=== PATIENT | male | born 1990 | race Caucasian/White ===

== ENCOUNTER → 2016-11-01 | Outpatient (CLI) | payer MEDICAID ==
[~2016-11-01] MED LIST: ALBU1.25 INH; DICY10CA12 PO; DIVA250T12 PO; FLT11013 INH; LEVE500T6 PO; LISI-552 PO; LURA80TA3 PO; PANT40TA3 PO; RT-ALBUINH; SIMV40TA4 PO; SUCR1TAB PO
[2016-11-04 07:20] LABS: SOYBEAN ALLERGEN <0.35 kU/L (<0.35)
[2016-11-04 07:21] LABS: ALLERGEN INTERP SEE FOOTNOTE; COCONUT CL CLASS 0; COCONUT RAST ALLERGEN <0.35 kU/L (<0.35); MILK (COW'S) CS CLASS 2; MILK (COW'S) CT 1.56 H KU/L (0.00-0.34); SHRIMP ALLERGEN <0.35 kU/L (<0.35); SHRIMP CL CLASS 0; SOYBEAN CL CLASS 0; TUNA CL CLASS 0; TUNA CT <0.35 kU/L (<0.35)
[2016-11-09 07:45] LABS: AMOXICILLIN CL 0; AMOXICILLIN CT <0.10 kU/L (<0.35); AMPICILLIN CL 0; AMPICILLIN CT <0.10 kU/L (<0.35); PENICILLIN G CL 0; PENICILLIN G CT <0.10 kU/L (<0.35); PENICILLIN V CT <0.10 kU/L (<0.35)
[2016-11-09 07:46] LABS: PENICILLIN V CL 0
== END ==
LOC: LAB 16:10
PROVIDERS: ATTEND Nurse Practitioner Psychiatric/Mental Health
DX: F25.0 Schizoaffective disorder, bipolar type (principal); Z79.899 Other long term (current) drug therapy
CPT/HCPCS: 36415; 80164; 86003

== ENCOUNTER 2016-11-28 23:52 | Emergency (ER) | payer MEDICAID ==
[~2016-11-28] VITALS: Ht 177.8 cm; Wt 83.9 kg
[2016-11-29] MEDS ORDERED: ALBU1.25 INH (00:06)
[2016-11-29] MEDS ORDERED: SUCR1TAB PO (00:06)
[2016-11-29] MEDS ORDERED: DIVA250T12 PO (00:06)
[2016-11-29] MEDS ORDERED: LURA80TA3 PO (00:06)
[2016-11-29] MEDS ORDERED: DICY10CA12 PO (00:06)
[2016-11-29] MEDS ORDERED: FLT11013 INH (00:06)
[2016-11-29] MEDS ORDERED: RT-ALBUINH (00:06)
[2016-11-29] MEDS ORDERED: LEVE500T6 PO (00:06)
[2016-11-29] MEDS ORDERED: SIMV40TA4 PO (00:06)
[2016-11-29] MEDS ORDERED: PANT40TA3 PO (00:06)
[2016-11-29] MEDS ORDERED: LISI-552 PO (00:06)
--- NOTE | 2016-11-29 00:10 | ED General ---
General Stated Complaint: FLUID IN LUNGS Source of Information: Patient, EMS Exam Limitations: No Limitations History of Present Illness Time Seen by Provider: 23:55 Initial Comments Arrives via EMS with report of not feeling well for 2 weeks. States that he was not even able to move a couch today without feeling weak. He takes a variety of medicines and states that he has been taking those. He has not been taking his inhaler because he has felt too bad to do that. Seen by his provider last week and told that he probably had the flu or something but he did not get better. He called EMS tonight because he was just feeling so bad. Arise via EMS with IV established and 1 L normal saline running. Timing/Duration: Changing Over Time, Other (2 weeks) Severity: Moderate Associated Systoms: No Chest Pain, Cough, No Fever/Chills, No Nausea/Vomiting, No Shortness of Air, Weakness Allergies and Home Medications Allergies Coded Allergies: No Known Drug Allergies (Unverified , 11/29/16) Home Medications Albuterol Sulfate 1.25 Mg/3 Ml Vial.neb, 1 INH INH UD, #75 (Reported) Albuterol Sulfate 1 Puff Puff, #9 (Reported) Dicyclomine HCl 10 Mg Capsule, 1 CAP PO UD, #120 (Reported) Divalproex Sodium 250 Mg Tab.er.24h, 1 TAB PO UD, #90 (Reported) Fluticasone Propionate 1 Ea Aero, 1 INH INH UD, #12 (Reported) Levetiracetam 500 Mg Tablet, 1 TAB PO BID, #60 (Reported) Lisinopril 20 Mg Tablet, 1 TAB PO UD, #30 (Reported) Lurasidone HCl 80 Mg Tablet, 1 TAB PO UD, #30 (Reported) Pantoprazole Sodium 40 Mg Tablet.dr, 1 TAB PO UD, #30 (Reported) Simvastatin 40 Mg Tablet, 1 TAB PO UD, #30 (Reported) Sucralfate 1 Gm Tablet, 1 TAB PO BID, #60 (Reported) Constitutional: see HPI, No chills, No fever, weakness EENTM: nose congestion, No ear pain, No throat pain Respiratory: see HPI, cough, short of breath Cardiovascular: No chest pain Gastrointestinal: loss of appetite, No nausea, No vomiting Genitourinary: No dysuria, No pain Musculoskeletal: see HPI, muscle weakness Skin: no symptoms reported Psychiatric/Neurological: See HPI, Emotional Problems All Other Systems Reviewed Negative Unless Noted: Yes Past Bovfptg-Psfnhl-Yvgcbn Hx Patient Social History Alcohol Use: Denies Use Recreational Drug Use: No Smoking Status: Never a Smoker Recent Foreign Travel: No Contact w/Someone Who Travel: No Surgeries HX Surgeries: No Respiratory Hx Respiratory Disorders: Yes Respiratory Disorders: Asthma Cardiovascular Cardiac Disorders: High Cholesterol, Hypertension Neurological Hx Neurological Disorders: No Genitourinary Hx Genitourinary Disorders: No Gastrointestinal Hx Gastrointestinal Disorders: No Musculoskeletal Hx Musculoskeletal Disorders: No Endocrine Hx Endocrine Disorders: No HEENT HX ENT Disorders: No Cancer Hx Cancer: No Psychosocial Hx Psychiatric Problems: Yes Behavioral Health Disorders: Bipolar Reviewed Nursing Assessment Reviewed/Agree w Nursing PMH: Yes Family Medical History Significant Family History: No Pertinent Family Hx Physical Exam Vital Signs Vital Sign - Last 12Hours 11/29/16 00:07 Temp 98.8 Pulse 104 Resp 18 B/P (MAP) 123/88 Pulse Ox 95 O2 Delivery Room Air Capillary Refill : General Appearance: No Apparent Distress, WD/WN HEENT: PERRL/EOMI, Pharynx Normal Neck: Non Tender, Supple Respiratory: Lungs Clear, Normal Breath Sounds Cardiovascular: Regular Rate, Rhythm, No Murmur Gastrointestinal: Non Tender, Soft Back: Normal Inspection, No CVA Tenderness, No Vertebral Tenderness Extremity: Non Tender, No Calf Tenderness Neurologic/Psychiatric: Alert, Oriented x3 Skin: Normal Color, Warm/Dry Progress/Results/Core Measures Results/Orders Lab Results Laboratory Tests Test 11/28/16 23:55 11/29/16 00:58 Range/Units White Blood Count 10.2 4.3-11.0 10^3/uL Red Blood Count 4.92 4.35-5.85 10^6/uL Hemoglobin 13.7 13.3-17.7 G/DL Hematocrit 41 40-54 % Mean Corpuscular Volume 84 80-99 FL Mean Corpuscular Hemoglobin 28 25-34 PG Mean Corpuscular Hemoglobin Concent 33 32-36 G/DL Red Cell Distribution Width 14.4 10.0-14.5 % Platelet Count 298 130-400 10^3/uL Mean Platelet Volume 9.4 7.4-10.4 FL Neutrophils (%) (Auto) 58 42-75 % Lymphocytes (%) (Auto) 24 12-44 % Monocytes (%) (Auto) 17 H 0-12 % Eosinophils (%) (Auto) 1 0-10 % Basophils (%) (Auto) 1 0-10 % Neutrophils # (Auto) 5.9 1.8-7.8 X 10^3 Lymphocytes # (Auto) 2.4 1.0-4.0 X 10^3 Monocytes # (Auto) 1.8 H 0.0-1.0 X 10^3 Eosinophils # (Auto) 0.1 0.0-0.3 10^3/uL Basophils # (Auto) 0.1 0.0-0.1 10^3/uL Sodium Level 136 135-145 MMOL/L Potassium Level 3.5 L 3.6-5.0 MMOL/L Chloride Level 103 98-107 MMOL/L Carbon Dioxide Level 21 21-32 MMOL/L Anion Gap 12 5-14 MMOL/L Blood Urea Nitrogen 21 H 7-18 MG/DL Creatinine 1.06 0.60-1.30 MG/DL Estimat Glomerular Filtration Rate > 60 BUN/Creatinine Ratio 20 Glucose Level 88 70-105 MG/DL Calcium Level 9.2 8.5-10.1 MG/DL Total Bilirubin 0.8 0.1-1.0 MG/DL Aspartate Amino Transf (AST/SGOT) 25 5-34 U/L Alanine Aminotransferase (ALT/SGPT) 31 0-55 U/L Alkaline Phosphatase 57 40-136 U/L C-Reactive Protein High Sensitivity 1.17 H 0.00-0.50 MG/DL Total Protein 7.3 6.4-8.2 G/DL Albumin 4.5 3.2-4.5 G/DL Urine Color YELLOW Urine Clarity CLEAR Urine pH 5 5-9 Urine Specific [place] 1.010 L 1.016-1.022 Urine Protein NEGATIVE NEGATIVE Urine Glucose (UA) NEGATIVE NEGATIVE Urine Ketones NEGATIVE NEGATIVE Urine Nitrite NEGATIVE NEGATIVE Urine Bilirubin NEGATIVE NEGATIVE Urine Urobilinogen NORMAL NORMAL MG/DL Urine Leukocyte Esterase NEGATIVE NEGATIVE Urine RBC (Auto) NEGATIVE NEGATIVE Urine RBC NONE /HPF Urine WBC NONE /HPF Urine Squamous Epithelial Cells 0-2 /HPF Urine Crystals NONE /LPF Urine Bacteria NEGATIVE /HPF Urine Casts NONE /LPF Urine Mucus NEGATIVE /LPF Urine Culture Indicated NO My Orders Orders - KARLENE WALTERS MD Cbc With Automated Diff (11/29/16 00:02) Comprehensive Metabolic Panel (11/29/16 00:02) Hs C Reactive Protein (11/29/16 00:02) Ua Culture If Indicated (11/29/16 00:02) Chest Pa/Lat (2 View) (11/29/16 00:02) Vital Signs/I&O Vital Sign - Last 12Hours 11/29/16 00:07 Temp 98.8 Pulse 104 Resp 18 B/P (MAP) 123/88 Pulse Ox 95 O2 Delivery Room Air Progress Note : Progress Note Seen and evaluated. IV by EMS. We will complete normal saline 1 L bolus initiated by EMS. Labs and chest x-ray ordered. Patient states that he is unable provide urine sample at this time. Monitor patient. 0050: UA obtained. 0120: Fluids complete. No acute findings on labs, x-ray or UA. Discharged home with return precautions. Patient verbalize understanding instructions and agreement with plan. Departure Impression Impression: Primary Impression: Viral syndrome Disposition: HOME, SELF-CARE Condition: Stable Departure-Patient Inst. Decision time for Depature: 01:20 Referrals: GEN DAVIS DO (PCP) Primary Care Physician SIRENA ABDALLA APRN (Family) Primary Care Physician Patient Instructions: VIRAL SYNDROME Add. Discharge Instructions: Drink plenty of fluids. Continue home medications as directed. Use inhalers as needed and as prescribed. Follow-up with your in a few days for recheck. Return for worse pain, fever, vomiting, weakness, rhythm problems or other concerns as needed. KARLENE WALTERS MD Nov 29, 2016 00:10
[2016-11-29 00:14] LABS: BASOPHILS # (AUTO) 0.1 10^3/uL (0.0-0.1); BASOPHILS % (AUTO) 1 % (0-10); EOSINOPHILS # (AUTO) 0.1 10^3/uL (0.0-0.3); EOSINOPHILS % (AUTO) 1 % (0-10); LYMPHOCYTES # (AUTO) 2.4 X 10^3 (1.0-4.0); LYMPHOCYTES % (AUTO) 24 % (12-44); MEAN CORPUSCULAR HEMOGLOBIN 28 PG (25-34); MEAN CORPUSCULAR HGB CONC 33 G/DL (32-36); MEAN CORPUSCULAR VOLUME 84 FL (80-99); MEAN PLATELET VOLUME 9.4 FL (7.4-10.4); MONOCYTES # (AUTO) 1.8 X 10^3 (0.0-1.0); MONOCYTES % (AUTO) 17 % (0-12); NEUTROPHILS # (AUTO) 5.9 X 10^3 (1.8-7.8); NEUTROPHILS % (AUTO) 58 % (42-75); PLATELET COUNT 298 10^3/uL (130-400); RED BLOOD COUNT 4.92 10^6/uL (4.35-5.85); RED CELL DISTRIBUTION WIDTH 14.4 % (10.0-14.5); WHITE BLOOD COUNT 10.2 10^3/uL (4.3-11.0)
[2016-11-29 00:37] LABS: ALANINE AMINOTRANSFERASE 31 U/L (0-55); ALBUMIN 4.5 G/DL (3.2-4.5); ANION GAP 12 MMOL/L (5-14); ASPARTATE AMINO TRANSFERASE 25 U/L (5-34); BILIRUBIN,TOTAL 0.8 MG/DL (0.1-1.0); BLOOD UREA NITROGEN 21 MG/DL (7-18); BUN/CREATININE RATIO 20; CALCIUM 9.2 MG/DL (8.5-10.1); CARBON DIOXIDE 21 MMOL/L (21-32); CHLORIDE 103 MMOL/L (98-107); CREATININE SERUM 1.06 MG/DL (0.60-1.30); GFR ESTIMATED > 60; GLUCOSE 88 MG/DL (70-105); POTASSIUM 3.5 MMOL/L (3.6-5.0); SODIUM 136 MMOL/L (135-145); TOTAL PROTEIN 7.3 G/DL (6.4-8.2); hs C REACTIVE PROTEIN 1.17 MG/DL (0.00-0.50)
[2016-11-29 01:09] LABS: BILIRUBIN,URINE NEGATIVE (NEGATIVE); KETONES,URINE NEGATIVE (NEGATIVE); LEUKOCYTE ESTERASE ,URINE NEGATIVE (NEGATIVE); NITRITE,URINE NEGATIVE (NEGATIVE); PH,URINE 5 (5-9); PROTEIN,URINE NEGATIVE (NEGATIVE); UROBILINOGEN,URINE NORMAL (NORMAL)
[2016-11-29 01:15] LABS: SQUAMOUS EPITHELIAL CELL,UR 0-2 /HPF
[2016-11-29 01:35] VITALS: BP 125/79
--- NOTE | 2016-11-29 08:09 | Diagnostic Imaging Report ---
PA and lateral views of the chest Indication: Patient feels unwell Findings: The lungs are clear. The heart size is normal. There is no effusion or pneumothorax The mediastinum and robinson appear unremarkable. Impression: Unremarkable study. Dictated by: Dictated on workstation # [id number]
== END 2016-11-29 01:33 | disposition home or self-care (01) ==
LOC: EDUNIT# 23:52 → ER 23:53
DX: B34.9 Viral infection, unspecified (principal); I10 Essential (primary) hypertension; Z79.899 Other long term (current) drug therapy
CPT/HCPCS: 36415; 71020; 80053; 81000; 85025; 86141; 99283

== ENCOUNTER 2017-05-18 23:01 | Emergency (ER) | payer MEDICAID ==
[~2017-05-18] VITALS: Ht 170.2 cm; Wt 81.6 kg
[2017-05-18] MEDS ORDERED: NS IV 1000 ML 1,000 ML IV ONE (23:07)
--- OUTSIDE RECORDS SUMMARY | 2017-05-18 23:07 | XMS REPORT ---
Author Author SIRENA ABDALLA [facility] Address [address] [place] [address] Care Team Providers Care Blood Donor Unit Assistant Name Role Phone SIRENA ABDALLA Unavailable PROBLEMS Type Condition ICD9-CM Code [id number] Code Onset Dates Condition Status SNOMED Code Problem Chronic nausea R11.0 Active 981253136 Problem Bipolar 1 disorder, depressed F31.9 Active 19342567 Problem Seizure disorder G40.909 Active 588921219 Problem Moderate persistent asthma without complication J45.40 Active 895310790 Problem Mild intermittent asthma without complication J45.20 Active 000900758 Problem Gastroesophageal reflux disease without esophagitis K21.9 Active 134786450 Problem Encounter for dental examination and cleaning without abnormal findings Z01.20 Active 511907068 Problem Bipolar 1 disorder with moderate south F31.12 Active 78154112 Problem Schizoaffective disorder, bipolar type F25.0 Active 52674868 Problem Benign essential hypertension I10 Active 8214452 Problem Sleep disturbance G47.9 Active 31826377 Problem Auditory hallucination R44.0 Active 20336211 ALLERGIES No Information SOCIAL HISTORY Never Assessed PLAN OF CARE VITAL SIGNS MEDICATIONS Unknown Medications RESULTS No Results PROCEDURES No Known procedures IMMUNIZATIONS No Known Immunizations MEDICAL (GENERAL) HISTORY Type Description Date Medical History asthma - mild intermittent ( PFT 10/2016 Normal) Medical History hypertension Medical History seizures- childhood Medical History bipolar disorder- [facility] Medical History GERD Medical History auditory hallucinations- Surgical History hernia repair/ Inguinal ( child) Surgical History EGD- 2015 Hospitalization History [facility] for two to three days. 08/2016
--- OUTSIDE RECORDS SUMMARY | 2017-05-18 23:07 | XMS REPORT ---
Author Author [facility] Address [address] [place] [address] Care Team Providers Care Wellness Program Administrator Name Role Phone SIRENA ABDALLA Unavailable PROBLEMS Type Condition ICD9-CM Code TRR02-AG Code Onset Dates Condition Status SNOMED Code Problem Chronic nausea R11.0 Active 600516267 Problem Bipolar 1 disorder, depressed F31.9 Active 53130621 Problem Seizure disorder G40.909 Active 868628734 Problem Moderate persistent asthma without complication J45.40 Active 560075787 Problem Mild intermittent asthma without complication J45.20 Active 458764980 Problem Gastroesophageal reflux disease without esophagitis K21.9 Active 571337342 Problem Encounter for dental examination and cleaning without abnormal findings Z01.20 Active 560566367 Problem Bipolar 1 disorder with moderate south F31.12 Active 35834148 Problem Schizoaffective disorder, bipolar type F25.0 Active 20330323 Problem Benign essential hypertension I10 Active 6473443 Problem Sleep disturbance G47.9 Active 80511909 Problem Auditory hallucination R44.0 Active 59972701 ALLERGIES No Information SOCIAL HISTORY Never Assessed PLAN OF CARE VITAL SIGNS MEDICATIONS Unknown Medications RESULTS No Results PROCEDURES Procedure Date Ordered Result Body Site PULMONARY FUNCTION TEST (IN-HOUSE) 2016-10-26 N/A RESPIRATORY FLOW VOLUME LOOP October 26, 2016 SPIROMETRY October 26, 2016 NEB/MDI DEMO October 26, 2016 IMMUNIZATIONS No Known Immunizations MEDICAL (GENERAL) HISTORY Type Description Date Medical History asthma - mild intermittent ( PFT 10/2016 Normal) Medical History hypertension Medical History seizures- childhood Medical History bipolar disorder- [facility] Medical History GERD Medical History auditory hallucinations- Surgical History hernia repair/ Inguinal ( child) Surgical History EGD- / 2015 Hospitalization History [facility] for two to three days. 08/2016
--- OUTSIDE RECORDS SUMMARY | 2017-05-18 23:07 | XMS REPORT ---
Author Author SIRENA ABDALLA [facility] Address [address] [place] [address] Care Team Providers Care Glazier Stained Glass Name Role Phone SIRENA ABDALLA Unavailable PROBLEMS Type Condition ICD9-CM Code ITT03-DV Code Onset Dates Condition Status SNOMED Code Problem Chronic nausea R11.0 Active 631051045 Problem Bipolar 1 disorder, depressed F31.9 Active 50608692 Problem Seizure disorder G40.909 Active 786187365 Problem Moderate persistent asthma without complication J45.40 Active 608348996 Problem Mild intermittent asthma without complication J45.20 Active 928012438 Problem Gastroesophageal reflux disease without esophagitis K21.9 Active 945180308 Problem Encounter for dental examination and cleaning without abnormal findings Z01.20 Active 462717632 Problem Bipolar 1 disorder with moderate south F31.12 Active 94354074 Problem Schizoaffective disorder, bipolar type F25.0 Active 84792085 Problem Benign essential hypertension I10 Active 3890118 Problem Sleep disturbance G47.9 Active 47403892 Problem Auditory hallucination R44.0 Active 79296914 ALLERGIES Substance Reaction Event Type Date Status Latuda Unknown Drug Allergy Sep, Active Penicillamine Unknown Drug Allergy Sep, Active SOCIAL HISTORY Never Assessed PLAN OF CARE Activity Details Follow Up 1 Week Reason:fasting labs ( follow up after PFT) VITAL SIGNS Height 68 in 2016-10-04 Weight 183.7 lbs 2016-10-04 Temperature 97.9 degrees Fahrenheit 2016-10-04 Heart Rate 90 bpm 2016-10-04 Respiratory Rate 16 2016-10-04 BMI 27.93 kg/m2 2016-10-04 Blood pressure systolic 128 mmHg 2016-10-04 Blood pressure diastolic 82 mmHg 2016-10-04 MEDICATIONS Medication Instructions Dosage Frequency Start Date End Date Duration Status Zyrtec Allergy 10 MG Active Lisinopril 20 mg Orally Once a day 1 tablet 24h Active Keppra 500 mg Orally every 12 hrs 1 tablet 12h Active Pantoprazole Sodium 40 mg Orally Once a day 1 tablet 24h Active Bentyl 10 mg Orally Four times a day 1 capsule 6h Active Albuterol Sulfate HFA 108 (90 Base) MCG/ACT Inhalation 3 times a day 2 puffs as needed 8h Active Zocor 10 mg Orally Once a day as needed for nausea 1 tablet Active Latuda 80 MG Orally Once a day 1 tablet with food 24h Active Carafate 1 GM Orally Twice a day 1 tablet on an empty stomach 12h Active Zofran 8 MG Orally Once a day 1 tablet 24h Active Depakote 250 MG Orally 3 times a day 1 tablet 8h Active RESULTS No Results PROCEDURES No Known procedures IMMUNIZATIONS No Known Immunizations MEDICAL (GENERAL) HISTORY Type Description Date Medical History asthma - mild intermittent ( PFT 10/2016 Normal) Medical History hypertension Medical History seizures- childhood Medical History bipolar disorder- [facility] Medical History GERD Medical History auditory hallucinations- Surgical History hernia repair/ Inguinal ( child) Surgical History EGD- 2015 Hospitalization History [facility] for two to three days. 08/2016
--- OUTSIDE RECORDS SUMMARY | 2017-05-18 23:07 | XMS REPORT | Continuity of Care Document ---
Demographics Preferred Language Unknown Marital Status Unknown Oriental Orthodox Affiliation Unknown Race Unknown Ethnic Group Unknown Author Author [facility] Organization [facility] - Address Unknown Phone Unavailable Allergies Medications Problems Procedures Results Encounters ACCT No. Visit Date/Time Discharge Status Pt. Type Provider Facility Loc./Unit Complaint [id number] 05/03/2014 07:19:00 ACT Unknown [id number] 04/23/2014 07:20:00 ACT Unknown [id number] 01/03/2014 07:20:00 ACT Unknown [id number] 12/25/2013 07:16:00 ACT Unknown [id number] 09/25/2013 07:16:00 ACT Unknown [id number] 09/24/2013 10:57:00 ACT Unknown
[2017-05-18] MEDS ORDERED: ONDANSETRON 4 MG/2 ML (SDV) Z0FRAN IVP ONE (23:15)
[2017-05-18] MEDS ORDERED: FAMOTIDINE 20MG/2ML IV (PEPCID) IVP ONE (23:15)
[2017-05-18 23:29] LABS: BILIRUBIN,URINE NEGATIVE (NEGATIVE); KETONES,URINE NEGATIVE (NEGATIVE); LEUKOCYTE ESTERASE ,URINE NEGATIVE (NEGATIVE); NITRITE,URINE NEGATIVE (NEGATIVE); PH,URINE 6 (5-9); PROTEIN,URINE NEGATIVE (NEGATIVE); UROBILINOGEN,URINE NORMAL (NORMAL)
[2017-05-18 23:30] LABS: BASOPHILS % (AUTO) 1 % (0-10); EOSINOPHILS # (AUTO) 0.2 10^3/uL (0.0-0.3); EOSINOPHILS % (AUTO) 2 % (0-10); LYMPHOCYTES # (AUTO) 3.5 X 10^3 (1.0-4.0); LYMPHOCYTES % (AUTO) 40 % (12-44); MEAN CORPUSCULAR HEMOGLOBIN 29 PG (25-34); MEAN CORPUSCULAR HGB CONC 34 G/DL (32-36); MEAN CORPUSCULAR VOLUME 86 FL (80-99); MEAN PLATELET VOLUME 9.7 FL (7.4-10.4); MONOCYTES # (AUTO) 0.8 X 10^3 (0.0-1.0); MONOCYTES % (AUTO) 9 % (0-12); NEUTROPHILS # (AUTO) 4.2 X 10^3 (1.8-7.8); NEUTROPHILS % (AUTO) 48 % (42-75); PLATELET COUNT 292 10^3/uL (130-400); RED CELL DISTRIBUTION WIDTH 14.9 % (10.0-14.5); WHITE BLOOD COUNT 8.8 10^3/uL (4.3-11.0)
[2017-05-18 23:48] LABS: ALANINE AMINOTRANSFERASE 22 U/L (0-55); ALBUMIN 4.8 GM/DL (3.2-4.5); ANION GAP 14 MMOL/L (5-14); ASPARTATE AMINO TRANSFERASE 20 U/L (5-34); BILIRUBIN,TOTAL 0.5 MG/DL (0.1-1.0); BLOOD UREA NITROGEN 14 MG/DL (7-18); BUN/CREATININE RATIO 14; CALCIUM 10.2 MG/DL (8.5-10.1); CARBON DIOXIDE 22 MMOL/L (21-32); CHLORIDE 105 MMOL/L (98-107); CREATININE SERUM 1.01 MG/DL (0.60-1.30); GFR ESTIMATED > 60; GLUCOSE 99 MG/DL (70-105); LIPASE 36 U/L (8-78); MAGNESIUM 2.2 MG/DL (1.8-2.4); POTASSIUM 3.4 MMOL/L (3.6-5.0); SODIUM 141 MMOL/L (135-145); TOTAL PROTEIN 8.1 GM/DL (6.4-8.2)
[2017-05-19] MEDS ORDERED: RX-ONDANSETRON 4 MG ODT (ZOFRAN) PPK #4 SL STA (00:08)
[2017-05-19] MEDS ORDERED: OMEP20CA12 PO (00:14)
--- NOTE | 2017-05-19 00:17 | ED General ---
General Chief Complaint: General Problems/Pain Stated Complaint: NAUSEA Nursing Triage Note: PT TO ED 7 PER EMS FOR C/O NAUSEA ONSET LAST NOC AFTER TAKING LATUDA. REPORTS HE'S ALLERGIC TO LATUDA BUT WAS PRESCRIBED A LOWER DOSE TO TAKE. ALSO REPORTS SOME C/O ABD PAIN. PER EMS, PT HAS HX OF HIATAL HERNIA BUT IS NONCOMPLIANT W/ MEDICATION Nursing Sepsis Screen: No Definite Risk Source of Information: Patient Exam Limitations: No Limitations Allergies and Home Medications Allergies Coded Allergies: No Known Drug Allergies (Unverified , 11/29/16) Home Medications Albuterol Sulfate 1.25 Mg/3 Ml Vial.neb, 1 INH INH UD, #75 (Reported) Albuterol Sulfate 1 Puff Puff, #9 (Reported) Dicyclomine HCl 10 Mg Capsule, 1 CAP PO UD, #120 (Reported) Divalproex Sodium 250 Mg Tab.er.24h, 1 TAB PO UD, #90 (Reported) Fluticasone Propionate 1 Ea Aero, 1 INH INH UD, #12 (Reported) Levetiracetam 500 Mg Tablet, 1 TAB PO BID, #60 (Reported) Lisinopril 20 Mg Tablet, 1 TAB PO UD, #30 (Reported) Lurasidone HCl 80 Mg Tablet, 1 TAB PO UD, #30 (Reported) Omeprazole 20 Mg Capsule.dr, 20 MG PO DAILY, #30 Prescribed by: HESHAM CABRERA on 05/19/17 0014 Pantoprazole Sodium 40 Mg Tablet.dr, 1 TAB PO UD, #30 (Reported) Simvastatin 40 Mg Tablet, 1 TAB PO UD, #30 (Reported) Sucralfate 1 Gm Tablet, 1 TAB PO BID, #60 (Reported) Past Xkyvied-Qemxxl-Niyajx Hx Patient Social History Alcohol Use: Denies Use Recreational Drug Use: No Smoking Status: Never a Smoker 2nd Hand Smoke Exposure: No Recent Foreign Travel: No Contact w/Someone Who Travel: No Recent Infectious Disease Expo: No Recent Hopitalizations: No Physical Abuse: No Sexual Abuse: No Mistreated: No Fear: No Immunizations Up To Date Tetanus Booster (TDap): Unknown Seasonal Allergies Seasonal Allergies: No Surgeries History of Surgeries: No Respiratory History of Respiratory Disorde: Yes Respiratory Disorders: Asthma Cardiovascular History of Cardiac Disorders: Yes Cardiac Disorders: High Cholesterol, Hypertension Neurological History of Neurological Disord: No Neurological Disorders: Seizure Disorder Reproductive System Hx Reproductive Disorders: No Gastrointestinal History of Gastrointestinal Di: Yes Gastrointestinal Disorders: Gastroesophageal Reflux Musculoskeletal History of Musculoskeletal Dis: No Endocrine History of Endocrine Disorders: No Cancer History of Cancer: No Psychosocial History of Psychiatric Problem: Yes Behavioral Health Disorders: Bipolar Suicide Risk Score: 0 Integumentary History of Skin or Integumenta: No Blood Transfusions History of Blood Disorders: No Family Medical History Significant Family History: No Pertinent Family Hx Physical Exam Vital Signs Vital Sign - Last 12Hours 05/18/17 23:02 Temp 98.1 Pulse 109 Resp 20 B/P (MAP) 140/107 Pulse Ox 99 O2 Delivery Room Air Capillary Refill : Less Than 3 Seconds Progress/Results/Core Measures Results/Orders Lab Results Laboratory Tests Test 05/18/17 23:10 05/18/17 23:15 Range/Units Urine Color YELLOW Urine Clarity CLEAR Urine pH 6 5-9 Urine Specific [place] 1.025 H 1.016-1.022 Urine Protein NEGATIVE NEGATIVE Urine Glucose (UA) NEGATIVE NEGATIVE Urine Ketones NEGATIVE NEGATIVE Urine Nitrite NEGATIVE NEGATIVE Urine Bilirubin NEGATIVE NEGATIVE Urine Urobilinogen NORMAL NORMAL MG/DL Urine Leukocyte Esterase NEGATIVE NEGATIVE Urine RBC (Auto) NEGATIVE NEGATIVE Urine RBC NONE /HPF Urine WBC NONE /HPF Urine Squamous Epithelial Cells NONE /HPF Urine Crystals NONE /LPF Urine Bacteria NEGATIVE /HPF Urine Casts NONE /LPF Urine Mucus NEGATIVE /LPF Urine Culture Indicated NO White Blood Count 8.8 4.3-11.0 10^3/uL Red Blood Count 5.20 4.35-5.85 10^6/uL Hemoglobin 15.2 13.3-17.7 G/DL Hematocrit 45 40-54 % Mean Corpuscular Volume 86 80-99 FL Mean Corpuscular Hemoglobin 29 25-34 PG Mean Corpuscular Hemoglobin Concent 34 32-36 G/DL Red Cell Distribution Width 14.9 H 10.0-14.5 % Platelet Count 292 130-400 10^3/uL Mean Platelet Volume 9.7 7.4-10.4 FL Neutrophils (%) (Auto) 48 42-75 % Lymphocytes (%) (Auto) 40 12-44 % Monocytes (%) (Auto) 9 0-12 % Eosinophils (%) (Auto) 2 0-10 % Basophils (%) (Auto) 1 0-10 % Neutrophils # (Auto) 4.2 1.8-7.8 X 10^3 Lymphocytes # (Auto) 3.5 1.0-4.0 X 10^3 Monocytes # (Auto) 0.8 0.0-1.0 X 10^3 Eosinophils # (Auto) 0.2 0.0-0.3 10^3/uL Basophils # (Auto) 0.0 0.0-0.1 10^3/uL Sodium Level 141 135-145 MMOL/L Potassium Level 3.4 L 3.6-5.0 MMOL/L Chloride Level 105 98-107 MMOL/L Carbon Dioxide Level 22 21-32 MMOL/L Anion Gap 14 5-14 MMOL/L Blood Urea Nitrogen 14 7-18 MG/DL Creatinine 1.01 0.60-1.30 MG/DL Estimat Glomerular Filtration Rate > 60 BUN/Creatinine Ratio 14 Glucose Level 99 70-105 MG/DL Calcium Level 10.2 H 8.5-10.1 MG/DL Magnesium Level 2.2 1.8-2.4 MG/DL Total Bilirubin 0.5 0.1-1.0 MG/DL Aspartate Amino Transf (AST/SGOT) 20 5-34 U/L Alanine Aminotransferase (ALT/SGPT) 22 0-55 U/L Alkaline Phosphatase 67 40-136 U/L Total Protein 8.1 6.4-8.2 GM/DL Albumin 4.8 H 3.2-4.5 GM/DL Lipase 36 8-78 U/L My Orders Orders - HESHAM MCCORMICK MD Cbc With Automated Diff (05/18/17 23:07) Comprehensive Metabolic Panel (05/18/17 23:07) Lipase (05/18/17 23:07) Magnesium (05/18/17 23:07) Ua Culture If Indicated (05/18/17 23:07) Chest Pa/Lat (2 View) (05/18/17 23:07) Saline Lock/Iv-Start (05/18/17 23:07) Ns Iv 1000 Ml (Sodium Chloride 0.9%) (05/18/17 23:07) Famotidine Injection (Pepcid Injection) (05/18/17 23:15) Ondansetron Injection (Zofran Injectio (05/18/17 23:15) Rx-Ondansetron Po (Rx-Zofran Po) (05/19/17 00:08) Medications Given in ED Current Medications Medications Dose Ordered Sig/Nadine Route Start Time Stop Time Status Last Admin Dose Admin Famotidine 20 mg ONCE ONCE IVP 05/18/17 23:15 05/18/17 23:16 DC 05/18/17 20:17 20 MG Ondansetron HCl 8 mg ONCE ONCE IVP 05/18/17 23:15 05/18/17 23:16 DC 05/18/17 20:17 8 MG Sodium Chloride 1,000 ml @ 0 mls/hr Q0M ONCE IV 05/18/17 23:07 05/18/17 23:11 DC 05/18/17 23:17 1,000 MLS/HR Vital Signs/I&O Vital Sign - Last 12Hours 05/18/17 05/19/17 23:02 00:22 Temp 98.1 Pulse 109 98 Resp 20 20 B/P (MAP) 140/107 Pulse Ox 99 99 O2 Delivery Room Air Room Air Blood Pressure Mean: 118 Departure Impression Impression: Primary Impression: Generalized abdominal pain Additional Impressions: Nausea Hiatal hernia Disposition: HOME, SELF-CARE Condition: Improved Departure-Patient Inst. Decision time for Depature: 00:00 Referrals: GEN DAVIS DO (PCP) Primary Care Physician SIRENA ABDALLA APRN (Family) Primary Care Physician Patient Instructions: Acute Abdomen (Belly Pain), Hiatal Hernia Add. Discharge Instructions: Use the Zofran (ondansetron) provided in the emergency room every 4 hours as needed for nausea and vomiting. Dissolve under the tongue. Add omeprazole as prescribed for treatment of your hiatal hernia. Avoid the following: Eating large meals, eating close to bedtime, caffeine, carbonation, chocolate, citrus fruits and juices, tomato products, spicy foods, fatty or greasy foods, mints, NSAID medications such as ibuprofen or naproxen, or anything else you know irritates your stomach. Continue use of your Carafate ( sucralfate). Carafate may work better if you crush it and mix it with a small amount of water to make a slurry. Use Carafate 30 minutes before eating or drinking and 30 minutes before bedtime. Follow-up with your primary care provider within the next week. Return to the ER if symptoms worsen. All discharge instructions reviewed with patient and/or family. Voiced understanding. Scripts Omeprazole (Omeprazole) 20 Mg Capsule. 20 MG PO DAILY, #30 CAP Prov: HESHAM MCCORMICK MD 05/19/17 HESHAM MCCORMICK MD May 19, 2017 00:17
[2017-05-19 00:22] VITALS: BP 128/78
--- NOTE | 2017-05-19 07:22 | Diagnostic Imaging Report ---
PA and lateral views of the chest. COMPARISON: 11/29/16. INDICATION: Nausea. FINDINGS: The lungs are clear. The heart size is normal. No effusion or pneumothorax. The mediastinum and robinson appear unremarkable. IMPRESSION: Unremarkable exam. Dictated by: Dictated on workstation # [id number]
== END 2017-05-19 00:22 | disposition home or self-care (01) ==
LOC: EDUNIT# 23:01 → ER 23:03
DX: K44.9 Diaphragmatic hernia without obstruction or gangrene (principal); R11.0 Nausea; F31.9 Bipolar disorder, unspecified; K21.9 Gastro-esophageal reflux disease without esophagitis; G40.909 Epilepsy, unspecified, not intractable, without status epilepticus; E78.00 Pure hypercholesterolemia, unspecified; I10 Essential (primary) hypertension; J45.909 Unspecified asthma, uncomplicated; Z91.14 Patient's other noncompliance with medication regimen
CPT/HCPCS: 36415; 71020; 80053; 81000; 83690; 83735; 85025

== ENCOUNTER 2017-07-29 21:11 | Emergency (ER) | payer MEDICAID ==
[~2017-07-29] VITALS: Ht 180.3 cm; Wt 81.6 kg
[~2017-07-29 21:11] MED LIST changes: +OMEP20CA12 PO
[2017-07-29] MEDS ORDERED: NS IV 1000 ML 1,000 ML IV ONE (21:15)
[2017-07-29 21:27] LABS: BASOPHILS % (AUTO) 1 % (0-10); EOSINOPHILS # (AUTO) 0.1 10^3/uL (0.0-0.3); EOSINOPHILS % (AUTO) 1 % (0-10); LYMPHOCYTES # (AUTO) 2.3 X 10^3 (1.0-4.0); LYMPHOCYTES % (AUTO) 30 % (12-44); MEAN CORPUSCULAR HEMOGLOBIN 30 PG (25-34); MEAN CORPUSCULAR HGB CONC 35 G/DL (32-36); MEAN CORPUSCULAR VOLUME 85 FL (80-99); MEAN PLATELET VOLUME 9.2 FL (7.4-10.4); MONOCYTES # (AUTO) 0.7 X 10^3 (0.0-1.0); MONOCYTES % (AUTO) 9 % (0-12); NEUTROPHILS # (AUTO) 4.6 X 10^3 (1.8-7.8); NEUTROPHILS % (AUTO) 60 % (42-75); PLATELET COUNT 257 10^3/uL (130-400); RED BLOOD COUNT 4.53 10^6/uL (4.35-5.85); RED CELL DISTRIBUTION WIDTH 13.5 % (10.0-14.5); WHITE BLOOD COUNT 7.7 10^3/uL (4.3-11.0)
[2017-07-29 21:37] LABS: INR 1.1 (0.8-1.4); PROTHROMBIN TIME PATIENT 14.1 SEC (12.2-14.7)
--- NOTE | 2017-07-29 21:50 | Diagnostic Imaging Report ---
INDICATION: Chest pain COMPARISON: 05/18/2017 FINDINGS: Single view of the chest demonstrates clear lungs bilaterally. The heart is normal. No pneumothorax. The osseous structures normal. IMPRESSION: Negative chest Dictated by: Dictated on workstation # [id number]
--- NOTE | 2017-07-29 21:52 | ED Cardiac General ---
History of Present Illness General Chief Complaint: Chest Pain Stated Complaint: CP,PALPITATIONS Nursing Triage Note: pt c/o intermittent chest pain and palpitations x 2 months Source: patient (SOMEWHAT DIFFCULT HISTORIAN--GIVES CONFLICTING / INCONSISTENT INFORMATION ), EMS History of Present Illness Time seen by provider: 21:12 Initial Comments PT ARRIVES VIA EMS FROM HOME PT STATES HIS PULSE HAS BEEN "135 TO 168" FOR AT LEAST 3 MONTHS ( FIRST STATED IT WAS GOING ON FOR A FEW WEEKS, THEN TOLD RN IT HAD BEEN 2 MONTHS AND THEN TOLD ME AT LEAST 3 MONTHS) PT REPORTS THAT HE CONSTANTLY IS CHECKING HIS PULSE WITH A HOME O2 SAT MONITOR/ PULSE OXIMETER. PT HAS BEEN TO MULTIPLE ER'S FOR THIS PROBLEM, AND CALLS THE AMBULANCE EVERY TIME PT HAS BEEN TO [facility] ER AT LEAST 3 TIMES, AND THE LAST TIME WAS 2 NIGHTS AGO. HAS ALSO BEEN TO [facility] LAST WEEK REPORTEDLY "THEY CAN'T EVER FIND ANYTHING", ACCORDING TO PT PT STATES HE HAS NOT SEEN OR BEEN REFERRED TO A [facility] PT STATES HE HAS FOLLOWED UP [facility] --THE LAST TIME WAS . NO RX. NO ADDITIONAL TESTS. AND NO REFERRAL RECOMMENDED. PT STATES HIS CHEST HAS BEEN A LITTLE TIGHT WITH IT AT TIMES AND SOMETIMES SHORT OF BREATH NO SWELLING IN LEGS/ FEET OR PAIN IN CALVES NO COUGH NO FEVER/URI SYMPTOMS MILD DIZZINESS AT TIMES PT STATES SYMPTOMS ARE NO DIFFERENT TODAY IN ANY WAY PT STATES "THEY KEEP TELLING ME TO COME BACK TO ER--I THINK IT'S RIDICULOUS" PT STATES HE WAS SITTING ON THE COUCH TONIGHT WHEN SYMPTOMS BEGAN PT QUIT TAKING/SELF DC'D HIS PSYCH MEDICATIONS A COUPLE OF MONTHS AGO--PT LATER CLAIMS THAT SYMPTOMS BEGAN BEFORE HE STOPPED TAKING THE MEDICATIONS NTG SL MATE FIRST: No ASA po MATE FIRST: No PCP: [facility] Allergies and Home Medications Allergies Coded Allergies: lurasidone (Verified Allergy, Mild, 07/29/17) nicotine (Verified Allergy, Mild, 07/29/17) trazodone (Verified Allergy, Mild, 07/29/17) Home Medications Albuterol Sulfate 1.25 Mg/3 Ml Vial.neb, 1 INH INH UD, #75 (Reported) Albuterol Sulfate 1 Puff Puff, #9 (Reported) Dicyclomine HCl 10 Mg Capsule, 1 CAP PO UD, #120 (Reported) Divalproex Sodium 250 Mg Tab.er.24h, 1 TAB PO UD, #90 (Reported) Fluticasone Propionate 1 Ea Aero, 1 INH INH UD, #12 (Reported) Levetiracetam 500 Mg Tablet, 1 TAB PO BID, #60 (Reported) Lisinopril 20 Mg Tablet, 1 TAB PO UD, #30 (Reported) Lurasidone HCl 80 Mg Tablet, 1 TAB PO UD, #30 (Reported) Omeprazole 20 Mg Capsule.dr, 20 MG PO DAILY, #30 Prescribed by: HESHAM CABRERA on 05/19/17 0014 Pantoprazole Sodium 40 Mg Tablet.dr, 1 TAB PO UD, #30 (Reported) Simvastatin 40 Mg Tablet, 1 TAB PO UD, #30 (Reported) Sucralfate 1 Gm Tablet, 1 TAB PO BID, #60 (Reported) Review of Systems Constitutional: no symptoms reported, No chills, No diaphoresis EENTM: No Symptoms Reported Respiratory: No Symptoms Reported Cardiovascular: See HPI, Chest Pain, Denies Edema, Irregular Heart Rate, Lightheadedness, Palpitations, Denies Syncope Gastrointestinal: No Symptoms Reported Genitourinary: No Symptoms Reported Musculoskeletal: no symptoms reported Skin: no symptoms reported Psychiatric/Neurological: See HPI, Anxiety Endocrine: No Symptoms Reported Hematologic/Lymphatic: No Symptoms Reported Past Ffxhfpz-Gtohni-Kwbups Hx Patient Social History Alcohol Use: Denies Use Recreational Drug Use: No Smoking Status: Never a Smoker 2nd Hand Smoke Exposure: No Recent Foreign Travel: No Contact w/Someone Who Travel: No Recent Infectious Disease Expo: No Recent Hopitalizations: No Physical Abuse: No Sexual Abuse: No Mistreated: No Fear: No Immunizations Up To Date Tetanus Booster (TDap): Unknown Seasonal Allergies Seasonal Allergies: No Surgeries History of Surgeries: Yes (hernia) Surgeries: Abdominal Respiratory History of Respiratory Disorde: Yes Respiratory Disorders: Asthma Cardiovascular History of Cardiac Disorders: Yes Cardiac Disorders: High Cholesterol, Hypertension Neurological History of Neurological Disord: Yes Neurological Disorders: Seizure Disorder Reproductive System Hx Reproductive Disorders: No Gastrointestinal History of Gastrointestinal Di: Yes Gastrointestinal Disorders: Gastroesophageal Reflux, Hiatal Hernia Musculoskeletal History of Musculoskeletal Dis: No Endocrine History of Endocrine Disorders: No HEENT History of HEENT Disorders: No Cancer History of Cancer: No Psychosocial History of Psychiatric Problem: Yes Behavioral Health Disorders: Bipolar Suicide Risk Score: 1 Integumentary History of Skin or Integumenta: No Blood Transfusions History of Blood Disorders: No Family Medical History Significant Family History: No Pertinent Family Hx Physical Exam Vital Signs Vital Sign - Last 12Hours 07/29/17 21:11 Temp 99.0 Pulse 114 Resp 20 B/P (MAP) 116/92 (100) Pulse Ox 99 O2 Delivery Room Air Capillary Refill : Less Than 3 Seconds General Appearance: No Apparent Distress, WD/WN, Other (MALODOROUS) HEENT: PERRL/EOMI Neck: Full Range of Motion, Normal Inspection, Non Tender, Supple, No Carotid Bruit, No JVD Respiratory: Normal Breath Sounds, No Accessory Muscle Use, No Respiratory Distress Cardiovascular: Regular Rate, Rhythm, No Edema, No JVD, No Murmur, Normal Peripheral Pulses Gastrointestinal: Normal Bowel Sounds, No Organomegaly, No Pulsatile Mass, Non Tender, Soft Extremity: Normal Capillary Refill, Normal Inspection, Normal Range of Motion, Non Tender, No Calf Tenderness, No Pedal Edema Neurologic/Psychiatric: Alert, Oriented x3, No Motor/Sensory Deficits, Normal 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, 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 Norm as Tested Skin: Normal Color, Warm/Dry Progress/Results/Core Measures Results/Orders Lab Results Laboratory Tests Test 07/29/17 21:22 07/29/17 23:00 Range/Units White Blood Count 7.7 4.3-11.0 10^3/uL Red Blood Count 4.53 4.35-5.85 10^6/uL Hemoglobin 13.4 13.3-17.7 G/DL Hematocrit 39 L 40-54 % Mean Corpuscular Volume 85 80-99 FL Mean Corpuscular Hemoglobin 30 25-34 PG Mean Corpuscular Hemoglobin Concent 35 32-36 G/DL Red Cell Distribution Width 13.5 10.0-14.5 % Platelet Count 257 130-400 10^3/uL Mean Platelet Volume 9.2 7.4-10.4 FL Neutrophils (%) (Auto) 60 42-75 % Lymphocytes (%) (Auto) 30 12-44 % Monocytes (%) (Auto) 9 0-12 % Eosinophils (%) (Auto) 1 0-10 % Basophils (%) (Auto) 1 0-10 % Neutrophils # (Auto) 4.6 1.8-7.8 X 10^3 Lymphocytes # (Auto) 2.3 1.0-4.0 X 10^3 Monocytes # (Auto) 0.7 0.0-1.0 X 10^3 Eosinophils # (Auto) 0.1 0.0-0.3 10^3/uL Basophils # (Auto) 0.0 0.0-0.1 10^3/uL Prothrombin Time 14.1 12.2-14.7 SEC INR Comment 1.1 0.8-1.4 Activated Partial Thromboplast Time 30 24-35 SEC Sodium Level 139 135-145 MMOL/L Potassium Level 3.1 L 3.6-5.0 MMOL/L Chloride Level 103 98-107 MMOL/L Carbon Dioxide Level 22 21-32 MMOL/L Anion Gap 14 5-14 MMOL/L Blood Urea Nitrogen 7 7-18 MG/DL Creatinine 0.79 0.60-1.30 MG/DL Estimat Glomerular Filtration Rate > 60 BUN/Creatinine Ratio 9 Glucose Level 96 70-105 MG/DL Calcium Level 9.5 8.5-10.1 MG/DL Magnesium Level 2.0 1.8-2.4 MG/DL Total Bilirubin 0.6 0.1-1.0 MG/DL Aspartate Amino Transf (AST/SGOT) 17 5-34 U/L Alanine Aminotransferase (ALT/SGPT) 19 0-55 U/L Alkaline Phosphatase 50 40-136 U/L Troponin I < 0.30 <0.30 NG/ML B-Type Natriuretic Peptide < 10.0 <100.0 PG/ML Total Protein 7.3 6.4-8.2 GM/DL Albumin 4.7 H 3.2-4.5 GM/DL TSH [place] Testing 3.11 0.35-4.94 UIU/ML Serum Alcohol < 10 <10 MG/DL Urine Color YELLOW Urine Clarity CLEAR Urine pH 7 5-9 Urine Specific [place] 1.005 L 1.016-1.022 Urine Protein 1+ H NEGATIVE Urine Glucose (UA) NEGATIVE NEGATIVE Urine Ketones NEGATIVE NEGATIVE Urine Nitrite NEGATIVE NEGATIVE Urine Bilirubin NEGATIVE NEGATIVE Urine Urobilinogen NORMAL NORMAL MG/DL Urine Leukocyte Esterase NEGATIVE NEGATIVE Urine RBC (Auto) NEGATIVE NEGATIVE Urine RBC NONE /HPF Urine WBC RARE /HPF Urine Squamous Epithelial Cells NONE /HPF Urine Renal Epithelial Cells NONE /HPF Urine Crystals NONE /LPF Urine Bacteria NEGATIVE /HPF Urine Casts NONE /LPF Urine Mucus NEGATIVE /LPF Urine Culture Indicated NO Urine Opiates Screen NEGATIVE NEGATIVE Urine Oxycodone Screen NEGATIVE NEGATIVE Urine Methadone Screen NEGATIVE NEGATIVE Urine Propoxyphene Screen NEGATIVE NEGATIVE Urine Barbiturates Screen NEGATIVE NEGATIVE Ur Tricyclic Antidepressants Screen NEGATIVE NEGATIVE Urine Phencyclidine Screen NEGATIVE NEGATIVE Urine Amphetamines Screen NEGATIVE NEGATIVE Urine Methamphetamines Screen NEGATIVE NEGATIVE Urine Benzodiazepines Screen NEGATIVE NEGATIVE Urine Cocaine Screen NEGATIVE NEGATIVE Urine Cannabinoids Screen NEGATIVE NEGATIVE My Orders Orders - ROBIN THAKUR K DO Saline Lock/Iv-Start (07/29/17 21:15) Ekg Tracing (07/29/17 21:15) Monitor-Rhythm Ecg Trace Only (07/29/17 21:15) BNP (07/29/17 21:15) Cbc With Automated Diff (07/29/17 21:15) Comprehensive Metabolic Panel (07/29/17 21:15) Drug Screen Stat (Urine) (07/29/17 21:15) Magnesium (07/29/17 21:15) Protime With Inr (07/29/17 21:15) Partial Thromboplastin Time (07/29/17 21:15) Thyroid Analyzer (07/29/17 21:15) Troponin I (07/29/17 21:15) Ua Culture If Indicated (07/29/17 21:15) Saline Lock/Iv-Start (07/29/17 21:15) Ns Iv 1000 Ml (Sodium Chloride 0.9%) (07/29/17 21:15) Ct Angio Chest W (07/29/17 21:15) Chest 1 View, Ap/Pa Only (07/29/17 21:15) Iohexol Injection (Omnipaque 350 Mg/Ml 1 (07/29/17 22:15) Ns (Ivpb) (Sodium Chloride 0.9% Ivpb Bag (07/29/17 22:15) Alcohol (07/29/17 22:41) Potassium Chloride (Tablet) (Klor Con Ta (07/29/17 23:15) Medications Given in ED Current Medications Medications Dose Ordered Sig/Nadine Route Start Time Stop Time Status Last Admin Dose Admin Iohexol 150 ml ONCE ONCE IV 07/29/17 22:15 07/29/17 22:16 DC 07/29/17 22:15 125 ML Potassium Chloride 20 meq ONCE ONCE PO 07/29/17 23:15 07/29/17 23:16 DC 07/29/17 23:14 20 MEQ Sodium Chloride 100 ml ONCE ONCE IV 07/29/17 22:15 07/29/17 22:16 DC 07/29/17 22:15 80 ML Sodium Chloride 1,000 ml @ 0 mls/hr Q0M ONCE IV 07/29/17 21:15 07/29/17 21:17 DC 07/29/17 21:28 0 MLS/HR Vital Signs/I&O Vital Sign - Last 12Hours 07/29/17 07/29/17 21:11 23:15 Temp 99.0 97.7 Pulse 114 89 Resp 20 16 B/P (MAP) 116/92 (100) Pulse Ox 99 99 O2 Delivery Room Air Room Air Intake and Output 07/30/17 00:00 Intake Total 1000 ml Balance 1000 ml Blood Pressure Mean: 100 Progress Note : Progress Note UNEVENTFUL ER STAY--NO TACHY CARDIA OR ARRHYTHMIAS . ECG Initial ECG Impression Time: 21:18 Initial ECG Rate: 102 Initial ECG Rhythm: Normal Sinus Initial ECG Comparisson: No Previous ECG Available Diagnostic Imaging Comments CXR--NO ACUTE PROCESS, PER RADIOLOGIST REPORT @ 2151 Reviewed: Reviewed by Me Departure Impression Impression: Primary Impression: Palpitations Disposition: 01 HOME, SELF-CARE Condition: Stable Departure-Patient Inst. Referrals: GEN DAVIS DO (PCP) Primary Care Physician SIRENA ABDALLA APRN (Family) Primary Care Physician DINA CUNNINGHAM MD FACP FACC CCDS Patient Instructions: Palpitations (DC) Add. Discharge Instructions: TAKE YOUR MEDICATIONS PRESCRIBED AVOID ANY CAFFEINE, OVER THE COUNTER COLD/COUGH MEDICATIONS OR STIMULANTS. FOLLOW UP WITH DR. CUNNINGHAM NEXT WEEK FOR FURTHER CARE All discharge instructions reviewed with patient and/or family. Voiced understanding. ROBIN THAKUR DO Jul 29, 2017 21:52
[2017-07-29 21:53] LABS: ALANINE AMINOTRANSFERASE 19 U/L (0-55); ALBUMIN 4.7 GM/DL (3.2-4.5); ANION GAP 14 MMOL/L (5-14); ASPARTATE AMINO TRANSFERASE 17 U/L (5-34); BILIRUBIN,TOTAL 0.6 MG/DL (0.1-1.0); BLOOD UREA NITROGEN 7 MG/DL (7-18); BUN/CREATININE RATIO 9; CALCIUM 9.5 MG/DL (8.5-10.1); CARBON DIOXIDE 22 MMOL/L (21-32); CHLORIDE 103 MMOL/L (98-107); CREATININE SERUM 0.79 MG/DL (0.60-1.30); GFR ESTIMATED > 60; GLUCOSE 96 MG/DL (70-105); POTASSIUM 3.1 MMOL/L (3.6-5.0); SODIUM 139 MMOL/L (135-145); TOTAL PROTEIN 7.3 GM/DL (6.4-8.2)
[2017-07-29 22:13] LABS: TROPONIN I < 0.30 NG/ML (<0.30)
[2017-07-29] MEDS ORDERED: NS 100 ML (IVPB) BAG IV ONE (22:15)
[2017-07-29] MEDS ORDERED: IOHEXOL 350 MG/ML 150 ML (OMNIPAQUE 350) VIAL IV ONE (22:15)
[2017-07-29 23:07] LABS: BILIRUBIN,URINE NEGATIVE (NEGATIVE); KETONES,URINE NEGATIVE (NEGATIVE); LEUKOCYTE ESTERASE ,URINE NEGATIVE (NEGATIVE); NITRITE,URINE NEGATIVE (NEGATIVE); PH,URINE 7 (5-9); PROTEIN,URINE 1+ (NEGATIVE); UROBILINOGEN,URINE NORMAL (NORMAL)
[2017-07-29 23:15] VITALS: BP 115/72
[2017-07-29] MEDS ORDERED: KCL 10 MEQ TAB (MICRO K) PO ONE (23:15)
[2017-07-29 23:24] LABS: WBC,URINE RARE /HPF
--- NOTE | 2017-07-30 06:56 | Diagnostic Imaging Report ---
PROCEDURE: CT angiography of the chest with contrast. TECHNIQUE: Multiple contiguous axial images were obtained through the chest after uneventful bolus administration of intravenous contrast. Reconstructed CTA MIP acquisitions were also performed. INDICATION: Chest pain COMPARISON: None FINDINGS: There is no evidence of acute pulmonary embolus or other vascular abnormality. There is no pericardial effusion. Heart size appears normal. There is no pneumothorax or pleural effusion. There is no adenopathy. The lungs are clear. No osseous abnormality is seen. The visualized upper abdomen is unremarkable. IMPRESSION: No evidence of pulmonary embolus or acute abnormality in the chest. Agree with [facility] interpretation Dictated by: Dictated on workstation # [id number]
== END 2017-07-29 23:16 | disposition home or self-care (01) ==
LOC: EDUNIT# 21:11 → ER 21:13
DX: R00.2 Palpitations (principal); J45.909 Unspecified asthma, uncomplicated; E78.00 Pure hypercholesterolemia, unspecified; I10 Essential (primary) hypertension; K21.9 Gastro-esophageal reflux disease without esophagitis; F31.9 Bipolar disorder, unspecified; G40.909 Epilepsy, unspecified, not intractable, without status epilepticus; Z87.19 Personal history of other diseases of the digestive system
CPT/HCPCS: 36415; 71010; 71275; 80053; 80306; 80320; 81000; 83735; 83880; 84443; 84484; 85025; 85610; 85730; 93005; 93041

== ENCOUNTER 2017-09-04 19:13 | Emergency (ER) | payer MEDICAID ==
[~2017-09-04] VITALS: Ht 180.3 cm; Wt 81.6 kg
[2017-09-04] MEDS ORDERED: AMIT100T2 (19:29)
[2017-09-04] MEDS ORDERED: IBUP-1780 (19:29)
--- NOTE | 2017-09-04 19:29 | ED Chest Pain ---
General Chief Complaint: Chest Pain Stated Complaint: CHEST PAIN Source: patient Exam Limitations: no limitations History of Present Illness Date Seen by Provider: Sep 04, 2017 Time Seen by Provider: 19:28 Initial Comments To ER with reports of chest pain that occasionally radiates down both of his legs when he is walking. He also has some intermittent troubles with slurred speech. He's been having these symptoms for several weeks and is supposed to be getting set up at [facility] but has not yet seen them. He states that he was at [facility] a few weeks ago and his heart rate was over 200 and they instructed him to go home and sleep and if it didn't go down and then he should call an ambulance. He has been only intermittently compliant with his psychiatric medications for schizophrenia. Timing/Duration: intermittent Severity/Quality: moderate Activities at Onset: none ASA po DIRECTOR OF ESTATE: No NTG SL DIRECTOR OF ESTATE: No Associated Symptoms: shortness of breath Allergies and Home Medications Allergies Coded Allergies: lurasidone (Verified Allergy, Mild, 07/29/17) nicotine (Verified Allergy, Mild, 07/29/17) trazodone (Verified Allergy, Mild, 07/29/17) Home Medications Albuterol Sulfate 1.25 Mg/3 Ml Vial.neb, 1 INH INH UD, #75 (Reported) Albuterol Sulfate 1 Puff Puff, #9 (Reported) Amitriptyline HCl 100 Mg Tablet, (Reported) Divalproex Sodium 250 Mg Tab.er.24h, 1 TAB PO UD, #90 (Reported) Fluticasone Propionate 1 Ea Aero, 1 INH INH UD, #12 (Reported) Ibuprofen 800 Mg Tablet, (Reported) Levetiracetam 500 Mg Tablet, 1 TAB PO BID, #60 (Reported) Lisinopril 20 Mg Tablet, 1 TAB PO UD, #30 (Reported) Omeprazole 20 Mg Capsule.dr, 20 MG PO DAILY, #30 Prescribed by: HESHAM CABRERA on 05/19/17 0014 Pantoprazole Sodium 40 Mg Tablet.dr, 1 TAB PO UD, #30 (Reported) Simvastatin 40 Mg Tablet, 1 TAB PO UD, #30 (Reported) Sucralfate 1 Gm Tablet, 1 TAB PO BID, #60 (Reported) Review of Systems Constitutional: see HPI EENTM: No Symptoms Reported Respiratory: No Symptoms Reported Cardiovascular: See HPI, Chest Pain Gastrointestinal: No Symptoms Reported Genitourinary: No Symptoms Reported Musculoskeletal: no symptoms reported Skin: no symptoms reported Psychiatric/Neurological: No Symptoms Reported Endocrine: No Symptoms Reported Hematologic/Lymphatic: No Symptoms Reported Past Kwvdqet-Anahyu-Snuxqr Hx Patient Social History 2nd Hand Smoke Exposure: No Recent Foreign Travel: No Contact w/Someone Who Travel: No Recent Hopitalizations: No Immunizations Up To Date Tetanus Booster (TDap): Unknown Seasonal Allergies Seasonal Allergies: No Surgeries History of Surgeries: Yes (hernia) Surgeries: Abdominal Respiratory History of Respiratory Disorde: Yes Respiratory Disorders: Asthma Cardiovascular History of Cardiac Disorders: Yes Cardiac Disorders: High Cholesterol, Hypertension Neurological History of Neurological Disord: Yes Neurological Disorders: Seizure Disorder Reproductive System Hx Reproductive Disorders: No Gastrointestinal History of Gastrointestinal Di: Yes Gastrointestinal Disorders: Gastroesophageal Reflux, Hiatal Hernia Musculoskeletal History of Musculoskeletal Dis: No Endocrine History of Endocrine Disorders: No HEENT History of HEENT Disorders: No Cancer History of Cancer: No Psychosocial History of Psychiatric Problem: Yes Behavioral Health Disorders: Bipolar Integumentary History of Skin or Integumenta: No Blood Transfusions History of Blood Disorders: No Family Medical History Significant Family History: No Pertinent Family Hx Physical Exam Vital Signs Vital Sign - Last 12Hours Capillary Refill : General Appearance: No Apparent Distress, WD/WN HEENT: PERRL/EOMI, TMs Normal Neck: Full Range of Motion, Normal Inspection Respiratory: No Accessory Muscle Use, No Respiratory Distress Cardiovascular: Regular Rate, Rhythm, Normal Peripheral Pulses Gastrointestinal: Normal Bowel Sounds, Non Tender, Soft Extremity: Normal Capillary Refill, Normal Inspection Neurologic/Psychiatric: Alert, Oriented x3, No Motor/Sensory Deficits Skin: Normal Color Progress/Results/Core Measures Results/Orders Lab Results Laboratory Tests Test 09/04/17 19:30 09/04/17 19:40 Range/Units White Blood Count 7.8 4.3-11.0 10^3/uL Red Blood Count 4.59 4.35-5.85 10^6/uL Hemoglobin 13.1 L 13.3-17.7 G/DL Hematocrit 38 L 40-54 % Mean Corpuscular Volume 83 80-99 FL Mean Corpuscular Hemoglobin 29 25-34 PG Mean Corpuscular Hemoglobin Concent 34 32-36 G/DL Red Cell Distribution Width 14.1 10.0-14.5 % Platelet Count 399 130-400 10^3/uL Mean Platelet Volume 9.3 7.4-10.4 FL Neutrophils (%) (Auto) 49 42-75 % Lymphocytes (%) (Auto) 39 12-44 % Monocytes (%) (Auto) 9 0-12 % Eosinophils (%) (Auto) 3 0-10 % Basophils (%) (Auto) 1 0-10 % Neutrophils # (Auto) 3.8 1.8-7.8 X 10^3 Lymphocytes # (Auto) 3.0 1.0-4.0 X 10^3 Monocytes # (Auto) 0.7 0.0-1.0 X 10^3 Eosinophils # (Auto) 0.2 0.0-0.3 10^3/uL Basophils # (Auto) 0.0 0.0-0.1 10^3/uL Erythrocyte Sedimentation Rate 12 0-15 MM/HR D-Dimer < 0.27 0.00-0.49 UG/ML Sodium Level 142 135-145 MMOL/L Potassium Level 3.8 3.6-5.0 MMOL/L Chloride Level 107 98-107 MMOL/L Carbon Dioxide Level 22 21-32 MMOL/L Anion Gap 13 5-14 MMOL/L Blood Urea Nitrogen 11 7-18 MG/DL Creatinine 0.92 0.60-1.30 MG/DL Estimat Glomerular Filtration Rate > 60 BUN/Creatinine Ratio 12 Glucose Level 112 H 70-105 MG/DL Calcium Level 9.3 8.5-10.1 MG/DL Total Bilirubin 0.2 0.1-1.0 MG/DL Aspartate Amino Transf (AST/SGOT) 21 5-34 U/L Alanine Aminotransferase (ALT/SGPT) 20 0-55 U/L Alkaline Phosphatase 67 40-136 U/L B-Type Natriuretic Peptide 24.6 <100.0 PG/ML Total Protein 8.1 6.4-8.2 GM/DL Albumin 4.6 H 3.2-4.5 GM/DL Thyroid Stimulating Hormone (TSH) 2.68 0.35-4.94 UIU/ML Urine Color YELLOW Urine Clarity CLEAR Urine pH 7 5-9 Urine Specific [place] 1.010 L 1.016-1.022 Urine Protein NEGATIVE NEGATIVE Urine Glucose (UA) NEGATIVE NEGATIVE Urine Ketones NEGATIVE NEGATIVE Urine Nitrite NEGATIVE NEGATIVE Urine Bilirubin NEGATIVE NEGATIVE Urine Urobilinogen NORMAL NORMAL MG/DL Urine Leukocyte Esterase NEGATIVE NEGATIVE Urine RBC (Auto) NEGATIVE NEGATIVE Urine RBC NONE /HPF Urine WBC RARE /HPF Urine Crystals NONE /LPF Urine Bacteria NEGATIVE /HPF Urine Casts NONE /LPF Urine Mucus NEGATIVE /LPF Urine Culture Indicated NO Urine Opiates Screen NEGATIVE NEGATIVE Urine Oxycodone Screen NEGATIVE NEGATIVE Urine Methadone Screen NEGATIVE NEGATIVE Urine Propoxyphene Screen NEGATIVE NEGATIVE Urine Barbiturates Screen NEGATIVE NEGATIVE Ur Tricyclic Antidepressants Screen NEGATIVE NEGATIVE Urine Phencyclidine Screen NEGATIVE NEGATIVE Urine Amphetamines Screen NEGATIVE NEGATIVE Urine Methamphetamines Screen NEGATIVE NEGATIVE Urine Benzodiazepines Screen NEGATIVE NEGATIVE Urine Cocaine Screen NEGATIVE NEGATIVE Urine Cannabinoids Screen NEGATIVE NEGATIVE My Orders Orders - JOSE ALFREDO CAVANAUGH APRN Ua Culture If Indicated (09/04/17 19:27) Drug Screen Stat (Urine) (09/04/17 19:27) Thyroid Stimulating Hormone (09/04/17 19:27) Ekg Tracing (09/04/17 19:27) Chest Pa/Lat (2 View) (09/04/17 19:27) Fibrin Degradation Products (09/04/17 19:27) Saline Lock/Iv-Start (09/04/17 19:27) Troponin I (09/04/17 19:27) BNP (09/04/17 19:27) Comprehensive Metabolic Panel (09/04/17 19:27) Cbc With Automated Diff (09/04/17 19:27) Erythrocyte Sedimentation Rate (09/04/17 19:29) Vital Signs/I&O Vital Sign - Last 12Hours 09/04/17 09/04/17 19:20 19:20 Temp 97.7 Pulse 94 Resp 18 B/P (MAP) 132/90 (104) Pulse Ox 100 O2 Delivery Room Air Room Air Departure Impression Impression: Primary Impression: Chest pain Disposition: 01 HOME, SELF-CARE Condition: Stable Departure-Patient Inst. Decision time for Depature: 20:25 Referrals: [facility] (PCP/Family) Primary Care Physician Patient Instructions: Chest Pain That Is Not Caused by the Heart (DC) Add. Discharge Instructions: 1. Follow-up with your regular doctor and [facility] [place] 2. Return to ER for any concerns. All discharge instructions reviewed with patient and/or family. Voiced understanding. JOSE ALFREDO CAVANAUGH APRN Sep 04, 2017 19:29
[2017-09-04 19:43] LABS: BASOPHILS % (AUTO) 1 % (0-10); EOSINOPHILS # (AUTO) 0.2 10^3/uL (0.0-0.3); EOSINOPHILS % (AUTO) 3 % (0-10); HEMATOCRIT 38 % (40-54); HEMOGLOBIN 13.1 G/DL (13.3-17.7); LYMPHOCYTES % (AUTO) 39 % (12-44); MEAN CORPUSCULAR HEMOGLOBIN 29 PG (25-34); MEAN CORPUSCULAR HGB CONC 34 G/DL (32-36); MEAN CORPUSCULAR VOLUME 83 FL (80-99); MEAN PLATELET VOLUME 9.3 FL (7.4-10.4); MONOCYTES # (AUTO) 0.7 X 10^3 (0.0-1.0); MONOCYTES % (AUTO) 9 % (0-12); NEUTROPHILS # (AUTO) 3.8 X 10^3 (1.8-7.8); NEUTROPHILS % (AUTO) 49 % (42-75); PLATELET COUNT 399 10^3/uL (130-400); RED BLOOD COUNT 4.59 10^6/uL (4.35-5.85); RED CELL DISTRIBUTION WIDTH 14.1 % (10.0-14.5); WHITE BLOOD COUNT 7.8 10^3/uL (4.3-11.0)
[2017-09-04 19:50] LABS: BILIRUBIN,URINE NEGATIVE (NEGATIVE); CLARITY,URINE CLEAR; COLOR,URINE YELLOW; GLUCOSE, URINE (UA) NEGATIVE (NEGATIVE); KETONES,URINE NEGATIVE (NEGATIVE); LEUKOCYTE ESTERASE ,URINE NEGATIVE (NEGATIVE); NITRITE,URINE NEGATIVE (NEGATIVE); PH,URINE 7 (5-9); PROTEIN,URINE NEGATIVE (NEGATIVE); UROBILINOGEN,URINE NORMAL (NORMAL)
[2017-09-04 19:57] LABS: BACTERIA,URINE NEGATIVE /HPF; WBC,URINE RARE /HPF
--- NOTE | 2017-09-04 20:05 | Diagnostic Imaging Report ---
INDICATION: Chest pain EXAM: PA and lateral chest FINDINGS: Heart size and pulmonary vascularity are normal. The lungs are clear. There are no effusions or pneumothoraces. IMPRESSION: Negative chest. Dictated by: Dictated on workstation # [id number]
[2017-09-04 20:06] LABS: ERYTHROCYTE SEDIMENTATION RATE 12 MM/HR (0-15)
[2017-09-04 20:11] LABS: ALANINE AMINOTRANSFERASE 20 U/L (0-55); ALBUMIN 4.6 GM/DL (3.2-4.5); ALKALINE PHOSPHATASE 67 U/L (40-136); BILIRUBIN,TOTAL 0.2 MG/DL (0.1-1.0); BUN/CREATININE RATIO 12; CALCIUM 9.3 MG/DL (8.5-10.1); CARBON DIOXIDE 22 MMOL/L (21-32); CHLORIDE 107 MMOL/L (98-107); CREATININE SERUM 0.92 MG/DL (0.60-1.30); GFR ESTIMATED > 60; GLUCOSE 112 MG/DL (70-105); POTASSIUM 3.8 MMOL/L (3.6-5.0); SODIUM 142 MMOL/L (135-145); TOTAL PROTEIN 8.1 GM/DL (6.4-8.2)
[2017-09-04 20:13] LABS: AMPHETAMINE SCREEN, URINE NEGATIVE (NEGATIVE); BARBITURATE SCREEN URINE NEGATIVE (NEGATIVE); BENZODIAZEPINES SCREEN URINE NEGATIVE (NEGATIVE); CANNABINOID SCREEN, URINE NEGATIVE (NEGATIVE); COCAINE SCREEN URINE NEGATIVE (NEGATIVE); METHADONE STAT NEGATIVE (NEGATIVE); METHAMPHETAMINE SCREEN URINE S NEGATIVE (NEGATIVE); OPIATE SCREEN URINE NEGATIVE (NEGATIVE); OXYCODONE STAT NEGATIVE (NEGATIVE); PROPOXYPHENE STAT NEGATIVE (NEGATIVE); TRICYCLIC ANTIDEPRESSANTS SCRE NEGATIVE (NEGATIVE)
[2017-09-04 20:42] VITALS: BP 127/85
== END 2017-09-04 20:41 | disposition home or self-care (01) ==
LOC: EDUNIT# 19:13 → ER 19:14
DX: R07.89 Other chest pain (principal); J45.909 Unspecified asthma, uncomplicated; E78.00 Pure hypercholesterolemia, unspecified; I10 Essential (primary) hypertension; K21.9 Gastro-esophageal reflux disease without esophagitis; F31.9 Bipolar disorder, unspecified; G40.909 Epilepsy, unspecified, not intractable, without status epilepticus; Z88.8 Allergy status to other drugs, medicaments and biological substances; Z87.19 Personal history of other diseases of the digestive system
CPT/HCPCS: 36415; 71046; 80053; 80306; 81000; 83880; 84443; 84484; 85025; 85379; 85652; 93005

== ENCOUNTER 2017-10-12 02:58 | Emergency (ER) | payer MEDICAID ==
[~2017-10-12] VITALS: Ht 177.8 cm; Wt 78.9 kg
[~2017-10-12 02:58] MED LIST changes: +AMIT100T2; +IBUP-1780
--- OUTSIDE RECORDS SUMMARY | 2017-10-12 03:07 | XMS REPORT ---
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 Name Role Phone HEMA MIRANDA Unavailable PROBLEMS Type Condition ICD9-CM Code [id number] Code Onset Dates Condition Status SNOMED Code Problem Chronic nausea R11.0 Active 513192081 Problem Bipolar 1 disorder, depressed F31.9 Active 56046573 Problem Seizure disorder G40.909 Active 818558080 Problem Moderate persistent asthma without complication J45.40 Active 456216149 Problem Mild intermittent asthma without complication J45.20 Active 971823970 Problem Gastroesophageal reflux disease without esophagitis K21.9 Active 887155251 Problem Encounter for dental examination and cleaning without abnormal findings Z01.20 Active 440411923 Problem Bipolar 1 disorder with moderate south F31.12 Active 88450822 Problem Schizoaffective disorder, bipolar type F25.0 Active 18190871 Problem Benign essential hypertension I10 Active 0717446 Problem Sleep disturbance G47.9 Active 72419130 Problem Auditory hallucination R44.0 Active 72878923 ALLERGIES Substance Reaction Event Type Date Status Trazodone HCl anaphylaxis Drug Allergy December, Active Penicillin V Potassium anaphylaxis Drug Allergy December, Active SOCIAL HISTORY Never Assessed PLAN OF CARE Activity Details Follow Up 6 Weeks prophy and restorative kely Reason: VITAL SIGNS MEDICATIONS Unknown Medications RESULTS No Results PROCEDURES Procedure Date Ordered Result Body Site Full mouth debridement January 04, 2017 Dental Outreach adjust balance January 04, 2017 Billing Notes on claim January 04, 2017 IMMUNIZATIONS No Known Immunizations MEDICAL (GENERAL) HISTORY Type Description Date Medical History asthma - mild intermittent ( PFT 10/2016 Normal) Medical History hypertension Medical History seizures- childhood Medical History bipolar disorder- [facility] Medical History GERD Medical History auditory hallucinations- Surgical History hernia repair/ Inguinal ( child) Surgical History EGD- 2015 Hospitalization History [facility] for two to three days. 08/2016
--- OUTSIDE RECORDS SUMMARY | 2017-10-12 03:07 | XMS REPORT ---
Author Author SHERRI BECERRIL Organization [facility] Address [address] [place] [address] Care Team Providers Care Twenty One Dealer Name Role Phone SHERRI BECERRIL Unavailable PROBLEMS Type Condition ICD9-CM Code UUB63-CS Code Onset Dates Condition Status SNOMED Code Problem Chronic nausea R11.0 Active 083572054 Problem Bipolar 1 disorder, depressed F31.9 Active 33412544 Problem Seizure disorder G40.909 Active 249140104 Problem Moderate persistent asthma without complication J45.40 Active 309147368 Problem Mild intermittent asthma without complication J45.20 Active 918128551 Problem Gastroesophageal reflux disease without esophagitis K21.9 Active 597630754 Problem Encounter for dental examination and cleaning without abnormal findings Z01.20 Active 842374549 Problem Bipolar 1 disorder with moderate south F31.12 Active 80908519 Problem Schizoaffective disorder, bipolar type F25.0 Active 53954521 Problem Benign essential hypertension I10 Active 8327143 Problem Sleep disturbance G47.9 Active 40648732 Problem Auditory hallucination R44.0 Active 13279126 ALLERGIES No Information SOCIAL HISTORY Never Assessed PLAN OF CARE Activity Details Follow Up Next Available. Reason: VITAL SIGNS MEDICATIONS Medication Instructions Dosage Frequency Start Date End Date Duration Status Zocor 10 mg Orally Once a day as needed for nausea 1 tablet Active Flovent HFA 110 MCG/ACT Inhalation Twice a day ( rinse mouth after use) Use EVERYDAY 2 puff Nov, Active Carafate 1 GM Orally Twice a day 1 tablet on an empty stomach 12h Active Albuterol Sulfate HFA 108 (90 Base) MCG/ACT Inhalation 3 times a day 2 puffs as needed 8h Active Simvastatin 40 MG Take 1 Tablet (40 mg) by mouth Daily LATE. Active Latuda 80 MG Orally Once a day 1 tablet with food 24h Active Keppra 500 mg Orally every 12 hrs 1 tablet 12h Active Bentyl 10 mg Orally Four times a day 1 capsule 6h Active CompAir Nebulizer - MACHINE AND TUBING Nov, Active Albuterol Sulfate 1.25 MG/3ML Inhalation every 8 hrs 3 ml as needed 8h Nov, Active Zyrtec Allergy 10 MG Active Pantoprazole Sodium 40 mg Orally Once a day 1 tablet 24h Active Lisinopril 20 mg Orally Once a day 1 tablet 24h Active Zofran 8 MG Orally Once a day 1 tablet 24h Active RESULTS No Results PROCEDURES Procedure Date Ordered Result Body Site Psych diagnostic evaluation, established patient December 19, 2016 IMMUNIZATIONS No Known Immunizations MEDICAL (GENERAL) HISTORY Type Description Date Medical History asthma - mild intermittent ( PFT 10/2016 Normal) Medical History hypertension Medical History seizures- childhood Medical History bipolar disorder- [facility] Medical History GERD Medical History auditory hallucinations- Surgical History hernia repair/ Inguinal ( child) Surgical History EGD- 2015 Hospitalization History [facility] for two to three days. 08/2016
--- OUTSIDE RECORDS SUMMARY | 2017-10-12 03:07 | XMS REPORT ---
Author Author JAYDEN PIÑA Organization [facility] Address [address] [place] [address] Care Team Providers Care Ice Cutter Name Role Phone JADYEN PIÑA Unavailable PROBLEMS Type Condition ICD9-CM Code [id number] Code Onset Dates Condition Status SNOMED Code Problem Chronic nausea R11.0 Active 123336015 Problem Bipolar 1 disorder, depressed F31.9 Active 32094473 Problem Seizure disorder G40.909 Active 527365422 Problem Moderate persistent asthma without complication J45.40 Active 851242937 Problem Mild intermittent asthma without complication J45.20 Active 728293204 Problem Gastroesophageal reflux disease without esophagitis K21.9 Active 746103749 Problem Encounter for dental examination and cleaning without abnormal findings Z01.20 Active 404132304 Problem Bipolar 1 disorder with moderate south F31.12 Active 24788268 Problem Schizoaffective disorder, bipolar type F25.0 Active 65516674 Problem Benign essential hypertension I10 Active 0911573 Problem Sleep disturbance G47.9 Active 18161706 Problem Auditory hallucination R44.0 Active 93359869 ALLERGIES No Information SOCIAL HISTORY Never Assessed PLAN OF CARE VITAL SIGNS MEDICATIONS Unknown Medications RESULTS No Results PROCEDURES Procedure Date Ordered Result Body Site COMP ORAL EVALUATION - NEW/EST PT January 04, 2017 BITEWINGS - FOUR FILMS January 04, 2017 IMMUNIZATIONS No Known Immunizations MEDICAL (GENERAL) HISTORY Type Description Date Medical History asthma - mild intermittent ( PFT 10/2016 Normal) Medical History hypertension Medical History seizures- childhood Medical History bipolar disorder- [facility] Medical History GERD Medical History auditory hallucinations- Surgical History hernia repair/ Inguinal ( child) Surgical History EGD- / 2015 Hospitalization History [facility] for two to three days. 08/2016
--- OUTSIDE RECORDS SUMMARY | 2017-10-12 03:07 | XMS REPORT ---
Author Author SIRENA ABDALLA [facility] Address [address] [place] [address] Care Team Providers Care Cat Skinner Name Role Phone SIRENA ABDALLA Unavailable PROBLEMS Type Condition ICD9-CM Code [id number] Code Onset Dates Condition Status SNOMED Code Problem Chronic nausea R11.0 Active 545867982 Problem Bipolar 1 disorder, depressed F31.9 Active 96307593 Problem Seizure disorder G40.909 Active 506876239 Problem Moderate persistent asthma without complication J45.40 Active 069547889 Problem Mild intermittent asthma without complication J45.20 Active 128268988 Problem Gastroesophageal reflux disease without esophagitis K21.9 Active 600574318 Problem Encounter for dental examination and cleaning without abnormal findings Z01.20 Active 599595782 Problem Bipolar 1 disorder with moderate south F31.12 Active 10823238 Problem Schizoaffective disorder, bipolar type F25.0 Active 41543023 Problem Benign essential hypertension I10 Active 2881386 Problem Sleep disturbance G47.9 Active 52169698 Problem Auditory hallucination R44.0 Active 56555738 ALLERGIES Substance Reaction Event Type Date Status Trazodone HCl anaphylaxis Drug Allergy December, Active Penicillin V Potassium anaphylaxis Drug Allergy December, Active SOCIAL HISTORY Never Assessed PLAN OF CARE Activity Details Follow Up 4 weeks Reason:bipolar/sleep disturbance VITAL SIGNS Height 68 in 2016-12-23 Weight 184.8 lbs 2016-12-23 Temperature 98.1 degrees Fahrenheit 2016-12-23 Heart Rate 88 bpm 2016-12-23 Respiratory Rate 18 2016-12-23 BMI 28.10 kg/m2 2016-12-23 Blood pressure systolic 110 mmHg 2016-12-23 Blood pressure diastolic 76 mmHg 2016-12-23 MEDICATIONS Medication Instructions Dosage Frequency Start Date End Date Duration Status CompAir Nebulizer - MACHINE AND TUBING Nov, Active Albuterol Sulfate 1.25 MG/3ML Inhalation every 8 hrs 3 ml as needed 8h Nov, Active Flovent HFA 110 MCG/ACT Inhalation Twice a day ( rinse mouth after use) Use EVERYDAY 2 puff Nov, Active Lisinopril 20 mg Orally Once a day 1 tablet 24h Active Latuda 80 MG Orally Once a day 1 tablet with food 24h Active Amitriptyline HCl 50 mg Orally Once a day- BEDTIME 1 tablet December, Active Albuterol Sulfate HFA 108 (90 Base) MCG/ACT Inhalation 3 times a day 2 puffs as needed 8h Active Simvastatin 40 MG Take 1 Tablet (40 mg) by mouth Daily LATE. Active Keppra 500 mg Orally every 12 hrs 1 tablet 12h Active Carafate 1 GM Orally Twice a day 1 tablet on an empty stomach 12h Active RESULTS No Results PROCEDURES No Known procedures IMMUNIZATIONS No Known Immunizations MEDICAL (GENERAL) HISTORY Type Description Date Medical History asthma - mild intermittent ( PFT 10/2016 Normal) Medical History hypertension Medical History seizures- childhood Medical History bipolar disorder- [facility] Medical History GERD Medical History auditory hallucinations- Surgical History hernia repair/ Inguinal ( child) Surgical History EGD- 2015 Hospitalization History [facility] for two to three days. 08/2016
--- OUTSIDE RECORDS SUMMARY | 2017-10-12 03:07 | XMS REPORT | Continuity of Care Document ---
Author Author [employer] Organization [facility] Address Unknown Phone Unavailable Care Team Providers Care Dishtank Operator Name Role Phone [employer] Unavailable Unavailable Problems Medications Allergies, Adverse Reactions, Alerts Immunizations Results Vital Signs Encounters Location Location Details Encounter Type Encounter Number Reason For Visit Attending Provider ADM Date DC Date Status Source O JARON MCCABE 12/05/2017 Active [facility] Procedures Plan of Care Social History Assessment and Plan Family History Advance Directives Functional Status
--- OUTSIDE RECORDS SUMMARY | 2017-10-12 03:08 | XMS REPORT | Continuity of Care Document ---
Demographics Preferred Language Unknown Marital Status Unknown Synagogue Affiliation Unknown Race Unknown Ethnic Group Unknown Author Author [facility] Organization [facility] Address Unknown Phone Unavailable Allergies There is no data. Medications There is no data. Problems There is no data. Procedures There is no data. Results There is no data. Encounters ACCT No. Visit Date/Time Discharge Status Pt. Type Provider Facility Loc./Unit Complaint [id number] 05/03/2014 07:19:00 [facility] Unknown [id number] 04/23/2014 07:20:00 ACT Unknown [id number] 01/03/2014 07:20:00 ACT Unknown [id number] 12/25/2013 07:16:00 ACT Unknown [id number] 09/25/2013 07:16:00 ACT Unknown [id number] 09/24/2013 10:57:00 ACT Unknown
[2017-10-12 04:12] LABS: BILIRUBIN,URINE NEGATIVE (NEGATIVE); CLARITY,URINE CLEAR; COLOR,URINE YELLOW; GLUCOSE, URINE (UA) NEGATIVE (NEGATIVE); KETONES,URINE NEGATIVE (NEGATIVE); LEUKOCYTE ESTERASE ,URINE NEGATIVE (NEGATIVE); NITRITE,URINE NEGATIVE (NEGATIVE); PH,URINE 5 (5-9); PROTEIN,URINE NEGATIVE (NEGATIVE); UROBILINOGEN,URINE NORMAL (NORMAL)
[2017-10-12 04:18] LABS: BACTERIA,URINE NEGATIVE /HPF; SQUAMOUS EPITHELIAL CELL,UR RARE /HPF
[2017-10-12 04:47] LABS: AMPHETAMINE SCREEN, URINE NEGATIVE (NEGATIVE); BARBITURATE SCREEN URINE NEGATIVE (NEGATIVE); BENZODIAZEPINES SCREEN URINE NEGATIVE (NEGATIVE); CANNABINOID SCREEN, URINE NEGATIVE (NEGATIVE); COCAINE SCREEN URINE NEGATIVE (NEGATIVE); METHADONE STAT NEGATIVE (NEGATIVE); METHAMPHETAMINE SCREEN URINE S NEGATIVE (NEGATIVE); OPIATE SCREEN URINE NEGATIVE (NEGATIVE); OXYCODONE STAT NEGATIVE (NEGATIVE); PROPOXYPHENE STAT NEGATIVE (NEGATIVE); TRICYCLIC ANTIDEPRESSANTS SCRE NEGATIVE (NEGATIVE)
[2017-10-12] MEDS ORDERED: METH500T PO (05:20)
[2017-10-12] MEDS ORDERED: METH4TAB PO (05:20)
--- NOTE | 2017-10-12 05:21 | ED Back Pain ---
General Chief Complaint: Abdominal/GI Problems Stated Complaint: NAUSEA,BACK & RT LEG PAIN Nursing Triage Note: PT REPORTS NAUSEA, LOWER ABD PAIN STARTING MONDAY. HE REPORTS A MOPED FELL OVER ON HIM ON MONDAY, CAUSING HIM TO FALL. HE REPORTS LOW-MID BACK PAIN SINCE THEN. Nursing Sepsis Screen: No Definite Risk Source of Information: Patient History of Present Illness Date Seen by Provider: Oct 12, 2017 Time Seen by Provider: 03:40 Initial Comments PT ARRIVES VIA POV FROM HOME C/O MIDLINE LOWER BACK PAIN SINCE YESTERDAY, WORSE TODAY STATES HE HAS HAD BACK PAIN OFF AND ON IN THE PAST AND DENIES ANY PRIOR WORK UP INITIALLY DENIED (MORE THAN ONCE 0 ANY INJURY AT ANY TIME TO ME, THEN LATER STATES THAT ON Monday10/09/17, HE WAS RIDING A MOPED AND HE FELL OFF THE MOPED AND LANDED ON HIS BACK AND THE MOPED LANDED ON HIS LEGS NO PARESTHESIAS OR MOTOR DEFICITS NO RADIATION OF PAIN NO PROBLEMS WITH BOWEL OR BLADDER FUNCTION NO PROBLEMS WALKING STATES PAIN IS WORST WHEN LAYING ON HIS BACK HAS NOT TAKEN ANYTHING FOR PAIN HAS NOT SOUGHT CARE UNTIL TODAY PT WITH 5 VISITS SINCE 11/2016--VARIOUS COMPLAINTS HE HAS REPORTED ON PREVIOUS VISITS THAT HE ALSO FREQUENTS OTHER LOCAL ER'S Other Comments PCP: [facility] Allergies and Home Medications Allergies Coded Allergies: lurasidone (Verified Allergy, Mild, 07/29/17) nicotine (Verified Allergy, Mild, 07/29/17) trazodone (Verified Allergy, Mild, 07/29/17) Penicillins (Unverified Adverse Reaction, Unknown, 10/12/17) Home Medications Albuterol Sulfate 1.25 Mg/3 Ml Vial.neb, 1 INH INH UD, (Reported) Divalproex Sodium 250 Mg Tab.er.24h, 1 TAB PO UD, (Reported) Fluticasone Propionate 1 Ea Aero, 1 INH INH UD, (Reported) Levetiracetam 500 Mg Tablet, 1 TAB PO BID, (Reported) Lisinopril 20 Mg Tablet, 1 TAB PO UD, (Reported) Methocarbamol 500 Mg Tablet, 500 MG PO QID Prescribed by: ROBIN THAKUR on 10/12/17 0520 Methylprednisolone 4 Mg Tab.ds.pk, 4 MG PO UD Prescribed by: ROBIN THAKUR on 10/12/17 0520 Omeprazole 20 Mg Capsule.dr, 20 MG PO DAILY Prescribed by: HESHAM CABRERA on 05/19/17 0014 Pantoprazole Sodium 40 Mg Tablet.dr, 1 TAB PO UD, (Reported) Simvastatin 40 Mg Tablet, 1 TAB PO UD, (Reported) Sucralfate 1 Gm Tablet, 1 TAB PO BID, (Reported) Patient Home Medication List Home Medication List Reviewed: Yes Constitutional: no symptoms reported Respiratory: no symptoms reported Cardiovascular: no symptoms reported Gastrointestinal: no symptoms reported, No abdominal pain, No nausea, No vomiting Genitourinary: no symptoms reported Musculoskeletal: see HPI, back pain Skin: no symptoms reported Psychiatric/Neurological: No Symptoms Reported Past [id number]-Uoxeuc-Qpzopg Hx Patient Social History Alcohol Use: Rarely Uses Recreational Drug Use: No Smoking Status: Never a Smoker 2nd Hand Smoke Exposure: No Recent Foreign Travel: No Contact w/Someone Who Travel: No Recent Infectious Disease Expo: No Recent Hopitalizations: No Immunizations Up To Date Tetanus Booster (TDap): Less than 5yrs Date of Influenza Vaccine: Jun 07, 2017 Seasonal Allergies Seasonal Allergies: No Surgeries History of Surgeries: Yes (HERNIA REPAIR) Surgeries: Abdominal Respiratory History of Respiratory Disorde: Yes Respiratory Disorders: Asthma Cardiovascular History of Cardiac Disorders: Yes Cardiac Disorders: High Cholesterol, Hypertension Neurological History of Neurological Disord: Yes Neurological Disorders: Seizure Disorder Reproductive System Hx Reproductive Disorders: No Genitourinary History of Genitourinary Disor: No Gastrointestinal History of Gastrointestinal Di: Yes Gastrointestinal Disorders: Gastroesophageal Reflux, Hiatal Hernia Musculoskeletal History of Musculoskeletal Dis: No Endocrine History of Endocrine Disorders: No HEENT History of HEENT Disorders: No Cancer History of Cancer: No Psychosocial History of Psychiatric Problem: Yes Behavioral Health Disorders: Bipolar Integumentary History of Skin or Integumenta: No Blood Transfusions History of Blood Disorders: No Family Medical History Significant Family History: No Pertinent Family Hx Physical Exam Vital Signs Vital Signs - First Documented 10/12/17 03:13 Temp 98.4 Pulse 93 Resp 16 B/P (MAP) 28/92 (71) Pulse Ox 98 Capillary Refill : Less Than 3 Seconds General Appearance: No Apparent Distress, WD/WN, Other (BOTH PT AND FEMALE WITH HIM ARE PLAYING/TEXTING ON PHONES THROUGHOUT ENTIRE ER STAY. AND PT WILL NOT PUT PHONE DOWN EVEN DURING HISTORY AND EXAM. ON EXAM, PT IS LAYING COMPLETELY FLAT AND OUTSTRETCHED AND DOES NOT APPEAR TO BE IN ANY DISCOMFORT WHATSOEVER. HE ALSO WALKS UPRIGHT AND MOVES VERY QUICKLY WITHOUT ANY DIFFICULTY. LATER IN ER STAY, PT WAS ALSO NOTED TO BE LAYING ON BACK, WITH HIPS AND KNEES FLEXED WITH LEFT ANKLE CROSSED OVER RIGHT KNEE. ) HEENT: PERRL/EOMI Neck: Full Range of Motion, Normal Inspection, Non Tender, Supple Cardiovascular: Regular Rate, Rhythm, No Edema, No Murmur, Normal Peripheral Pulses Respiratory: Chest Non Tender, Normal Breath Sounds, No Accessory Muscle Use, No Respiratory Distress Peripheral Pulses: 2+ Dorsalis Pedis (R), 2+ Left Dors-Pedis (L), 2+ Radial Pulses (R), 2+ Radial Pulses (L) Gastrointestinal: Normal Bowel Sounds, No Organomegaly, No Pulsatile Mass, Non Tender, Soft Back: No CVA Tenderness, No CVA Tenderness (L), No CVA Tenderness (R), Other ( MILD TENDERNESS TO LUMBAR SPINE AREA. . FULL ROM. DTR'S INTACT. NEGATIVE STRAIGHT LEG RAISING BILATERALLY . ) Extremity: Normal Capillary Refill, Normal Range of Motion, Non Tender, No Calf Tenderness, No Pedal Edema, Other (DESPITE PT'S CLAIM THAT "HIS LEGS ARE BLACK AND BLUE ALL OVER FROM THE MOPED LANDING ON HIS LEGS"--THERE ARE NO BRUISES NOTED ANYWHERE ON BODY AND ONLY A QUARTER-SIZED, SUPERFICIAL, SCABBED ABRASION TO RIGHT CALF, WITH NO SIGNS OF INFECTION AND NO TENDERNESS TO AREA. ) Neurologic/Psychiatric: Alert, Oriented x3, No Motor/Sensory Deficits, floor renovator II- XII Norm as Tested, Other (FLAT AFFECT. ) Skin: Normal Color, Warm/Dry, Other ( ABOVE) Progress/Results/Core Measures Results/Orders Lab Results Laboratory Tests Test 10/12/17 03:58 Range/Units Urine Color YELLOW Urine Clarity CLEAR Urine pH 5 5-9 Urine Specific Mathews 1.010 L 1.016-1.022 Urine Protein NEGATIVE NEGATIVE Urine Glucose (UA) NEGATIVE NEGATIVE Urine Ketones NEGATIVE NEGATIVE Urine Nitrite NEGATIVE NEGATIVE Urine Bilirubin NEGATIVE NEGATIVE Urine Urobilinogen NORMAL NORMAL MG/DL Urine Leukocyte Esterase NEGATIVE NEGATIVE Urine RBC (Auto) NEGATIVE NEGATIVE Urine RBC NONE /HPF Urine WBC NONE /HPF Urine Squamous Epithelial Cells RARE /HPF Urine Crystals NONE /LPF Urine Bacteria NEGATIVE /HPF Urine Casts NONE /LPF Urine Mucus NEGATIVE /LPF Urine Culture Indicated NO Urine Opiates Screen NEGATIVE NEGATIVE Urine Oxycodone Screen NEGATIVE NEGATIVE Urine Methadone Screen NEGATIVE NEGATIVE Urine Propoxyphene Screen NEGATIVE NEGATIVE Urine Barbiturates Screen NEGATIVE NEGATIVE Ur Tricyclic Antidepressants Screen NEGATIVE NEGATIVE Urine Phencyclidine Screen NEGATIVE NEGATIVE Urine Amphetamines Screen NEGATIVE NEGATIVE Urine Methamphetamines Screen NEGATIVE NEGATIVE Urine Benzodiazepines Screen NEGATIVE NEGATIVE Urine Cocaine Screen NEGATIVE NEGATIVE Urine Cannabinoids Screen NEGATIVE NEGATIVE My Orders Orders - ROBIN THAKUR DO Ua Culture If Indicated (10/12/17 03:38) Ct Lumbar Spine Wo (10/12/17 04:29) Drug Screen Stat (Urine) (10/12/17 04:29) Vital Signs/I&O Vital Sign - Last 12Hours 10/12/17 03:13 Temp 98.4 Pulse 93 Resp 16 B/P (MAP) 28/92 (71) Pulse Ox 98 Blood Pressure Mean: 71 Progress Note : Progress Note UNEVENTFUL ER STAY Diagnostic Imaging Comments CT LUMBAR SPINE--NO ACUTE PROCESS, MILD DISC PROTRUSION L4-L5 AND L5-S1 WITH NO SPINAL CANAL STENOSIS--PER [facility] VIA FAX @ [phone] Reviewed: Reviewed by Me Departure Impression Impression: Primary Impression: Low back strain Disposition: 01 HOME, SELF-CARE Condition: Stable Departure-Patient Inst. Referrals: [place] [facility] (PCP) Primary Care Physician Patient Instructions: Lumbar Muscle Strain (DC) Add. Discharge Instructions: ALTERNATE ICE AND HEAT TO SORE AREA AT 20 MINUTE INTERVALS FOLLOW UP WITH [facility] IN 5-7 DAYS IF NO BETTER, OR SOONER IF WORSE All discharge instructions reviewed with patient and/or family. Voiced understanding. Scripts Methocarbamol (Robaxin) 500 Mg Tablet 500 MG PO QID for Muscle Spasms, #20 TAB Prov: ROBIN THAKUR 10/12/17 Methylprednisolone (Medrol) 4 Mg Tab.ds.pk 4 MG PO UD, #1 PKG Prov: ROBIN THAKUR 10/12/17 Images Torso/Trunk 1 - Mild, Tenderness ROBIN THAKUR Oct 12, 2017 05:21
[2017-10-12 05:38] VITALS: BP 128/92
--- NOTE | 2017-10-12 07:03 | Diagnostic Imaging Report ---
PROCEDURE: CT lumbar spine without contrast. TECHNIQUE: Multiple contiguous axial images were obtained through the lumbar spine without the use of intravenous contrast. Sagittal and coronal reformations were then performed. INDICATION: Fall. Lower back pain. COMPARISON: None. FINDINGS: Hand Lacer views and reformats demonstrate normal anatomic alignment of the lumbar spine. The visualized vertebral bodies are normal in height and contour. No acute compression fractures are seen. No pars defects are seen. There is no evidence of spondylolisthesis. There are no large prevertebral or paraspinal masses. Evaluation of the intervertebral disc spaces demonstrates slight posterior disc bulges at L4-L5 and L5-S1. The axial images demonstrate no significant spinal canal or neuroforaminal stenosis. IMPRESSION: No CT evidence of acute fracture or dislocation of the lumbar spine. Dictated by: Dictated on workstation # [id number]
== END 2017-10-12 05:38 | disposition home or self-care (01) ==
LOC: EDUNIT# 02:58 → ER 03:02
DX: S39.012A Strain of muscle, fascia and tendon of lower back, initial encounter (principal); J45.909 Unspecified asthma, uncomplicated; E78.00 Pure hypercholesterolemia, unspecified; I10 Essential (primary) hypertension; G40.909 Epilepsy, unspecified, not intractable, without status epilepticus; K21.9 Gastro-esophageal reflux disease without esophagitis; F41.9 Anxiety disorder, unspecified; Z88.0 Allergy status to penicillin; Z88.8 Allergy status to other drugs, medicaments and biological substances; Z79.52 Long term (current) use of systemic steroids; Z87.19 Personal history of other diseases of the digestive system; V28.4XXA Motorcycle driver injured in noncollision transport accident in traffic accident, initial encounter
CPT/HCPCS: 72131; 80306; 81000

== ENCOUNTER 2017-11-30 15:48 | Emergency (ER) | payer MEDICAID ==
[~2017-11-30] VITALS: Ht 180.3 cm; Wt 84.4 kg
[~2017-11-30 15:48] MED LIST changes: +BENZ200C51 PO; +CIPR500T4 PO; +METH4TAB PO; +METH500T PO; +PRD20T PO; +RT-ALBUINH IH
--- OUTSIDE RECORDS SUMMARY | 2017-11-30 15:54 | XMS REPORT | Continuity of Care Document ---
Author Author [employer] Organization [facility] Address Unknown Phone Unavailable Care Team Providers Care Perioperative Tech Name Role Phone [employer] Unavailable Unavailable Problems Medications Allergies, Adverse Reactions, Alerts Immunizations Results Vital Signs Encounters Location Location Details Encounter Type Encounter Number Reason For Visit Attending Provider ADM Date DC Date Status Source O JARON MCCABE 12/05/2017 Active [facility] Procedures Plan of Care Social History Assessment and Plan Family History Advance Directives Functional Status
--- OUTSIDE RECORDS SUMMARY | 2017-11-30 15:57 | XMS REPORT | Continuity of Care Document ---
Demographics Preferred Language Unknown Marital Status Unknown Yarsanism Affiliation Unknown Race Unknown Ethnic Group Unknown Author Author [facility] Organization [facility] Address Unknown Phone Unavailable Allergies Active Description Code Type Severity Reaction Onset Reported/Identified Relationship to Patient Clinical Status Yes No Known Allergies ZZ No Known Allergies N/A NKA 04/30/2014 Yes No Known Drug Allergies [id number] Drug Allergy Unknown N/A 11/29/2016 Yes lurasidone [id number] Drug Allergy Mild N/A 07/29/2017 Yes nicotine [id number] Drug Allergy Mild N/A 07/29/2017 Yes trazodone [id number] Drug Allergy Mild N/A 07/29/2017 Yes Penicillins [id number] Drug Allergy Unknown N/A 10/12/2017 Medications There is no data. Problems Date Dx Coded Attending Type Code Diagnosis Diagnosed By 11/02/2016 EV SANZ APRN Ot F25.0 SCHIZOAFFECTIVE DISORDER, BIPOLAR TYPE 11/02/2016 EV SANZ APRN Ot Z79.899 OTHER USP (CURRENT) DRUG THERAPY 11/03/2016 EV SANZ APRN Ot F25.0 SCHIZOAFFECTIVE DISORDER, BIPOLAR TYPE 11/03/2016 EV SANZ APRN Ot Z79.899 OTHER USP (CURRENT) DRUG THERAPY 11/03/2016 EV SANZ APRN Ot F25.0 SCHIZOAFFECTIVE DISORDER, BIPOLAR TYPE 11/03/2016 EV SANZ APRN Ot Z79.899 OTHER USP (CURRENT) DRUG THERAPY 11/03/2016 EV SANZ APRN Ot F25.0 SCHIZOAFFECTIVE DISORDER, BIPOLAR TYPE 11/03/2016 EV SANZ APRN Ot Z79.899 OTHER USP (CURRENT) DRUG THERAPY 11/16/2016 EV SANZ APRN Ot F25.0 SCHIZOAFFECTIVE DISORDER, BIPOLAR TYPE 11/16/2016 EV SANZ APRN Ot Z79.899 OTHER TUFTER HAND (CURRENT) DRUG THERAPY 11/18/2016 EV SANZ APRN Ot F25.0 SCHIZOAFFECTIVE DISORDER, BIPOLAR TYPE 11/18/2016 UMU, ROBIN Tayla MARCO Ot Z79.899 OTHER USP (CURRENT) DRUG THERAPY 11/29/2016 KARLENE WALTERS MD Ot B34.9 VIRAL INFECTION, UNSPECIFIED 11/29/2016 KARLENE WALTERS MD Ot I10 ESSENTIAL (PRIMARY) HYPERTENSION 11/29/2016 KARLENE WALTERS MD Ot J10.1 FLU DUE TO OTH IDENT INFLUENZA VIRUS W O 11/29/2016 KARLENE WALTERS MD Ot Z79.899 OTHER USP (CURRENT) DRUG THERAPY 11/29/2016 EV SANZ APRN Ot F25.0 SCHIZOAFFECTIVE DISORDER, BIPOLAR TYPE 11/29/2016 EV SANZ APRN Ot Z79.899 OTHER TUFTER HAND (CURRENT) DRUG THERAPY 11/30/2016 KARLENE WALTERS MD, Ot B34.9 VIRAL INFECTION, UNSPECIFIED 11/30/2016 KARLENE WALTERS MD Ot I10 ESSENTIAL (PRIMARY) HYPERTENSION 11/30/2016 KARLENE WALTERS MD Ot J10.1 FLU DUE TO OTH IDENT INFLUENZA VIRUS W O 11/30/2016 KARLENE WALTERS MD Ot Z79.899 OTHER TUFTER HAND (CURRENT) DRUG THERAPY 05/19/2017 EV SANZ APRN Ot F25.0 SCHIZOAFFECTIVE DISORDER, BIPOLAR TYPE 05/19/2017 EV SANZ APRN Ot Z79.899 OTHER USP (CURRENT) DRUG THERAPY 05/19/2017 ANNY REEVES, HESHAM T Ot E78.00 PURE HYPERCHOLESTEROLEMIA, UNSPECIFIED 05/19/2017 ANNY REEVES, HESHAM T Ot F31.9 BIPOLAR DISORDER, UNSPECIFIED 05/19/2017 ANNY REEVES, HESHAM T Ot G40.909 EPILEPSY, UNSP, NOT INTRACTABLE, WITHOUT 05/19/2017 ANNY REEVES, HESHAM T Ot I10 ESSENTIAL (PRIMARY) HYPERTENSION 05/19/2017 ANNY REEVES, HESHAM Stone Ot J45.909 UNSPECIFIED ASTHMA, UNCOMPLICATED 05/19/2017 HESHAM MCCORMICK MD Ot K21.9 GASTRO-ESOPHAGEAL REFLUX DISEASE WITHOUT 05/19/2017 HESHAM MCCORMICK MD Ot K44.9 DIAPHRAGMATIC HERNIA WITHOUT OBSTRUCTION 05/19/2017 HESHAM MCCORMICK MD Ot R11.0 NAUSEA 05/19/2017 HESHAM MCCORMICK MD Ot Z91.14 PATIENT'S OTHER NONCOMPLIANCE WITH MEDIC 05/25/2017 HESHAM MCCORMICK MD Ot E78.00 PURE HYPERCHOLESTEROLEMIA, UNSPECIFIED 05/25/2017 HESHAM MCCORMICK MD Ot F31.9 BIPOLAR DISORDER, UNSPECIFIED 05/25/2017 HESHAM MCCORMICK MD Ot G40.909 EPILEPSY, UNSP, NOT INTRACTABLE, WITHOUT 05/25/2017 HESHAM MCCORMICK MD Ot I10 ESSENTIAL (PRIMARY) HYPERTENSION 05/25/2017 HESHAM MCCORMICK MD Ot J45.909 UNSPECIFIED ASTHMA, UNCOMPLICATED 05/25/2017 HESHAM MCCORMICK MD Ot K21.9 GASTRO-ESOPHAGEAL REFLUX DISEASE WITHOUT 05/25/2017 HESHAM MCCORMICK MD Ot K44.9 DIAPHRAGMATIC HERNIA WITHOUT OBSTRUCTION 05/25/2017 HESHAM MCCORMICK MD Ot R11.0 NAUSEA 05/25/2017 HESHAM MCCORMICK MD Ot Z91.14 PATIENT'S OTHER NONCOMPLIANCE WITH MEDIC 07/29/2017 BLAZE DO, ROBIN K Ot E78.00 PURE HYPERCHOLESTEROLEMIA, UNSPECIFIED 07/29/2017 BLAZE DO, ROBIN K Ot F31.9 BIPOLAR DISORDER, UNSPECIFIED 07/29/2017 BLAZE DO, ROBIN K Ot G40.909 EPILEPSY, UNSP, NOT INTRACTABLE, WITHOUT 07/29/2017 BLAZE DO, ROBIN K Ot I10 ESSENTIAL (PRIMARY) HYPERTENSION 07/29/2017 BLAZE DO, ROBIN K Ot J45.909 UNSPECIFIED ASTHMA, UNCOMPLICATED 07/29/2017 BLAZE DO, ROBIN K Ot K21.9 GASTRO-ESOPHAGEAL REFLUX DISEASE WITHOUT 07/29/2017 BLAZE DO, ROBIN K Ot R00.2 PALPITATIONS 07/29/2017 BLAZE DO, ROBIN K Ot R07.89 OTHER CHEST PAIN 07/29/2017 BLAZE DO, ROBIN K Ot Z87.19 PERSONAL HISTORY OF OTHER DISEASES OF 07/29/2017 EV SANZ MARCO Ot F25.0 SCHIZOAFFECTIVE DISORDER, BIPOLAR TYPE 07/29/2017 UMUEV FORTE MARCO Ot Z79.899 OTHER TUFTER HAND (CURRENT) DRUG THERAPY 09/04/2017 JOSE ALFREDO CAVANAUGH APRN Ot E78.00 PURE HYPERCHOLESTEROLEMIA, UNSPECIFIED 09/04/2017 JOSE ALFREDO CAVANAUGH APRN Ot F31.9 BIPOLAR DISORDER, UNSPECIFIED 09/04/2017 JOSE ALFREDO CAVANAUGH APRN Ot G40.909 EPILEPSY, UNSP, NOT INTRACTABLE, WITHOUT 09/04/2017 JOSE ALFREDO CAVANAUGH MANAGER OF APPLICATIONS DEVELOPMENT Ot I10 ESSENTIAL (PRIMARY) HYPERTENSION 09/04/2017 JOSE ALFREDO CAVANAUGH APRN Ot J45.909 UNSPECIFIED ASTHMA, UNCOMPLICATED 09/04/2017 JOSE ALFREDO CAVANAUGH APRN Ot K21.9 GASTRO-ESOPHAGEAL REFLUX DISEASE WITHOUT 09/04/2017 JOSE ALFREDO CAVANAUGH APRN Ot R07.89 OTHER CHEST PAIN 09/04/2017 JOSE ALFREDO CAVANAUGH APRN Ot Z87.19 PERSONAL HISTORY OF OTHER DISEASES OF 09/04/2017 JOSE ALFREDO CAVANAUGH MANAGER OF APPLICATIONS DEVELOPMENT Ot Z88.8 ALLERGY STATUS TO OTH DRUG/MEDS/BIOL SUB 09/06/2017 JOSE ALFREDO CAVANAUGH APRN Ot E78.00 PURE HYPERCHOLESTEROLEMIA, UNSPECIFIED 09/06/2017 JOSE ALFREDO CAVANAUGH APRN Ot F31.9 BIPOLAR DISORDER, UNSPECIFIED 09/06/2017 JOSE ALFREDO CAVANAUGH APRN Ot G40.909 EPILEPSY, UNSP, NOT INTRACTABLE, WITHOUT 09/06/2017 JOSE ALFREDO CAVANAUGH APRN Ot I10 ESSENTIAL (PRIMARY) HYPERTENSION 09/06/2017 JOSE ALFREDO CAVANAUGH APRN Ot J45.909 UNSPECIFIED ASTHMA, UNCOMPLICATED 09/06/2017 JOSE ALFREDO CAVANAUGH APRN Ot K21.9 GASTRO-ESOPHAGEAL REFLUX DISEASE WITHOUT 09/06/2017 JOSE ALFREDO CAVANAUGH MANAGER OF APPLICATIONS DEVELOPMENT Ot R07.89 OTHER CHEST PAIN 09/06/2017 JOSE ALFREDO CAVANAUGH MANAGER OF APPLICATIONS DEVELOPMENT Ot Z87.19 PERSONAL HISTORY OF OTHER DISEASES OF 09/06/2017 JOSE ALFREDO CAVANAUGH MANAGER OF APPLICATIONS DEVELOPMENT Ot Z88.8 ALLERGY STATUS TO OTH DRUG/MEDS/BIOL SUB 10/12/2017 BLAZE DO, ROBIN K Ot E78.00 PURE HYPERCHOLESTEROLEMIA, UNSPECIFIED 10/12/2017 BLAZE ROBIN K Ot F41.9 ANXIETY DISORDER, UNSPECIFIED 10/12/2017 BLAZE DO ROBIN K Ot G40.909 EPILEPSY, UNSP, NOT INTRACTABLE, WITHOUT 10/12/2017 BLAZE DO, ROBIN K Ot I10 ESSENTIAL (PRIMARY) HYPERTENSION 10/12/2017 BLAZE DO ROBIN K Ot J45.909 UNSPECIFIED ASTHMA, UNCOMPLICATED 10/12/2017 BLAZE DO ROBIN K Ot K21.9 GASTRO-ESOPHAGEAL REFLUX DISEASE WITHOUT 10/12/2017 BLAZE DO ROBIN K Ot M54.5 LOW BACK PAIN 10/12/2017 BLAZE DO ROBIN K Ot S39.012A STRAIN OF MUSCLE, FASCIA AND TENDON OF L 10/12/2017 BLAZE ARORA ROBIN K Ot V28.4XXA MTRCY COPY COORDINATOR INJURED IN NONCLSN [facility] 10/12/2017 BLAZE ARORAROBIN Ot Z79.52 TUFTER HAND (CURRENT) USE OF SYSTEMIC STER 10/12/2017 BLAZE ARORA ROBIN Anabel Ot Z87.19 PERSONAL HISTORY OF OTHER DISEASES OF 10/12/2017 BLAZE ARORA ROBIN K Ot Z88.0 ALLERGY STATUS TO PENICILLIN 10/12/2017 BLAZE ROBIN K Ot Z88.8 ALLERGY STATUS TO OTH DRUG/MEDS/BIOL SUB 10/16/2017 BLAZE ARORA ROBIN K Ot E78.00 PURE HYPERCHOLESTEROLEMIA, UNSPECIFIED 10/16/2017 BLAZE ARORA ROBIN K Ot F41.9 ANXIETY DISORDER, UNSPECIFIED 10/16/2017 BLAZE ARORA ROBIN K Ot G40.909 EPILEPSY, UNSP, NOT INTRACTABLE, WITHOUT 10/16/2017 BLAZE DO ROBIN K Ot I10 ESSENTIAL (PRIMARY) HYPERTENSION 10/16/2017 BLAZE DO ROBIN K Ot J45.909 UNSPECIFIED ASTHMA, UNCOMPLICATED 10/16/2017 BLAZE DO ROBIN K Ot K21.9 GASTRO-ESOPHAGEAL REFLUX DISEASE WITHOUT 10/16/2017 BLAZE DO ROBIN K Ot M54.5 LOW BACK PAIN 10/16/2017 BLAZE DO ROBIN K Ot S39.012A STRAIN OF MUSCLE, FASCIA AND TENDON OF L 10/16/2017 MARLEN THAKUR DOA K Ot V28.4XXA MTRCY COPY COORDINATOR INJURED IN NONCLSN TRNSP AC 10/16/2017 ROBIN THAKUR DO Ot Z79.52 USP (CURRENT) USE OF SYSTEMIC STER 10/16/2017 ROBIN THAKUR DO Ot Z87.19 PERSONAL HISTORY OF OTHER DISEASES OF 10/16/2017 ROBIN THAKUR DO Ot Z88.0 ALLERGY STATUS TO PENICILLIN 10/16/2017 ROBIN THAKUR DO Ot Z88.8 ALLERGY STATUS TO OTH DRUG/MEDS/BIOL SUB 11/26/2017 EV SANZ APRN Ot F25.0 SCHIZOAFFECTIVE DISORDER, BIPOLAR TYPE 11/26/2017 UMUEV APRN Ot Z79.899 OTHER TUFTER HAND (CURRENT) DRUG THERAPY Procedures There is no data. Results Test Result Range Valproic acid - 11/01/16 16:25 Valproic acid < ug/mL 50.0-100.0 Serum soybean IgE antibody assay (units/volume) - 11/01/16 17:06 Serum soybean IgE antibody assay (units/volume) < % < 0.35 SOYBEAN CL - 11/01/16 17:06 SOYBEAN CL CLASS 0 NRG Shrimp specific IgE antibody assay - 11/01/16 17:06 Shrimp specific IgE antibody assay < % <0.35 SHRIMP CL - 11/01/16 17:06 SHRIMP CL CLASS 0 NRG Coconut IgE Ab RAST class [Presence] in Serum - 11/01/16 17:06 Coconut IgE Ab RAST class [Presence] in Serum <0.35 < 0.35 COCONUT CL - 11/01/16 17:06 COCONUT CL CLASS [address] - 11/01/16 17:[address] <0.10 <0.35 Ampicillin IgE Ab RAST class [Presence] in Serum - 11/01/16 17:06 Ampicillin IgE Ab RAST class [Presence] in Serum 0 NRG Penicillin G IgE serum - 11/01/16 17:06 Penicillin G IgE serum < % <0.35 Penicillin G IgE Ab RAST class [Presence] in Serum - 11/01/16 17:06 Penicillin G IgE Ab RAST class [Presence] in Serum [address] - 11/01/16 17:[address] <0.10 <0.35 Penicillin V IgE Ab RAST class [Presence] in Serum - 11/01/16 17:06 Penicillin V IgE Ab RAST class [Presence] in Serum [address] - 11/01/16 17:[address] <0.10 <0.35 Amoxicillin IgE Ab RAST class [Presence] in Serum - 11/01/16 17:06 Amoxicillin IgE Ab RAST class [Presence] in Serum 0 NRG [id number] - 11/01/16 17:06 [id number] SEE FOOTNOTE NRG Tuna IgE Ab RAST class [Presence] in Serum - 11/01/16 17:06 Tuna IgE Ab RAST class [Presence] in Serum <0.35 <0.35 TUNA CL - 11/01/16 17:06 TUNA CL CLASS 0 NRG Serum cow milk IgE antibody assay (units/volume) - 11/01/16 17:06 Serum cow milk IgE antibody assay (units/volume) 1.56 H 0.00-0.34 Serum cow milk IgE antibody RAST class - 11/01/16 17:06 Serum cow milk IgE antibody RAST class CLASS 2 NRG Complete blood count (CBC) with automated white blood cell (WBC) differential - 11/28/16 23:55 Blood leukocytes automated count (number/volume) 10.2 10*3/uL 4.3-11.0 Blood erythrocytes automated count (number/volume) 4.92 10*6/uL 4.35-5.85 Venous blood hemoglobin measurement (mass/volume) 13.7 g/dL 13.3-17.7 Blood hematocrit (volume fraction) 41 % 40-54 Automated erythrocyte mean corpuscular volume 84 [foz_us] 80-99 Automated erythrocyte mean corpuscular hemoglobin (mass per erythrocyte) 28 pg 25-34 Automated erythrocyte mean corpuscular hemoglobin concentration measurement ( mass/volume) 33 g/dL 32-36 Automated erythrocyte distribution width ratio 14.4 % 10.0-14.5 Automated blood platelet count (count/volume) 298 10*3/uL 130-400 Automated blood platelet mean volume measurement 9.4 [foz_us] 7.4-10.4 Automated blood neutrophils/100 leukocytes 58 % 42-75 Automated blood lymphocytes/100 leukocytes 24 % 12-44 Blood monocytes/100 leukocytes 17 % 0-12 Automated blood eosinophils/100 leukocytes 1 % 0-10 Automated blood basophils/100 leukocytes 1 % 0-10 Blood neutrophils automated count (number/volume) 5.9 10*3 1.8-7.8 Blood lymphocytes automated count (number/volume) 2.4 10*3 1.0-4.0 Blood monocytes automated count (number/volume) 1.8 10*3 0.0-1.0 Automated eosinophil count 0.1 10*3/uL 0.0-0.3 Automated blood basophil count (count/volume) 0.1 10*3/uL 0.0-0.1 Comprehensive metabolic panel - 11/28/16 23:55 Serum or plasma sodium measurement (moles/volume) 136 mmol/L 135-145 Serum or plasma potassium measurement (moles/volume) 3.5 mmol/L 3.6-5.0 Serum or plasma chloride measurement (moles/volume) 103 mmol/L 98-107 Carbon dioxide 21 mmol/L 21-32 Serum or plasma anion gap determination (moles/volume) 12 mmol/L 5-14 Serum or plasma urea nitrogen measurement (mass/volume) 21 mg/dL 7-18 Serum or plasma creatinine measurement (mass/volume) 1.06 mg/dL 0.60-1.30 Serum or plasma urea nitrogen/creatinine mass ratio 20 NRG Serum or plasma creatinine measurement with calculation of estimated glomerular filtration rate > NRG Serum or plasma glucose measurement (mass/volume) 88 mg/dL 70-105 Serum or plasma calcium measurement (mass/volume) 9.2 mg/dL 8.5-10.1 Serum or plasma total bilirubin measurement (mass/volume) 0.8 mg/dL 0.1-1.0 Serum or plasma alkaline phosphatase measurement (enzymatic activity/volume) 57 U/L 40-136 Serum or plasma aspartate aminotransferase measurement (enzymatic activity/ volume) 25 U/L 5-34 Serum or plasma alanine aminotransferase measurement (enzymatic activity/volume ) 31 U/L 0-55 Serum or plasma protein measurement (mass/volume) 7.3 g/dL 6.4-8.2 Serum or plasma albumin measurement (mass/volume) 4.5 g/dL 3.2-4.5 Serum or plasma C reactive protein measurement (mass/volume) - 11/28/16 23:55 Serum or plasma C reactive protein measurement (mass/volume) 1.17 mg /dL 0.00-0.50 Complete urinalysis with reflex to culture - 11/29/16 00:58 Urine color determination YELLOW NRG Urine clarity determination CLEAR NRG Urine pH measurement by test strip 5 5-9 Specific gravity of urine by test strip 1.010 1.016- 1.022 Urine protein assay by test strip, semi-quantitative NEGATIVE NEGATIVE Urine glucose detection by automated test strip NEGATIVE NEGATIVE Erythrocytes detection in urine sediment by light microscopy NEGATIVE NEGATIVE Urine ketones detection by automated test strip NEGATIVE NEGATIVE Urine nitrite detection by test strip NEGATIVE NEGATIVE Urine total bilirubin detection by test strip NEGATIVE NEGATIVE Urine urobilinogen measurement by automated test strip (mass/volume) NORMAL NORMAL Urine leukocyte esterase detection by dipstick NEGATIVE NEGATIVE Automated urine sediment erythrocyte count by microscopy (number/high power field) NONE NRG Automated urine sediment leukocyte count by microscopy (number/high power field ) NONE NRG Bacteria detection in urine sediment by light microscopy NEGATIVE NRG Squamous epithelial cells detection in urine sediment by light microscopy 0-2 NRG Crystals detection in urine sediment by light microscopy NONE NRG Casts detection in urine sediment by light microscopy NONE NRG Mucus detection in urine sediment by light microscopy NEGATIVE NRG Complete urinalysis with reflex to culture NO NRG Complete urinalysis with reflex to culture - 05/18/17 23:10 Urine color determination YELLOW NRG Urine clarity determination CLEAR NRG Urine pH measurement by test strip 6 5-9 Specific gravity of urine by test strip 1.025 1.016- 1.022 Urine protein assay by test strip, semi-quantitative NEGATIVE NEGATIVE Urine glucose detection by automated test strip NEGATIVE NEGATIVE Erythrocytes detection in urine sediment by light microscopy NEGATIVE NEGATIVE Urine ketones detection by automated test strip NEGATIVE NEGATIVE Urine nitrite detection by test strip NEGATIVE NEGATIVE Urine total bilirubin detection by test strip NEGATIVE NEGATIVE Urine urobilinogen measurement by automated test strip (mass/volume) NORMAL NORMAL Urine leukocyte esterase detection by dipstick NEGATIVE NEGATIVE Automated urine sediment erythrocyte count by microscopy (number/high power field) NONE NRG Automated urine sediment leukocyte count by microscopy (number/high power field ) NONE NRG Bacteria detection in urine sediment by light microscopy NEGATIVE NRG Squamous epithelial cells detection in urine sediment by light microscopy NONE NRG Crystals detection in urine sediment by light microscopy NONE NRG Casts detection in urine sediment by light microscopy NONE NRG Mucus detection in urine sediment by light microscopy NEGATIVE NRG Complete urinalysis with reflex to culture NO NRG Complete blood count (CBC) with automated white blood cell (WBC) differential - 05/18/17 23:15 Blood leukocytes automated count (number/volume) 8.8 10*3/uL 4.3-11.0 Blood erythrocytes automated count (number/volume) 5.20 10*6/uL 4.35-5.85 Venous blood hemoglobin measurement (mass/volume) 15.2 g/dL 13.3-17.7 Blood hematocrit (volume fraction) 45 % 40-54 Automated erythrocyte mean corpuscular volume 86 [foz_us] 80-99 Automated erythrocyte mean corpuscular hemoglobin (mass per erythrocyte) 29 pg 25-34 Automated erythrocyte mean corpuscular hemoglobin concentration measurement ( mass/volume) 34 g/dL 32-36 Automated erythrocyte distribution width ratio 14.9 % 10.0-14.5 Automated blood platelet count (count/volume) 292 10*3/uL 130-400 Automated blood platelet mean volume measurement 9.7 [foz_us] 7.4-10.4 Automated blood neutrophils/100 leukocytes 48 % 42-75 Automated blood lymphocytes/100 leukocytes 40 % 12-44 Blood monocytes/100 leukocytes 9 % 0-12 Automated blood eosinophils/100 leukocytes 2 % 0-10 Automated blood basophils/100 leukocytes 1 % 0-10 Blood neutrophils automated count (number/volume) 4.2 10*3 1.8-7.8 Blood lymphocytes automated count (number/volume) 3.5 10*3 1.0-4.0 Blood monocytes automated count (number/volume) 0.8 10*3 0.0-1.0 Automated eosinophil count 0.2 10*3/uL 0.0-0.3 Automated blood basophil count (count/volume) 0.0 10*3/uL 0.0-0.1 Comprehensive metabolic panel - 05/18/17 23:15 Serum or plasma sodium measurement (moles/volume) 141 mmol/L 135-145 Serum or plasma potassium measurement (moles/volume) 3.4 mmol/L 3.6-5.0 Serum or plasma chloride measurement (moles/volume) 105 mmol/L 98-107 Carbon dioxide 22 mmol/L 21-32 Serum or plasma anion gap determination (moles/volume) 14 mmol/L 5-14 Serum or plasma urea nitrogen measurement (mass/volume) 14 mg/dL 7-18 Serum or plasma creatinine measurement (mass/volume) 1.01 mg/dL 0.60-1.30 Serum or plasma urea nitrogen/creatinine mass ratio 14 NRG Serum or plasma creatinine measurement with calculation of estimated glomerular filtration rate > NRG Serum or plasma glucose measurement (mass/volume) 99 mg/dL 70-105 Serum or plasma calcium measurement (mass/volume) 10.2 mg/dL 8.5-10.1 Serum or plasma total bilirubin measurement (mass/volume) 0.5 mg/dL 0.1-1.0 Serum or plasma alkaline phosphatase measurement (enzymatic activity/volume) 67 U/L 40-136 Serum or plasma aspartate aminotransferase measurement (enzymatic activity/ volume) 20 U/L 5-34 Serum or plasma alanine aminotransferase measurement (enzymatic activity/volume ) 22 U/L 0-55 Serum or plasma protein measurement (mass/volume) 8.1 g/dL 6.4-8.2 Serum or plasma albumin measurement (mass/volume) 4.8 g/dL 3.2-4.5 Magnesium - 05/18/17 23:15 Magnesium 2.2 mg/dL 1.8-2.4 Lipase - 05/18/17 23:15 Lipase 36 U/L 8-78 Complete blood count (CBC) with automated white blood cell (WBC) differential - 07/29/17 21:22 Blood leukocytes automated count (number/volume) 7.7 10*3/uL 4.3-11.0 Blood erythrocytes automated count (number/volume) 4.53 10*6/uL 4.35-5.85 Venous blood hemoglobin measurement (mass/volume) 13.4 g/dL 13.3-17.7 Blood hematocrit (volume fraction) 39 % 40-54 Automated erythrocyte mean corpuscular volume 85 [foz_us] 80-99 Automated erythrocyte mean corpuscular hemoglobin (mass per erythrocyte) 30 pg 25-34 Automated erythrocyte mean corpuscular hemoglobin concentration measurement ( mass/volume) 35 g/dL 32-36 Automated erythrocyte distribution width ratio 13.5 % 10.0-14.5 Automated blood platelet count (count/volume) 257 10*3/uL 130-400 Automated blood platelet mean volume measurement 9.2 [foz_us] 7.4-10.4 Automated blood neutrophils/100 leukocytes 60 % 42-75 Automated blood lymphocytes/100 leukocytes 30 % 12-44 Blood monocytes/100 leukocytes 9 % 0-12 Automated blood eosinophils/100 leukocytes 1 % 0-10 Automated blood basophils/100 leukocytes 1 % 0-10 Blood neutrophils automated count (number/volume) 4.6 10*3 1.8-7.8 Blood lymphocytes automated count (number/volume) 2.3 10*3 1.0-4.0 Blood monocytes automated count (number/volume) 0.7 10*3 0.0-1.0 Automated eosinophil count 0.1 10*3/uL 0.0-0.3 Automated blood basophil count (count/volume) 0.0 10*3/uL 0.0-0.1 PT panel in platelet poor plasma by coagulation assay - 07/29/17 21:22 Prothrombin time (PT) in platelet poor plasma by coagulation assay 14.1 s 12.2-14.7 INR in platelet poor plasma or blood by coagulation assay 1.1 0.8-1.4 Activated partial thromboplastin time (aPTT) in platelet poor plasma bycoagulation assay - 07/29/17 21:22 Activated partial thromboplastin time (aPTT) in platelet poor plasma bycoagulation assay 30 s 24-35 Comprehensive metabolic panel - 07/29/17 21:22 Serum or plasma sodium measurement (moles/volume) 139 mmol/L 135-145 Serum or plasma potassium measurement (moles/volume) 3.1 mmol/L 3.6-5.0 Serum or plasma chloride measurement (moles/volume) 103 mmol/L 98-107 Carbon dioxide 22 mmol/L 21-32 Serum or plasma anion gap determination (moles/volume) 14 mmol/L 5-14 Serum or plasma urea nitrogen measurement (mass/volume) 7 mg/dL 7-18 Serum or plasma creatinine measurement (mass/volume) 0.79 mg/dL 0.60-1.30 Serum or plasma urea nitrogen/creatinine mass ratio 9 NRG Serum or plasma creatinine measurement with calculation of estimated glomerular filtration rate > NRG Serum or plasma glucose measurement (mass/volume) 96 mg/dL 70-105 Serum or plasma calcium measurement (mass/volume) 9.5 mg/dL 8.5-10.1 Serum or plasma total bilirubin measurement (mass/volume) 0.6 mg/dL 0.1-1.0 Serum or plasma alkaline phosphatase measurement (enzymatic activity/volume) 50 U/L 40-136 Serum or plasma aspartate aminotransferase measurement (enzymatic activity/ volume) 17 U/L 5-34 Serum or plasma alanine aminotransferase measurement (enzymatic activity/volume ) 19 U/L 0-55 Serum or plasma protein measurement (mass/volume) 7.3 g/dL 6.4-8.2 Serum or plasma albumin measurement (mass/volume) 4.7 g/dL 3.2-4.5 Magnesium - 07/29/17 21:22 Magnesium 2.0 mg/dL 1.8-2.4 Serum or plasma lithium measurement (moles/volume) - 07/29/17 21:22 BNP level < pg/mL <100.0 Serum or plasma troponin i.cardiac measurement (mass/volume) - 07/29/17 21:22 Serum or plasma troponin i.cardiac measurement (mass/volume) < ng/ mL <0.30 Serum or plasma thyrotropin measurement by detection limit <=0.05 miu/l (units/ volume) - 07/29/17 21:22 Serum or plasma thyrotropin measurement by detection limit <=0.05 miu/l (units/ volume) 3.11 u[iU]/mL 0.35-4.94 Serum or plasma ethanol measurement (mass/volume) - 07/29/17 21:22 Serum or plasma ethanol measurement (mass/volume) < mg/dL <10 Urine drug screening test - 07/29/17 23:00 Urine phencyclidine detection by screening method NEGATIVE NEGATIVE Urine benzodiazepines detection by screening method NEGATIVE NEGATIVE Urine cocaine detection NEGATIVE NEGATIVE Urine amphetamines detection by screening method NEGATIVE NEGATIVE Urine methamphetamine detection by screening method NEGATIVE NEGATIVE Urine cannabinoids detection by screening method NEGATIVE NEGATIVE Urine opiates detection by screening method NEGATIVE NEGATIVE Urine barbiturates detection NEGATIVE NEGATIVE Screening urine tricyclic antidepressants detection NEGATIVE NEGATIVE Urine methadone detection by screening method NEGATIVE NEGATIVE Urine oxycodone detection NEGATIVE NEGATIVE Urine propoxyphene detection NEGATIVE NEGATIVE Complete urinalysis with reflex to culture - 07/29/17 23:00 Urine color determination YELLOW NRG Urine clarity determination CLEAR NRG Urine pH measurement by test strip 7 5-9 Specific gravity of urine by test strip 1.005 1.016- 1.022 Urine protein assay by test strip, semi-quantitative 1+ NEGATIVE Urine glucose detection by automated test strip NEGATIVE NEGATIVE Erythrocytes detection in urine sediment by light microscopy NEGATIVE NEGATIVE Urine ketones detection by automated test strip NEGATIVE NEGATIVE Urine nitrite detection by test strip NEGATIVE NEGATIVE Urine total bilirubin detection by test strip NEGATIVE NEGATIVE Urine urobilinogen measurement by automated test strip (mass/volume) NORMAL NORMAL Urine leukocyte esterase detection by dipstick NEGATIVE NEGATIVE Automated urine sediment erythrocyte count by microscopy (number/high power field) NONE NRG Automated urine sediment leukocyte count by microscopy (number/high power field ) RARE NRG Bacteria detection in urine sediment by light microscopy NEGATIVE NRG Squamous epithelial cells detection in urine sediment by light microscopy NONE NRG Crystals detection in urine sediment by light microscopy NONE NRG Casts detection in urine sediment by light microscopy NONE NRG Mucus detection in urine sediment by light microscopy NEGATIVE NRG Complete urinalysis with reflex to culture NO NRG Renal epithelial cells detection in urine sediment by light microscopy NONE NRG Complete blood count (CBC) with automated white blood cell (WBC) differential - 09/04/17 19:30 Blood leukocytes automated count (number/volume) 7.8 10*3/uL 4.3-11.0 Blood erythrocytes automated count (number/volume) 4.59 10*6/uL 4.35-5.85 Venous blood hemoglobin measurement (mass/volume) 13.1 g/dL 13.3-17.7 Blood hematocrit (volume fraction) 38 % 40-54 Automated erythrocyte mean corpuscular volume 83 [foz_us] 80-99 Automated erythrocyte mean corpuscular hemoglobin (mass per erythrocyte) 29 pg 25-34 Automated erythrocyte mean corpuscular hemoglobin concentration measurement ( mass/volume) 34 g/dL 32-36 Automated erythrocyte distribution width ratio 14.1 % 10.0-14.5 Automated blood platelet count (count/volume) 399 10*3/uL 130-400 Automated blood platelet mean volume measurement 9.3 [foz_us] 7.4-10.4 Automated blood neutrophils/100 leukocytes 49 % 42-75 Automated blood lymphocytes/100 leukocytes 39 % 12-44 Blood monocytes/100 leukocytes 9 % 0-12 Automated blood eosinophils/100 leukocytes 3 % 0-10 Automated blood basophils/100 leukocytes 1 % 0-10 Blood neutrophils automated count (number/volume) 3.8 10*3 1.8-7.8 Blood lymphocytes automated count (number/volume) 3.0 10*3 1.0-4.0 Blood monocytes automated count (number/volume) 0.7 10*3 0.0-1.0 Automated eosinophil count 0.2 10*3/uL 0.0-0.3 Automated blood basophil count (count/volume) 0.0 10*3/uL 0.0-0.1 Fibrin D-dimer FEU measurement in platelet poor plasma (mass/volume) - 19:30 Fibrin D-dimer FEU measurement in platelet poor plasma (mass/volume) < ug/mL 0.00-0.49 Erythrocyte sedimentation rate by westergren method - 09/04/17 19:30 Erythrocyte sedimentation rate by westergren method 12 mm 0-15 Comprehensive metabolic panel - 09/04/17 19:30 Serum or plasma sodium measurement (moles/volume) 142 mmol/L 135-145 Serum or plasma potassium measurement (moles/volume) 3.8 mmol/L 3.6-5.0 Serum or plasma chloride measurement (moles/volume) 107 mmol/L 98-107 Carbon dioxide 22 mmol/L 21-32 Serum or plasma anion gap determination (moles/volume) 13 mmol/L 5-14 Serum or plasma urea nitrogen measurement (mass/volume) 11 mg/dL 7-18 Serum or plasma creatinine measurement (mass/volume) 0.92 mg/dL 0.60-1.30 Serum or plasma urea nitrogen/creatinine mass ratio 12 NRG Serum or plasma creatinine measurement with calculation of estimated glomerular filtration rate > NRG Serum or plasma glucose measurement (mass/volume) 112 mg/dL 70-105 Serum or plasma calcium measurement (mass/volume) 9.3 mg/dL 8.5-10.1 Serum or plasma total bilirubin measurement (mass/volume) 0.2 mg/dL 0.1-1.0 Serum or plasma alkaline phosphatase measurement (enzymatic activity/volume) 67 U/L 40-136 Serum or plasma aspartate aminotransferase measurement (enzymatic activity/ volume) 21 U/L 5-34 Serum or plasma alanine aminotransferase measurement (enzymatic activity/volume ) 20 U/L 0-55 Serum or plasma protein measurement (mass/volume) 8.1 g/dL 6.4-8.2 Serum or plasma albumin measurement (mass/volume) 4.6 g/dL 3.2-4.5 Serum or plasma lithium measurement (moles/volume) - 09/04/17 19:30 BNP level 24.6 pg/mL <100.0 Serum or plasma troponin i.cardiac measurement (mass/volume) - 09/04/17 19:30 Serum or plasma troponin i.cardiac measurement (mass/volume) < ng/ mL <0.30 THYROID STIMULATING HORMONE - 09/04/17 19:30 THYROID STIMULATING HORMONE 2.68 u[iU]/mL 0.35-4.94 Complete urinalysis with reflex to culture - 09/04/17 19:40 Urine color determination YELLOW NRG Urine clarity determination CLEAR NRG Urine pH measurement by test strip 7 5-9 Specific gravity of urine by test strip 1.010 1.016- 1.022 Urine protein assay by test strip, semi-quantitative NEGATIVE NEGATIVE Urine glucose detection by automated test strip NEGATIVE NEGATIVE Erythrocytes detection in urine sediment by light microscopy NEGATIVE NEGATIVE Urine ketones detection by automated test strip NEGATIVE NEGATIVE Urine nitrite detection by test strip NEGATIVE NEGATIVE Urine total bilirubin detection by test strip NEGATIVE NEGATIVE Urine urobilinogen measurement by automated test strip (mass/volume) NORMAL NORMAL Urine leukocyte esterase detection by dipstick NEGATIVE NEGATIVE Automated urine sediment erythrocyte count by microscopy (number/high power field) NONE NRG Automated urine sediment leukocyte count by microscopy (number/high power field ) RARE NRG Bacteria detection in urine sediment by light microscopy NEGATIVE NRG Crystals detection in urine sediment by light microscopy NONE NRG Casts detection in urine sediment by light microscopy NONE NRG Mucus detection in urine sediment by light microscopy NEGATIVE NRG Complete urinalysis with reflex to culture NO NRG Urine drug screening test - 09/04/17 19:40 Urine phencyclidine detection by screening method NEGATIVE NEGATIVE Urine benzodiazepines detection by screening method NEGATIVE NEGATIVE Urine cocaine detection NEGATIVE NEGATIVE Urine amphetamines detection by screening method NEGATIVE NEGATIVE Urine methamphetamine detection by screening method NEGATIVE NEGATIVE Urine cannabinoids detection by screening method NEGATIVE NEGATIVE Urine opiates detection by screening method NEGATIVE NEGATIVE Urine barbiturates detection NEGATIVE NEGATIVE Screening urine tricyclic antidepressants detection NEGATIVE NEGATIVE Urine methadone detection by screening method NEGATIVE NEGATIVE Urine oxycodone detection NEGATIVE NEGATIVE Urine propoxyphene detection NEGATIVE NEGATIVE Complete urinalysis with reflex to culture - 10/12/17 03:58 Urine color determination YELLOW NRG Urine clarity determination CLEAR NRG Urine pH measurement by test strip 5 5-9 Specific gravity of urine by test strip 1.010 1.016- 1.022 Urine protein assay by test strip, semi-quantitative NEGATIVE NEGATIVE Urine glucose detection by automated test strip NEGATIVE NEGATIVE Erythrocytes detection in urine sediment by light microscopy NEGATIVE NEGATIVE Urine ketones detection by automated test strip NEGATIVE NEGATIVE Urine nitrite detection by test strip NEGATIVE NEGATIVE Urine total bilirubin detection by test strip NEGATIVE NEGATIVE Urine urobilinogen measurement by automated test strip (mass/volume) NORMAL NORMAL Urine leukocyte esterase detection by dipstick NEGATIVE NEGATIVE Automated urine sediment erythrocyte count by microscopy (number/high power field) NONE NRG Automated urine sediment leukocyte count by microscopy (number/high power field ) NONE NRG Bacteria detection in urine sediment by light microscopy NEGATIVE NRG Squamous epithelial cells detection in urine sediment by light microscopy RARE NRG Crystals detection in urine sediment by light microscopy NONE NRG Casts detection in urine sediment by light microscopy NONE NRG Mucus detection in urine sediment by light microscopy NEGATIVE NRG Complete urinalysis with reflex to culture NO NRG Urine drug screening test - 10/12/17 03:58 Urine phencyclidine detection by screening method NEGATIVE NEGATIVE Urine benzodiazepines detection by screening method NEGATIVE NEGATIVE Urine cocaine detection NEGATIVE NEGATIVE Urine amphetamines detection by screening method NEGATIVE NEGATIVE Urine methamphetamine detection by screening method NEGATIVE NEGATIVE Urine cannabinoids detection by screening method NEGATIVE NEGATIVE Urine opiates detection by screening method NEGATIVE NEGATIVE Urine barbiturates detection NEGATIVE NEGATIVE Screening urine tricyclic antidepressants detection NEGATIVE NEGATIVE Urine methadone detection by screening method NEGATIVE NEGATIVE Urine oxycodone detection NEGATIVE NEGATIVE Urine propoxyphene detection NEGATIVE NEGATIVE Streptococcus pyogenes antigen detection - 11/26/17 22:05 Streptococcus pyogenes antigen detection NEGATIVE NEGATIVE Influenza virus A and B antigen detection - 11/26/17 22:05 FLU RESULT NEGATIVE FOR INFLUENZA A AND B ANTIGENS BY IA NRG Bacterial throat culture - 11/26/17 22:05 Bacterial throat culture NBS NRG Encounters ACCT No. Visit Date/Time Discharge Status Pt. Type Provider Facility Loc./Unit Complaint [id number] 05/03/2014 07:19:00 ACT Unknown [id number] 04/23/2014 07:20:00 ACT Unknown [id number] 01/03/2014 07:20:00 ACT Unknown [id number] 12/25/2013 07:16:00 ACT Unknown [id number] 09/25/2013 07:16:00 ACT Unknown [id number] 09/24/2013 10:57:00 ACT Unknown [id number] 01/27/2016 12:24:37 Document Registration [id number] 11/26/2017 21:13:00 11/26/2017 22:58:00 DIS Emergency ESTHER MOFFETT [facility] ER COUGH [id number] 10/12/2017 03:02:00 10/12/2017 05:38:00 DIS Emergency BLAZE DOROBIN [facility] ER NAUSEA,BACK RT LEG PAIN [id number] 09/04/2017 19:14:00 09/04/2017 20:41:00 DIS Emergency JOSE ALFREDO CAVANAUGH APRN [facility] ER CHEST PAIN [id number] 07/29/2017 21:13:00 07/29/2017 23:16:00 DIS Emergency BLAZE ROBIN ARORA [facility] ER CP,PALPITATIONS [id number] 05/18/2017 23:03:00 05/19/2017 00:22:00 DIS Emergency ANNY REEVES, HESHAM Stone [facility] ER NAUSEA [id number] 11/28/2016 23:53:00 11/29/2016 01:33:00 DIS Emergency ROMEO REEVES, KARLENE Soriano [facility] ER FLUID IN LUNGS [id number] 11/01/2016 16:10:00 11/01/2016 23:59:59 CLS Outpatient EV SANZ APRN [facility] LAB TUFTER HAND USE MEDICATIONS SCHIZO AFFECTIVE USE [id number] 11/29/2017 14:05:00 ACT Outpatient SI[facility]
--- NOTE | 2017-11-30 16:33 | ED GI ---
General Chief Complaint: Abdominal/GI Problems Stated Complaint: FEELS LIKE VOMITING AFTER EATING/DRINKING Nursing Triage Note: MADE FOLLOW UP CALL TO PT TODAY. PT C/O NAUSEA AND STATED HE FELT IF HE WAS GETTING WORSE. ADVISED PT TO F/U WITH DR, [facility], OR URGENT CARE. PT STATED HE WAS SEEN IN URGENT CARE TODAY AND NOTHING WAS DONE. PT ARRIVED TO ED WITH GIRLFRIEND. GIRLFRIEND STATES PT IS DISPLAYING SOME CONFUSION AND HAS BEEN SLEEPING SINCE MONDAY. GIRLFRIEND STATED PT WAS SEEN IN URGENT CARE YESTERDAY AND WAS ADVISED THAT HE WAS PRESCRIBED APPROPRIATE MEDS FROM HIS LAST ED VISIT AND TO RETURN TO URGENT CARE IN ONE WEEK IF HE WAS NOT BETTER. PT STATES HE IS TAKING ZOFRAN AND IT IS NOT HELPING. Sepsis Screen: No Definite Risk Source of Information: Patient Exam Limitations: No Limitations History of Present Illness Date Seen by Provider: Nov 30, 2017 Time Seen by Provider: 16:32 Initial Comments The patient is a 27-year-old white male who was here on the with complaints of cough for 2-3 weeks. He was given medications and discharged. He was apparently seen in a walk-in clinic this morning for the onset of nausea. He states nothing was done there. The returns here stating that when he tries he feels like he might vomit. There is modest nonspecific abdominal pain. He has had a bowel movement. No diarrhea was noted he has not had any fever or chills. Timing/Duration: 4-6 Hours Severity/Quality: Moderate Allergies and Home Medications Allergies Coded Allergies: lurasidone (Verified Allergy, Mild, 07/29/17) nicotine (Verified Allergy, Mild, 07/29/17) trazodone (Verified Allergy, Mild, 07/29/17) Penicillins (Unverified Adverse Reaction, Unknown, 10/12/17) Home Medications Albuterol Sulfate 1.25 Mg/3 Ml Vial.neb, 1 INH INH UD, (Reported) Albuterol Sulfate 1 Puff Puff, 2 PUFF IH Q4H PRN for WHEEZING 1 PUFF = 90 MCG Prescribed by: ESTHER PARRISH on 11/26/172241 Benzonatate 200 Mg Capsule, 200 MG PO Q8H PRN for COUGH Prescribed by: ESTHER PARRISH on 11/26/172241 Ciprofloxacin HCl 500 Mg Tablet, 500 MG PO BID Prescribed by: ESTHER PARRISH on 11/26/172241 Divalproex Sodium 250 Mg Tab.er.24h, 1 TAB PO UD, (Reported) Fluticasone Propionate 1 Ea Aero, 1 INH INH UD, (Reported) Levetiracetam 500 Mg Tablet, 1 TAB PO BID, (Reported) Lisinopril 20 Mg Tablet, 1 TAB PO UD, (Reported) Methocarbamol 500 Mg Tablet, 500 MG PO QID Prescribed by: ROBIN THAKUR on 10/12/17519 Methylprednisolone 4 Mg Tab.ds.pk, 4 MG PO UD Prescribed by: ROBIN THAKUR on 10/12/1720 Omeprazole 20 Mg Capsule.dr, 20 MG PO DAILY Prescribed by: HESHAM CABRERA on 05/19/17 0014 Pantoprazole Sodium 40 Mg Tablet.dr, 1 TAB PO UD, (Reported) Prednisone 20 Mg Tab, 40 MG PO DAILY Prescribed by: ESTHER PARRISH on 11/26/172241 Simvastatin 40 Mg Tablet, 1 TAB PO UD, (Reported) Sucralfate 1 Gm Tablet, 1 TAB PO BID, (Reported) Patient Home Medication List Home Medication List Reviewed: Yes Review of Systems Constitutional: see HPI EENTM: No Symptoms Reported Respiratory: No Symptoms Reported Cardiovascular: No Symptoms Reported Gastrointestinal: No Symptoms Reported Genitourinary: No Symptoms Reported Musculoskeletal: no symptoms reported Skin: no symptoms reported Psychiatric/Neurological: Other (female business consultant reports that he is been quite somnolent this week.) Endocrine: No Symptoms Reported Hematologic/Lymphatic: No Symptoms Reported Past Fjevvpy-Nyzaxx-Ghlrfs Hx Patient Social History 2nd Hand Smoke Exposure: Yes Recent Foreign Travel: No Contact w/Someone Who Travel: No Recent Infectious Disease Expo: No Recent Hopitalizations: No Immunizations Up To Date Tetanus Booster (TDap): Less than 5yrs Date of Influenza Vaccine: Jun 07, 2017 Seasonal Allergies Seasonal Allergies: No Past Medical History Surgeries: Yes (HERNIA REPAIR) Abdominal Respiratory: Yes Asthma Cardiac: Yes High Cholesterol, Hypertension Neurological: Yes Seizure Disorder Reproductive Disorders: No Genitourinary: No Gastrointestinal: Yes Gastroesophageal Reflux, Hiatal Hernia Musculoskeletal: No Endocrine: No HEENT: No Cancer: No Psychosocial: Yes Bipolar Integumentary: No Blood Disorders: No Family Medical History No Pertinent Family Hx Physical Exam Vital Signs Vital Signs - First Documented 11/30/17 15:53 Temp 98.4 Pulse 129 Resp 18 B/P (MAP) 138/95 (109) O2 Delivery Room Air Capillary Refill : Less Than 3 Seconds General Appearance: other (somnolent and slow to respond) HEENT: normal ENT inspection Neck: full range of motion Respiratory: chest non-tender, lungs clear, normal breath sounds, no respiratory distress, no accessory muscle use Cardiovascular: normal peripheral pulses, regular rate, rhythm, no edema, no gallop, no JVD, no murmur Gastrointestinal: normal bowel sounds, non tender, soft, no organomegaly, no pulsatile mass Extremities: normal range of motion, non-tender, normal inspection, no pedal edema, no calf tenderness, normal capillary refill, pelvis stable Back: normal inspection Neurologic/Psychiatric: refrigeration 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 II-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 nml as tested, no motor/sensory deficits, alert, normal mood/affect, oriented x 3 Skin: normal color, warm/dry Lymphatic: no adenopathy Progress/Results/Core Measures Lab Results Laboratory Tests Test 11/30/17 16:19 11/30/17 16:38 Range/Units Urine Color YELLOW Urine Clarity CLEAR Urine pH 6 5-9 Urine Specific [place] 1.015 L 1.016-1.022 Urine Protein NEGATIVE NEGATIVE Urine Glucose (UA) NEGATIVE NEGATIVE Urine Ketones NEGATIVE NEGATIVE Urine Nitrite NEGATIVE NEGATIVE Urine Bilirubin NEGATIVE NEGATIVE Urine Urobilinogen NORMAL NORMAL MG/DL Urine Leukocyte Esterase NEGATIVE NEGATIVE Urine RBC (Auto) NEGATIVE NEGATIVE Urine RBC NONE /HPF Urine WBC RARE /HPF Urine Crystals NONE /LPF Urine Bacteria NEGATIVE /HPF Urine Casts NONE /LPF Urine Mucus NEGATIVE /LPF Urine Culture Indicated NO Urine Opiates Screen NEGATIVE NEGATIVE Urine Oxycodone Screen NEGATIVE NEGATIVE Urine Methadone Screen NEGATIVE NEGATIVE Urine Propoxyphene Screen NEGATIVE NEGATIVE Urine Barbiturates Screen NEGATIVE NEGATIVE Ur Tricyclic Antidepressants Screen POSITIVE H NEGATIVE Urine Phencyclidine Screen NEGATIVE NEGATIVE Urine Amphetamines Screen NEGATIVE NEGATIVE Urine Methamphetamines Screen NEGATIVE NEGATIVE Urine Benzodiazepines Screen NEGATIVE NEGATIVE Urine Cocaine Screen NEGATIVE NEGATIVE Urine Cannabinoids Screen NEGATIVE NEGATIVE White Blood Count 6.8 4.3-11.0 10^3/uL Red Blood Count 4.99 4.35-5.85 10^6/uL Hemoglobin 13.7 13.3-17.7 G/DL Hematocrit 41 40-54 % Mean Corpuscular Volume 83 80-99 FL Mean Corpuscular Hemoglobin 28 25-34 PG Mean Corpuscular Hemoglobin Concent 33 32-36 G/DL Red Cell Distribution Width 16.3 H 10.0-14.5 % Platelet Count 321 130-400 10^3/uL Mean Platelet Volume 9.6 7.4-10.4 FL Neutrophils (%) (Auto) 46 42-75 % Lymphocytes (%) (Auto) 42 12-44 % Monocytes (%) (Auto) 10 0-12 % Eosinophils (%) (Auto) 2 0-10 % Basophils (%) (Auto) 0 0-10 % Neutrophils # (Auto) 3.1 1.8-7.8 X 10^3 Lymphocytes # (Auto) 2.8 1.0-4.0 X 10^3 Monocytes # (Auto) 0.7 0.0-1.0 X 10^3 Eosinophils # (Auto) 0.2 0.0-0.3 10^3/uL Basophils # (Auto) 0.0 0.0-0.1 10^3/uL My Orders Orders - KAREEM ARELLANO MD Cbc With Automated Diff (11/30/17 16:10) Comprehensive Metabolic Panel (11/30/17 16:10) Drug Screen Stat (Urine) (11/30/17 16:10) Ua Culture If Indicated (11/30/17 16:10) Ondansetron Oral Dissolve Tab (Zofran O (11/30/17 16:45) Medications Given in ED Current Medications Medications Dose Ordered Sig/Nadine Route Start Time Stop Time Status Last Admin Dose Admin Ondansetron Base 8 mg ONCE ONCE PO 11/30/17 16:45 11/30/17 16:46 DC 11/30/17 16:47 8 MG Vital Signs/I&O 11/30/17 15:53 Temp 98.4 Pulse 129 Resp 18 B/P (MAP) 138/95 (109) O2 Delivery Room Air Blood Pressure Mean: 109 Departure Communication (Admissions) Drug screen was negative except for tricyclics. He is apparently been taking amitriptyline 100 mg at bedtime for several years. He cannot tell me why. He reports that he has 2 different pill bottles one of which has an orangeish red tablet and the other a red tablet and that these could be confused. His mother has been filling his pillbox this needs to be explored when they get home. Impression Primary Impression: lethargy Additional Impression: Nausea alone Disposition: 01 HOME, SELF-CARE Condition: Stable/Unchanged Departure-Patient Inst. Decision time for Depature: 17:13 Referrals: [facility] (PCP) Primary Care Physician SIRENA ABDALLA APRN (Family) Primary Care Physician Patient Instructions: No Instuctions Given Add. Discharge Instructions: All discharge instructions reviewed with patient and/or family. Voiced understanding. When you get home make sure that you can distinguish the orangeish red and red tablets that you take. I am concerned about amitriptyline 100 mg which is a depression medication normally taken for periods of 6 months or less. Too much of this could cause lethargy and nausea. If possible I would BUY a pill cutter which can be required at a pharmacy for about $5. I would break the amitriptyline in half and take only one half pill. You should discuss discontinuation of this medication with your provider. KAREEM ARELLANO MD Nov 30, 2017 16:33
[2017-11-30 16:37] LABS: BILIRUBIN,URINE NEGATIVE (NEGATIVE); CLARITY,URINE CLEAR; COLOR,URINE YELLOW; GLUCOSE, URINE (UA) NEGATIVE (NEGATIVE); KETONES,URINE NEGATIVE (NEGATIVE); LEUKOCYTE ESTERASE ,URINE NEGATIVE (NEGATIVE); NITRITE,URINE NEGATIVE (NEGATIVE); PH,URINE 6 (5-9); PROTEIN,URINE NEGATIVE (NEGATIVE); UROBILINOGEN,URINE NORMAL (NORMAL)
[2017-11-30 16:44] LABS: BACTERIA,URINE NEGATIVE /HPF; WBC,URINE RARE /HPF
[2017-11-30] MEDS: ONDANSETRON 8 MG (ZOFRAN) ORAL DISSOLVE TAB PO ONE (16:47)
[2017-11-30 16:54] LABS: AMPHETAMINE SCREEN, URINE NEGATIVE (NEGATIVE); BARBITURATE SCREEN URINE NEGATIVE (NEGATIVE); BENZODIAZEPINES SCREEN URINE NEGATIVE (NEGATIVE); CANNABINOID SCREEN, URINE NEGATIVE (NEGATIVE); COCAINE SCREEN URINE NEGATIVE (NEGATIVE); METHADONE STAT NEGATIVE (NEGATIVE); METHAMPHETAMINE SCREEN URINE S NEGATIVE (NEGATIVE); OPIATE SCREEN URINE NEGATIVE (NEGATIVE); OXYCODONE STAT NEGATIVE (NEGATIVE); PROPOXYPHENE STAT NEGATIVE (NEGATIVE); TRICYCLIC ANTIDEPRESSANTS SCRE POSITIVE (NEGATIVE)
[2017-11-30 16:57] LABS: BASOPHILS % (AUTO) 0 % (0-10); EOSINOPHILS # (AUTO) 0.2 10^3/uL (0.0-0.3); EOSINOPHILS % (AUTO) 2 % (0-10); HEMATOCRIT 41 % (40-54); HEMOGLOBIN 13.7 G/DL (13.3-17.7); LYMPHOCYTES # (AUTO) 2.8 X 10^3 (1.0-4.0); LYMPHOCYTES % (AUTO) 42 % (12-44); MEAN CORPUSCULAR HEMOGLOBIN 28 PG (25-34); MEAN CORPUSCULAR HGB CONC 33 G/DL (32-36); MEAN CORPUSCULAR VOLUME 83 FL (80-99); MEAN PLATELET VOLUME 9.6 FL (7.4-10.4); MONOCYTES # (AUTO) 0.7 X 10^3 (0.0-1.0); MONOCYTES % (AUTO) 10 % (0-12); NEUTROPHILS # (AUTO) 3.1 X 10^3 (1.8-7.8); NEUTROPHILS % (AUTO) 46 % (42-75); PLATELET COUNT 321 10^3/uL (130-400); RED BLOOD COUNT 4.99 10^6/uL (4.35-5.85); RED CELL DISTRIBUTION WIDTH 16.3 % (10.0-14.5); WHITE BLOOD COUNT 6.8 10^3/uL (4.3-11.0)
[2017-11-30 17:14] LABS: ALANINE AMINOTRANSFERASE 25 U/L (0-55); ALBUMIN 4.6 GM/DL (3.2-4.5); ALKALINE PHOSPHATASE 59 U/L (40-136); BILIRUBIN,TOTAL 0.2 MG/DL (0.1-1.0); BUN/CREATININE RATIO 16; CALCIUM 9.7 MG/DL (8.5-10.1); CARBON DIOXIDE 26 MMOL/L (21-32); CHLORIDE 107 MMOL/L (98-107); CREATININE SERUM 0.79 MG/DL (0.60-1.30); GFR ESTIMATED > 60; GLUCOSE 110 MG/DL (70-105); POTASSIUM 3.7 MMOL/L (3.6-5.0); SODIUM 140 MMOL/L (135-145); TOTAL PROTEIN 7.4 GM/DL (6.4-8.2)
[2017-11-30 17:36] VITALS: BP 118/74
== END 2017-11-30 17:37 | disposition home or self-care (01) ==
LOC: EDUNIT# 15:48 → ER 15:50
DX: R53.83 Other fatigue (principal); N11.0 Nonobstructive reflux-associated chronic pyelonephritis; J45.909 Unspecified asthma, uncomplicated; E78.00 Pure hypercholesterolemia, unspecified; I10 Essential (primary) hypertension; G40.909 Epilepsy, unspecified, not intractable, without status epilepticus; K21.9 Gastro-esophageal reflux disease without esophagitis; F31.9 Bipolar disorder, unspecified; Z88.0 Allergy status to penicillin; Z88.8 Allergy status to other drugs, medicaments and biological substances; Z79.51 Long term (current) use of inhaled steroids; Z79.52 Long term (current) use of systemic steroids; Z77.22 Contact with and (suspected) exposure to environmental tobacco smoke (acute) (chronic); Z87.19 Personal history of other diseases of the digestive system
CPT/HCPCS: 36415; 80053; 80306; 81000; 85025

== ENCOUNTER 2018-04-10 22:23 | Emergency (ER) | payer MEDICAID | END 2018-04-10 23:11 | disposition left against medical advice (07) | LOC: ER 22:23 → EDUNIT# 22:23 → ER 23:11 | DX: R06.02 Shortness of breath (principal) ==

== ENCOUNTER → 2018-12-13 | Outpatient (CLI) | payer MEDICAID ==
--- NOTE | 2018-12-13 12:40 | Diagnostic Imaging Report ---
PROCEDURE: US carotid duplex, bilateral. TECHNIQUE: Multiple real-time grayscale images were obtained over the carotid arteries in various projections, bilaterally. Additional spectral analysis and color Doppler duplex images were also obtained. INDICATION: Dizziness and syncope. FINDINGS: No significant plaquing is identified in either carotid system. Velocities are normal bilaterally. No velocity elevation or stenosis is seen. Both vertebral arteries show antegrade flow. IMPRESSION: No evidence of a hemodynamically significant stenosis. Parameters based on the consensus panel Matson-Scale and Doppler ultrasound criteria published June 2003, Radiology, Volume 229. DOPPLER (peak systolic velocity M/S Right Left CCA 1.3 1.5 ICA Proximal .84 .69 ICA Mid .87 1.1 ICA Distal .91 1.2 RATIO 0.7 0.8 ECA 1.4 1.4 VERT .57 .58 Dictated by: Dictated on workstation # [id number]
== END ==
LOC: CARD 10:27
PROVIDERS: ATTEND Internal Medicine Interventional Cardiology
DX: R42 Dizziness and giddiness (principal); R55 Syncope and collapse; R07.9 Chest pain, unspecified; R00.2 Palpitations
CPT/HCPCS: 93306; 93880

== ENCOUNTER 2018-12-20 08:35 | Outpatient (RCR) | payer MEDICAID ==
[~2018-12-20 08:35] MED LIST changes: -OMEP20CA12 PO; +OMEP20CA13 PO
[2018-12-20 12:07] VITALS: BP 119/69
--- NOTE | 2018-12-20 12:07 | Cardiology Stress Test Report ---
Stress Test Report Date of Procedure/Referring: Date of Procedure: December 20, 2018 PCP Tayla Soto MD Admitting Physician Lenn[facility] Doll - [facility] Indications: Dizziness, Palpitations. Baseline Heart Rate: 76 Baseline Blood Pressure: Blood Pressure Systolic: 119 Blood Pressure Diastolic: 69 Baseline EKG: Baseline EKG: sinus rhythm Summary/Conclusion: Summary: In summary, the patient started exercising with a baseline heart rate, blood pressure and EKG mentioned above. Patient did complain of dizziness. Patient was able to exercise for a total of 9 minutes on Luis protocol, 10.5 METs Maximum heart rate 180 bpm ( 94% of MPHR). Maximum blood pressure 155/80 mmhg Stress EKG No ST abnormalities. Recovery EKG Normal Conclusion: 1. Good exercise tolerance 2. Normal Exercise stress test. 3. No arrhythmia was noted Tayla SOTO MD December 20, 2018 12:07 pm
[2019-02-27] MEDS ORDERED: MELO15TA14 PO (23:54)
== END 2019-03-20 | disposition home or self-care (01) ==
LOC: CARD 08:35
PROVIDERS: ATTEND Internal Medicine Interventional Cardiology
DX: R07.9 Chest pain, unspecified (principal); R42 Dizziness and giddiness; R00.2 Palpitations; E78.5 Hyperlipidemia, unspecified; I10 Essential (primary) hypertension; R55 Syncope and collapse
CPT/HCPCS: 93017; 93270

== ENCOUNTER 2019-02-27 22:20 | Emergency (ER) | payer MEDICAID ==
[~2019-02-27] VITALS: Ht 180.3 cm; Wt 84.4 kg
[~2019-02-27 22:20] MED LIST changes: +OMEP20CA12 PO; -OMEP20CA13 PO
--- OUTSIDE RECORDS SUMMARY | 2019-02-27 22:25 | XMS REPORT ---
Author Author SIRENA ABDALLA [facility] Address [address] [place] [address] Care Team Providers Care Artist Consultant Name Role Phone SIRENA ABDALLA Unavailable PROBLEMS Type Condition ICD9-CM Code [id number] Code Onset Dates Condition Status SNOMED Code Problem Seizure disorder G40.909 Active 622824197 Problem Benign essential hypertension I10 Active 0603962 Problem Bipolar 1 disorder, depressed F31.9 Active 02699883 Problem Moderate persistent asthma without complication J45.40 Active 317153154 Problem Mild intermittent asthma without complication J45.20 Active 577871940 Problem Gastroesophageal reflux disease without esophagitis K21.9 Active 814810393 Problem Chronic nausea R11.0 Active 454775925 Problem Hyperlipidemia, unspecified hyperlipidemia type E78.5 Active 98248852 Problem Daytime sleepiness R40.0 Active 734333413096 Problem Auditory hallucination R44.0 Active 73964787 Problem Schizoaffective disorder, bipolar type F25.0 Active 58019369 Problem Bipolar 1 disorder with moderate south F31.12 Active 12513034 Problem Sleep disturbance G47.9 Active 44714548 ALLERGIES Substance Reaction Event Type Date Status Latuda anaphylaxis Drug Allergy Jul, Active Trazodone HCl anaphylaxis Drug Allergy Jul, Active Penicillin V Potassium anaphylaxis Drug Allergy Jul, Active ENCOUNTERS Encounter Location Date Diagnosis [facility] [address] [id number], [place] [id number] Aug, [address] [id number], [place] [address] Jul, Gastroesophageal reflux disease without esophagitis K21.9 ; Bipolar 1 disorder, depressed F31.9 ; Benign essential hypertension I10 ; Schizoaffective disorder, bipolar type F25.0 ; Sleep disturbance G47.9 ; Seizure disorder G40.909 ; Hyperlipidemia, unspecified hyperlipidemia type E78.5 and Moderate persistent asthma without complication J45.[address] [facility] [address] [id number], [place] [id number] Jul, [facility] [address] [facility] [id number], [place] [address] May, Benign essential hypertension I10 ; Daytime sleepiness R40.0 and Thyroid disorder screening Z13.29 [facility] [address] [id number], [place] [id number] May, Gastroesophageal reflux disease without esophagitis K21.9 and Chronic nausea R11.0 [facility] [address] [id number], [place] [address]8967 May, Acute midline low back pain without sciatica M54.5 [facility] [address] [id number], [place] [address] Apr, [facility] [address] [id number], [place] 1279[address] Mar, [facility] [address] [id number], [place] [id number] Mar, [facility] [address] [id number], [place] [id number] Mar, Dental examination Z01.[address] [facility] [address] [id number], [place] [id number] Mar, Acute midline low back pain without sciatica M54.5 and Gastroesophageal reflux disease without esophagitis K21.9 [facility] [address] [facility] [id number][place] [address] Feb, Dental examination Z01.20 [facility] [address] [facility] [id number], [place] [address] Feb, [facility] [address] [facility] [id number][place] [address] Feb, Daytime sleepiness R40.0 and Bipolar 1 disorder with moderate south F31.12 [facility] [address] [facility] [id number], [place] [id number] Jan, Chronic nausea R11.0 [facility] [address] [facility] [id number][place] [address] December, [facility] [address] [id number], [place] [id number] December, Hospital discharge follow-up Z09 ; Chronic nausea R11.0 ; Abdominal pain, unspecified abdominal location R10.9 and Gastroesophageal reflux disease without esophagitis K21.9 [facility] [address] [facility] [id number][place] [address] Nov, Walking pneumonia J18.9 [facility] [address]00565100[address], [place] [id number] Nov, Encounter for dental exam and cleaning w/o abnormal findings Z01.20 [facility] [address] [id number], [place] [id number] Oct, Dental examination Z01.[address] [address] [id number], [place] [id number] Sep, [facility] [address] [facility] [id number][place] [address] Aug, [facility] [address] [id number], [place] [address] Aug, [facility] [address] [id number] [place] [address] Aug, [facility] [address] [id number], [place] [id number] Aug, Chronic nausea R11.0 [facility] [address] [facility] [id number], [place] [id number] Aug, Chronic nausea R11.0 [facility] [address] [id number], [place] 113639[address] Jul, Tachycardia R00.0 [facility] [address] [id number], [place] [address] Jul, [facility] [address] [facility] [id number] [place] [address] Jul, [facility] [address] [id number], [place] [id number] Jul, Benign essential hypertension I10 ; Sleep disturbance G47.9 ; Snoring R06.83 and Daytime sleepiness R40.0 [facility] [address] [id number], [place] [id number] Jul, Dental examination Z01.20 [facility] [address] [facility] [id number], [place] [address] Jul, Encounter for dental exam and cleaning w/o abnormal findings Z01.20 [facility] [address] [id number], [place] [id number] Mar, [facility] [address] [id number], [place] [address] Mar, Bilateral low back pain without sciatica, unspecified chronicity M54.5 and Muscle spasm M62.838 [facility] [address] [id number], [place] [address] Jan, Sleep disturbance G47.9 and Bipolar 1 disorder, depressed F31.9 [facility] [address] [id number], [place] [address] Jan, [facility] [address] [id number], [place] [address]09[address] December, Encounter for dental examination and cleaning without abnormal findings Z01.20 [facility] [address] [id number], [place] [id number] December, Dental examination Z01.20 [facility] [address] [id number], [place] 768155747 December, Bipolar 1 disorder, depressed F31.9 ; Auditory hallucination R44.0 and Sleep disturbance G47.9 [facility] [address] [id number], [place] [address] December, Bipolar 1 disorder with moderate south F31.12 [facility] [address] [facility] [id number][place] [address] December, [facility] [address] [id number], [place] 529684826 Nov, [facility] [address] [id number], [place] [id number] Nov, Acute non-recurrent frontal sinusitis J01.[address] [facility] [address] [id number], [place] [address]85949687 Nov, [facility] [address] [id number], [place] [address]446[address] Nov, Mild intermittent asthma without complication J45.20 [facility] [address] [id number], [place] 534774747 Nov, Mild intermittent asthma without complication J45.20 [facility] [address] [id number], [place] 516[address] Nov, [facility] [address] [facility] [id number], [place] [address] Nov, Other senior care (current) drug therapy Z79.899 and Schizoaffective disorder, bipolar type F25.0 [facility] [address] [id number], [place] [address] Nov, Chronic nausea R11.0 [facility] [id number], [place] [address] Nov, Seizure disorder G40.909 ; Chronic nausea R11.0 ; Gastroesophageal reflux disease without esophagitis K21.9 and Benign essential hypertension I10 [facility] [address] [facility] [id number], [place] [address] Oct, Moderate persistent asthma without complication J45.[address] [facility] [address] [id number], [place] [address]45299[address] Oct, [facility] [address] [id number], [place] [address]25[address]229 Sep, Bipolar 1 disorder, depressed F31.9 ; Seizure disorder G40.909 ; Moderate persistent asthma without complication J45.40 ; Chronic nausea R11.0 ; Gastroesophageal reflux disease without esophagitis K21.9 and Benign essential hypertension I10 [facility] [address] [id number] [place] [address] Oct, Seizure disorder G40.909 ; Bipolar affective disorder, current episode depressed, current episode severity unspecified F31.30 ; Essential hypertension I10 and Mild intermittent asthma without complication J45.20 [facility] [address] [id number], [place] [address] Apr, Dental examination V72.2 [facility] [address] [id number], [place] [id number] Mar, Dental examination V72.2 [facility] [address] [id number], [place] [address]8894[address] Mar, Dental examination V72.2 [facility] [address] [id number], [place] [address]13 Nov, Dental examination V72.2 IMMUNIZATIONS No Known Immunizations SOCIAL HISTORY Never Assessed REASON FOR VISIT Medication bferrisma PLAN OF CARE Activity Details Follow Up 1 Year,prn Reason: VITAL SIGNS Height 68 in 2018-07-28 Weight 176.7 lbs 2018-07-28 Temperature 97.4 degrees Fahrenheit 2018-07-28 Heart Rate 92 bpm 2018-07-28 Respiratory Rate 18 2018-07-28 Oximetry 99 % 2018-07-28 BMI 26.86 kg/m2 2018-07-28 Blood pressure systolic 109 mmHg 2018-07-28 Blood pressure diastolic 73 mmHg 2018-07-28 MEDICATIONS Medication Instructions Dosage Frequency Start Date End Date Duration Status Zofran 8 MG Orally Once a day must last 1 m 1 tablet Active Zocor 40 MG TAKE (1) TABLET BY MOUTH ONCE DAILY IN THE EVENING. Active Lisinopril 20 mg Orally Once a day 1 tablet 24h 90 days Active Pantoprazole Sodium 40 mg Orally Once a day 1 tablet 24h Active Flovent HFA 110 MCG/ACT INHALE TWO (2) PUFFS BY MOUTH TWICE DAILY (EVERY 12 HOURS MORNING ANDEVENING). RINSE MOUTH AFTER USE. USE EVERYDAY. Active Amitriptyline HCl 100 MG Orally Once a day 1 tablet 24h Active Zyrtec Allergy 10 MG Active Simvastatin 40 mg Orally Once a day in the evening 1 tablet Active ProAir HFA 108 (90 Base) MCG/ACT Inhalation every 6 hrs 2 puffs as needed 6h Active Keppra 500 mg Orally every 12 hrs 1 tablet 12h 90 days Active CompAir Nebulizer - MACHINE AND TUBING Nov, Active Albuterol Sulfate (2.5 MG/3ML) 0.083% Inhalation Three times a day 3 ml as needed 8h Jul, Active RESULTS No Results PROCEDURES No Known procedures INSTRUCTIONS MEDICATIONS ADMINISTERED No Known Medications MEDICAL (GENERAL) HISTORY Type Description Date Medical History asthma - mild intermittent ( PFT 10/2016 Normal) Medical History hypertension Medical History seizures- childhood Medical History bipolar disorder- [facility] Medical History GERD Medical History auditory hallucinations- Medical History Back Pain- lumbar- Xray 05/2018- degenerative changes Surgical History hernia repair/ Inguinal ( child) Surgical History EGD- [place] Hospitalization History [facility] for two to three days. 08/2016 Hospitalization History ER for shortness of breath 07/2017 Hospitalization History [facility] 12/2017
--- OUTSIDE RECORDS SUMMARY | 2019-02-27 22:25 | XMS REPORT ---
Author Author KIM JIMENES [facility] Address [address] [place] [address] Phone Unavailable Care Team Providers Care Studio Sales Associate Name Role Phone KIM JIMENES Unavailable Unavailable PROBLEMS Type Condition ICD9-CM Code UBS26-JP Code Onset Dates Condition Status SNOMED Code Problem Chronic nausea R11.0 Active 223709678 Problem Bipolar 1 disorder, depressed F31.9 Active 90430030 Problem Seizure disorder G40.909 Active 902979252 Problem Moderate persistent asthma without complication J45.40 Active 190187463 Problem Mild intermittent asthma without complication J45.20 Active 502186422 Problem Gastroesophageal reflux disease without esophagitis K21.9 Active 771705999 Problem Daytime sleepiness R40.0 Active 698481514063 Problem Bipolar 1 disorder with moderate south F31.12 Active 64487709 Problem Schizoaffective disorder, bipolar type F25.0 Active 71369784 Problem Benign essential hypertension I10 Active 4886826 Problem Sleep disturbance G47.9 Active 30132630 Problem Auditory hallucination R44.0 Active 85562533 ALLERGIES Substance Reaction Event Type Date Status Trazodone HCl anaphylaxis Drug Allergy Jul, Active Penicillin V Potassium anaphylaxis Drug Allergy Jul, Active ENCOUNTERS Encounter Location Date Diagnosis [facility] [address] [facility] [id number] [address] December, [address] [id number] [place], [place] [id number] December, Hospital discharge follow-up Z09 ; Chronic nausea R11.0 ; Abdominal pain, unspecified abdominal location R10.9 and Gastroesophageal reflux disease without esophagitis K21.9 [facility] [address] [facility] [id number], [place] [address] Nov, Walking pneumonia J18.9 [facility] [address] [facility] [id number], [place] [address] Nov, Encounter for dental exam and cleaning w/o abnormal findings Z01.[address] [facility] [address] [id number] [place], [place] [address]8667380[address] Oct, Dental examination Z01.[address] [facility] [address] [id number] [place], [place] [id number] Sep, [facility] [address]00565100[place], [place] [address] Aug, [facility] [address] [id number] [place], [place] [id number] Aug, [facility] [address] [id number] [place] [address] Aug, [facility] [address] [id number] [place], [place] [address]66[address] Aug, Chronic nausea R11.0 [facility] [address] [id number], [place] [id number] Aug, Chronic nausea R11.0 [facility] [address] [id number] [place], [place] [address] Jul, Tachycardia R00.0 [facility] [address] [id number] [place], [place] [address]87[address] Jul, [facility] [address] [facility] [id number], [place] [address] Jul, [facility] [address] [id number] [place], [place] [id number] Jul, Benign essential hypertension I10 ; Sleep disturbance G47.9 ; Snoring R06.83 and Daytime sleepiness R40.0 [facility] [address] [id number] [place], [place] 230362714 Jul, Dental examination Z01.20 [facility] [address] [id number], [place] [id number] Jul, Encounter for dental exam and cleaning w/o abnormal findings Z01.[address] [facility] [address] [id number] CITY, [place] [id number] Mar, [facility] [address] [id number] [place], [place] [address] Mar, Bilateral low back pain without sciatica, unspecified chronicity M54.5 and Muscle spasm M62.838 [facility] [address] [id number] [place], [place] [address] Jan, Sleep disturbance G47.9 and Bipolar 1 disorder, depressed F31.9 [facility] [address] [id number] CITY, [place] [id number] Jan, [facility] [address] [id number] [place], [place] 599143677 December, Encounter for dental examination and cleaning without abnormal findings Z01.20 [facility] [address] [id number] [place], [place] [id number] December, Dental examination Z01.20 [facility] [address] [id number] [place], [place] 126276353 December, Bipolar 1 disorder, depressed F31.9 ; Auditory hallucination R44.0 and Sleep disturbance G47.9 [facility] [address] [id number] [place], [place] [id number] December, Bipolar 1 disorder with moderate south F31.12 [facility] [address] [facility] [id number], [place] [address] December, [facility] [address] [id number] [place], [place] [id number] Nov, [facility] [address] [facility] [id number], [place] [id number] Nov, Acute non-recurrent frontal sinusitis J01.10 [facility] [address] [id number] [place], [place] 678368074 Nov, [facility] [address] [id number] [place], [place] 149377137 Nov, Mild intermittent asthma without complication J45.20 [facility] [address] [id number] [place], [place] 025146736 Nov, Mild intermittent asthma without complication J45.20 [facility] [address] [id number] [place], [place] [address] Nov, [facility] [address] 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 therapy Z79.899 and Schizoaffective disorder, bipolar type F25.0 [facility] [id number] CITY, [place] 915423677 Nov, Chronic nausea R11.0 [facility] [address] [id number], [place] 201[address]451 Nov, Seizure disorder G40.909 ; Chronic nausea R11.0 ; Gastroesophageal reflux disease without esophagitis K21.9 and Benign essential hypertension I10 [facility] [address] [id number], [place] [address] Oct, Moderate persistent asthma without complication J45.40 [facility] [address] [place] [address] AVE [id number] CITY, [place] [id number] Oct, [facility] [address] [place] [address] AVE [id number] [place], [place] 786645478 Sep, Bipolar 1 disorder, depressed F31.9 ; Seizure disorder G40.909 ; Moderate persistent asthma without complication J45.40 ; Chronic nausea R11.0 ; Gastroesophageal reflux disease without esophagitis K21.9 and Benign essential hypertension I10 [facility] [address] [facility] [id number], [place] [address]48 Oct, Seizure disorder G40.909 ; Bipolar affective disorder, current episode depressed, current episode severity unspecified F31.30 ; Essential hypertension I10 and Mild intermittent asthma without complication J45.20 [facility] [address] [id number] [place], [place] 184717632 Apr, Dental examination V72.2 [facility] [address] [place] [address] AVE [id number] CITY, [place] 601222985 Mar, Dental examination V72.2 [facility] [address] [id number] [place] [address] Mar, Dental examination V72.2 [facility] L[address] [id number] [place] [address] Nov, Dental examination V72.2 IMMUNIZATIONS No Known Immunizations SOCIAL HISTORY Never Assessed REASON FOR VISIT ADULT [facility] PLAN OF CARE Activity Details Follow Up prn Reason:ON SITE RESTORATIVE VITAL SIGNS MEDICATIONS Medication Instructions Dosage Frequency Start Date End Date Duration Status Pantoprazole Sodium 40 mg Orally Once a day 1 tablet 24h Unknown Flovent HFA 110 MCG/ACT Inhalation Twice a day ( rinse mouth after use) Use EVERYDAY 2 puff Nov, Unknown Keppra 500 mg Orally every 12 hrs 1 tablet 12h Unknown Zyrtec Allergy 10 MG Unknown Simvastatin 40 MG Take 1 Tablet (40 mg) by mouth Daily LATE. Unknown Amitriptyline HCl 100 MG Orally Once a day- BEDTIME 1 tablet December, Unknown Latuda 80 MG TAKE ONE (1) TABLET BY MOUTH DAILY WITH FOOD. Unknown Albuterol Sulfate 1.25 MG/3ML Inhalation every 8 hrs 3 ml as needed 8h Nov, Unknown Lisinopril 20 mg Orally Once a day 1 tablet 24h Unknown Carafate 1 GM Orally Twice a day 1 tablet on an empty stomach 12h Unknown Zocor 10 mg Orally Once a day as needed for nausea 1 tablet Unknown Depakote 250 MG Orally 3 times a day 1 tablet 8h Unknown Albuterol Sulfate HFA 108 (90 Base) MCG/ACT Inhalation 3 times a day 2 puffs as needed 8h Unknown Bentyl 10 mg Orally Four times a day 1 capsule 6h Unknown CompAir Nebulizer - MACHINE AND TUBING Nov, Unknown Zofran 8 MG Orally Once a day 1 tablet 24h Unknown Ibuprofen 800 MG Orally 2 times a day as needed for pain 1 tablet with food or milk Mar, Unknown RESULTS No Results PROCEDURES Procedure Date Ordered Result Body Site PROPHYLAXIS - ADULT Jul 11, 2017 TOPICAL FLUORIDE VARNISH Jul 11, 2017 INSTRUCTIONS MEDICATIONS ADMINISTERED No Known Medications MEDICAL (GENERAL) HISTORY Type Description Date Medical History asthma - mild intermittent ( PFT 10/2016 Normal) Medical History hypertension Medical History seizures- childhood Medical History bipolar disorder- [facility] Medical History GERD Medical History auditory hallucinations- Surgical History hernia repair/ Inguinal ( child) [facility] History [facility]- [facility]. [facility] ER for shortness of breath 07/2017 Hospitalization History [facility] 12/2017
--- OUTSIDE RECORDS SUMMARY | 2019-02-27 22:25 | XMS REPORT ---
Author Author SIRENA ABDALLA [facility] [place] Address [address] [place] [address] Care Team Providers Care Manager Of Customer Billing Name Role Phone SIRENA ABDALLA Unavailable PROBLEMS Type Condition ICD9-CM Code [id number] Code Onset Dates Condition Status SNOMED Code Problem Chronic nausea R11.0 Active 702933430 Problem Bipolar 1 disorder, depressed F31.9 Active 04707911 Problem Seizure disorder G40.909 Active 711350583 Problem Moderate persistent asthma without complication J45.40 Active 495262013 Problem Mild intermittent asthma without complication J45.20 Active 668247684 Problem Gastroesophageal reflux disease without esophagitis K21.9 Active 996587419 Problem Daytime sleepiness R40.0 Active 754024222307 Problem Bipolar 1 disorder with moderate south F31.12 Active 95936164 Problem Schizoaffective disorder, bipolar type F25.0 Active 85099698 Problem Benign essential hypertension I10 Active 0748345 Problem Sleep disturbance G47.9 Active 08919300 Problem Auditory hallucination R44.0 Active 10976762 ALLERGIES No Information ENCOUNTERS Encounter Location Date Diagnosis [facility] [address] [id number] [place] [id number] Aug, [facility] [address] [id number] [place] [address]6778[address] Jul, [facility] [address] [id number] [place], [place] [address] Jul, [facility]ITALSabirmedicalBUS 120 [facility] [id number], [place] [id number] May, Benign essential hypertension I10 ; Daytime sleepiness R40.0 and Thyroid disorder screening Z13.29 [facility] [address] [id number] [place]LE, [place] 647112335 May, Gastroesophageal reflux disease without esophagitis K21.9 and Chronic nausea R11.0 [facility]ITALTr[facility]ev [address] [id number] [place] [id number] May, Acute midline low back pain without sciatica M54.5 [facility]IA [address]QUE[address] [id number] [place] [id number] Apr, [facility] [address]QUEZ[address] [id number] [place], [place] [id number] Mar, [facility] [address] [id number] [place] [address]5553[address] Mar, [facility] [address] [id number] [place], [place] 1463856[address] Mar, Dental examination Z01.20 [facility] [address] [id number] [place] [address]46[address] Mar, Acute midline low back pain without sciatica M54.5 and Gastroesophageal reflux disease without esophagitis K21.9 [facility] [address] [place], [place] [id number], [place] [address] Feb, Dental examination Z01.20 [facility] [address]00565100[place], [place] [address] Feb, [facility] [address]00565100[place], [place] [address] Feb, Daytime sleepiness R40.0 and Bipolar 1 disorder with moderate south F31.12 [facility] [address] [id number][place] [address]261286 Jan, Chronic nausea R11.0 [facility]ITAL[facility]abel [facility] [address]00565100[place], [place] [address] December, [facility] [address] [id number] [place] [address] December, Hospital discharge follow-up Z09 ; Chronic nausea R11.0 ; Abdominal pain, unspecified abdominal location R10.9 and Gastroesophageal reflux disease without esophagitis K21.9 [facility] [address] [id number], [place] [address] Nov, Walking pneumonia J18.9 [facility] [address]00565100[place] [address] Nov, Encounter for dental exam and cleaning w/o abnormal findings Z01.20 [facility] [address] [id number] [place] 918496045 Oct, Dental examination Z01.20 [facility] [address] [id number] [place], [place] [id number] 07 Sep, 2017 [facility] [address]00565100[place], [place] [address] Aug, [facility] [address] [id number] [place], [place] [id number] Aug, [facility] MARIA GUADALUPE [facility] [place] [id number] [place] [address] Aug, [facility] [address] [id number] [place] [address] Aug, Chronic nausea R11.0 [facility] ALYSA [id number], [place] [id number] Aug, Chronic nausea R11.0 [facility] [address] [id number] [place] [id number] Jul, Tachycardia R00.0 [facility] [address] [id number] [place], [place] 188089813 Jul, [facility] [address] [facility] [place] [id number] [address] Jul, [facility] [address] [id number] [place] [id number] Jul, Benign essential hypertension I10 ; Sleep disturbance G47.9 ; Snoring R06.83 and Daytime sleepiness R40.[address] [facility] [address] [id number] [place], [place] 5665485[address] Jul, Dental examination Z01.20 [facility]ITALVALENCIA [facility] [address] [id number] [place] [id number] Jul, Encounter for dental exam and cleaning w/o abnormal findings Z01.20 [facility]ALSEAnabel [address]JORQUEZLANDEROS [address] [id number] [place] 425[address] Mar, [facility] [address] [id number] [place], [place] 53832[address] Mar, Bilateral low back pain without sciatica, unspecified chronicity M54.5 and Muscle spasm M62.838 [facility] [address] [id number] [place]LE, [place] 5717426[address] Jan, Sleep disturbance G47.9 and Bipolar 1 disorder, depressed F31.9 [facility] [address] [id number] [place] 642406322 Jan, [facility] [address] [id number] [place], [place] 29669[address] December, Encounter for dental examination and cleaning without abnormal findings Z01.20 [facility]ALSEAnabel [address]QUEZLANDEROS [address] [id number] [place], [place] 985117334 December, Dental examination Z01.20 [facility] [address] [id number] [place], [place] 826632806 December, Bipolar 1 disorder, depressed F31.9 ; Auditory hallucination R44.0 and Sleep disturbance G47.9 [facility] [address] [id number] [place], [place] 9354436[address] December, Bipolar 1 disorder with moderate south F31.12 [facility] [address] [id number] [address] December, [facility] [address] [id number] [place] 652854586 Nov, [facility] ALYSA [address] [facility] [id number], [place] 123350973 Nov, Acute non-recurrent frontal sinusitis J01.10 [facility] [address] [id number] [place], [place] [id number] Nov, [facility] [address] [id number] [place], [place] 928191433 Nov, Mild intermittent asthma without complication J45.20 [facility] [address] [id number] [place], [place] 742651672 Nov, Mild intermittent asthma without complication J45.20 [facility] [place] [address] [facility] [address] [id number] [place] [address] Nov, [facility]ALSEAnabel [place] [address] [id number], [place] [address]489[address]87 Nov, Other chcf (current) drug therapy Z79.899 and Schizoaffective disorder, bipolar type F25.0 [facility]ITALAnabel BOJORQUEZLANDEROS [address] [facility] [address] [id number] [place]LE, [place] 423582143 Nov, Chronic nausea R11.0 [address] [id number] [address] Nov, Seizure disorder G40.909 ; Chronic nausea R11.0 ; Gastroesophageal reflux disease without esophagitis K21.9 and Benign essential hypertension I10 [facility] [address] [id number], [place] [address] Oct, Moderate persistent asthma without complication J45.40 [facility]abel [place] [address] [facility] [address] [id number] [place]LE[place] 291606143 Oct, [facility] [place] [address] [facility] [address] [id number] [place] 002128836 Sep, Bipolar 1 disorder, depressed F31.9 ; Seizure disorder G40.909 ; Moderate persistent asthma without complication J45.40 ; Chronic nausea R11.0 ; Gastroesophageal reflux disease without esophagitis K21.9 and Benign essential hypertension I10 [facility] [address] [id number], [place] 416656893 Oct, Seizure disorder G40.909 ; Bipolar affective disorder, current episode depressed, current episode severity unspecified F31.30 ; Essential hypertension I10 and Mild intermittent asthma without complication J45.20 [facility] [address] [id number] [place] 4[address] Apr, Dental examination V72.2 [facility]IA [place] [facility] [address] [id number] [place] [address] Mar, Dental examination V72.2 [place] [facility] [address] [id number] [place] 77[address] Mar, Dental examination V72.2 [facility] [place] [facility] [id number] [place] 201783958 Nov, Dental examination V72.2 IMMUNIZATIONS No Known Immunizations SOCIAL HISTORY Never Assessed REASON FOR VISIT PLAN OF CARE VITAL SIGNS MEDICATIONS Unknown Medications RESULTS No Results PROCEDURES No Known procedures INSTRUCTIONS MEDICATIONS ADMINISTERED No Known Medications MEDICAL (GENERAL) HISTORY Type Description Date Medical History asthma - mild intermittent ( PFT 10/2016 Normal) Medical History hypertension Medical History seizures- childhood Medical History bipolar disorder- [facility] Medical History GERD Medical History auditory hallucinations- Medical History Back Pain- lumbar- Xray 05/2018- degenerative changes Surgical History hernia repair/ Inguinal ( child) Surgical History EGD- [facility]2015 Hospitalization History [facility] for two to three days. 08/2016 Hospitalization History ER for shortness of breath 07/2017 Hospitalization History [facility] 12/2017
--- OUTSIDE RECORDS SUMMARY | 2019-02-27 22:25 | XMS REPORT ---
Author Author SIRENA ABDALLA [facility] LANDEROS Address [address] [place] [address] Care Team Providers Care Power Distributor Name Role Phone SIRENA ABDALLA Unavailable PROBLEMS Type Condition ICD9-CM Code PUV22-EF Code Onset Dates Condition Status SNOMED Code Problem Chronic nausea R11.0 Active 214025114 Problem Bipolar 1 disorder, depressed F31.9 Active 16628299 Problem Seizure disorder G40.909 Active 853261813 Problem Moderate persistent asthma without complication J45.40 Active 442857873 Problem Mild intermittent asthma without complication J45.20 Active 686979523 Problem Gastroesophageal reflux disease without esophagitis K21.9 Active 239487157 Problem Daytime sleepiness R40.0 Active 491637416636 Problem Bipolar 1 disorder with moderate south F31.12 Active 81387493 Problem Schizoaffective disorder, bipolar type F25.0 Active 92893105 Problem Benign essential hypertension I10 Active 6062511 Problem Sleep disturbance G47.9 Active 46336315 Problem Auditory hallucination R44.0 Active 30527729 ALLERGIES No Information ENCOUNTERS Encounter Location Date Diagnosis [facility] [address] [id number] [address] Jun, [facility] [address] [id number], [place] [address] May, Benign essential hypertension I10 ; Daytime sleepiness R40.0 and Thyroid disorder screening Z13.29 [facility] [address] [id number] [place] [address] May, Gastroesophageal reflux disease without esophagitis K21.9 and Chronic nausea R11.0 [facility] [address] [id number], [place] 355002920 May, Acute midline low back pain without sciatica M54.5 [facility] [address] [id number], [place] 883735299 Apr, [facility] [address] [facility] [address] [address] [id number], [place] 590188803 Mar, [facility] [place] [facility] [address] [id number], [place] 717649706 Mar, [facility] [place] [facility] [address] [id number], [place] 396429572 Mar, Dental examination Z01.20 [facility] [place] [facility] [address] [id number], [place] [id number] 03 Mar, 2018 Acute midline low back pain without sciatica M54.5 and Gastroesophageal reflux disease without esophagitis K21.9 [facility] [id number], [place] [address] Feb, Dental examination Z01.20 [facility] [id number] [place] [address] Feb, [facility] [id number] [place] [address] Feb, Daytime sleepiness R40.0 and Bipolar 1 disorder with moderate south F31.12 [facility] [id number] [place] [id number] Jan, Chronic nausea R11.0 [facility] [id number] [place] [address] December, [facility] [place] [facility] [address] [id number], [place] 761823498 December, Hospital discharge follow-up Z09 ; Chronic nausea R11.0 ; Abdominal pain, unspecified abdominal location R10.9 and Gastroesophageal reflux disease without esophagitis K21.9 [facility] [id number] [place] [address] Nov, Walking pneumonia J18.9 [facility] [id number] [place] [id number] Nov, Encounter for dental exam and cleaning w/o abnormal findings Z01.[address] [facility] [address] [id number], [place] [id number] Oct, Dental examination Z01.[address] [facility] [address] [id number], [place] 029419651 Sep, [facility] [address]00565100[place], [place] [address] Aug, [facility] [address] [id number], [place] [id number] Aug, [facility] [address] [id number] [place] [address] Aug, [facility] [address] [id number], [place] 772044405 Aug, Chronic nausea R11.0 [facility] ALYSA [address] [id number], [place] 163666259 Aug, Chronic nausea R11.[address] [facility] [address] [id number], [place] 825421514 Jul, Tachycardia R00.0 [facility] [address] [id number], [place] [id number] Jul, [facility] [address] [facility] [id number], [place] [address] Jul, [facility] [address] [id number], [place] [id number] Jul, Benign essential hypertension I10 ; Sleep disturbance G47.9 ; Snoring R06.83 and Daytime sleepiness R40.0 [facility] [address] [id number], [place] 849007865 Jul, Dental examination Z01.20 [facility] [address] [id number], [place] [address] Jul, Encounter for dental exam and cleaning w/o abnormal findings Z01.[address] [facility] [address] [id number], [place] 627873365 Mar, [facility] [address] [id number], [place] [id number] Mar, Bilateral low back pain without sciatica, unspecified chronicity M54.5 and Muscle spasm M62.838 [facility] [address] [id number], [place] 403286592 Jan, Sleep disturbance G47.9 and Bipolar 1 disorder, depressed F31.9 [facility] [address] [id number], [place] [id number] Jan, [facility] [address] [id number], [place] [id number] December, Encounter for dental examination and cleaning without abnormal findings Z01.20 [facility] [address] [id number], [place] 893137172 December, Dental examination Z01.20 [facility] [address] [id number], [place] 542370113 December, Bipolar 1 disorder, depressed F31.9 ; Auditory hallucination R44.0 and Sleep disturbance G47.9 [facility] [address] [id number], [place] 870383474 December, Bipolar 1 disorder with moderate south F31.12 [facility] [address] [facility] [id number], [place] [address] December, [facility] [address] [id number], [place] [id number] Nov, [facility] [place] [address] [id number], [place] 7106248[address] Nov, Acute non-recurrent frontal sinusitis J01.10 [facility] [address] [id number], [place] [id number] Nov, [facility] [address] [id number], [place] 840176745 Nov, Mild intermittent asthma without complication J45.20 [facility] [address] [id number], [place] 250181500 Nov, Mild intermittent asthma without complication J45.20 [facility] [place] [address] [id number], [place] 13779[address]17 Nov, [facility] [place] [address] [facility] [id number], [place] 374618765 Nov, Other medical terminologist (current) drug therapy Z79.899 and Schizoaffective disorder, bipolar type F25.0 [facility] [address] [id number], [place] 190674037 Nov, Chronic nausea R11.0 [facility] [address] [id number], [place] 310324958 Nov, Seizure disorder G40.909 ; Chronic nausea R11.0 ; Gastroesophageal reflux disease without esophagitis K21.9 and Benign essential hypertension I10 [facility] [address] [facility] [id number], [place] [address] Oct, Moderate persistent asthma without complication J45.40 [facility] [address] [id number], [place] 224852385 Oct, [facility] [address] [place] [address] AVE [id number], [place] 439399323 Sep, Bipolar 1 disorder, depressed F31.9 ; Seizure disorder G40.909 ; Moderate persistent asthma without complication J45.40 ; Chronic nausea R11.0 ; Gastroesophageal reflux disease without esophagitis K21.9 and Benign essential hypertension I10 [facility] [address] [facility] [id number], [place] 184176265 Oct, Seizure disorder G40.909 ; Bipolar affective disorder, current episode depressed, current episode severity unspecified F31.30 ; Essential hypertension I10 and Mild intermittent asthma without complication J45.20 [facility] [address] [id number], [place] 794806941 Apr, Dental examination V72.2 [facility] [address] [id number], [place] [id number] Mar, Dental examination V72.2 [facility] [address] [id number] [place] [id number] Mar, Dental examination V72.2 [facility] [address] [id number] [place] 304[address]38[address] Nov, Dental examination V72.2 IMMUNIZATIONS No Known Immunizations SOCIAL HISTORY Never Assessed REASON FOR VISIT Lab [facility] PLAN OF CARE Activity Details Pending Test LIPID PANEL Pending Test CMP Pending Test CBC Pending Test THYROID ANALYZER VITAL SIGNS MEDICATIONS Unknown Medications RESULTS No Results PROCEDURES Procedure Date Ordered Result Body Site LAB NOT BILLED BY [facility] Jun 01, 2018 VENIPUNCT, ROUTINE* Jun 01, 2018 INSTRUCTIONS MEDICATIONS ADMINISTERED No Known Medications MEDICAL (GENERAL) HISTORY Type Description Date Medical History asthma - mild intermittent ( PFT 10/2016 Normal) Medical History hypertension Medical History seizures- childhood Medical History bipolar disorder- [facility] Medical History GERD Medical History auditory hallucinations- Medical History Back Pain- lumbar- Xray 05/2018- degenerative changes Surgical History hernia repair/ Inguinal ( child) Surgical History EGD- [place]2015 Hospitalization History [facility] for two to three days. 08/2016 Hospitalization History ER for shortness of breath 07/2017 Hospitalization History [facility] [facility] 12/2017
--- OUTSIDE RECORDS SUMMARY | 2019-02-27 22:25 | XMS REPORT ---
Author Author SIRENA ABDALLA [email or web address] [place] Address [address] [place] [address] Care Team Providers Care Client Manager Name Role Phone SIRENA ABDALLA Unavailable PROBLEMS Type Condition ICD9-CM Code PWB89-GS Code Onset Dates Condition Status SNOMED Code Problem Chronic nausea R11.0 Active 057599702 Problem Bipolar 1 disorder, depressed F31.9 Active 41812643 Problem Seizure disorder G40.909 Active 604878588 Problem Moderate persistent asthma without complication J45.40 Active 930955488 Problem Mild intermittent asthma without complication J45.20 Active 539961734 Problem Gastroesophageal reflux disease without esophagitis K21.9 Active 710444808 Problem Daytime sleepiness R40.0 Active 460023926303 Problem Bipolar 1 disorder with moderate south F31.12 Active 21279803 Problem Schizoaffective disorder, bipolar type F25.0 Active 61809339 Problem Benign essential hypertension I10 Active 8901599 Problem Sleep disturbance G47.9 Active 01538779 Problem Auditory hallucination R44.0 Active 91839788 ALLERGIES No Information ENCOUNTERS Encounter Location Date Diagnosis [facility] [address] [facility] [id number], [place] [id number] Jun, [facility] [address] [id number], [place] [id number] May, [facility] [address] [id number], [place] [id number] Apr, [facility] [address] [id number], [place] [address] Mar, [facility] [address] [id number], [place] [address] Mar, [facility] [address] [id number], [place] [address] Mar, Dental examination Z01.20 [facility] [address] [id number], [place] [address] Mar, Acute midline low back pain without sciatica M54.5 and Gastroesophageal reflux disease without esophagitis K21.9 [facility] [address] [id number], [place] [address] Feb, Dental examination Z01.20 [facility] [address] [place] [address] Feb, [facility] [id number] [place] [address] Feb, Daytime sleepiness R40.0 and Bipolar 1 disorder with moderate south F31.12 [facility] [id number] [place] [id number] Jan, Chronic nausea R11.0 [facility] [address] [place] [address] December, [facility] [place] [address] [facility] [id number], [place] [id number] December, Hospital discharge follow-up Z09 ; Chronic nausea R11.0 ; Abdominal pain, unspecified abdominal location R10.9 and Gastroesophageal reflux disease without esophagitis K21.9 [facility] [address], [place] [address] Nov, Walking pneumonia J18.9 [facility] [address] [facility] [id number], [place] [id number] Nov, Encounter for dental exam and cleaning w/o abnormal findings Z01.20 [facility] [address] [id number], [place] [id number] Oct, Dental examination Z01.20 [facility] [address] [id number], [place] [address] Sep, [facility] [address], [place] [address] Aug, [facility] [address] [id number], [place] [id number] Aug, [facility] MARIA GU[facility]UPE Ray [facility] [id number] [place] [address] Aug, [facility] [address] [id number], [place] [address] Aug, Chronic nausea R11.0 [facility]SA [address] [id number] [place] [id number] Aug, Chronic nausea R11.[address] [facility] [address] [id number], [place] [address] Jul, Tachycardia R00.[address] [facility] [address] [id number], [place] [id number] Jul, [facility] [address] [facility] [id number], [place] [address] Jul, [facility] [address] [id number], [place] [id number] Jul, Benign essential hypertension I10 ; Sleep disturbance G47.9 ; Snoring R06.83 and Daytime sleepiness R40.0 [facility] [address] [id number], [place] [id number] Jul, Dental examination Z01.20 [facility] [address] [facility] [id number], [place] [id number] Jul, Encounter for dental exam and cleaning w/o abnormal findings Z01.[address] [facility] [address] [id number], [place] [id number] Mar, [facility] [address] [id number], [place] [address] Mar, Bilateral low back pain without sciatica, unspecified chronicity M54.5 and Muscle spasm M62.[address] [facility] [address] [id number], [place] [address] Jan, Sleep disturbance G47.9 and Bipolar 1 disorder, depressed F31.[address] [facility] [address] [id number], [place] [address] Jan, [facility] [address] [address] [id number], [place] [id number] December, Encounter for dental examination and cleaning without abnormal findings Z01.20 [facility] [address] [address] [id number], [place] [address] December, Dental examination Z01.20 [facility] [address] [id number], [place] [address] December, Bipolar 1 disorder, depressed F31.9 ; Auditory hallucination R44.0 and Sleep disturbance G47.9 [facility] [address] [id number], [place] [address] December, Bipolar 1 disorder with moderate south F31.12 [facility] [address] [facility] [id number], [place] [address] December, [facility] [address] [id number], [place] [id number] Nov, [facility] [id number] [place] [address] Nov, Acute non-recurrent frontal sinusitis J01.10 [facility] [address] [id number], [place] [address] Nov, [facility] [address] [id number], [place] [address] Nov, Mild intermittent asthma without complication J45.20 [facility] [address] [id number], [place] [address] Nov, Mild intermittent asthma without complication J45.20 [facility] [address] [id number], [place] [address] Nov, [facility] [address] [facility] [id number] [place] [address] Nov, Other [facility] (current) drug therapy Z79.899 and Schizoaffective disorder, bipolar type F25.0 [facility] [address] [id number], [place] [address] Nov, Chronic nausea R11.0 [facility] [address] [facility] [id number] [place] [id number] Nov, Seizure disorder G40.909 ; Chronic nausea R11.0 ; Gastroesophageal reflux disease without esophagitis K21.9 and Benign essential hypertension I10 [facility] [address] [facility] [id number], [place] [address] Oct, Moderate persistent asthma without complication J45.[address] [id number], [place] [address] Oct, [address] [id number], [place] [address] Sep, Bipolar 1 disorder, depressed F31.9 ; Seizure disorder G40.909 ; Moderate persistent asthma without complication J45.40 ; Chronic nausea R11.0 ; Gastroesophageal reflux disease without esophagitis K21.9 and Benign essential hypertension I10 [facility] [address] [facility] [id number] [place] [address] Oct, Seizure disorder G40.909 ; Bipolar affective disorder, current episode depressed, current episode severity unspecified F31.30 ; Essential hypertension I10 and Mild intermittent asthma without complication J45.20 [facility] [address] [id number], [place] [id number] Apr, Dental examination V72.2 [facility] [address] [id number], [place] [address] Mar, Dental examination V72.2 [facility] [place] [address] [facility] [facility] [address] [id number], [place] [id number] Mar, Dental examination V72.2 [facility] [address] [id number], [place] [address] Nov, Dental examination V72.2 IMMUNIZATIONS No Known Immunizations SOCIAL HISTORY Never Assessed REASON FOR VISIT med refill carafate PLAN OF CARE VITAL SIGNS MEDICATIONS Medication Instructions Dosage Frequency Start Date End Date Duration Status Sucralfate 1 GM Orally 2 times a day 1 tablet 12h 9 Jul, 2018 90 days Active RESULTS No Results PROCEDURES No Known procedures INSTRUCTIONS MEDICATIONS ADMINISTERED No Known Medications MEDICAL (GENERAL) HISTORY Type Description Date Medical History asthma - mild intermittent ( PFT 10/2016 Normal) Medical History hypertension Medical History seizures- childhood Medical History bipolar disorder- [facility] Medical History GERD Medical History auditory hallucinations- Surgical History hernia repair/ Inguinal ( child) Surgical History EGD- 2015 Hospitalization History [facility] for two to three days. 08/2016 Hospitalization History ER for shortness of breath 07/2017 Hospitalization History [facility] 12/2017
--- OUTSIDE RECORDS SUMMARY | 2019-02-27 22:26 | XMS REPORT ---
Author Author SIRENA ABDALLA [facility] BOJORQUEZLANDEROS Address [address] [place] [address] Care Team Providers Care Utility Sales Representative Name Role Phone SIRENA ABDALLA Unavailable PROBLEMS Type Condition ICD9-CM Code UWH83-RW Code Onset Dates Condition Status SNOMED Code Problem Chronic nausea R11.0 Active 488982611 Problem Bipolar 1 disorder, depressed F31.9 Active 38150938 Problem Seizure disorder G40.909 Active 324448553 Problem Moderate persistent asthma without complication J45.40 Active 428881043 Problem Mild intermittent asthma without complication J45.20 Active 823126097 Problem Gastroesophageal reflux disease without esophagitis K21.9 Active 581634866 Problem Daytime sleepiness R40.0 Active 657739343638 Problem Bipolar 1 disorder with moderate south F31.12 Active 78593650 Problem Schizoaffective disorder, bipolar type F25.0 Active 22948133 Problem Benign essential hypertension I10 Active 2743458 Problem Sleep disturbance G47.9 Active 70193511 Problem Auditory hallucination R44.0 Active 51549762 ALLERGIES No Information ENCOUNTERS Encounter Location Date Diagnosis [facility] [address] [address] [id number], [place] [id number] May, [facility] [address] [id number], [place] [id number] Apr, [facility] [address] [id number], [place] [id number] Mar, [facility] [address] [id number], [place] [id number] Mar, [facility] [address] [id number], [place] [id number] Mar, Dental examination Z01.20 [facility] [address] [id number], [place] [address] Mar, Acute midline low back pain without sciatica M54.5 and Gastroesophageal reflux disease without esophagitis K21.9 [facility] [address] [place], [id number] [address] Feb, Dental examination Z01.20 [facility] [address] [id number], [place] [address] Feb, [facility] [address] [place] [address] Feb, Daytime sleepiness R40.0 and Bipolar 1 disorder with moderate south F31.12 [facility] [id number], [place] [id number] Jan, Chronic nausea R11.0 [facility] [address] [id number], [place] [address] December, [facility] [address] [id number], [place] [id number] December, Hospital discharge follow-up Z09 ; Chronic nausea R11.0 ; Abdominal pain, unspecified abdominal location R10.9 and Gastroesophageal reflux disease without esophagitis K21.9 [facility] [address] [id number], [place] [address] Nov, Walking pneumonia J18.9 [facility] [address] [id number], [place] [id number] Nov, Encounter for dental exam and cleaning w/o abnormal findings Z01.20 [facility] [address] [id number], [place] [id number] Oct, Dental examination Z01.20 [facility] [address] [id number], [place] 487[address] Sep, [facility] [address] [facility] [id number], [place] [address] Aug, [facility] [address] [id number], [place] [id number] Aug, [facility] [address] [id number] [place] [address] Aug, [facility] [address] [id number], [place] [address] Aug, Chronic nausea R11.0 [facility] [address] [id number], [place] [address] Aug, Chronic nausea R11.[address] [facility] [address] [id number], [place] 318[address] Jul, Tachycardia R00.0 [facility] [address] [id number], [place] [id number] Jul, [facility] [address] [facility] [id number][place] [address] Jul, [facility] [address] [id number], [place] [id number] Jul, Benign essential hypertension I10 ; Sleep disturbance G47.9 ; Snoring R06.83 and Daytime sleepiness R40.0 [facility] [address] [id number], [place] 753194[address] Jul, Dental examination Z01.20 [facility] [address] [facility] [id number] [place] [address] Jul, Encounter for dental exam and cleaning w/o abnormal findings Z01.20 [facility] [address] [id number], [place] 9335746[address] Mar, [facility] [address] [id number], [place] 6300[address] Mar, Bilateral low back pain without sciatica, unspecified chronicity M54.5 and Muscle spasm M62.838 [facility] [address] [id number], [place] 126904[address] Jan, Sleep disturbance G47.9 and Bipolar 1 disorder, depressed F31.9 [facility] [address] [id number], [place] [address] Jan, [facility] [address] [id number], [place] [id number] December, Encounter for dental examination and cleaning without abnormal findings Z01.20 [facility] [address] [id number], [place] [address] December, Dental examination Z01.20 [facility] [address] [id number], [place] [address] December, Bipolar 1 disorder, depressed F31.9 ; Auditory hallucination R44.0 and Sleep disturbance G47.9 [facility] [address] [id number], [place] 88[address]108[address] December, Bipolar 1 disorder with moderate south F31.12 [facility] [address] [facility] [id number], [place] [address] December, [facility] [address] [address] [id number], [place] [address] Nov, [facility] [address] [id number], [place] [address] Nov, Acute non-recurrent frontal sinusitis J01.10 [facility] [address] [id number], [place] 64[address] Nov, [facility] [address] [id number], [place] 487626248 Nov, Mild intermittent asthma without complication J45.20 [facility] [address] [id number], [place] 408[address]9614 Nov, Mild intermittent asthma without complication J45.20 [facility] [address] [id number], [place] 136329215 Nov, [facility] [address] [id number], [place] [address] Nov, 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 and Schizoaffective disorder, bipolar type F25.0 [facility] [address] [id number], [place] 89[address]40788 Nov, Chronic nausea R11.0 [facility] [address] [facility] [id number], [place] 801387498 Nov, Seizure disorder G40.909 ; Chronic nausea R11.0 ; Gastroesophageal reflux disease without esophagitis K21.9 and Benign essential hypertension I10 [facility] [address] [facility] [id number] [place] [address] Oct, Moderate persistent asthma without complication J45.[address] [id number], [place] [address] Oct, [address] [id number], [place] 97[address]574[address] Sep, Bipolar 1 disorder, depressed F31.9 ; Seizure disorder G40.909 ; Moderate persistent asthma without complication J45.40 ; Chronic nausea R11.0 ; Gastroesophageal reflux disease without esophagitis K21.9 and Benign essential hypertension I10 [facility] [address] [facility] [id number], [place] 761794803 Oct, Seizure disorder G40.909 ; Bipolar affective disorder, current episode depressed, current episode severity unspecified F31.30 ; Essential hypertension I10 and Mild intermittent asthma without complication J45.[address] [id number], [place] 532674290 Apr, Dental examination V72.[address] [id number], [place] [id number] Mar, Dental examination V72.[address] [id number], [place] 104243392 Mar, Dental examination V72.[address] [id number], [place] 901181256 Nov, Dental examination V72.2 IMMUNIZATIONS No Known Immunizations SOCIAL HISTORY Never Assessed REASON FOR VISIT med refill PLAN OF CARE VITAL SIGNS MEDICATIONS Medication Instructions Dosage Frequency Start Date End Date Duration Status Lisinopril 20 MG TAKE ONE (1) TABLET BY MOUTH DAILY... Active RESULTS No Results PROCEDURES No Known procedures INSTRUCTIONS MEDICATIONS ADMINISTERED No Known Medications MEDICAL (GENERAL) HISTORY Type Description Date Medical History asthma - mild intermittent ( PFT 10/2016 Normal) Medical History hypertension Medical History seizures- childhood Medical History bipolar disorder- [facility] Medical History GERD Medical History auditory hallucinations- Surgical History hernia repair/ Inguinal ( child) Surgical History EGD- 2015 Hospitalization History [facility] for two to three [facility]. 08/2016 Hospitalization History ER for shortness of breath 07/2017 Hospital[facility] 12/2017
--- OUTSIDE RECORDS SUMMARY | 2019-02-27 22:26 | XMS REPORT ---
Author Author HEBER PAN Organization [facility] Address [address] [place] [address] Care Team Providers Care Business Practices Officer Name Role Phone HEBER PAN Unavailable PROBLEMS Type Condition ICD9-CM Code [id number] Code Onset Dates Condition Status SNOMED Code Problem Chronic nausea R11.0 Active 958498269 Problem Bipolar 1 disorder, depressed F31.9 Active 70887654 Problem Seizure disorder G40.909 Active 046109806 Problem Moderate persistent asthma without complication J45.40 Active 480337599 Problem Mild intermittent asthma without complication J45.20 Active 170422421 Problem Gastroesophageal reflux disease without esophagitis K21.9 Active 894281836 Problem Daytime sleepiness R40.0 Active 097208709377 Problem Bipolar 1 disorder with moderate south F31.12 Active 72659826 Problem Schizoaffective disorder, bipolar type F25.0 Active 27700385 Problem Benign essential hypertension I10 Active 8525663 Problem Sleep disturbance G47.9 Active 65746984 Problem Auditory hallucination R44.0 Active 71996331 ALLERGIES Substance Reaction Event Type Date Status Latuda anaphylaxis Drug Allergy Feb, Active Trazodone HCl anaphylaxis Drug Allergy Feb, Active Penicillin V Potassium anaphylaxis Drug Allergy Feb, Active ENCOUNTERS Encounter Location Date Diagnosis [facility] [address] [address] [id number] [place] [id number] May, [facility] [address] [address] [id number] [place] [id number] Apr, [facility] [address] [address] [id number] [place] [id number] Mar, [facility] [address] [id number] [place] [id number] Mar, [facility] [address] [id number] [place] [id number] Mar, Dental examination Z01.20 [facility] [address] [id number], [place] [id number] Mar, Acute midline low back pain without sciatica M54.5 and Gastroesophageal reflux disease without esophagitis K21.9 [facility] [address] [id number], [place] [address] Feb, Dental examination Z01.20 [facility] [address]00565100[place], [place] [address] Feb, [facility] [address] [place] [address] Feb, Daytime sleepiness R40.0 and Bipolar 1 disorder with moderate south F31.12 [facility] [id number], [place] [id number] Jan, Chronic nausea R11.0 [facility] [address]00565100[place], [place] [address] December, [facility] [address] [place] [address] AVE [id number], [place] [address] December, Hospital discharge follow-up Z09 ; Chronic nausea R11.0 ; Abdominal pain, unspecified abdominal location R10.9 and Gastroesophageal reflux disease without esophagitis K21.9 [facility] [address] [id number] [address] Nov, Walking pneumonia J18.9 [facility] [address] [facility] [id number][place] [id number] Nov, Encounter for dental exam and cleaning w/o abnormal findings Z01.20 [facility] [address] [id number], [place] [phone] Oct, Dental examination Z01.20 [facility] [address] [id number], [place] [phone] Sep, [facility] [address]100[place], [place] [address] Aug, [facility] [address] [id number], [place] [address] Aug, [facility] MARIA GUADALUPE Flor BECERRAE [id number] [place] [address] Aug, [facility] [address] [id number], [place] 937[address]76[address] Aug, Chronic nausea R11.0 [facility] [address] [id number][place] [address]703390 Aug, Chronic nausea R11.[address] [facility] [address] [id number], [place] [address]1614 Jul, Tachycardia R00.[address] [facility] [address] [id number], [place] [id number] Jul, [facility] [address] [facility] [id number][place] [address] Jul, [facility] [address] [id number], [place] 735479408 Jul, Benign essential hypertension I10 ; Sleep disturbance G47.9 ; Snoring R06.83 and Daytime sleepiness R40.[address] [facility] [address] [id number], [place] [id number] Jul, Dental examination Z01.20 [facility] [address] [facility] [id number], [place] [phone] Jul, Encounter for dental exam and cleaning w/o abnormal findings Z01.[address] [facility] [address] [id number], [place] [address] Mar, [facility] [address] [id number], [place] [address]35[address] Mar, Bilateral low back pain without sciatica, unspecified chronicity M54.5 and Muscle spasm M62.[address] [facility] [address] [id number], [place] 340778690 Jan, Sleep disturbance G47.9 and Bipolar 1 disorder, depressed F31.[address] [facility] [address] [id number], [place] 394[address]4638 Jan, [facility] [address] [address] [id number], [place] 174158626 December, Encounter for dental examination and cleaning without abnormal findings Z01.[address] [facility] [address] [id number], [place] 844430122 December, Dental examination Z01.20 [facility] [address] [address] [id number], [place] 878[address]252 December, Bipolar 1 disorder, depressed F31.9 ; Auditory hallucination R44.0 and Sleep disturbance G47.9 [facility] [address] [address] [id number], [place] 7556[address]404 December, Bipolar 1 disorder with moderate south F31.12 [facility] [address] [facility] [id number], [place] [address] December, [facility] [address] [id number], [place] [id number] Nov, [facility] [id number], [place] [address] Nov, Acute non-recurrent frontal sinusitis J01.10 [facility] [address] [id number], [place] [id number] Nov, [facility] [address] [address] [id number], [place] [id number] Nov, Mild intermittent asthma without complication J45.20 [facility] [address] [address] [id number], [place] [id number] Nov, Mild intermittent asthma without complication J45.20 [facility] [address] [address] [id number], [place] [id number] Nov, [facility] [address] [facility] [id number], [place] [id number] Nov, Other senior living (current) drug therapy Z79.899 and Schizoaffective disorder, bipolar type F25.0 [facility] [address] [id number] [place] [address] Nov, Chronic nausea R11.0 [facility] [address] [facility] [id number], [place] 964195889 Nov, Seizure disorder G40.909 ; Chronic nausea R11.0 ; Gastroesophageal reflux disease without esophagitis K21.9 and Benign essential hypertension I10 [facility] [address] [facility] [id number] [place] [address] Oct, Moderate persistent asthma without complication J45.40 [facility] [address] [id number], [place] [id number] Oct, [facility] [address] [id number], [place] 8383527[address] Sep, Bipolar 1 disorder, depressed F31.9 ; Seizure disorder G40.909 ; Moderate persistent asthma without complication J45.40 ; Chronic nausea R11.0 ; Gastroesophageal reflux disease without esophagitis K21.9 and Benign essential hypertension I10 [facility] [address] [facility] [id number] [place] 560[address]696 Oct, Seizure disorder G40.909 ; Bipolar affective disorder, current episode depressed, current episode severity unspecified F31.30 ; Essential hypertension I10 and Mild intermittent asthma without complication J45.20 [facility] [address] [id number], [place] [id number] Apr, Dental examination V72.2 [facility] [address] [id number], [place] [id number] Mar, Dental examination V72.2 [facility] [address] [id number], [place] [id number] Mar, Dental examination V72.2 [facility] [address] [id number], [place] 336577388 Nov, Dental examination V72.2 IMMUNIZATIONS No Known Immunizations SOCIAL HISTORY Never Assessed REASON FOR VISIT ADULT OUTREACH CLASS [facility] PLAN OF CARE Activity Details Follow Up prn Reason:CLINIC RESTORATIVE VITAL SIGNS MEDICATIONS Medication Instructions Dosage Frequency Start Date End Date Duration Status Tessalon Perles 100 MG Orally Three times a day 1 capsule as needed 8h Active Keppra 500 mg Orally every 12 hrs 1 tablet 12h Active Sucralfate 1 GM TAKE ONE (1) TABLET BY MOUTH TWICE DAILY ON AN EMPTY STOMACH. Active Zofran 8 MG Orally Once a day must last 1 m 1 tablet Active Pantoprazole Sodium 40 mg Orally Once a day 1 tablet 24h Active Ibuprofen 800 MG Orally 2 times a day as needed for pain 1 tablet with food or milk Mar, Active Simvastatin 40 mg Orally Once a day in the evening 1 tablet Active Albuterol Sulfate HFA 108 (90 Base) MCG/ACT Inhalation 3 times a day 2 puffs as needed 8h Active Amitriptyline HCl 100 MG 1 tablet Once a day- BEDTIME Orally Active Flovent HFA 110 MCG/ACT Inhalation Twice a day ( rinse mouth after use) Use EVERYDAY 2 puff Active Prednisone 1 tab Active Bentyl 10 mg Orally Four times a day 1 capsule 6h Active Lisinopril 20 MG TAKE ONE (1) TABLET BY MOUTH DAILY... Active Carafate 1 GM Orally Twice a day 1 tablet on an empty stomach 12h Active Cipro 500 MG Orally every 12 hrs 1 tablet 12h Not-Taking Amitriptyline HCl Active ProAir HFA 108 (90 Base) MCG/ACT Inhalation every 6 hrs 2 puffs as needed 6h Active Latuda 80 MG TAKE ONE (1) TABLET BY MOUTH DAILY WITH FOOD. Not-Taking Zyrtec Allergy 10 MG Active Albuterol Sulfate 1.25 MG/3ML Inhalation every 8 hrs 3 ml as needed 8h Nov, Active CompAir Nebulizer - MACHINE AND TUBING Nov, Active RESULTS No Results PROCEDURES Procedure Date Ordered Result Body Site PERIODIC ORAL EXAMINATION February 27, 2018 INTRAORL-PERIAPICAL 1 FILM 07574 February 27, 2018 INTRAORL-PERIAPICAL EA ADD FILM February 27, 2018 INTRAORL-PERIAPICAL EA ADD FILM February 27, 2018 TOPICAL FLUORIDE VARNISH February 27, 2018 PROPHYLAXIS - ADULT February 27, 2018 INSTRUCTIONS MEDICATIONS ADMINISTERED No Known Medications MEDICAL (GENERAL) HISTORY Type Description Date Medical History asthma - mild intermittent ( PFT 10/2016 Normal) Medical History hypertension Medical History seizures- childhood Medical History bipolar disorder- [facility] Medical History GERD Medical History auditory hallucinations- Surgical History hernia repair/ Inguinal ( child) Surgical History EGD- [place]2015 Hospitalization History [facility] for two to three days. 08/2016 Hospitalization History ER for shortness of breath 07/2017 Hospitalization History [facility] 12/2017
--- OUTSIDE RECORDS SUMMARY | 2019-02-27 22:26 | XMS REPORT ---
Author Author HEBER PAN Organization [facility] Address [address] [place] [address] Care Team Providers Care Drafter Directional Survey Name Role Phone HEBER PAN Unavailable PROBLEMS Type Condition ICD9-CM Code VIU94-TA Code Onset Dates Condition Status SNOMED Code Problem Chronic nausea R11.0 Active 187671107 Problem Bipolar 1 disorder, depressed F31.9 Active 49925850 Problem Seizure disorder G40.909 Active 774987871 Problem Moderate persistent asthma without complication J45.40 Active 084039304 Problem Mild intermittent asthma without complication J45.20 Active 101972954 Problem Gastroesophageal reflux disease without esophagitis K21.9 Active 044963865 Problem Daytime sleepiness R40.0 Active 345898539391 Problem Bipolar 1 disorder with moderate south F31.12 Active 59729530 Problem Schizoaffective disorder, bipolar type F25.0 Active 29263649 Problem Benign essential hypertension I10 Active 5179649 Problem Sleep disturbance G47.9 Active 26805425 Problem Auditory hallucination R44.0 Active 41512861 ALLERGIES Substance Reaction Event Type Date Status Latuda anaphylaxis Drug Allergy Mar, Active Trazodone HCl anaphylaxis Drug Allergy Mar, Active Penicillin V Potassium anaphylaxis Drug Allergy Mar, Active ENCOUNTERS Encounter Location Date [facility] [address] [id number] [place] [phone] May, [facility] [address] [id number] [place], [place] [phone] Apr, [facility] [address] [address] [id number] [place], [place] [id number] Mar, [facility] [address] [id number] [place] [id number] Mar, [facility] [address] [address] [id number] [place] [id number] Mar, Dental examination Z01.20 [facility] [address] [id number] SPRINGS, [place] [id number] Mar, Acute midline low back pain without sciatica M54.5 and Gastroesophageal reflux disease without esophagitis K21.9 [facility] [address] [id number] [address] Feb, Dental examination Z01.20 [facility] [address]00565100[place] [address] Feb, [facility] [address] [place] [address] Feb, Daytime sleepiness R40.0 and Bipolar 1 disorder with moderate south F31.12 [facility] [id number], [place] [id number] Jan, Chronic nausea R11.0 [facility] [address] [address] December, [facility] [address] [place] [address] AVE [id number] [place] [id number] December, Hospital discharge follow-up Z09 ; Chronic nausea R11.0 ; Abdominal pain, unspecified abdominal location R10.9 and Gastroesophageal reflux disease without esophagitis K21.9 [facility] [address] [id number] [address] Nov, Walking pneumonia J18.9 [facility] [address] [facility] [id number], [place] [id number] Nov, Encounter for dental exam and cleaning w/o abnormal findings Z01.20 [facility] [address] [id number] SPRINGS, [place] [id number] Oct, Dental examination Z01.20 [facility] [address] [id number] [place], [place] [id number] Sep, [facility] [address], [place] [address] Aug, [facility] [address] [id number] [place] [id number] Aug, [facility] MARIA GUAD[facility] Flor BECERRAE [id number] [place] [address] Aug, [facility] [address] [id number] [place], [place] [id number] Aug, Chronic nausea R11.0 [facility] [address] [id number], [place] [id number] Aug, Chronic nausea R11.[address] [facility] [address] [id number] [place]INGS[place] 873250775 Jul, Tachycardia R00.[address] [facility] [address] [id number] [place] [id number] Jul, [facility] [address] [facility] [id number] [address] Jul, [facility] [address] [address] [id number] [place], [place] [id number] Jul, Benign essential hypertension I10 ; Sleep disturbance G47.9 ; Snoring R06.83 and Daytime sleepiness R40.[address] [facility] [address] [id number] [place]INGS, [place] 332782183 Jul, Dental examination Z01.20 [facility] [address] [facility] [id number], [place] [address]04675249 Jul, Encounter for dental exam and cleaning w/o abnormal findings Z01.[address] [facility] [address] [id number] [place] [id number] Mar, [facility] [address] [id number] [place], [place] 146639661 Mar, Bilateral low back pain without sciatica, unspecified chronicity M54.5 and Muscle spasm M62.[address] [facility] [address] [id number] SPRINGS, [place] 888781096 Jan, Sleep disturbance G47.9 and Bipolar 1 disorder, depressed F31.[address] [facility] [address] [id number] SPRINGS, [place] 077756788 Jan, [facility] [address] [address] [id number] [place] 418183891 December, Encounter for dental examination and cleaning without abnormal findings Z01.[address] [facility] [address] [id number] SPRINGS, [place] 069893577 December, Dental examination Z01.20 [facility] [address] [id number] SPRINGS, [place] [id number] December, Bipolar 1 disorder, depressed F31.9 ; Auditory hallucination R44.0 and Sleep disturbance G47.9 [facility] [address] [id number] [place] [id number] December, Bipolar 1 disorder with moderate south F31.12 [facility] [address] [facility] [id number] [address] December, [facility] [address] [id number] SPR[place], [place] 139694278 Nov, [facility] [id number], [place] 060484705 Nov, Acute non-recurrent frontal sinusitis J01.10 [facility] [address] [id number] [place], [place] 394065360 Nov, [facility] [address] [id number] [place], [place] 943755910 Nov, Mild intermittent asthma without complication J45.20 [facility] [address] [id number] [place], [place] 961159166 Nov, Mild intermittent asthma without complication J45.20 [facility] [address] [id number] [place], [place] 535223547 Nov, [facility] [address] [facility] [id number], [place] 524117622 Nov, Other alf (current) drug therapy Z79.899 and Schizoaffective disorder, bipolar type F25.0 [facility] [address] [id number] [place], [place] 33458[address]84 Nov, Chronic nausea R11.0 [facility] [address] [facility] [id number], [place] 775562601 Nov, Seizure disorder G40.909 ; Chronic nausea R11.0 ; Gastroesophageal reflux disease without esophagitis K21.9 and Benign essential hypertension I10 [facility] [address] [facility] [id number] [place] [address] Oct, Moderate persistent asthma without complication J45.40 [facility] [address] [id number] [place] [id number] Oct, [facility] [address] [id number] [place] 235642477 Sep, Bipolar 1 disorder, depressed F31.9 ; Seizure disorder G40.909 ; Moderate persistent asthma without complication J45.40 ; Chronic nausea R11.0 ; Gastroesophageal reflux disease without esophagitis K21.9 and Benign essential hypertension I10 [facility] [address] [facility] [id number] [place] [id number] Oct, Seizure disorder G40.909 ; Bipolar affective disorder, current episode depressed, current episode severity unspecified F31.30 ; Essential hypertension I10 and Mild intermittent asthma without complication J45.20 [facility] [address] [id number] SPRINGS, [place] [id number] Apr, Dental examination V72.2 [facility] [address] [id number] [place], [place] [id number] Mar, Dental examination V72.2 [facility] [address] [id number] [place]INGS[place] [id number] Mar, Dental examination V72.2 [facility] [address] [address] [id number] [place] [id number] Nov, Dental examination V72.2 IMMUNIZATIONS No Known Immunizations SOCIAL HISTORY Never Assessed REASON FOR VISIT PLAN OF CARE VITAL SIGNS MEDICATIONS Medication Instructions Dosage Frequency Start Date End Date Duration Status Ibuprofen 800 MG Orally 2 times a day as needed for pain 1 tablet with food or milk Mar, Active Bentyl 10 mg Orally Four times a day 1 capsule 6h Active Carafate 1 GM Orally Twice a day 1 tablet on an empty stomach 12h Active Albuterol Sulfate HFA 108 (90 Base) MCG/ACT Inhalation 3 times a day 2 puffs as needed 8h Active Simvastatin 40 mg Orally Once a day in the evening 1 tablet Active Keppra 500 mg Orally every 12 hrs 1 tablet 12h Active PredniSONE 20 mg Orally Once a day 2 tablet 24h Mar, Mar, 05 days Active Flovent HFA 110 MCG/ACT Inhalation Twice a day ( rinse mouth after use) Use EVERYDAY 2 puff Active Lisinopril 20 MG TAKE ONE (1) TABLET BY MOUTH DAILY... Active Amitriptyline HCl Active ProAir HFA 108 (90 Base) MCG/ACT Inhalation every 6 hrs 2 puffs as needed 6h Active Zyrtec Allergy 10 MG Active CompAir Nebulizer - MACHINE AND TUBING Nov, Active Albuterol Sulfate 1.25 MG/3ML Inhalation every 8 hrs 3 ml as needed 8h Nov, Active Zofran 8 MG Orally Once a day must last 1 m 1 tablet Active Sucralfate 1 GM TAKE ONE (1) TABLET BY MOUTH TWICE DAILY ON AN EMPTY STOMACH. Active Pantoprazole Sodium 40 mg Orally Once a day 1 tablet 24h Active Amitriptyline HCl 100 MG 1 tablet Once a day- BEDTIME Orally Active RESULTS No Results PROCEDURES Procedure Date Ordered Result Body Site RESIN COMPOS - 3 SURFACES ANTERIOR Mar 12, 2018 RESIN COMPOS - 3 SURFACES POSTERIOR Mar 12, 2018 Billing Notes on claim Mar 12, 2018 RESIN COMPOS - 3 SURFACES POSTERIOR Mar 12, 2018 INSTRUCTIONS MEDICATIONS ADMINISTERED No Known Medications MEDICAL (GENERAL) HISTORY Type Description Date Medical History asthma - mild intermittent ( PFT 10/2016 Normal) Medical History hypertension Medical History seizures- childhood Medical History bipolar disorder- [facility] Medical History GERD Medical History auditory hallucinations- Surgical History hernia repair/ Inguinal ( child) Surgical History EGD- 2015 Hospitalization History [facility] for two to three days. 08/2016 Hospitalization History ER for shortness of breath 07/2017 Hospitalization History [facility] 12/2017
--- OUTSIDE RECORDS SUMMARY | 2019-02-27 22:26 | XMS REPORT ---
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 Name Role Phone SIRENA ABDALLA Unavailable PROBLEMS Type Condition ICD9-CM Code DHH35-DY Code Onset Dates Condition Status SNOMED Code Problem Chronic nausea R11.0 Active 260641602 Problem Bipolar 1 disorder, depressed F31.9 Active 37530361 Problem Seizure disorder G40.909 Active 635882402 Problem Moderate persistent asthma without complication J45.40 Active 593642875 Problem Mild intermittent asthma without complication J45.20 Active 879082481 Problem Gastroesophageal reflux disease without esophagitis K21.9 Active 748515756 Problem Daytime sleepiness R40.0 Active 009171755516 Problem Bipolar 1 disorder with moderate south F31.12 Active 99274540 Problem Schizoaffective disorder, bipolar type F25.0 Active 37257167 Problem Benign essential hypertension I10 Active 7131268 Problem Sleep disturbance G47.9 Active 14941210 Problem Auditory hallucination R44.0 Active 93990122 ALLERGIES Substance Reaction Event Type Date Status Latuda anaphylaxis Drug Allergy Mar, Active Trazodone HCl anaphylaxis Drug Allergy Mar, Active Penicillin V Potassium anaphylaxis Drug Allergy Mar, Active ENCOUNTERS Encounter Location Date Diagnosis [facility] [address] [id number][place] [id number] May, [facility] [address] [address] [id number] [place] [id number] Apr, [facility] [address] [address] [id number], [place] [id number] Mar, [facility] [address] [address] [id number], [place] [id number] Mar, [facility] [address] [id number], [place] [id number] Mar, Dental examination Z01.20 [facility] [address] [id number], [place] [id number] Mar, Acute midline low back pain without sciatica M54.5 and Gastroesophageal reflux disease without esophagitis K21.9 [facility] [address] [id number], [place] [address] Feb, Dental examination Z01.20 [facility] [address]00565100[place] [address] Feb, [facility] [id number] [place] [address] Feb, Daytime sleepiness R40.0 and Bipolar 1 disorder with moderate south F31.12 [facility] [id number], [place] [id number] Jan, Chronic nausea R11.0 [facility] [address] [place] [address] December, [facility] [address] [place] [address] AVE [id number], [place] [address] December, Hospital discharge follow-up Z09 ; Chronic nausea R11.0 ; Abdominal pain, unspecified abdominal location R10.9 and Gastroesophageal reflux disease without esophagitis K21.9 [facility] [address]65100[place], [place] [address] Nov, Walking pneumonia J18.9 [facility] [address] [id number] [id number] Nov, Encounter for dental exam and cleaning w/o abnormal findings Z01.20 [facility] [address] [id number], [place] [id number] Oct, Dental examination Z01.20 [facility] [address] [id number], [place] [id number] Sep, [facility] [address] [place] [address] Aug, [facility] [address] [id number], [place] [id number] Aug, [facility]IA GUAD[facility] Flor [address] [id number] [place] [address] Aug, [facility] [address] [id number], [place] [id number] Aug, Chronic nausea R11.0 [facility] [address] [id number][place] [id number] Aug, Chronic nausea R11.[address] [facility] [address] [id number], [place] [id number] Jul, Tachycardia R00.[address] [facility] [address] [id number], [place] [id number] Jul, [facility] [address] [facility] [id number], [place] [address] Jul, [facility] [address] [id number], [place] [address] Jul, Benign essential hypertension I10 ; Sleep disturbance G47.9 ; Snoring R06.83 and Daytime sleepiness R40.0 [facility] [address] [id number], [place] [id number] Jul, Dental examination Z01.20 [facility] [address] [facility] [id number], [place] [address] Jul, Encounter for dental exam and cleaning w/o abnormal findings Z01.20 [facility] [address] [id number], [place] [address] Mar, [facility] [address] [id number], [place] [address] Mar, Bilateral low back pain without sciatica, unspecified chronicity M54.5 and Muscle spasm M62.[address] [facility] [address] [id number], [place] [id number] Jan, Sleep disturbance G47.9 and Bipolar 1 disorder, depressed F31.9 [facility] [address] [id number], [place] [address] Jan, [facility] [address] [address] [id number], [place] 460[address] December, Encounter for dental examination and cleaning without abnormal findings Z01.[address] [facility] [address] [id number], [place] [address] December, Dental examination Z01.20 [facility] [address] [id number], [place] [address] December, Bipolar 1 disorder, depressed F31.9 ; Auditory hallucination R44.0 and Sleep disturbance G47.9 [facility] [address] [id number], [place] [address]85[address] December, Bipolar 1 disorder with moderate south F31.12 [facility] [address] [facility] [id number], [place] [address] December, [facility] [address] [id number], [place] [id number] Nov, [facility] [id number], [place] [id number] Nov, Acute non-recurrent frontal sinusitis J01.10 [facility] [address] [id number], [place] [id number] Nov, [facility] [address] [id number], [place] [id number] Nov, Mild intermittent asthma without complication J45.20 [facility] [address] [id number], [place] [address] Nov, Mild intermittent asthma without complication J45.20 [facility] [address] [id number], [place] [id number] Nov, [facility] [address] [facility] [id number], [place] [address] Nov, 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 and Schizoaffective disorder, bipolar type F25.0 [facility] [address] [id number], [place] [id number] Nov, Chronic nausea R11.0 [facility] [address] [facility] [id number], [place] [address] Nov, Seizure disorder G40.909 ; Chronic nausea R11.0 ; Gastroesophageal reflux disease without esophagitis K21.9 and Benign essential hypertension I10 [facility] [address] [id number] [address] Oct, Moderate persistent asthma without complication J45.40 [facility] [address] [id number], [place] [address] Oct, [facility] [address] [id number], [place] [address] Sep, Bipolar 1 disorder, depressed F31.9 ; Seizure disorder G40.909 ; Moderate persistent asthma without complication J45.40 ; Chronic nausea R11.0 ; Gastroesophageal reflux disease without esophagitis K21.9 and Benign essential hypertension I10 [facility] [address] [facility] [id number], [place] [address] Oct, Seizure disorder G40.909 ; Bipolar affective disorder, current episode depressed, current episode severity unspecified F31.30 ; Essential hypertension I10 and Mild intermittent asthma without complication J45.20 [facility] [address] [id number], [place] [address] Apr, Dental examination V72.2 [facility] [address] [id number], [place] [id number] Mar, Dental examination V72.2 [facility] [address] [id number], [place] [id number] Mar, Dental examination V72.2 [facility] [address] [id number], [place] [id number] Nov, Dental examination V72.2 IMMUNIZATIONS No Known Immunizations SOCIAL HISTORY Never Assessed REASON FOR VISIT Follow up from CT test and having problems with back pain. Carlitos oswald PLAN OF CARE Activity Details Follow Up prn Reason: VITAL SIGNS Height 68 in 2018-03-09 Weight 167.7 lbs 2018-03-09 Temperature 98.1 degrees Fahrenheit 2018-03-09 Heart Rate 82 bpm 2018-03-09 Respiratory Rate 18 2018-03-09 BMI 25.50 kg/m2 2018-03-09 Blood pressure systolic 120 mmHg 2018-03-09 Blood pressure diastolic 70 mmHg 2018-03-09 MEDICATIONS Medication Instructions Dosage Frequency Start Date End Date Duration Status Albuterol Sulfate 1.25 MG/3ML Inhalation every 8 hrs 3 ml as needed 8h Nov, Active Bentyl 10 mg Orally Four times a day 1 capsule 6h Active Albuterol Sulfate HFA 108 (90 Base) MCG/ACT Inhalation 3 times a day 2 puffs as needed 8h Active Ibuprofen 800 MG Orally 2 times a day as needed for pain 1 tablet with food or milk Mar, Active Lisinopril 20 MG TAKE ONE (1) TABLET BY MOUTH DAILY... Active Zyrtec Allergy 10 MG Active Sucralfate 1 GM TAKE ONE (1) TABLET BY MOUTH TWICE DAILY ON AN EMPTY STOMACH. Active Amitriptyline HCl 100 MG 1 tablet Once a day- BEDTIME Orally Active Amitriptyline HCl Active Simvastatin 40 mg Orally Once a day in the evening 1 tablet Active ProAir HFA 108 (90 Base) MCG/ACT Inhalation every 6 hrs 2 puffs as needed 6h Active Keppra 500 mg Orally every 12 hrs 1 tablet 12h Active Flovent HFA 110 MCG/ACT Inhalation Twice a day ( rinse mouth after use) Use EVERYDAY 2 puff Active Carafate 1 GM Orally Twice a day 1 tablet on an empty stomach 12h Active Zofran 8 MG Orally Once a day must last 1 m 1 tablet Active PredniSONE 20 mg Orally Once a day 2 tablet 24h Mar, Mar, 05 days Active Pantoprazole Sodium 40 mg Orally Once a day 1 tablet 24h Active CompAir Nebulizer - MACHINE AND TUBING Nov, Active RESULTS No Results PROCEDURES No Known procedures INSTRUCTIONS MEDICATIONS ADMINISTERED No Known Medications MEDICAL (GENERAL) HISTORY Type Description Date Medical History asthma - mild intermittent ( PFT 10/2016 Normal) Medical History hypertension Medical History seizures- childhood Medical History bipolar disorder- [facility] Medical History GERD Medical History auditory hallucinations- Surgical History hernia repair/ Inguinal ( child) Surgical History EGD- [facility]/ 2016 Hospitalization History [facility] for two to three days. 08/2016 Hospitalization History ER for shortness of breath 07/2017 Hospitalization History [facility] 12/2017
--- OUTSIDE RECORDS SUMMARY | 2019-02-27 22:27 | XMS REPORT ---
Author Author SIRENA ABDALLA [facility] Address [address] [place] [address] Care Team Providers Care Medical Supervisor Name Role Phone SIRENA ABDALLA Unavailable PROBLEMS Type Condition ICD9-CM Code FHD39-MR Code Onset Dates Condition Status SNOMED Code Problem Chronic nausea R11.0 Active 189710014 Problem Bipolar 1 disorder, depressed F31.9 Active 07514153 Problem Seizure disorder G40.909 Active 141484886 Problem Moderate persistent asthma without complication J45.40 Active 980975531 Problem Mild intermittent asthma without complication J45.20 Active 821065095 Problem Gastroesophageal reflux disease without esophagitis K21.9 Active 262073001 Problem Daytime sleepiness R40.0 Active 196015233675 Problem Bipolar 1 disorder with moderate south F31.12 Active 65675648 Problem Schizoaffective disorder, bipolar type F25.0 Active 30721600 Problem Benign essential hypertension I10 Active 1120643 Problem Sleep disturbance G47.9 Active 69530779 Problem Auditory hallucination R44.0 Active 53084058 ALLERGIES No Information ENCOUNTERS Encounter Location Date Diagnosis [facility] [address] [id number], [place] [id number] Mar, [facility] [address] [id number], [place] [id number] Mar, [facility] [address] [id number], [place] [id number] Mar, Dental examination Z01.20 [facility] [address] [id number], [place] [id number] Mar, Acute midline low back pain without sciatica M54.5 and Gastroesophageal reflux disease without esophagitis K21.9 [facility] [address] [id number], [place] [address] Feb, Dental examination Z01.20 [facility] [address] [facility] [id number] [address] Feb, [facility] [address] [id number] [address] Feb, Daytime sleepiness R40.0 and Bipolar 1 disorder with moderate south F31.12 [facility] [id number] [place] [id number] Jan, Chronic nausea R11.0 [facility] [address] [facility] [id number] [address] December, [facility] [address] [id number], [place] [address] December, Hospital discharge follow-up Z09 ; Chronic nausea R11.0 ; Abdominal pain, unspecified abdominal location R10.9 and Gastroesophageal reflux disease without esophagitis K21.9 [facility] [address] [id number] [address] Nov, Walking pneumonia J18.9 [facility] [address] [id number], [place] [address] Nov, Encounter for dental exam and cleaning w/o abnormal findings Z01.20 [facility] [address] [id number], [place] [id number] Oct, Dental examination Z01.20 [facility] [address] [address] [id number], [place] [id number] Sep, [facility] [address] [facility] [id number] [address] Aug, [facility] [address] [address] [id number], [place] [id number] Aug, [facility] [address] [id number] [place] [address] Aug, [facility] [address] [address] [id number], [place] [id number] Aug, Chronic nausea R11.0 [facility] [address] [id number] MILL, [place] [id number] Aug, Chronic nausea R11.[address] [facility] [address] [id number], [place] [id number] Jul, Tachycardia R00.[address] [facility] [address] [id number], [place] [id number] Jul, [facility] [address] [facility] [id number], [place] [address] Jul, [facility] [address] [id number], [place] [address]81[address]44 Jul, Benign essential hypertension I10 ; Sleep disturbance G47.9 ; Snoring R06.83 and Daytime sleepiness R40.0 [facility] [address] [id number], [place] [id number] Jul, Dental examination Z01.20 [facility] [address] [facility] [id number], [place] [address] Jul, Encounter for dental exam and cleaning w/o abnormal findings Z01.[address] [facility] [address] [id number], [place] [id number] Mar, [facility] [address] [address] [id number], [place] [id number] Mar, Bilateral low back pain without sciatica, unspecified chronicity M54.5 and Muscle spasm M62.838 [facility] [address] [id number], [place] 573574[address] Jan, Sleep disturbance G47.9 and Bipolar 1 disorder, depressed F31.9 [facility] [address] [id number], [place] [address] Jan, [facility] [address] [id number], [place] [id number] December, Encounter for dental examination and cleaning without abnormal findings Z01.[address] [facility] [address] [id number], [place] 224906556 December, Dental examination Z01.20 [facility] [address] [id number], [place] 45962[address]16 December, Bipolar 1 disorder, depressed F31.9 ; Auditory hallucination R44.0 and Sleep disturbance G47.9 [facility] [address] [id number], [place] [address]73 December, Bipolar 1 disorder with moderate south F31.12 [facility] [address] [facility] [id number] [address] December, [facility] [address] [id number], [place] [id number] Nov, [facility] [address] [facility] [id number] [place]ILL, [place] 21875[address] Nov, Acute non-recurrent frontal sinusitis J01.10 [facility] [address] [id number], [place] [id number] Nov, [facility] [address] [id number], [place] [address] Nov, Mild intermittent asthma without complication J45.20 [facility] [address] [id number], [place] 089259751 Nov, Mild intermittent asthma without complication J45.20 [facility] [address] [id number], [place] [id number] Nov, [facility] [address] [id number] [place] [address] Nov, 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 and Schizoaffective disorder, bipolar type F25.0 [facility] [address] [id number], [place] 4808[address]135 Nov, Chronic nausea R11.0 [facility] [address] [facility] [id number] [place]ILL[place] 148[address] Nov, Seizure disorder G40.909 ; Chronic nausea R11.0 ; Gastroesophageal reflux disease without esophagitis K21.9 and Benign essential hypertension I10 [facility] [address] [id number] [place] [address] Oct, Moderate persistent asthma without complication J45.[address] [id number], [place] [address] Oct, [address] [id number], [place] [address]697[address] Sep, Bipolar 1 disorder, depressed F31.9 ; Seizure disorder G40.909 ; Moderate persistent asthma without complication J45.40 ; Chronic nausea R11.0 ; Gastroesophageal reflux disease without esophagitis K21.9 and Benign essential hypertension I10 [facility] [address] [facility] [id number] MILL[place] 239612467 Oct, Seizure disorder G40.909 ; Bipolar affective disorder, current episode depressed, current episode severity unspecified F31.30 ; Essential hypertension I10 and Mild intermittent asthma without complication J45.[address] [id number], [place] [id number] Apr, Dental examination V72.[address] [id number], [place] [id number] Mar, Dental examination V72.[address] [id number], [place] [id number] Mar, Dental examination V72.[address] [id number], [place] 819341491 Nov, Dental examination V72.2 IMMUNIZATIONS No Known Immunizations SOCIAL HISTORY Never Assessed REASON FOR VISIT PA CT abd & Pelvis w/o PLAN OF CARE VITAL SIGNS MEDICATIONS Unknown [...] child) Surgical History EGD- 2015 Hospitalization History [facility] for two to three days. 08/2016 Hospitalization History ER for shortness of breath 07/2017 Hospitalization History [facility] 12/2017
--- OUTSIDE RECORDS SUMMARY | 2019-02-27 22:27 | XMS REPORT ---
Author Author SIRENA [facility]BDALLA [facility] Address [address] [place] [address] Care Team Providers Care Wind Turbine Erector Name Role Phone SIRENA ABDALLA Unavailable PROBLEMS Type Condition ICD9-CM Code YYN43-PK Code Onset Dates Condition Status SNOMED Code Problem Chronic nausea R11.0 Active 984791282 Problem Bipolar 1 disorder, depressed F31.9 Active 17763733 Problem Seizure disorder G40.909 Active 802192564 Problem Moderate persistent asthma without complication J45.40 Active 500598798 Problem Mild intermittent asthma without complication J45.20 Active 466063240 Problem Gastroesophageal reflux disease without esophagitis K21.9 Active 227984304 Problem Daytime sleepiness R40.0 Active 246953601615 Problem Bipolar 1 disorder with moderate south F31.12 Active 05507537 Problem Schizoaffective disorder, bipolar type F25.0 Active 85654631 Problem Benign essential hypertension I10 Active 7188203 Problem Sleep disturbance G47.9 Active 50822873 Problem Auditory hallucination R44.0 Active 24159019 ALLERGIES No Information ENCOUNTERS Encounter Location Date Diagnosis [facility] [address] [id number] [place] [id number] May, [facility] [address] [id number] [place] [id number] Apr, [facility] [address] [id number] [place] [id number] Mar, [facility] [address] [id number] [place] [id number] Mar, [facility] [address] [id number] [place] [id number] Mar, Dental examination Z01.[address] [id number] [place] [id number] Mar, Acute midline low back pain without sciatica M54.5 and Gastroesophageal reflux disease without esophagitis K21.9 [facility] [address] [id number] [address] Feb, Dental examination Z01.20 [facility] [address] [id number] [address] Feb, [facility] [address] [place] [address] Feb, Daytime sleepiness R40.0 and Bipolar 1 disorder with moderate south F31.12 [facility] [id number], [place] [id number] Jan, Chronic nausea R11.0 [facility] [address] [id number] [address] December, [facility] [address] [id number] PLU[place] [id number] December, Hospital discharge follow-up Z09 ; Chronic nausea R11.0 ; Abdominal pain, unspecified abdominal location R10.9 and Gastroesophageal reflux disease without esophagitis K21.9 [facility] [address] [id number] [address] Nov, Walking pneumonia J18.9 [facility] [address] [id number] [id number] Nov, Encounter for dental exam and cleaning w/o abnormal findings Z01.20 [facility] [address] [id number] [place] [id number] Oct, Dental examination Z01.[address] [facility] [address] [id number] [place] [id number] Sep, [facility] [address] [facility] [id number][place] [address] Aug, [facility] [address] [id number] [place] [id number] Aug, [facility] [address] [id number] [place] [address] Aug, [facility] [address] [id number] [place] [address] Aug, Chronic nausea R11.0 [facility] [address] [id number][place] [id number] Aug, Chronic nausea R11.[address] [facility] [address] [id number] [place] [id number] Jul, Tachycardia R00.0 [facility] [address] [id number] [place] [address] Jul, [facility] [address] [facility] [id number] [address] Jul, [facility] [address] [id number] [place] [address] Jul, Benign essential hypertension I10 ; Sleep disturbance G47.9 ; Snoring R06.83 and Daytime sleepiness R40.0 [facility] [address] [id number] [place] [id number] Jul, Dental examination Z01.20 [facility] [address] [facility] [id number] [place] [id number] Jul, Encounter for dental exam and cleaning w/o abnormal findings Z01.20 [facility] [address] [id number] [place] [id number] Mar, [facility] [address] [address] [id number] [place] [address] Mar, Bilateral low back pain without sciatica, unspecified chronicity M54.5 and Muscle spasm M62.838 [facility] [address] [id number] [place] [address] Jan, Sleep disturbance G47.9 and Bipolar 1 disorder, depressed F31.9 [facility] [address] [id number] [place] [address] Jan, [facility] [address] [id number] [place] [address] December, Encounter for dental examination and cleaning without abnormal findings Z01.20 [facility] [address] [id number] [place] [address] December, Dental examination Z01.20 [address] [address] [id number] [place] [address] December, Bipolar 1 disorder, depressed F31.9 ; Auditory hallucination R44.0 and Sleep disturbance G47.9 [facility] [address] [id number] [place] [address] December, Bipolar 1 disorder with moderate south F31.12 [facility] [address] [facility] [id number][place] [address] December, [facility] [address] [id number] [place] [address] Nov, [facility] [address] [id number] [id number] Nov, Acute non-recurrent frontal sinusitis J01.10 [facility] [address] [id number] [place] [address] Nov, [facility] [address] [address] [id number] [address] Nov, Mild intermittent asthma without complication J45.20 [facility] [address] [id number] [place] [address] Nov, Mild intermittent asthma without complication J45.20 [facility] [address] [id number] [place] [address] Nov, [facility] [address] [id number], [place] [address] Nov, Other penitentiary (current) drug therapy Z79.899 and Schizoaffective disorder, bipolar type F25.0 [facility] [address] [id number] [place], [place] [address] Nov, Chronic nausea R11.0 [facility] [address] [facility] [id number], [place] [address] Nov, Seizure disorder G40.909 ; Chronic nausea R11.0 ; Gastroesophageal reflux disease without esophagitis K21.9 and Benign essential hypertension I10 [facility] [address] [facility] [id number] [place] [address] Oct, Moderate persistent asthma without complication J45.[address] [id number] [place] [address] Oct, [address] [id number] [place] [address] Sep, Bipolar 1 disorder, depressed F31.9 ; Seizure disorder G40.909 ; Moderate persistent asthma without complication J45.40 ; Chronic nausea R11.0 ; Gastroesophageal reflux disease without esophagitis K21.9 and Benign essential hypertension I10 [facility] [address] [facility] [id number], [place] 289[address] Oct, Seizure disorder G40.909 ; Bipolar affective disorder, current episode depressed, current episode severity unspecified F31.30 ; Essential hypertension I10 and Mild intermittent asthma without complication J45.[address] [id number] [place] [address] Apr, Dental examination V72.[address] [id number] [place] [address] Mar, Dental examination V72.[address] [id number] [place] [address] Mar, Dental examination V72.[address] [id number] [place], [place] [address] Nov, Dental examination V72.2 IMMUNIZATIONS No Known Immunizations SOCIAL HISTORY Never Assessed REASON FOR VISIT med refill lisinopril PLAN OF CARE VITAL SIGNS MEDICATIONS Medication Instructions Dosage Frequency Start Date End Date Duration Status Lisinopril 20 mg TAKE ONE (1) TABLET BY MOUTH DAILY... 30 days Active RESULTS No Results PROCEDURES No Known procedures INSTRUCTIONS MEDICATIONS ADMINISTERED No Known Medications MEDICAL (GENERAL) HISTORY Type Description Date Medical History asthma - mild intermittent ( PFT 10/2016 Normal) Medical History hypertension Medical History seizures- childhood Medical History bipolar disorder- [facility] Medical History GERD Medical History auditory hallucinations- Surgical History hernia repair/ Inguinal ( child) Surgical History EGD- 2015 Hospitalization History [facility] for two to three days. 08/2016 Hospitalization History ER for shortness of breath 07/2017 Hospitalization History [place] [facility] 12/2017
--- OUTSIDE RECORDS SUMMARY | 2019-02-27 22:27 | XMS REPORT ---
Author Author SIRENA ABDALLA [facility] Address [address] [place] [address] Care Team Providers Care Proteomics Scientist Name Role Phone SIRENA ABDALLA Unavailable PROBLEMS Type Condition ICD9-CM Code DNA04-IZ Code Onset Dates Condition Status SNOMED Code Problem Chronic nausea R11.0 Active 054052240 Problem Bipolar 1 disorder, depressed F31.9 Active 59773464 Problem Seizure disorder G40.909 Active 921186549 Problem Moderate persistent asthma without complication J45.40 Active 569406947 Problem Mild intermittent asthma without complication J45.20 Active 759283466 Problem Gastroesophageal reflux disease without esophagitis K21.9 Active 547937841 Problem Daytime sleepiness R40.0 Active 627491801475 Problem Bipolar 1 disorder with moderate south F31.12 Active 43183190 Problem Schizoaffective disorder, bipolar type F25.0 Active 94535859 Problem Benign essential hypertension I10 Active 0079218 Problem Sleep disturbance G47.9 Active 51209290 Problem Auditory hallucination R44.0 Active 24440122 ALLERGIES No Information ENCOUNTERS Encounter Location Date Diagnosis [facility] [address] [id number], [place] [id number] Apr, [facility] [address] [id number], [place] [id number] Mar, [facility] [address] [id number], [place] [id number] Mar, [facility] [address] [id number], [place] [id number] Mar, Dental examination Z01.20 [facility] [address] [id number], [place] [address] Mar, Acute midline low back pain without sciatica M54.5 and Gastroesophageal reflux disease without esophagitis K21.9 [facility] [address] [id number], [place] [address] Feb, Dental examination Z01.20 [facility] [address] [facility] [id number], [place] [address] Feb, [facility] [address] [id number] [address] Feb, Daytime sleepiness R40.0 and Bipolar 1 disorder with moderate south F31.12 [facility] [address] [id number], [place] [id number] Jan, Chronic nausea R11.0 [facility] [address] [id number] [address] December, [facility] [address] [id number], [place] [id number] December, Hospital discharge follow-up Z09 ; Chronic nausea R11.0 ; Abdominal pain, unspecified abdominal location R10.9 and Gastroesophageal reflux disease without esophagitis K21.9 [facility] [address] [facility] [id number], [place] [address] Nov, Walking pneumonia J18.9 [facility] [address] [id number], [place] [id number] Nov, Encounter for dental exam and cleaning w/o abnormal findings Z01.20 [facility] [address] [address] [id number], [place] [address]16 Oct, Dental examination Z01.20 [facility] [address] [id number], [place] [id number] Sep, [facility] [address] [facility] [id number], [place] [address] Aug, [facility] [address] [address] [id number], [place] [id number] Aug, [facility] [id number] [place] [address] Aug, [facility] [address] [address] [id number], [place] [address] Aug, Chronic nausea R11.0 [facility] [address] [id number][place] [id number] Aug, Chronic nausea R11.[address] [facility] [address] [id number], [place] 712872[address] Jul, Tachycardia R00.0 [facility] [address] [id number], [place] [id number] Jul, [facility] [address] [facility] [id number], [place] [address] Jul, [facility] [address] [id number], [place] [address] Jul, Benign essential hypertension I10 ; Sleep disturbance G47.9 ; Snoring R06.83 and Daytime sleepiness R40.0 [facility] [address] [id number], [place] [id number] Jul, Dental examination Z01.20 [facility] [address] [facility] [id number], [place] [address] Jul, Encounter for dental exam and cleaning w/o abnormal findings Z01.20 [facility] [address] [id number], [place] [id number] Mar, [facility] [address] [id number], [place] 371735993 Mar, Bilateral low back pain without sciatica, unspecified chronicity M54.5 and Muscle spasm M62.838 [facility] [address] [id number], [place] 111075198 Jan, Sleep disturbance G47.9 and Bipolar 1 disorder, depressed F31.9 [facility] [address] [id number], [place] [id number] Jan, [facility] [id number], [place] [id number] December, Encounter for dental examination and cleaning without abnormal findings Z01.20 [facility] [address] [id number], [place] [address] December, Dental examination Z01.20 [facility] [address] [address] [id number], [place] [address] December, Bipolar 1 disorder, depressed F31.9 ; Auditory hallucination R44.0 and Sleep disturbance G47.[address] [facility] [address] [id number], [place] 604396397 December, Bipolar 1 disorder with moderate south F31.12 [facility] [address] [facility] [id number][place] [address] December, [facility] [address] [id number], [place] 427[address]25[address] Nov, [facility] [id number], [place] [address] Nov, Acute non-recurrent frontal sinusitis J01.10 [facility] [address] [id number], [place] 324882776 Nov, [facility] [id number], [place] 589081673 Nov, Mild intermittent asthma without complication J45.20 [facility] [address] [id number], [place] 339674299 Nov, Mild intermittent asthma without complication J45.20 [facility] [address] [id number], [place] [id number] Nov, [facility] [address] [facility] [id number], [place] 6[address]2901[address] Nov, Other shelter (current) drug therapy Z79.899 and Schizoaffective disorder, bipolar type F25.0 [facility] [address] [id number], [place] [address]35[address] Nov, Chronic nausea R11.0 [facility] [address] [id number], [place] [address] Nov, Seizure disorder G40.909 ; Chronic nausea R11.0 ; Gastroesophageal reflux disease without esophagitis K21.9 and Benign essential hypertension I10 [facility] [address] [facility] [id number] [place] [address] Oct, Moderate persistent asthma without complication J45.[address] [id number], [place] [address]85[address] Oct, [address] [id number], [place] 888[address]172 Sep, Bipolar 1 disorder, depressed F31.9 ; Seizure disorder G40.909 ; Moderate persistent asthma without complication J45.40 ; Chronic nausea R11.0 ; Gastroesophageal reflux disease without esophagitis K21.9 and Benign essential hypertension I10 [facility] [address] [facility] [id number], [place] 745532908 Oct, Seizure disorder G40.909 ; Bipolar affective disorder, current episode depressed, current episode severity unspecified F31.30 ; Essential hypertension I10 and Mild intermittent asthma without complication J45.[address] [id number], [place] 4791677[address] Apr, Dental examination V72.[address] [id number], [place] [id number] Mar, Dental examination V72.[address] [id number], [place] 9055384[address] Mar, Dental examination V72.[address] [id number], [place] [id number] Nov, Dental examination V72.2 IMMUNIZATIONS No Known Immunizations SOCIAL HISTORY Never Assessed REASON FOR VISIT refill for dicyclomine PLAN OF CARE VITAL SIGNS MEDICATIONS Medication Instructions Dosage Frequency Start Date End Date Duration Status Bentyl 10 mg Orally Four times a day 1 capsule 6h Active RESULTS No Results PROCEDURES No Known procedures INSTRUCTIONS MEDICATIONS ADMINISTERED No Known Medications MEDICAL (GENERAL) HISTORY Type Description Date Medical History asthma - mild intermittent ( PFT 10/2016 Normal) Medical History hypertension Medical History seizures- childhood Medical History bipolar disorder- [facility] Medical History GERD Medical History auditory hallucinations- Surgical History hernia repair/ Inguinal ( child) Surgical History EGD- 2015 Hospitalization History [facility] for two to three days. 08/2016 Hospitalization History ER for shortness of breath 07/2017 Hospitalization History [place] [facility] 12/2017
--- OUTSIDE RECORDS SUMMARY | 2019-02-27 22:27 | XMS REPORT ---
Author Author SULEMA Parks Organization [facility] Address [address] [place] [address] Care Team Providers Care Senior Business Consultant Name Role Phone SULEMA Parks Unavailable PROBLEMS Type Condition ICD9-CM Code TNE44-JL Code Onset Dates Condition Status SNOMED Code Problem Chronic nausea R11.0 Active 706441050 Problem Bipolar 1 disorder, depressed F31.9 Active 19699125 Problem Seizure disorder G40.909 Active 844383325 Problem Moderate persistent asthma without complication J45.40 Active 822325390 Problem Mild intermittent asthma without complication J45.20 Active 955280222 Problem Gastroesophageal reflux disease without esophagitis K21.9 Active 337354921 Problem Daytime sleepiness R40.0 Active 128091095120 Problem Bipolar 1 disorder with moderate south F31.12 Active 43155681 Problem Schizoaffective disorder, bipolar type F25.0 Active 36504905 Problem Benign essential hypertension I10 Active 7592933 Problem Sleep disturbance G47.9 Active 44537691 Problem Auditory hallucination R44.0 Active 42650932 ALLERGIES Substance Reaction Event Type Date Status Latuda anaphylaxis Drug Allergy Feb, Active Trazodone HCl anaphylaxis Drug Allergy Feb, Active Penicillin V Potassium anaphylaxis Drug Allergy Feb, Active ENCOUNTERS Encounter Location Date Diagnosis [facility] [address] [id number] [place] [id number] Apr, [facility] [address] [id number] [place] [address] Mar, [facility] [address] [id number] [place] [id number] Mar, [facility] [address] [id number] [place] [id number] Mar, Dental examination Z01.20 [facility] [address] [id number], [place] [id number] Mar, Acute midline low back pain without sciatica M54.5 and Gastroesophageal reflux disease without esophagitis K21.9 [facility] [address] [id number] [address] Feb, Dental examination Z01.20 [facility] [address]00565[address], [place] [address] Feb, [facility] [address] [id number], [place] [address] Feb, Daytime sleepiness R40.0 and Bipolar 1 disorder with moderate south F31.12 [facility] [id number], [place] [address] Jan, Chronic nausea R11.0 [facility] [address] [id number], [place] [address] December, [facility] [address] [id number], [place] [address] December, Hospital discharge follow-up Z09 ; Chronic nausea R11.0 ; Abdominal pain, unspecified abdominal location R10.9 and Gastroesophageal reflux disease without esophagitis K21.9 [facility] [address] [facility] [id number], [place] [address] Nov, Walking pneumonia J18.9 [facility] [address] [facility] [id number], [place] [address] Nov, Encounter for dental exam and cleaning w/o abnormal findings Z01.20 [facility] [address] [id number], [place] [id number] Oct, Dental examination Z01.20 [facility] [address] [id number], [place] [id number] Sep, [facility] [address] [facility] [id number], [place] [address] Aug, [facility] [address] [id number], [place] [address] Aug, [facility] [address] [id number] [place] [address] Aug, [facility] [address] [id number], [place] [id number] Aug, Chronic nausea R11.0 [facility] [address] [id number], [place] [address] Aug, Chronic nausea R11.[address] [facility] [address] [id number], [place] [id number] Jul, Tachycardia R00.0 [facility] [address] [id number], [place] [id number] Jul, [facility] [address] [id number], [place] [address] Jul, [facility] [address] [id number], [place] [address] Jul, Benign essential hypertension I10 ; Sleep disturbance G47.9 ; Snoring R06.83 and Daytime sleepiness R40.0 [facility] [address] [id number], [place] [address] Jul, Dental examination Z01.20 [facility] [address] [facility] [id number], [place] [id number] Jul, Encounter for dental exam and cleaning w/o abnormal findings Z01.20 [facility] [address] [id number], [place] [id number] Mar, [facility] [address] [id number], [place] [address] Mar, Bilateral low back pain without sciatica, unspecified chronicity M54.5 and Muscle spasm M62.838 [facility] [address] [id number], [place] [address]22[address] Jan, Sleep disturbance G47.9 and Bipolar 1 disorder, depressed F31.9 [facility] [address] [id number], [place] [id number] Jan, [facility] [address] [id number], [place] [address] December, Encounter for dental examination and cleaning without abnormal findings Z01.[address] [id number], [place] [address] December, Dental examination Z01.20 [facility] [address] [id number], [place] [address] December, Bipolar 1 disorder, depressed F31.9 ; Auditory hallucination R44.0 and Sleep disturbance G47.9 [facility] [address] [id number], [place] [address] December, Bipolar 1 disorder with moderate south F31.12 [facility] [address] [facility] [id number], [place] [address] December, [facility] [address] [id number], [place] [address] Nov, [facility] [id number], [place] [address] Nov, Acute non-recurrent frontal sinusitis J01.10 [facility] [address] [id number], [place] [address] Nov, [facility] [address] [id number], [place] [address] Nov, Mild intermittent asthma without complication J45.20 [facility] [address] [id number], [place] [id number] Nov, Mild intermittent asthma without complication J45.20 [facility] [address] [id number], [place] [id number] Nov, [facility] [id number], [place] [address] Nov, 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 and Schizoaffective disorder, bipolar type F25.0 [facility] [address] [id number], [place] [address]70378365 Nov, Chronic nausea R11.0 [facility] [address] [facility] [place] [id number], [place] [address] Nov, Seizure disorder G40.909 ; Chronic nausea R11.0 ; Gastroesophageal reflux disease without esophagitis K21.9 and Benign essential hypertension I10 [facility] [address] [facility] [id number], [place] [address] Oct, Moderate persistent asthma without complication J45.40 [facility] [address] [facility] [address] [id number], [place] [id number] Oct, [facility] [address] [facility] [address] [id number], [place] [address] Sep, Bipolar 1 disorder, depressed F31.9 ; Seizure disorder G40.909 ; Moderate persistent asthma without complication J45.40 ; Chronic nausea R11.0 ; Gastroesophageal reflux disease without esophagitis K21.9 and Benign essential hypertension I10 [facility] [address] [facility] [place] [id number], [place] [address] Oct, Seizure disorder G40.909 ; Bipolar affective disorder, current episode depressed, current episode severity unspecified F31.30 ; Essential hypertension I10 and Mild intermittent asthma without complication J45.20 [facility] [address] [facility] [address] [id number], [place] [id number] Apr, Dental examination V72.2 [facility] L[address] [facility] [address] [id number], [place] [id number] Mar, Dental examination V72.2 [facility] [address] [facility] [address] [id number], [place] [address] Mar, Dental examination V72.2 [facility] [address] [facility] [address] [id number], [place] [id number] Nov, Dental examination V72.2 IMMUNIZATIONS No Known Immunizations SOCIAL HISTORY Never Assessed REASON FOR VISIT Nausea for the past 2 weeks. reports he did vomit last noc. [facility] f or this complaint 2 nocs ago. they instructed him to fu with his pcp for further testing. explained to pt we would see him today et then we can also get him an appt with his pcp. pt et his fiance are in agreance with [facility]. [facility] pt rep shi cintronjulian was dc'd a long time ago...unsure of when...due to anaphalactic reac tion PLAN OF CARE Activity Details Follow Up prn Reason: VITAL SIGNS Height 68 in 2018-02-16 Weight 169.0 lbs 2018-02-16 Temperature 98.6 degrees Fahrenheit 2018-02-16 Heart Rate 80 bpm 2018-02-16 Respiratory Rate 20 2018-02-16 BMI 25.69 kg/m2 2018-02-16 Blood pressure systolic 114 mmHg 2018-02-16 Blood pressure diastolic 68 mmHg 2018-02-16 MEDICATIONS Medication Instructions Dosage Frequency Start Date End Date Duration Status Lisinopril 20 MG TAKE ONE (1) TABLET BY MOUTH DAILY... Active Zofran 8 MG Orally Once a day must last 1 m 1 tablet Active Amitriptyline HCl 100 MG 1 tablet Once a day- BEDTIME Orally Active Prednisone 1 tab Active Flovent HFA 110 MCG/ACT Inhalation Twice a day ( rinse mouth after use) Use EVERYDAY 2 puff Nov, Active Simvastatin 40 mg Orally Once a day in the evening 1 tablet Active Latuda 80 MG TAKE ONE (1) TABLET BY MOUTH DAILY WITH FOOD. Not-Taking Ibuprofen 800 MG Orally 2 times a day as needed for pain 1 tablet with food or milk Mar, Active Albuterol Sulfate HFA 108 (90 Base) MCG/ACT Inhalation 3 times a day 2 puffs as needed 8h Active Pantoprazole Sodium 40 mg Orally Once a day 1 tablet 24h Active Sucralfate 1 GM TAKE ONE (1) TABLET BY MOUTH TWICE DAILY ON AN EMPTY STOMACH. Active Cipro 500 MG Orally every 12 hrs 1 tablet 12h Not-Taking CompAir Nebulizer - MACHINE AND TUBING Nov, Active Albuterol Sulfate 1.25 MG/3ML Inhalation every 8 hrs 3 ml as needed 8h Nov, Active Zyrtec Allergy 10 MG Active Tessalon Perles 100 MG Orally Three times a day 1 capsule as needed 8h Active Bentyl 10 mg Orally Four times a day 1 capsule 6h Active Carafate 1 GM Orally Twice a day 1 tablet on an empty stomach 12h Active Amitriptyline HCl Active ProAir HFA 108 (90 Base) MCG/ACT Inhalation every 6 hrs 2 puffs as needed 6h Active Keppra 500 mg Orally every 12 hrs 1 tablet 12h Active RESULTS No Results PROCEDURES No Known procedures INSTRUCTIONS MEDICATIONS ADMINISTERED No Known Medications MEDICAL (GENERAL) HISTORY Type Description Date Medical History asthma - mild intermittent ( PFT 10/2016 Normal) Medical History hypertension Medical History seizures- childhood Medical History bipolar disorder- [facility] Medical History GERD Medical History auditory hallucinations- Surgical History hernia repair/ Inguinal ( child) Surgical History EGD- 2015 Hospitalization History [facility] for two to three days. 08/2016 Hospitalization History ER for shortness of breath 07/2017 Hospitalization History [place] [facility] 12/2017
--- OUTSIDE RECORDS SUMMARY | 2019-02-27 22:27 | XMS REPORT ---
Author Author SIRENA ABDALLA [facility] Address [address] [place] [address] Care Team Providers Care Shoder Filler Name Role Phone SIRENA ABDALLA Unavailable PROBLEMS Type Condition ICD9-CM Code [id number] Code Onset Dates Condition Status SNOMED Code Problem Chronic nausea R11.0 Active 084820263 Problem Bipolar 1 disorder, depressed F31.9 Active 28067849 Problem Seizure disorder G40.909 Active 092803333 Problem Moderate persistent asthma without complication J45.40 Active 756988724 Problem Mild intermittent asthma without complication J45.20 Active 596473140 Problem Gastroesophageal reflux disease without esophagitis K21.9 Active 730671017 Problem Daytime sleepiness R40.0 Active 506381066575 Problem Bipolar 1 disorder with moderate south F31.12 Active 34791579 Problem Schizoaffective disorder, bipolar type F25.0 Active 72220807 Problem Benign essential hypertension I10 Active 1741846 Problem Sleep disturbance G47.9 Active 88547498 Problem Auditory hallucination R44.0 Active 50760865 ALLERGIES No Information ENCOUNTERS Encounter Location Date Diagnosis [facility] [address] [id number], [place] [id number] May, [facility] [address] [id number], [place] [id number] Apr, [facility] [address] [id number], [place] [id number] Mar, [facility] [address] [id number], [place] [address] Mar, [facility] [address] [id number], [place] [address]23[address] Mar, Dental examination Z01.20 [facility] [address] [id number], [place] [address] Mar, Acute midline low back pain without sciatica M54.5 and Gastroesophageal reflux disease without esophagitis K21.9 [facility] [address] [place], [place] [id number][place] [address] Feb, Dental examination Z01.20 [facility] [address] [id number], [place] [address] Feb, [facility] [id number] [place] [address] Feb, Daytime sleepiness R40.0 and Bipolar 1 disorder with moderate south F31.12 [facility] [id number], [place] [address] Jan, Chronic nausea R11.0 [facility] [address] [id number], [place] [address] December, [facility] [address] [id number], [place] [id number] December, Hospital discharge follow-up Z09 ; Chronic nausea R11.0 ; Abdominal pain, unspecified abdominal location R10.9 and Gastroesophageal reflux disease without esophagitis K21.9 [facility] [address] [id number], [place] [address] Nov, Walking pneumonia J18.9 [facility] [address] [id number], [place] [address] Nov, Encounter for dental exam and cleaning w/o abnormal findings Z01.20 [facility] [address] [id number], [place] [address] Oct, Dental examination Z01.20 [facility] [address] [id number], [place] [address] Sep, [facility] [address] [facility] [id number], [place] [address] Aug, [facility] [address] [id number], [place] [address] Aug, [facility] [address] [id number] [place] [address] Aug, [facility] [address] [id number], [place] 941724057 Aug, Chronic nausea R11.0 [facility] [address] [id number], [place] [address] Aug, Chronic nausea R11.[address] [facility] [address] [id number], [place] 1992533[address] Jul, Tachycardia R00.0 [facility] [address] [id number], [place] [address] Jul, [facility] [address] [facility] [id number], [place] [address] Jul, [facility] [address] [id number], [place] [address] Jul, Benign essential hypertension I10 ; Sleep disturbance G47.9 ; Snoring R06.83 and Daytime sleepiness R40.0 [facility] [address] [id number], [place] [address] Jul, Dental examination Z01.20 [facility] [address] [facility] [id number] [place] [address] Jul, Encounter for dental exam and cleaning w/o abnormal findings Z01.20 [facility] [address] [id number], [place] [address]18[address] Mar, [facility] [address] [id number], [place] 15093[address] Mar, Bilateral low back pain without sciatica, unspecified chronicity M54.5 and Muscle spasm M62.838 [facility] [address] [id number], [place] 8[address]252822 Jan, Sleep disturbance G47.9 and Bipolar 1 disorder, depressed F31.9 [facility] [address] [id number], [place] [address]39[address] Jan, [facility] [address] [id number], [place] [address] December, Encounter for dental examination and cleaning without abnormal findings Z01.20 [facility] [address] [id number], [place] [address] December, Dental examination Z01.20 [facility] [address] [id number], [place] [address]4788 December, Bipolar 1 disorder, depressed F31.9 ; Auditory hallucination R44.0 and Sleep disturbance G47.9 [facility] [address] [id number], [place] [address]0432 December, Bipolar 1 disorder with moderate south F31.12 [facility] [address] [facility] [id number], [place] [address] December, [facility] [address] [id number], [place] [address] Nov, [facility] [place] [address] [id number], [place] [address]475[address] Nov, Acute non-recurrent frontal sinusitis J01.10 [facility] [address] [id number], [place] [address]48[address] Nov, [facility] [address] [id number], [place] 68[address]1649 Nov, Mild intermittent asthma without complication J45.20 [facility] [address] [id number], [place] 6[address]49499 Nov, Mild intermittent asthma without complication J45.20 [facility] [address] [id number], [place] [address]3 Nov, [facility] [place] [address] [id number], [place] [address] Nov, Other residential (current) drug therapy Z79.899 and Schizoaffective disorder, bipolar type F25.0 [facility] [address] [id number], [place] 838474563 Nov, Chronic nausea R11.0 [facility] [address] [facility] [id number], [place] [address] Nov, Seizure disorder G40.909 ; Chronic nausea R11.0 ; Gastroesophageal reflux disease without esophagitis K21.9 and Benign essential hypertension I10 [facility] [address] [facility] [id number] [place] [address] Oct, Moderate persistent asthma without complication J45.40 [facility] [address] [id number], [place] [address] Oct, [address] [id number], [place] 3[address]359[address] Sep, Bipolar 1 disorder, depressed F31.9 ; Seizure disorder G40.909 ; Moderate persistent asthma without complication J45.40 ; Chronic nausea R11.0 ; Gastroesophageal reflux disease without esophagitis K21.9 and Benign essential hypertension I10 [facility] [address] [facility] [id number], [place] [address]1687 Oct, Seizure disorder G40.909 ; Bipolar affective disorder, current episode depressed, current episode severity unspecified F31.30 ; Essential hypertension I10 and Mild intermittent asthma without complication J45.[address] [id number], [place] [address]44[address]48[address] Apr, Dental examination V72.[address] [id number], [place] 67[address]256[address] Mar, Dental examination V72.[address] [id number], [place] 67[address]80[address] Mar, Dental examination V72.[address] [id number], [place] 437253303 Nov, Dental examination V72.2 IMMUNIZATIONS No Known Immunizations SOCIAL HISTORY Never Assessed REASON FOR VISIT PLAN OF CARE VITAL SIGNS MEDICATIONS Unknown Medications RESULTS No Results PROCEDURES No Known procedures INSTRUCTIONS MEDICATIONS ADMINISTERED No Known Medications MEDICAL (GENERAL) HISTORY Type Description Date Medical History asthma - mild intermittent ( PFT 10/2016 Normal) Medical History hypertension Medical History seizures- childhood Medical History bipolar disorder- [facility] Medical History GERD Medical History auditory hallucinations- Surgical History hernia repair/ Inguinal ( child) Surgical History EGD- 2015 Hospitalization History [facility] for two to three days. 08/2016 Hospitalization History ER for shortness of breath 07/2017 Hospitalization History [facility] 12/2017
--- OUTSIDE RECORDS SUMMARY | 2019-02-27 22:28 | XMS REPORT ---
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 Phone SULEMA SANDERSON Unavailable PROBLEMS Type Condition ICD9-CM Code PBA58-CN Code Onset Dates Condition Status SNOMED Code Problem Chronic nausea R11.0 Active 198108467 Problem Bipolar 1 disorder, depressed F31.9 Active 40852323 Problem Seizure disorder G40.909 Active 183494790 Problem Moderate persistent asthma without complication J45.40 Active 602132655 Problem Mild intermittent asthma without complication J45.20 Active 519689419 Problem Gastroesophageal reflux disease without esophagitis K21.9 Active 563540313 Problem Daytime sleepiness R40.0 Active 472038213377 Problem Bipolar 1 disorder with moderate south F31.12 Active 08104301 Problem Schizoaffective disorder, bipolar type F25.0 Active 86797159 Problem Benign essential hypertension I10 Active 2857005 Problem Sleep disturbance G47.9 Active 42053977 Problem Auditory hallucination R44.0 Active 30772949 ALLERGIES Substance Reaction Event Type Date Status Trazodone HCl anaphylaxis Drug Allergy Nov, Active Penicillin V Potassium anaphylaxis Drug Allergy Nov, Active ENCOUNTERS Encounter Location Date Diagnosis [facility] [address] [id number], [place] [id number] Mar, [facility] [address] [id number], [place] [id number] Mar, Acute midline low back pain without sciatica M54.5 and Gastroesophageal reflux disease without esophagitis K21.9 [facility] [address] [facility] [id number], [place] [address] Feb, Dental examination Z01.20 [facility] [address] [facility] [id number], [place] [address] Feb, [facility] [address] [facility] [id number], [place] [address] Feb, Daytime sleepiness R40.0 and Bipolar 1 disorder with moderate south F31.12 [facility] [id number], [place] [id number] Jan, Chronic nausea R11.0 [facility] [place] [address]00565100[place], [place] [address] December, [facility] [address] [id number], [place] [id number] December, Hospital discharge follow-up Z09 ; Chronic nausea R11.0 ; Abdominal pain, unspecified abdominal location R10.9 and Gastroesophageal reflux disease without esophagitis K21.9 [facility] [address]00565100[place], [place] [address] Nov, Walking pneumonia J18.9 [facility] [address]00565100[place], [place] [address] Nov, Encounter for dental exam and cleaning w/o abnormal findings Z01.20 [facility] [address] [id number], [place] [address] Oct, Dental examination Z01.20 [facility] [address] [id number], [place] [id number] Sep, [facility] [address] [facility] [id number], [place] [address] Aug, [facility] [address] [id number], [place] [id number] Aug, [facility] [id number] [place] [address] Aug, [facility] [address] [id number], [place] [id number] Aug, Chronic nausea R11.0 [facility] [address] [facility] [id number], [place] [id number] Aug, Chronic nausea R11.[address] [facility] [address] [id number], [place] [address] Jul, Tachycardia R00.0 [facility] [address] [id number], [place] [id number] Jul, [facility] [place] [address] [id number] [place] [address] Jul, [facility] [address] [id number], [place] [id number] Jul, Benign essential hypertension I10 ; Sleep disturbance G47.9 ; Snoring R06.83 and Daytime sleepiness R40.0 [facility] [address] [id number], [place] [id number] Jul, Dental examination Z01.20 [facility] [address] [id number], [place] [id number] Jul, Encounter for dental exam and cleaning w/o abnormal findings Z01.20 [facility] [address] [id number], [place] [address] Mar, [facility] [address] [id number], [place] [address] Mar, Bilateral low back pain without sciatica, unspecified chronicity M54.5 and Muscle spasm M62.838 [facility] [address] [id number], [place] [id number] Jan, Sleep disturbance G47.9 and Bipolar 1 disorder, depressed F31.9 [facility] [address] [id number], [place] [id number] Jan, [facility] [address] [id number], [place] [address] December, Encounter for dental examination and cleaning without abnormal findings Z01.20 [facility] [address] [id number], [place] [address] December, Dental examination Z01.20 [facility] [id number] [place] [id number] December, Bipolar 1 disorder, depressed F31.9 ; Auditory hallucination R44.0 and Sleep disturbance G47.9 [facility] [address] [id number], [place] [address] December, Bipolar [address] disorder with moderate [address] F31.12 [facility] [address] [id number], [place] [address] December, [facility] [address] [address] [id number], [place] [id number] Nov, [facility] [address] [facility] [id number], [place] [address] Nov, Acute non-recurrent frontal sinusitis J01.10 [facility] [address] [id number], [place] [id number] Nov, [facility] [address] [id number], [place] [address] Nov, Mild intermittent asthma without complication J45.20 [facility] [address] [id number], [place] [address] Nov, Mild intermittent asthma without complication J45.20 [facility] [address] [address] [id number], [place] [address] Nov, [facility] [address] [id number], [place] [address] Nov, Other m[facility] (current) drug therapy Z79.899 and Schizoaffective disorder, bipolar type F25.0 [facility] [address] [id number], [place] [address] Nov, Chronic nausea R11.0 [facility] [id number] [place] [id number] Nov, Seizure disorder G40.909 ; Chronic nausea R11.0 ; Gastroesophageal reflux disease without esophagitis K21.9 and Benign essential hypertension I10 [facility] [address] [facility] [id number], [place] [address] Oct, Moderate persistent asthma without complication J45.40 [facility] [address] [id number] [place] [address] Oct, [facility] [address] [id number], [place] [address] Sep, Bipolar 1 disorder, depressed F31.9 ; Seizure disorder G40.909 ; Moderate persistent asthma without complication J45.40 ; Chronic nausea R11.0 ; Gastroesophageal reflux disease without esophagitis K21.9 and Benign essential hypertension I10 [facility] [address] [id number] [place] [address] Oct, Seizure disorder G40.909 ; Bipolar affective disorder, current episode depressed, current episode severity unspecified F31.30 ; Essential hypertension I10 and Mild intermittent asthma without complication J45.20 [facility] [address] [id number], [place] [id number] Apr, Dental examination V72.2 [facility] [address] [id number], [place] [id number] Mar, Dental examination V72.2 [facility] [address] [facility] [address] [id number], [place] [address] Mar, Dental examination V72.2 [facility] [address] [facility] [address] [id number], [place] [id number] Nov, Dental examination V72.2 IMMUNIZATIONS No Known Immunizations SOCIAL HISTORY Never Assessed REASON FOR VISIT Cough Pt has had a cough for 3-4 days was seen at hospital for same 3 days ago treated for pnuemonia, he has slept for 2 days and is not feeling any better LISSA long MA PLAN OF CARE Activity Details Follow Up prn Reason: VITAL SIGNS Height 68 in 2017-11-29 Weight 170.6 lbs 2017-11-29 Temperature 98.3 degrees Fahrenheit 2017-11-29 Heart Rate 90 bpm 2017-11-29 Respiratory Rate 18 2017-11-29 Oximetry 97 % 2017-11-29 BMI 25.94 kg/m2 2017-11-29 Blood pressure systolic 120 mmHg 2017-11-29 Blood pressure diastolic 70 mmHg 2017-11-29 MEDICATIONS Medication Instructions Dosage Frequency Start Date End Date Duration Status Lisinopril 20 MG TAKE ONE (1) TABLET BY MOUTH DAILY... Active Ibuprofen 800 MG Orally 2 times a day as needed for pain 1 tablet with food or milk Mar, Active ProAir HFA 108 (90 Base) MCG/ACT Inhalation every 6 hrs 2 puffs as needed 6h Active Cipro 500 MG Orally every 12 hrs 1 tablet 12h Active Amitriptyline HCl Active Prednisone 1 tab Active Latuda 80 MG TAKE ONE (1) TABLET BY MOUTH DAILY WITH FOOD. Active Carafate 1 GM Orally Twice a day 1 tablet on an empty stomach 12h Active Flovent HFA 110 MCG/ACT Inhalation Twice a day ( rinse mouth after use) Use EVERYDAY 2 puff Nov, Active Tessalon Perles 100 MG Orally Three times a day 1 capsule as needed 8h Active Pantoprazole Sodium 40 mg Orally Once a day 1 tablet 24h Active CompAir Nebulizer - MACHINE AND TUBING Nov, Not-Taking Zofran 8 MG Orally Once a day must last 1 m 1 tablet Active Keppra 500 mg Orally every 12 hrs 1 tablet 12h Active Bentyl 20 mg Orally Four times a day 1 capsule 6h Active Simvastatin 40 mg Orally Once a day in the evening 1 tablet Active Albuterol Sulfate HFA 108 (90 Base) MCG/ACT Inhalation 3 times a day 2 puffs as needed 8h Active Albuterol Sulfate 1.25 MG/3ML Inhalation every 8 hrs 3 ml as needed 8h Nov, Active Zyrtec Allergy 10 MG Active RESULTS No Results PROCEDURES No Known procedures INSTRUCTIONS MEDICATIONS ADMINISTERED No Known Medications MEDICAL (GENERAL) HISTORY Type Description Date Medical History asthma - mild intermittent ( PFT 10/2016 Normal) Medical History hypertension Medical History seizures- childhood Medical History bipolar disorder- [facility] Medical History GERD Medical History auditory hallucinations- Surgical History hernia repair/ Inguinal ( child) Surgical History EGD- 2015 Hospitalization History [facility] for two to three days. 08/2016 Hospitalization History ER for shortness of breath 07/2017 Hospitalization History [facility] 12/2017
--- OUTSIDE RECORDS SUMMARY | 2019-02-27 22:28 | XMS REPORT ---
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 Role Phone ALIYAH Barton Unavailable PROBLEMS Type Condition ICD9-CM Code JUX59-YX Code Onset Dates Condition Status SNOMED Code Problem Chronic nausea R11.0 Active 471307823 Problem Bipolar 1 disorder, depressed F31.9 Active 81722656 Problem Seizure disorder G40.909 Active 433157215 Problem Moderate persistent asthma without complication J45.40 Active 173988353 Problem Mild intermittent asthma without complication J45.20 Active 954962206 Problem Gastroesophageal reflux disease without esophagitis K21.9 Active 162145329 Problem Daytime sleepiness R40.0 Active 069280331345 Problem Bipolar 1 disorder with moderate south F31.12 Active 48582022 Problem Schizoaffective disorder, bipolar type F25.0 Active 99726506 Problem Benign essential hypertension I10 Active 9831489 Problem Sleep disturbance G47.9 Active 98317970 Problem Auditory hallucination R44.0 Active 74812594 ALLERGIES Substance Reaction Event Type Date Status Trazodone HCl anaphylaxis Drug Allergy Oct, Active Penicillin V Potassium anaphylaxis Drug Allergy Oct, Active ENCOUNTERS Encounter Location Date Diagnosis [facility] [address] [facility] [id number] [place] [id number] Mar, [facility] [address] [facility] [id number] [place] [id number] Feb, Dental examination Z01.20 [facility] [address] [facility] [id number], [place] [address] Feb, [facility] [address] [facility] [id number][place] [address] Feb, Daytime sleepiness R40.0 and Bipolar 1 disorder with moderate south F31.12 [facility] [address] [facility] [id number], [place] [id number] Jan, Chronic nausea R11.0 [facility] [place] [address] [facility] [id number][place] [address] December, [facility] [address] [id number] [place] [address] December, Hospital discharge follow-up Z09 ; Chronic nausea R11.0 ; Abdominal pain, unspecified abdominal location R10.9 and Gastroesophageal reflux disease without esophagitis K21.9 [facility] [address] [id number], [place] [address] Nov, Walking pneumonia J18.9 [facility] [address] [id number], [place] [address] Nov, Encounter for dental exam and cleaning w/o abnormal findings Z01.[address] [facility] [address] [id number] [place] [address] Oct, Dental examination Z01.20 [facility] [address] [id number] [place] [address] Sep, [facility] [address] [facility] [id number][place] [address] Aug, [facility] [address] [id number] [place] [address] Aug, [facility] [id number] [place] [address] Aug, [facility] [address] [id number] [place] [id number] Aug, Chronic nausea R11.0 [facility] [address] [facility] [id number], [place] [id number] Aug, Chronic nausea R11.[address] [facility] [address] [id number] [place] [id number] Jul, Tachycardia R00.[address] [facility] [address] [id number] [place] [id number] Jul, [facility] [address] [facility] [id number] [place] [address] Jul, [facility] [address] [id number] [place] [id number] Jul, Benign essential hypertension I10 ; Sleep disturbance G47.9 ; Snoring R06.83 and Daytime sleepiness R40.0 [facility] [address] [id number] [place] [id number] Jul, Dental examination Z01.20 [facility] [address] [facility] [id number], [place] [id number] Jul, Encounter for dental exam and cleaning w/o abnormal findings Z01.20 [facility] [address] [id number] [place] [id number] Mar, [facility] [address] [id number] [place] [id number] Mar, Bilateral low back pain without sciatica, unspecified chronicity M54.5 and Muscle spasm M62.838 [facility] [address] [id number] [place] [id number] Jan, Sleep disturbance G47.9 and Bipolar 1 disorder, depressed F31.9 [facility] [address] [id number] [place] [id number] Jan, [facility] [address] [id number] [place] [address] December, Encounter for dental examination and cleaning without abnormal findings Z01.20 [facility] [address] [id number] [place], [place] [id number] December, Dental examination Z01.20 [facility] [address] [id number] [place] 132[address] December, Bipolar 1 disorder, depressed F31.9 ; Auditory hallucination R44.0 and Sleep disturbance G47.9 [facility] [address] [id number] [place] [id number] December, Bipolar 1 disorder with moderate south F31.12 [facility] [address] [id number], [place] [address] December, [facility] [address] [id number] [place] [id number] Nov, [facility] [address] [id number], [place] [id number] Nov, Acute non-recurrent frontal sinusitis J01.[address] [facility] [address] [id number] [place] 56[address]74[address] Nov, [facility] [address] [id number] [place] [id number] Nov, Mild intermittent asthma without complication J45.20 [facility] [address] [id number] [place] [address]66 Nov, Mild intermittent asthma without complication J45.20 [facility] [address] [id number] [place] [address] Nov, [facility] [address] [facility] [id number], [place] [address]8215 Nov, 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 and Schizoaffective disorder, bipolar type F25.0 [facility] [address] [id number] [place] [id number] Nov, Chronic nausea R11.0 [facility] [address] [facility] [id number], [place] [address]75833 Nov, Seizure disorder G40.909 ; Chronic nausea R11.0 ; Gastroesophageal reflux disease without esophagitis K21.9 and Benign essential hypertension I10 [facility] [address] [facility] [id number][place] [address] Oct, Moderate persistent asthma without complication J45.40 [facility] [address] [id number] [place] [id number] Oct, [facility] [address] [id number] [place] [id number] Sep, Bipolar 1 disorder, depressed F31.9 ; Seizure disorder G40.909 ; Moderate persistent asthma without complication J45.40 ; Chronic nausea R11.0 ; Gastroesophageal reflux disease without esophagitis K21.9 and Benign essential hypertension I10 [facility] [address] [id number] [place] [id number] Oct, Seizure disorder G40.909 ; Bipolar affective disorder, current episode depressed, current episode severity unspecified F31.30 ; Essential hypertension I10 and Mild intermittent asthma without complication J45.20 [facility] [address] [facility] [address] [id number] [place] [id number] Apr, Dental examination V72.2 [facility] [address] [facility] [address] [id number] [place] [address] Mar, Dental examination V72.2 [facility] [address] [facility] [address] [id number] [place], [place] [address]1275 Mar, Dental examination V72.2 [facility] [address] [facility] [id number] [place] [address] Nov, Dental examination V72.2 IMMUNIZATIONS No Known Immunizations SOCIAL HISTORY Never Assessed REASON FOR VISIT Restorative (outreach) PLAN OF CARE Activity Details Follow Up prn Reason:Restorative VITAL SIGNS MEDICATIONS Medication Instructions Dosage Frequency Start Date End Date Duration Status Albuterol Sulfate 1.25 MG/3ML Inhalation every 8 hrs 3 ml as needed 8h Nov, Active CompAir Nebulizer - MACHINE AND TUBING Nov, Not-Taking Latuda 80 MG TAKE ONE (1) TABLET BY MOUTH DAILY WITH FOOD. Active Zofran 8 MG Orally Once a day must last 1 m 1 tablet Active Amitriptyline HCl Active Albuterol Sulfate HFA 108 (90 Base) MCG/ACT Inhalation 3 times a day 2 puffs as needed 8h Active Flovent HFA 110 MCG/ACT Inhalation Twice a day ( rinse mouth after use) Use EVERYDAY 2 puff Nov, Active Pantoprazole Sodium 40 mg Orally Once a day 1 tablet 24h Active Simvastatin 40 mg Orally Once a day in the evening 1 tablet Active Lisinopril 20 MG TAKE ONE (1) TABLET BY MOUTH DAILY... Active Zyrtec Allergy 10 MG Active Bentyl 20 mg Orally Four times a day 1 capsule 6h Active Ibuprofen 800 MG Orally 2 times a day as needed for pain 1 tablet with food or milk Mar, Active Keppra 500 mg Orally every 12 hrs 1 tablet 12h Active Carafate 1 GM Orally Twice a day 1 tablet on an empty stomach 12h Active RESULTS No Results PROCEDURES Procedure Date Ordered Result Body Site RESIN COMPOS - 2 SURFACES ANTERIOR October 31, 2017 RESIN COMPOS - 3 SURFACES POSTERIOR October 31, 2017 Dental Outreach adjust balance October 31, 2017 Billing Notes on claim October 31, 2017 INSTRUCTIONS MEDICATIONS ADMINISTERED No Known Medications MEDICAL (GENERAL) HISTORY Type Description Date Medical History asthma - mild intermittent ( PFT 10/2016 Normal) Medical History hypertension Medical History seizures- childhood Medical History bipolar disorder- [facility] Medical History GERD Medical History auditory hallucinations- Surgical History hernia repair/ Inguinal ( child) Surgical History EGD- [facility]. [facility] Hospital[facility] History ER for shortness of breath 07/2017 Hospitalization History [facility] 12/2017
--- OUTSIDE RECORDS SUMMARY | 2019-02-27 22:28 | XMS REPORT ---
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 Name Role Phone SIRENA ABDALLA Unavailable PROBLEMS Type Condition ICD9-CM Code [id number] Code Onset Dates Condition Status SNOMED Code Problem Chronic nausea R11.0 Active 153698778 Problem Bipolar 1 disorder, depressed F31.9 Active 44146865 Problem Seizure disorder G40.909 Active 493823344 Problem Moderate persistent asthma without complication J45.40 Active 806927526 Problem Mild intermittent asthma without complication J45.20 Active 228508445 Problem Gastroesophageal reflux disease without esophagitis K21.9 Active 152691787 Problem Daytime sleepiness R40.0 Active 826831778310 Problem Bipolar 1 disorder with moderate south F31.12 Active 30413579 Problem Schizoaffective disorder, bipolar type F25.0 Active 37114388 Problem Benign essential hypertension I10 Active 0489769 Problem Sleep disturbance G47.9 Active 90225129 Problem Auditory hallucination R44.0 Active 10422765 ALLERGIES Substance Reaction Event Type Date Status Trazodone HCl anaphylaxis Drug Allergy December, Active Penicillin V Potassium anaphylaxis Drug Allergy December, Active ENCOUNTERS Encounter Location Date Diagnosis [facility] [address] [facility] [id number][place] [id number] Mar, [facility] [address] [id number] [place] [id number] Mar, [facility] [address] [id number] [place] [id number] Mar, [facility] [address] [id number] [place] [id number] Mar, Dental examination Z01.20 [facility] [address] [id number] [place] [address] Mar, Acute midline low back pain without sciatica M54.5 and Gastroesophageal reflux disease without esophagitis K21.9 [facility] [address] [place], [place]QSMOBI[place], [place] [address] Feb, Dental examination Z01.20 [facility] [address] [id number] [address] Feb, [facility] [address] [place] [address] Feb, Daytime sleepiness R40.0 and Bipolar 1 disorder with moderate south F31.12 [facility] [id number], [place] [id number] Jan, Chronic nausea R11.0 [facility] [address]00565100[place] [address] December, [facility] [address] [id number] [place] [address] December, Hospital discharge follow-up Z09 ; Chronic nausea R11.0 ; Abdominal pain, unspecified abdominal location R10.9 and Gastroesophageal reflux disease without esophagitis K21.9 [facility] [address]00565100[place], [place] [address] Nov, Walking pneumonia J18.9 [facility] [address]00565100[place] [address] Nov, Encounter for dental exam and cleaning w/o abnormal findings Z01.20 [facility] [address] [id number] [place] [address] Oct, Dental examination Z01.20 [facility] [address] [id number] [place] [id number] Sep, [facility] [address] [facility] [id number], [place] [address] Aug, [facility] [address] [id number] [place] [id number] Aug, [facility] [id number] [place] [address] Aug, [facility] [address] [address] [id number] [place] [id number] Aug, Chronic nausea R11.0 [facility] [address] [id number] [place] [id number] Aug, Chronic nausea R11.[address] [facility] [address] [id number] [place] [address] Jul, Tachycardia R00.[address] [facility] [address] [id number] [place] [address] Jul, [facility] [address] [facility] [id number], [place] [address] Jul, [facility] [address] [id number] [place] [address] Jul, Benign essential hypertension I10 ; Sleep disturbance G47.9 ; Snoring R06.83 and Daytime sleepiness R40.0 [facility] [address] [id number] [place] [address] Jul, Dental examination Z01.20 [facility] [address] [facility] [id number][place] [address] Jul, Encounter for dental exam and cleaning w/o abnormal findings Z01.20 [facility] [address] [id number] [place] [id number] Mar, [facility] [address] [id number] [place] [address] Mar, Bilateral low back pain without sciatica, unspecified chronicity M54.5 and Muscle spasm M62.838 [facility] [address] [id number] [place] [address] Jan, Sleep disturbance G47.9 and Bipolar 1 disorder, depressed F31.9 [facility] [address] [id number] [place] [address] Jan, [facility] [address] [address] [id number] [place] [address] December, Encounter for dental examination and cleaning without abnormal findings Z01.20 [facility] [address] [id number] [place] [address] December, Dental examination Z01.20 [facility] [address] [id number] [place] [address] December, Bipolar 1 disorder, depressed F31.9 ; Auditory hallucination R44.0 and Sleep disturbance G47.9 [facility] [address] [id number] [place] [address] December, Bipolar 1 disorder with moderate south F31.12 [facility] [address] [facility] [id number], [place] [address] December, [facility] [address] [id number] [place] [id number] Nov, [facility] [id number], [place] [id number] Nov, Acute non-recurrent frontal sinusitis J01.10 [facility] [address] [id number] [place] [address] Nov, [facility] [address] [id number] [place] [id number] Nov, Mild intermittent asthma without complication J45.20 [facility] [address] [id number] [place] [address] Nov, Mild intermittent asthma without complication J45.20 [facility] [address] [id number] [place] [address] Nov, [facility] [place] [id number], [place] [address] Nov, Other nursing home (current) drug therapy Z79.899 and Schizoaffective disorder, bipolar type F25.0 [facility] [address] [id number] [place] [address] Nov, Chronic nausea R11.0 [facility] [address] [facility] [id number], [place] [address] Nov, Seizure disorder G40.909 ; Chronic nausea R11.0 ; Gastroesophageal reflux disease without esophagitis K21.9 and Benign essential hypertension I10 [facility] [address] [facility] [id number] [place] [address] Oct, Moderate persistent asthma without complication J45.40 [facility] [address] [id number] [place] [id number] Oct, [address] [id number] [place] [address] Sep, Bipolar 1 disorder, depressed F31.9 ; Seizure disorder G40.909 ; Moderate persistent asthma without complication J45.40 ; Chronic nausea R11.0 ; Gastroesophageal reflux disease without esophagitis K21.9 and Benign essential hypertension I10 [facility] [address] [facility] [id number], [place] [address] Oct, Seizure disorder G40.909 ; Bipolar affective disorder, current episode depressed, current episode severity unspecified F31.30 ; Essential hypertension I10 and Mild intermittent asthma without complication J45.20 [facility] [address] [id number] [place] [address] Apr, Dental examination V72.2 [facility] [address] [id number] [place] [address] Mar, Dental examination V72.[address] [id number] [place] [address] Mar, Dental examination V72.[address] [id number] [place] [address] Nov, Dental examination V72.2 IMMUNIZATIONS No Known Immunizations SOCIAL HISTORY Never Assessed REASON FOR VISIT Tee ER f/u-when goes to eat or drink is in pain. Was sent home with couple pain med got up next morning and vomited. Yohan oswald PLAN OF CARE Activity Details Follow Up pending CT scan Reason: VITAL SIGNS Height 68 in 2017-12-22 Weight 172.3 lbs 2017-12-22 Temperature 97.9 degrees Fahrenheit 2017-12-22 Heart Rate 88 bpm 2017-12-22 Respiratory Rate 18 2017-12-22 BMI 26.20 kg/m2 2017-12-22 Blood pressure systolic 120 mmHg 2017-12-22 Blood pressure diastolic 82 mmHg 2017-12-22 MEDICATIONS Medication Instructions Dosage Frequency Start Date End Date Duration Status Albuterol Sulfate 1.25 MG/3ML Inhalation every 8 hrs 3 ml as needed 8h Nov, Active Keppra 500 mg Orally every 12 hrs 1 tablet 12h Active Amitriptyline HCl Active Latuda 80 MG TAKE ONE (1) TABLET BY MOUTH DAILY WITH FOOD. Active Ibuprofen 800 MG Orally 2 times a day as needed for pain 1 tablet with food or milk Mar, Active Lisinopril 20 MG TAKE ONE (1) TABLET BY MOUTH DAILY... Active Albuterol Sulfate HFA 108 (90 Base) MCG/ACT Inhalation 3 times a day 2 puffs as needed 8h Active Prednisone 1 tab Active Tessalon Perles 100 MG Orally Three times a day 1 capsule as needed 8h Active Cipro 500 MG Orally every 12 hrs 1 tablet 12h Not-Taking Simvastatin 40 mg Orally Once a day in the evening 1 tablet Active Bentyl 20 mg Orally Four times a day 1 capsule 6h Active Carafate 1 GM Orally Twice a day 1 tablet on an empty stomach 12h Active Sucralfate 1 GM TAKE ONE (1) TABLET BY MOUTH TWICE DAILY ON AN EMPTY STOMACH. Active Zofran 8 MG Orally Once a day must last 1 m 1 tablet Active Flovent HFA 110 MCG/ACT Inhalation Twice a day ( rinse mouth after use) Use EVERYDAY 2 puff Nov, Active ProAir HFA 108 (90 Base) MCG/ACT Inhalation every 6 hrs 2 puffs as needed 6h Active Zyrtec Allergy 10 MG Active Pantoprazole Sodium 40 mg Orally Once a day 1 tablet 24h Active CompAir Nebulizer - MACHINE AND TUBING Nov, Not-Taking RESULTS Name Result Date Reference Range H PYLORI (IN HOUSE) 2017-12-22 H. PYLORI negative Control + Lot # [id number] Exp date CT Scan : Abdomen & Pelvis w/o Contrast PROCEDURES Procedure Date Ordered Result Body Site IMMUNOASSAY,INFECTIOUS AGENT December 22, 2017 INSTRUCTIONS MEDICATIONS ADMINISTERED No Known Medications MEDICAL (GENERAL) HISTORY Type Description Date Medical History asthma - mild intermittent ( PFT 10/2016 Normal) Medical History hypertension Medical History seizures- childhood Medical History bipolar disorder- [facility] Medical History GERD Medical History auditory hallucinations- Surgical History hernia repair/ Inguinal ( child) Surgical History EGD- 2015 Hospitalization History [facility] for two to three days. 08/2016 Hospitalization History ER for shortness of breath 07/2017 Hospitalization History [facility] 12/2017
--- OUTSIDE RECORDS SUMMARY | 2019-02-27 22:28 | XMS REPORT ---
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 Name Role Phone SIRENA ABDALLA Unavailable PROBLEMS Type Condition ICD9-CM Code QKR37-NE Code Onset Dates Condition Status SNOMED Code Problem Chronic nausea R11.0 Active 499236713 Problem Bipolar 1 disorder, depressed F31.9 Active 06464858 Problem Seizure disorder G40.909 Active 085085179 Problem Moderate persistent asthma without complication J45.40 Active 680390166 Problem Mild intermittent asthma without complication J45.20 Active 473475336 Problem Gastroesophageal reflux disease without esophagitis K21.9 Active 041969127 Problem Daytime sleepiness R40.0 Active 254753449094 Problem Bipolar 1 disorder with moderate south F31.12 Active 54175723 Problem Schizoaffective disorder, bipolar type F25.0 Active 68124214 Problem Benign essential hypertension I10 Active 4480529 Problem Sleep disturbance G47.9 Active 15167907 Problem Auditory hallucination R44.0 Active 45313166 ALLERGIES No Information ENCOUNTERS Encounter Location Date Diagnosis [facility] [address] [id number] [id number] Jan, Chronic nausea R11.0 [facility] [address] [facility] [id number], [place] [address] December, [facility] [address] [id number], [place] [id number] December, Hospital discharge follow-up Z09 ; Chronic nausea R11.0 ; Abdominal pain, unspecified abdominal location R10.9 and Gastroesophageal reflux disease without esophagitis K21.9 [facility] [address] [facility] [id number], [place] [address] Nov, Walking pneumonia J18.[address] [facility] [address]00565[address], [place] [id number] Nov, Encounter for dental exam and cleaning w/o abnormal findings Z01.20 [facility] [address] [id number], [place] [address] Oct, Dental examination Z01.20 [facility] [address] [id number], [place] [id number] Sep, [facility] [address]00565100[place], [place] [address] Aug, [facility] [address] [id number], [place] [id number] Aug, [facility] [address] [place], [place] [address] [id number] [place] [address] Aug, [facility] [place] [address] [id number], [place] [address] Aug, Chronic nausea R11.0 [facility] [id number], [place] [address] Aug, Chronic nausea R11.0 [facility] [address] [id number], [place] [address] Jul, Tachycardia R00.0 [facility] [address] [id number], [place] [address] Jul, [facility] [address]00565100[place], [place] [address] Jul, [facility] [address] [id number], [place] [id number] Jul, Benign essential hypertension I10 ; Sleep disturbance G47.9 ; Snoring R06.83 and Daytime sleepiness R40.0 [facility] [address] [id number][place] [address] Jul, Dental examination Z01.20 [facility] [address] [facility] [id number], [place] [address] Jul, Encounter for dental exam and cleaning w/o abnormal findings Z01.20 [facility] [address] [id number], [place] [address] Mar, [facility] [address] [id number], [place] [address] Mar, Bilateral low back pain without sciatica, unspecified chronicity M54.5 and Muscle spasm M62.[address] [facility] [address] [id number], [place] 111870[address] Jan, Sleep disturbance G47.9 and Bipolar 1 disorder, depressed F31.9 [facility] [address] [id number], [place] [id number] Jan, [facility] [address] [id number], [place] [address] December, Encounter for dental examination and cleaning without abnormal findings Z01.20 [facility] [address] [id number], [place] [address] December, Dental examination Z01.20 [facility] [address] [id number], [place] [id number] December, Bipolar 1 disorder, depressed F31.9 ; Auditory hallucination R44.0 and Sleep disturbance G47.9 [facility] [address] [id number], [place] [address] December, Bipolar 1 disorder with moderate south F31.12 [facility] [address] [facility] [id number], [place] [address] December, [facility] [address] [id number], [place] [id number] Nov, [facility] [place] [address] [facility] [id number], [place] [address] Nov, Acute non-recurrent frontal sinusitis J01.10 [facility] [address] [id number], [place] [address] Nov, [facility] [address] [id number], [place] [id number] Nov, Mild intermittent asthma without complication J45.20 [facility] [place] [address] [id number], [place] [address] Nov, Mild intermittent asthma without complication J45.20 [facility] BOJORQUEZLANDEROS [address] [id number], [place] [address] Nov, [facility] [address] [facility] [id number], [place] [address] Nov, Other [place] [facility] drug therapy Z79.899 and Schizoaffective disorder, bipolar type F25.0 [facility] [place] [address] [id number], [place] [id number] Nov, Chronic nausea R11.0 [facility] [id number], [place] [address] Nov, Seizure disorder G40.909 ; Chronic nausea R11.0 ; Gastroesophageal reflux disease without esophagitis K21.9 and Benign essential hypertension I10 [facility] [address] [id number], [place] [address] Oct, Moderate persistent asthma without complication J45.40 [facility] [address] [id number], [place] [id number] Oct, [facility] [address] [id number], [place] [address] Sep, Bipolar 1 disorder, depressed F31.9 ; Seizure disorder G40.909 ; Moderate persistent asthma without complication J45.40 ; Chronic nausea R11.0 ; Gastroesophageal reflux disease without esophagitis K21.9 and Benign essential hypertension I10 [facility] [address] [facility] [id number], [place] [address] Oct, Seizure disorder G40.909 ; Bipolar affective disorder, current episode depressed, current episode severity unspecified F31.30 ; Essential hypertension I10 and Mild intermittent asthma without complication J45.20 [facility] [address] [id number], [place] [address] Apr, Dental examination V72.2 [facility] [address] [id number] [place] [id number] Mar, Dental examination V72.2 [facility] [place] [address] [facility] [address] [id number] [place] [address] Mar, Dental examination V72.2 [facility] Lara[address] [address] [id number] [place] [id number] Nov, Dental examination V72.2 IMMUNIZATIONS No Known [...] seizures- childhood Medical History bipolar disorder- [facility] Medical History GERD Medical History auditory hallucinations- Surgical History hernia repair/ Inguinal ( child) Surgical History EGD- [place] Hospitalization History [facility] for two to three days. 08/2016 Hospitalization History ER for shortness of breath 07/2017 Hospitalization History [facility] 12/2017
--- OUTSIDE RECORDS SUMMARY | 2019-02-27 22:28 | XMS REPORT ---
Author Author KIM JIMENES [facility] Address [address] [place] [address] Phone Unavailable Care Team Providers Care Layboy Operator Name Role Phone KIM JIMENES Unavailable Unavailable PROBLEMS Type Condition ICD9-CM Code HCY14-LS Code Onset Dates Condition Status SNOMED Code Problem Chronic nausea R11.0 Active 926342861 Problem Bipolar 1 disorder, depressed F31.9 Active 22719018 Problem Seizure disorder G40.909 Active 094828710 Problem Moderate persistent asthma without complication J45.40 Active 656058373 Problem Mild intermittent asthma without complication J45.20 Active 510765718 Problem Gastroesophageal reflux disease without esophagitis K21.9 Active 730614089 Problem Daytime sleepiness R40.0 Active 508720431458 Problem Bipolar 1 disorder with moderate south F31.12 Active 60621917 Problem Schizoaffective disorder, bipolar type F25.0 Active 15105429 Problem Benign essential hypertension I10 Active 7823547 Problem Sleep disturbance G47.9 Active 35180641 Problem Auditory hallucination R44.0 Active 50673100 ALLERGIES Substance Reaction Event Type Date Status Trazodone HCl anaphylaxis Drug Allergy Nov, Active Penicillin V Potassium anaphylaxis Drug Allergy Nov, Active ENCOUNTERS Encounter Location Date Diagnosis [facility] [address] [id number], [place] [id number] Mar, [facility] [address] [id number], [place] [id number] Feb, Dental examination Z01.20 [facility] [address] [facility] [id number] [address] Feb, [facility] [address] [facility] [id number], [place] [address] Feb, Daytime sleepiness R40.0 and Bipolar 1 disorder with moderate south F31.12 [facility] [address] [facility] [id number] [place] [id number] Jan, Chronic nausea R11.0 [facility] [address] [id number], [place] [address] December, [facility] [address] [id number], [place] [id number] December, Hospital discharge follow-up Z09 ; Chronic nausea R11.0 ; Abdominal pain, unspecified abdominal location R10.9 and Gastroesophageal reflux disease without esophagitis K21.9 [facility] [address] [id number], [place] [address] Nov, Walking pneumonia J18.9 [facility] [address]00565100[place] [id number] Nov, Encounter for dental exam and cleaning w/o abnormal findings Z01.20 [facility] [address] [id number], [place] [address] Oct, Dental examination Z01.20 [facility] [address] [id number], [place] [id number] Sep, [facility] [address] [facility] [id number], [place] [address] Aug, [facility] [address] [id number], [place] [id number] Aug, [facility] [address] [id number] [place] [address] Aug, [facility] [address] [id number], [place] [address] Aug, Chronic nausea R11.0 [facility] [address] [facility] [id number] [place] [address] Aug, Chronic nausea R11.[address] [facility] [address] [id number], [place] [address] Jul, Tachycardia R00.0 [facility] [address] [id number], [place] [id number] Jul, [facility] [address] [id number] [address] Jul, [facility] [address] [id number], [place] [address] Jul, Benign essential hypertension I10 ; Sleep disturbance G47.9 ; Snoring R06.83 and Daytime sleepiness R40.0 [facility] [address] [id number], [place] [id number] Jul, Dental examination Z01.20 [facility] [address] [facility] [id number] [place] [id number] Jul, Encounter for dental exam and cleaning w/o abnormal findings Z01.20 [facility] [address] [id number], [place] [id number] Mar, [facility] [address] [id number], [place] [address] Mar, Bilateral low back pain without sciatica, unspecified chronicity M54.5 and Muscle spasm M62.838 [facility] [address] [id number], [place] [address] Jan, Sleep disturbance G47.9 and Bipolar 1 disorder, depressed F31.9 [facility] [address] [id number], [place] [id number] Jan, [facility] [address] [id number], [place] [id number] December, Encounter for dental examination and cleaning without abnormal findings Z01.20 [facility] [address] [id number], [place] [address] December, Dental examination Z01.20 [facility] [address] [id number], [place] [id number] December, Bipolar 1 disorder, depressed F31.9 ; Auditory hallucination R44.0 and Sleep disturbance G47.9 [facility] [address] [id number], [place] [address] December, Bipolar 1 disorder with moderate south F31.12 [facility] [place] [address] [facility] [id number], [place] [address] December, [facility] [address] [id number], [place] [address] Nov, [facility] [address] [id number] [place] [address] Nov, Acute non-recurrent frontal sinusitis J01.10 [facility] [address] [id number], [place] [id number] Nov, [facility] [address] [id number], [place] [address] Nov, Mild intermittent asthma without complication J45.20 [facility] [address] [id number], [place] [address] Nov, Mild intermittent asthma without complication J45.20 [facility] [address] [id number], [place] [id number] Nov, [facility] [id number] [place] [address] Nov, 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 and Schizoaffective disorder, bipolar type F25.0 [facility] [place] [address] [facility] [address] [id number], [place] [id number] Nov, Chronic nausea R11.0 [facility] [id number] [place] [address] Nov, Seizure disorder G40.909 ; Chronic nausea R11.0 ; Gastroesophageal reflux disease without esophagitis K21.9 and Benign essential hypertension I10 [facility] [place] [address] [facility] [id number], [place] [address] Oct, Moderate persistent asthma without complication J45.40 [facility] [address] [id number], [place] [id number] Oct, [facility] [address] [id number], [place] [address] Sep, Bipolar 1 disorder, depressed F31.9 ; Seizure disorder G40.909 ; Moderate persistent asthma without complication J45.40 ; Chronic nausea R11.0 ; Gastroesophageal reflux disease without esophagitis K21.9 and Benign essential hypertension I10 [facility] [address] [id number] [place] [address] Oct, Seizure disorder G40.909 ; Bipolar affective disorder, current episode depressed, current episode severity unspecified F31.30 ; Essential hypertension I10 and Mild intermittent asthma without complication J45.20 [facility] [address] [id number], [place] [id number] Apr, Dental examination V72.2 [facility] [address] [facility] [address] [id number], [place] [id number] Mar, Dental examination V72.2 [facility] [address] [facility] [address] [id number], [place] [id number] Mar, Dental examination V72.2 [facility] [address] [address] [place] [address] AVE [id number], [place] [address] Nov, Dental examination V72.2 IMMUNIZATIONS No Known Immunizations SOCIAL HISTORY Never Assessed REASON FOR VISIT ADULT OUTREACH CLASS [facility] PLAN OF CARE Activity Details Follow Up 3 Months Reason:ON SITE RECALL VITAL SIGNS MEDICATIONS Medication Instructions Dosage Frequency Start Date End Date Duration Status Flovent HFA 110 MCG/ACT Inhalation Twice a day ( rinse mouth after use) Use EVERYDAY 2 puff Nov, Active Simvastatin 40 mg Orally Once a day in the evening 1 tablet Active Latuda 80 MG TAKE ONE (1) TABLET BY MOUTH DAILY WITH FOOD. Active Albuterol Sulfate 1.25 MG/3ML Inhalation every 8 hrs 3 ml as needed 8h Nov, Active Lisinopril 20 MG TAKE ONE (1) TABLET BY MOUTH DAILY... Active CompAir Nebulizer - MACHINE AND TUBING Nov, Not-Taking Pantoprazole Sodium 40 mg Orally Once a day 1 tablet 24h Active Amitriptyline HCl Active Zofran 8 MG Orally Once a day must last 1 m 1 tablet Active Bentyl 20 mg Orally Four times a day 1 capsule 6h Active Keppra 500 mg Orally every 12 hrs 1 tablet 12h Active Ibuprofen 800 MG Orally 2 times a day as needed for pain 1 tablet with food or milk Mar, Active Carafate 1 GM Orally Twice a day 1 tablet on an empty stomach 12h Active Zyrtec Allergy 10 MG Active Albuterol Sulfate HFA 108 (90 Base) MCG/ACT Inhalation 3 times a day 2 puffs as needed 8h Active RESULTS No Results PROCEDURES Procedure Date Ordered Result Body Site PROPHYLAXIS - ADULT November 14, 2017 TOPICAL FLUORIDE VARNISH November 14, 2017 INSTRUCTIONS MEDICATIONS ADMINISTERED No Known Medications MEDICAL (GENERAL) HISTORY Type Description Date Medical History asthma - mild intermittent ( PFT 10/2016 Normal) Medical History hypertension Medical History seizures- childhood Medical History bipolar disorder- [facility] Medical History GERD Medical History auditory hallucinations- Surgical History hernia repair/ Inguinal ( child) Surgical History EGD- 2015 Hospitalization History [facility] for two to three days. 08/2016 Hospitalization History ER for shortness of breath 07/2017 [facility] 12/2017
--- OUTSIDE RECORDS SUMMARY | 2019-02-27 22:29 | XMS REPORT ---
Author Author SIRENA ABDALLA [facility] [place] Address [address] [place] [address] Care Team Providers Care Cashier Assistant Name Role Phone SIRENA ABDALLA Unavailable PROBLEMS Type Condition ICD9-CM Code FAL48-MR Code Onset Dates Condition Status SNOMED Code Problem Chronic nausea R11.0 Active 677174043 Problem Bipolar 1 disorder, depressed F31.9 Active 82153378 Problem Seizure disorder G40.909 Active 055814041 Problem Moderate persistent asthma without complication J45.40 Active 521259649 Problem Mild intermittent asthma without complication J45.20 Active 138184652 Problem Gastroesophageal reflux disease without esophagitis K21.9 Active 907815996 Problem Daytime sleepiness R40.0 Active 006151030755 Problem Bipolar 1 disorder with moderate south F31.12 Active 70852770 Problem Schizoaffective disorder, bipolar type F25.0 Active 09182627 Problem Benign essential hypertension I10 Active 6928110 Problem Sleep disturbance G47.9 Active 17399812 Problem Auditory hallucination R44.0 Active 92173412 ALLERGIES No Information ENCOUNTERS Encounter Location Date Diagnosis [facility] [address] [facility] [id number][place] [id number] Jan, Chronic nausea R11.0 [facility] [address] [id number], [place] [address] December, [facility] [address] [facility] [address] [id number] [place] [id number] December, Hospital discharge follow-up Z09 ; Chronic nausea R11.0 ; Abdominal pain, unspecified abdominal location R10.9 and Gastroesophageal reflux disease without esophagitis K21.9 [facility] [address] [facility] [id number], [place] [address] Nov, Walking pneumonia J18.[address] [facility] [address]00565100[place], [place] [id number] Nov, Encounter for dental exam and cleaning w/o abnormal findings Z01.20 [facility] [address] [id number] [place] [address] Oct, Dental examination Z01.20 [facility] [address] [id number] [place] [id number] Sep, [facility] [address]00565100[place], [place] [address] Aug, [facility] [address] [id number] [place] [id number] Aug, [facility] [address] [place], [place] [address] [id number] [place] [address] Aug, [facility] [place] [address] [facility] [address] [id number] [place] [address] Aug, Chronic nausea R11.0 [facility] [id number], [place] [address] Aug, Chronic nausea R11.0 [facility] [address] [id number] [place] [id number] Jul, Tachycardia R00.0 [facility] [address] [id number] [place] [address]155[address] Jul, [facility] [address]00565100[place], [place] [address] Jul, [facility] [address] [id number] [place] [address] Jul, Benign essential hypertension I10 ; Sleep disturbance G47.9 ; Snoring R06.83 and Daytime sleepiness R40.0 [facility] [address] [id number] [place] [address] Jul, Dental examination Z01.20 [facility] [address] [facility] [id number], [place] [id number] Jul, Encounter for dental exam and cleaning w/o abnormal findings Z01.20 [facility] [address] [id number] [place] [address] Mar, [facility] [address] [address] [id number] [place] [id number] Mar, Bilateral low back pain without sciatica, unspecified chronicity M54.5 and Muscle spasm M62.[address] [facility] [address] [id number] [place] [address] Jan, Sleep disturbance G47.9 and Bipolar 1 disorder, depressed F31.9 [facility] [address] [id number] [place] [address]1655[address] Jan, [facility] [address] [id number] [place] 4739[address] December, Encounter for dental examination and cleaning without abnormal findings Z01.20 [facility] [address] [id number] [place] 6447[address] December, Dental examination Z01.20 [facility] [address] [id number] [place] [address] December, Bipolar 1 disorder, depressed F31.9 ; Auditory hallucination R44.0 and Sleep disturbance G47.9 [facility] [address] [id number] [place] [address]19[address]61[address] December, Bipolar 1 disorder with moderate south F31.12 [facility] [address] [facility] [id number] [address] December, [facility] [address] [id number] [place] [id number] Nov, [facility] [place] [address] [facility] [id number], [place] [id number] Nov, Acute non-recurrent frontal sinusitis J01.10 [facility] [address] [id number] [place] [address] Nov, [facility] [address] [id number] [place] [id number] Nov, Mild intermittent asthma without complication J45.20 [facility] [place] [address] [facility] [address] [id number] [place] [address] Nov, Mild intermittent asthma without complication J45.20 [facility] [address] [facility] [address] [id number] [place] 863159[address] Nov, [facility] [address] [facility] [id number], [place] [address] Nov, Other residential (current) drug therapy Z79.899 and Schizoaffective disorder, bipolar type F25.0 [facility] [address] [facility] [address] [id number] [place] [address] Nov, Chronic nausea R11.0 [facility] [id number], [place] [address] Nov, Seizure disorder G40.909 ; Chronic nausea R11.0 ; Gastroesophageal reflux disease without esophagitis K21.9 and Benign essential hypertension I10 [facility] [address] [id number], [place] [address] Oct, Moderate persistent asthma without complication J45.40 [facility] [address] [facility] [address] [id number] [place] [id number] Oct, [facility] [address] [facility] [address] [id number] [place] 230[address]517 Sep, Bipolar 1 disorder, depressed F31.9 ; Seizure disorder G40.909 ; Moderate persistent asthma without complication J45.40 ; Chronic nausea R11.0 ; Gastroesophageal reflux disease without esophagitis K21.9 and Benign essential hypertension I10 [facility] [address] [facility] [id number], [place] [address]25[address] Oct, Seizure disorder G40.909 ; Bipolar affective disorder, current episode depressed, current episode severity unspecified F31.30 ; Essential hypertension I10 and Mild intermittent asthma without complication J45.20 [facility] [address] [facility] [address] [id number] [place] [id number] Apr, Dental examination V72.2 [facility] [address] [id number] [place] [address] Mar, Dental examination V72.2 [facility] [address] [facility] [address] [id number] [place] [id number] Mar, Dental examination V72.2 [facility] Lara[address] [facility] [address] [id number] [place] [id number] Nov, Dental examination V72.2 IMMUNIZATIONS No Known Immunizations SOCIAL HISTORY Never Assessed REASON FOR VISIT PA Sleep Study PLAN OF CARE VITAL SIGNS MEDICATIONS Unknown Medications RESULTS No Results PROCEDURES No Known procedures INSTRUCTIONS MEDICATIONS ADMINISTERED No Known Medications MEDICAL (GENERAL) HISTORY Type Description Date Medical History asthma - mild intermittent ( PFT 10/2016 Normal) Medical History hypertension Medical History seizures- childhood Medical History bipolar disorder- [facility] Medical History GERD Medical History auditory hallucinations- Surgical History hernia repair/ Inguinal ( child) Surgical History EGD- 2015 Hospitalization History [facility] for two to three days. 08/2016 Hospitalization History ER for shortness of breath 07/2017 Hospitalization History [place] [facility] 12/2017
--- OUTSIDE RECORDS SUMMARY | 2019-02-27 22:29 | XMS REPORT ---
Author Author SIRENA ABDALLA [facility] [place] Address [address] [place] [address] Care Team Providers Care Clinical Aide Name Role Phone SIRENA ABDALLA Unavailable PROBLEMS Type Condition ICD9-CM Code YWE19-IL Code Onset Dates Condition Status SNOMED Code Problem Chronic nausea R11.0 Active 735319043 Problem Bipolar 1 disorder, depressed F31.9 Active 89089873 Problem Seizure disorder G40.909 Active 932908717 Problem Moderate persistent asthma without complication J45.40 Active 608960932 Problem Mild intermittent asthma without complication J45.20 Active 945890743 Problem Gastroesophageal reflux disease without esophagitis K21.9 Active 964936214 Problem Daytime sleepiness R40.0 Active 214743239829 Problem Bipolar 1 disorder with moderate south F31.12 Active 03292882 Problem Schizoaffective disorder, bipolar type F25.0 Active 96255886 Problem Benign essential hypertension I10 Active 2799289 Problem Sleep disturbance G47.9 Active 85605743 Problem Auditory hallucination R44.0 Active 25838781 ALLERGIES No Information ENCOUNTERS Encounter Location Date Diagnosis [facility] [address] [facility] [id number][place] [id number] Jan, Chronic nausea R11.0 [facility] [address] [facility] [address] [id number] [address] December, [facility] [address] [id number], [place] [id number] December, Hospital discharge follow-up Z09 ; Chronic nausea R11.0 ; Abdominal pain, unspecified abdominal location R10.9 and Gastroesophageal reflux disease without esophagitis K21.9 [facility] [address] [facility] [id number] [address] Nov, Walking pneumonia J18.9 [facility] [address] [address] Nov, Encounter for dental exam and cleaning w/o abnormal findings Z01.20 [facility] [address] [id number], [place] [id number] Oct, Dental examination Z01.20 [facility] [address] [id number], [place] [id number] Sep, [facility] [address], [place] [address] Aug, [facility] [address] [id number], [place] [id number] Aug, [facility] [address] [place], [place] [address] [id number] [place] [address] Aug, [facility] [place] [address] [id number], [place] [id number] Aug, Chronic nausea R11.0 [facility] [id number], [place] [id number] Aug, Chronic nausea R11.0 [facility] [address] [id number], [place] [id number] Jul, Tachycardia R00.0 [facility] [address] [id number], [place] [id number] Jul, [facility] [address], [place] [address] Jul, [facility] [address] [id number], [place] [id number] Jul, Benign essential hypertension I10 ; Sleep disturbance G47.9 ; Snoring R06.83 and Daytime sleepiness R40.0 [facility] [address] [id number], [place] [id number] Jul, Dental examination Z01.20 [facility] [address] [facility] [id number], [place] [id number] Jul, Encounter for dental exam and cleaning w/o abnormal findings Z01.20 [facility] [address] [id number], [place] [id number] Mar, [facility] [address] [address] [id number], [place] [id number] Mar, Bilateral low back pain without sciatica, unspecified chronicity M54.5 and Muscle spasm M62.[address] [facility] [address] [id number], [place] [id number] Jan, Sleep disturbance G47.9 and Bipolar 1 disorder, depressed F31.9 [facility] [address] [id number], [place] [address] Jan, [facility] [address] [id number], [place] [address] December, Encounter for dental examination and cleaning without abnormal findings Z01.20 [facility] [address] [id number], [place] [id number] December, Dental examination Z01.20 [facility] [address] [id number], [place] [id number] December, Bipolar 1 disorder, depressed F31.9 ; Auditory hallucination R44.0 and Sleep disturbance G47.9 [facility] [address] [id number], [place] [id number] December, Bipolar 1 disorder with moderate south F31.12 [facility] [address] [id number], [place] [address] December, [facility] [address] [id number], [place] [id number] Nov, [facility] [place] [address] [facility] [id number], [place] [id number] Nov, Acute non-recurrent frontal sinusitis J01.10 [facility] [address] [id number], [place] [id number] Nov, [facility] [address] [id number], [place] [id number] Nov, Mild intermittent asthma without complication J45.20 [facility] [place] [address] [id number], [place] [id number] Nov, Mild intermittent asthma without complication J45.20 [facility] [address] [id number], [place] [id number] Nov, [facility] [address] [facility] [id number], [place] [address] Nov, Other detention (current) drug therapy Z79.899 and Schizoaffective disorder, bipolar type F25.0 [facility] [address] [id number], [place] [id number] Nov, Chronic nausea R11.0 [facility] [id number], [place] [address] Nov, Seizure disorder G40.909 ; Chronic nausea R11.0 ; Gastroesophageal reflux disease without esophagitis K21.9 and Benign essential hypertension I10 [facility] [address] [id number], [place] [address] Oct, Moderate persistent asthma without complication J45.40 [facility] [address] [id number], [place] [id number] Oct, [facility] [address]J[address] [id number], [place] [address] Sep, Bipolar 1 disorder, depressed F31.9 ; Seizure disorder G40.909 ; Moderate persistent asthma without complication J45.40 ; Chronic nausea R11.0 ; Gastroesophageal reflux disease without esophagitis K21.9 and Benign essential hypertension I10 [facility] [address] [facility] [id number], [place] [id number] Oct, Seizure disorder G40.909 ; Bipolar affective disorder, current episode depressed, current episode severity unspecified F31.30 ; Essential hypertension I10 and Mild intermittent asthma without complication J45.20 [facility] [address] [id number], [place] [id number] Apr, Dental examination V72.2 [facility] [address] [id number] [place] [address] Mar, Dental examination V72.2 [facility] [address] [facility] [address] [id number] [place] [address] Mar, Dental examination V72.2 [facility] [address] [facility] [address] [facility] [id number] [place] [address] Nov, Dental examination V72.2 IMMUNIZATIONS No Known Immunizations SOCIAL HISTORY Never Assessed REASON FOR VISIT med PLAN OF CARE VITAL SIGNS MEDICATIONS Medication Instructions Dosage Frequency Start Date End Date Duration Status Simvastatin 40 mg Orally Once a day in the evening 1 tablet Active RESULTS No Results PROCEDURES No Known procedures INSTRUCTIONS MEDICATIONS ADMINISTERED No Known Medications MEDICAL (GENERAL) HISTORY Type Description Date Medical History asthma - mild intermittent ( PFT 10/2016 Normal) Medical History hypertension Medical History seizures- childhood Medical History bipolar disorder- [facility] Medical History GERD Medical History auditory hallucinations- Surgical History hernia repair/ Inguinal ( child) Surgical History EGD- [place]2015 Hospitalization History [facility] for two to three days. 08/2016 Hospitalization History ER for shortness of breath 07/2017 Hospitalization History [facility] 12/2017
--- OUTSIDE RECORDS SUMMARY | 2019-02-27 22:30 | XMS REPORT ---
Author Author ALIYAH ZAVALETA [facility] Address [address] [place] [address] Care Team Providers Care Aboriginal Community Council Member Name Role Phone ALIYAH ZAVALETA Unavailable PROBLEMS Type Condition ICD9-CM Code FXG90-BN Code Onset Dates Condition Status SNOMED Code Problem Chronic nausea R11.0 Active 913986391 Problem Bipolar 1 disorder, depressed F31.9 Active 26921941 Problem Seizure disorder G40.909 Active 335541051 Problem Moderate persistent asthma without complication J45.40 Active 179562152 Problem Mild intermittent asthma without complication J45.20 Active 652636734 Problem Gastroesophageal reflux disease without esophagitis K21.9 Active 922358060 Problem Daytime sleepiness R40.0 Active 143258537729 Problem Bipolar 1 disorder with moderate south F31.12 Active 61154070 Problem Schizoaffective disorder, bipolar type F25.0 Active 01661279 Problem Benign essential hypertension I10 Active 5392749 Problem Sleep disturbance G47.9 Active 78293312 Problem Auditory hallucination R44.0 Active 30573182 ALLERGIES No Information ENCOUNTERS Encounter Location Date Diagnosis [facility] [id number] [place] [address] December, [facility] [address] [id number] [id number] December, Hospital discharge follow-up Z09 ; Chronic nausea R11.0 ; Abdominal pain, unspecified abdominal location R10.9 and Gastroesophageal reflux disease without esophagitis K21.9 [facility] [id number] [place] [address] Nov, Walking pneumonia J18.9 [facility] [address] [place] [id number] Nov, Encounter for dental exam and cleaning w/o abnormal findings Z01.20 [facility] [address] [id number], [place] [id number] Oct, Dental examination Z01.[address] [facility] [address] [id number], [place] [id number] Sep, [facility] [address] [facility] [id number] [place] [address] Aug, [facility] [address] [address] [id number], [place] [id number] Aug, [facility] [address] [id number] [place] [address] Aug, [facility] [address] [address] [id number], [place] [id number] Aug, Chronic nausea R11.0 [facility] [id number], [place] [id number] Aug, Chronic nausea R11.[address] [facility] [address] [id number], [place] [address]36[address] Jul, Tachycardia R00.0 [facility] [address] [id number], [place] [id number] Jul, [facility] [address] [facility] [id number] [place] [address] Jul, [facility] [address] [id number], [place] [id number] Jul, Benign essential hypertension I10 ; Sleep disturbance G47.9 ; Snoring R06.83 and Daytime sleepiness R40.0 [facility] [address] [id number], [place] [id number] Jul, Dental examination Z01.20 [facility] [address] [id number] [place] [id number] Jul, Encounter for dental exam and cleaning w/o abnormal findings Z01.[address] [facility] [address] [id number], [place] [id number] Mar, [facility] [address] [id number], [place] [address]88[address] Mar, Bilateral low back pain without sciatica, unspecified chronicity M54.5 and Muscle spasm M62.838 [facility] [address] [id number], [place] [id number] Jan, Sleep disturbance G47.9 and Bipolar 1 disorder, depressed F31.9 [facility] [address] [id number], [place] [id number] Jan, [facility] [address] [id number], [place] [id number] December, Encounter for dental examination and cleaning without abnormal findings Z01.20 [facility] [address] [id number], [place] [id number] December, Dental examination Z01.20 [facility] [address] [id number], [place] [id number] December, Bipolar 1 disorder, depressed F31.9 ; Auditory hallucination R44.0 and Sleep disturbance G47.9 [facility] [address] [id number], [place] [id number] December, Bipolar 1 disorder with moderate south F31.12 [facility] [address]65[address] [address] December, [facility] [address] [id number], [place] [id number] Nov, [facility] [id number], [place] [id number] Nov, Acute non-recurrent frontal sinusitis J01.10 [facility] [address] [id number], [place] [address] Nov, [facility] [address] [id number], [place] [id number] Nov, Mild intermittent asthma without complication J45.20 [facility] [address] [id number], [place] [id number] Nov, Mild intermittent asthma without complication J45.20 [facility] [address] [id number], [place] [id number] Nov, [facility] [place] [address] [facility] [id number], [place] [id number] Nov, 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 [address] [id number], [place] [id number] Nov, Chronic nausea R11.0 [facility] [place] [address] [facility] [id number], [place] [address] Nov, Seizure disorder G40.909 ; Chronic nausea R11.0 ; Gastroesophageal reflux disease without esophagitis K21.9 and Benign essential hypertension I10 [facility] [address] [facility] [id number] [place] [address] Oct, Moderate persistent asthma without complication J45.40 [facility] [address] [id number], [place] [id number] Oct, [facility] Group[facility] [address]ZLANDEROSSAM[address] [facility] [id number], [place] 979607[address] Sep, Bipolar 1 disorder, depressed F31.9 ; Seizure disorder G40.909 ; Moderate persistent asthma without complication J45.40 ; Chronic nausea R11.0 ; Gastroesophageal reflux disease without esophagitis K21.9 and Benign essential hypertension I10 [facility] [address] [id number], [place] [address] Oct, Seizure disorder G40.909 ; Bipolar affective disorder, current episode depressed, current episode severity unspecified F31.30 ; Essential hypertension I10 and Mild intermittent asthma without complication J45.20 [facility] [address] [id number], [place] [id number] Apr, Dental examination V72.2 [facility] [address] [id number], [place] [id number] Mar, Dental examination V72.2 [facility] [address] [id number] [place] [id number] Mar, Dental examination V72.2 [facility] [address] [facility] [address] [id number] [place] [id number] Nov, Dental examination V72.2 IMMUNIZATIONS No Known Immunizations SOCIAL HISTORY Never Assessed REASON FOR VISIT PLAN OF CARE Activity Details Follow Up WE WILL SET UP Reason:ON SITE RESTORATIVE VITAL SIGNS MEDICATIONS Medication Instructions Dosage Frequency Start Date End Date Duration Status Bentyl 10 mg Orally Four times a day 1 capsule 6h Active Albuterol Sulfate 1.25 MG/3ML Inhalation every 8 hrs 3 ml as needed 8h Nov, Active Zyrtec Allergy 10 MG Active Albuterol Sulfate HFA 108 (90 Base) MCG/ACT Inhalation 3 times a day 2 puffs as needed 8h Active Flovent HFA 110 MCG/ACT Inhalation Twice a day ( rinse mouth after use) Use EVERYDAY 2 puff Nov, Active CompAir Nebulizer - MACHINE AND TUBING Nov, Active Latuda 80 MG TAKE ONE (1) TABLET BY MOUTH DAILY WITH FOOD. Active Carafate 1 GM Orally Twice a day 1 tablet on an empty stomach 12h Active Simvastatin 40 MG Take 1 Tablet (40 mg) by mouth Daily LATE. Active Lisinopril 20 mg Orally Once a day 1 tablet 24h Active Zofran 8 MG Orally Once a day 1 tablet 24h Active Depakote 250 MG Orally 3 times a day 1 tablet 8h Not-Taking Keppra 500 mg Orally every 12 hrs 1 tablet 12h Active Pantoprazole Sodium 40 mg Orally Once a day 1 tablet 24h Active Amitriptyline HCl 100 MG Orally Once a day- BEDTIME 1 tablet December, Active Zocor 10 mg Orally Once a day as needed for nausea 1 tablet Active Ibuprofen 800 MG Orally 2 times a day as needed for pain 1 tablet with food or milk Mar, Active RESULTS No Results PROCEDURES Procedure Date Ordered Result Body Site PERIODIC ORAL EXAMINATION Jul 11, 2017 BITEWINGS - FOUR FILMS Jul 11, 2017 INSTRUCTIONS MEDICATIONS ADMINISTERED No Known Medications MEDICAL (GENERAL) HISTORY Type Description Date Medical History asthma - mild intermittent ( PFT 10/2016 Normal) Medical History hypertension Medical History seizures- childhood Medical History bipolar disorder- [facility] Medical History GERD Medical History auditory hallucinations- Surgical History hernia repair/ Inguinal ( child) Surgical History [facility] [place] ER for shortness of breath 07/2017 [facility] 12/2017
--- OUTSIDE RECORDS SUMMARY | 2019-02-27 22:30 | XMS REPORT ---
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 Registered Safety Engineer Name Role Phone SIRENA ABDALLA Unavailable PROBLEMS Type Condition ICD9-CM Code SNF39-FL Code Onset Dates Condition Status SNOMED Code Problem Chronic nausea R11.0 Active 530465340 Problem Bipolar 1 disorder, depressed F31.9 Active 90237693 Problem Seizure disorder G40.909 Active 235833094 Problem Moderate persistent asthma without complication J45.40 Active 198249273 Problem Mild intermittent asthma without complication J45.20 Active 789801396 Problem Gastroesophageal reflux disease without esophagitis K21.9 Active 189584588 Problem Daytime sleepiness R40.0 Active 771036936212 Problem Bipolar 1 disorder with moderate south F31.12 Active 23722592 Problem Schizoaffective disorder, bipolar type F25.0 Active 68772291 Problem Benign essential hypertension I10 Active 8232858 Problem Sleep disturbance G47.9 Active 56113933 Problem Auditory hallucination R44.0 Active 49833261 ALLERGIES No Information ENCOUNTERS Encounter Location Date Diagnosis [facility] [address] [facility] [id number][place] [id number] Jan, Chronic nausea R11.0 [facility] [address] [id number] [address] December, [facility] [address] [facility] [address] [id number][place] [id number] December, Hospital discharge follow-up Z09 ; Chronic nausea R11.0 ; Abdominal pain, unspecified abdominal location R10.9 and Gastroesophageal reflux disease without esophagitis K21.9 [facility] [address] [facility] [id number], [place] [address] Nov, Walking pneumonia J18.9 [facility] [address] [id number] Nov, Encounter for dental exam and cleaning w/o abnormal findings Z01.20 [facility] [address] [id number], [place] [address] Oct, Dental examination Z01.20 [facility] [address] [id number], [place] [address] Sep, [facility] [address]005[address], [place] [address] Aug, [facility] [address] [id number], [place] [address] Aug, [facility] [address] [place], [place] [address] [id number] [place] [address] Aug, [facility] [place] [address] [facility] [address] [id number], [place] [id number] Aug, Chronic nausea R11.0 [facility] [place] [id number] [address] Aug, Chronic nausea R11.0 [facility] [address] [id number], [place] [address] Jul, Tachycardia R00.0 [facility] [address] [id number], [place] [id number] Jul, [facility] [address]65100[place], [place] [address] Jul, [facility] [address] [id number], [place] [address] Jul, Benign essential hypertension I10 ; Sleep disturbance G47.9 ; Snoring R06.83 and Daytime sleepiness R40.0 [facility] [address] [id number], [place] [address] Jul, Dental examination Z01.20 [facility] [address] [facility] [id number][place] [id number] Jul, Encounter for dental exam and cleaning w/o abnormal findings Z01.20 [facility] [address] [id number], [place] [address] Mar, [facility] [address] [id number] [id number] Mar, Bilateral low back pain without sciatica, unspecified chronicity M54.5 and Muscle spasm M62.[address] [facility] [address] [id number], [place] [address] Jan, Sleep disturbance G47.9 and Bipolar 1 disorder, depressed F31.9 [facility] [address] [id number], [place] [address] Jan, [facility] [address] [id number], [place] [address] December, Encounter for dental examination and cleaning without abnormal findings Z01.20 [facility] [address] [id number], [place] [address]807 December, Dental examination Z01.20 [facility] [address] [id number], [place] [id number] December, Bipolar 1 disorder, depressed F31.9 ; Auditory hallucination R44.0 and Sleep disturbance G47.9 [facility] [address] [id number], [place] [id number] December, Bipolar 1 disorder with moderate south F31.12 [facility] [address] [facility] [id number], [place] [address] December, [facility] [address] [id number], [place] [id number] Nov, [facility] [place] [address] [facility] [id number], [place] [address] Nov, Acute non-recurrent frontal sinusitis J01.10 [facility] [address] [id number], [place] [id number] Nov, [facility] [address] [id number], [place] [address] Nov, Mild intermittent asthma without complication J45.20 [facility] [place] [address] [facility] [address] [id number], [place] [address] Nov, Mild intermittent asthma without complication J45.20 [facility] [address] [facility] [address] [id number], [place] [address] Nov, [facility] [address] [facility] [id number][place] [id number] Nov, Other nursing home (current) drug therapy Z79.899 and Schizoaffective disorder, bipolar type F25.0 [facility] [place] [address] [facility] [address] [id number], [place] [address] Nov, Chronic nausea R11.0 [facility] [id number], [place] [address] Nov, Seizure disorder G40.909 ; Chronic nausea R11.0 ; Gastroesophageal reflux disease without esophagitis K21.9 and Benign essential hypertension I10 [facility] [address] [id number] [address] Oct, Moderate persistent asthma without complication J45.40 [facility] [address] [facility] [address] [id number], [place] [address] Oct, [facility] [address] [facility] [address] [id number], [place] [address] Sep, Bipolar 1 disorder, depressed F31.9 ; Seizure disorder G40.909 ; Moderate persistent asthma without complication J45.40 ; Chronic nausea R11.0 ; Gastroesophageal reflux disease without esophagitis K21.9 and Benign essential hypertension I10 [facility] [address] [facility] [id number], [place] [address] Oct, Seizure disorder G40.909 ; Bipolar affective disorder, current episode depressed, current episode severity unspecified F31.30 ; Essential hypertension I10 and Mild intermittent asthma without complication J45.20 [facility] [address] [facility] [address] [id number], [place] [address] Apr, Dental examination V72.2 [facility] [id number] [address] Mar, Dental examination V72.2 [facility] [place] [address] [facility] [address] [id number] [place] [address] Mar, Dental examination V72.2 [facility] [place] [address] [facility] [address] [id number] [place]ANE[place] [address] Nov, Dental examination V72.2 IMMUNIZATIONS No Known Immunizations SOCIAL HISTORY Never Assessed REASON FOR VISIT PLAN OF CARE VITAL SIGNS MEDICATIONS Unknown Medications RESULTS No Results PROCEDURES Procedure Date Ordered Result Body Site HOLTER MONITOR (OUTPATIENT) 2017-08-02 N/A INSTRUCTIONS MEDICATIONS ADMINISTERED No Known Medications MEDICAL (GENERAL) HISTORY Type Description Date Medical History asthma - mild intermittent ( PFT 10/2016 Normal) Medical History hypertension Medical History seizures- childhood Medical History bipolar disorder- [facility] Medical History GERD Medical History auditory hallucinations- Surgical History hernia repair/ Inguinal ( child) Surgical History EGD- [place]2015 Hospitalization History [facility] for two to three days. 08/2016 Hospitalization History ER for shortness of breath 07/2017 Hospitalization History [facility] 12/2017
--- OUTSIDE RECORDS SUMMARY | 2019-02-27 22:30 | XMS REPORT ---
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 Role Phone SIRENA ABDALLA Unavailable PROBLEMS Type Condition ICD9-CM Code [id number] Code Onset Dates Condition Status SNOMED Code Problem Chronic nausea R11.0 Active 328326047 Problem Bipolar 1 disorder, depressed F31.9 Active 60695280 Problem Seizure disorder G40.909 Active 838250390 Problem Moderate persistent asthma without complication J45.40 Active 277163139 Problem Mild intermittent asthma without complication J45.20 Active 395862366 Problem Gastroesophageal reflux disease without esophagitis K21.9 Active 456756886 Problem Daytime sleepiness R40.0 Active 862412106943 Problem Bipolar 1 disorder with moderate south F31.12 Active 20472624 Problem Schizoaffective disorder, bipolar type F25.0 Active 95925380 Problem Benign essential hypertension I10 Active 4484391 Problem Sleep disturbance G47.9 Active 68394740 Problem Auditory hallucination R44.0 Active 51492396 ALLERGIES No Information ENCOUNTERS Encounter Location Date Diagnosis [facility] [address] [facility] [id number], [place] [id number] Jan, Chronic nausea R11.0 [facility] [address] [id number], [place] [address] December, [facility] [address] [facility] [address] [id number], [place] [id number] December, Hospital discharge follow-up Z09 ; Chronic nausea R11.0 ; Abdominal pain, unspecified abdominal location R10.9 and Gastroesophageal reflux disease without esophagitis K21.9 [facility] [address] [facility] [id number][place] [address] Nov, Walking pneumonia J18.9 [facility] [address]00565100[place] [address] Nov, Encounter for dental exam and cleaning w/o abnormal findings Z01.20 [facility] [address] [id number], [place] [id number] Oct, Dental examination Z01.20 [facility] [address] [id number], [place] [id number] Sep, [facility] [address]00565100[place], [place] [address] Aug, [facility] [address] [address] [id number], [place] [id number] Aug, [facility] [address] [place], [place] [address] [id number] [place] [address] Aug, [facility] [place] [address] [facility] [address] [id number], [place] [address] Aug, Chronic nausea R11.0 [facility] [id number], [place] [id number] Aug, Chronic nausea R11.0 [facility] [address] [id number], [place] [address] Jul, Tachycardia R00.0 [facility] [address] [id number], [place] [id number] Jul, [facility] [place] [address]00565100[place], [place] [address] Jul, [facility] [address] [address] [id number], [place] [id number] Jul, Benign essential hypertension I10 ; Sleep disturbance G47.9 ; Snoring R06.83 and Daytime sleepiness R40.0 [facility] [address] [id number], [place] [address] Jul, Dental examination Z01.20 [facility] [address] [facility] [id number], [place] [id number] Jul, Encounter for dental exam and cleaning w/o abnormal findings Z01.20 [facility] [address] [id number], [place] [id number] Mar, [facility] [address] [address] [id number], [place] [address] Mar, Bilateral low back pain without sciatica, unspecified chronicity M54.5 and Muscle spasm M62.[address] [facility] [address] [id number], [place] [address]26[address] Jan, Sleep disturbance G47.9 and Bipolar 1 disorder, depressed F31.9 [facility] [address] [id number], [place] [id number] Jan, [facility] [address] [id number], [place] [address] December, Encounter for dental examination and cleaning without abnormal findings Z01.20 [facility] [address] [id number], [place] [address] December, Dental examination Z01.20 [facility] [address] [id number], [place] [address] December, Bipolar 1 disorder, depressed F31.9 ; Auditory hallucination R44.0 and Sleep disturbance G47.9 [facility] [address] [id number], [place] [address] December, Bipolar 1 disorder with moderate south F31.12 [facility] [place] [address] [facility] [id number], [place] [address] December, [facility] [address] [id number], [place] [address] Nov, [facility] [address] [facility] [id number], [place] [id number] Nov, Acute non-recurrent frontal sinusitis J01.10 [facility] [address] [id number], [place] [address] Nov, [facility] [address] [id number], [place] 1914[address] Nov, Mild intermittent asthma without complication J45.20 [facility] [place] [address] [facility] [address] [id number], [place] [address] Nov, Mild intermittent asthma without complication J45.20 [facility] [address] [facility] [address] [id number], [place] [address] Nov, [facility] [address] [facility] [id number], [place] [id number] Nov, Other nursing home (current) drug therapy Z79.899 and Schizoaffective disorder, bipolar type F25.0 [facility] [place] [address] [facility] [address] [id number], [place] [address] Nov, Chronic nausea R11.0 [facility] [id number], [place] [address]1276 Nov, Seizure disorder G40.909 ; Chronic nausea R11.0 ; Gastroesophageal reflux disease without esophagitis K21.9 and Benign essential hypertension I10 [facility] [address] [id number], [place] [address] Oct, Moderate persistent asthma without complication J45.40 [facility] [address] [facility] [address] [id number], [place] [id number] Oct, [facility] [address] [facility] [address] [id number], [place] [address]16039938 Sep, Bipolar 1 disorder, depressed F31.9 ; Seizure disorder G40.909 ; Moderate persistent asthma without complication J45.40 ; Chronic nausea R11.0 ; Gastroesophageal reflux disease without esophagitis K21.9 and Benign essential hypertension I10 [facility] [address] [facility] [id number], [place] 522607113 Oct, Seizure disorder G40.909 ; Bipolar affective disorder, current episode depressed, current episode severity unspecified F31.30 ; Essential hypertension I10 and Mild intermittent asthma without complication J45.20 [facility] [address] [facility] [address] [id number], [place] [address] Apr, Dental examination V72.2 [facility] [address] [id number] [place] [id number] Mar, Dental examination V72.2 [facility] [place] [address] [facility] [address] [id number] [place], [place] [address] Mar, Dental examination V72.2 [facility] L[facility] [facility] [address] [id number] [place] [address] Nov, Dental examination V72.2 IMMUNIZATIONS No Known Immunizations SOCIAL HISTORY Never Assessed REASON FOR VISIT PLAN OF CARE VITAL SIGNS MEDICATIONS Unknown Medications RESULTS No Results PROCEDURES No Known procedures INSTRUCTIONS MEDICATIONS ADMINISTERED No Known Medications MEDICAL (GENERAL) HISTORY Type Description Date Medical History asthma - mild intermittent ( PFT 10/2016 Normal) Medical History hypertension Medical History seizures- childhood Medical History bipolar disorder- [facility] Medical History GERD Medical History auditory hallucinations- Surgical History hernia repair/ Inguinal ( child) Surgical History EGD- [place] Hospitalization History [facility] for two to three days. 08/2016 Hospitalization History ER for shortness of breath 07/2017 Hospitalization History [facility] 12/2017
--- OUTSIDE RECORDS SUMMARY | 2019-02-27 22:30 | XMS REPORT ---
Author Author SIRENA ABDALLA [facility] [place] Address [address] [place] [address] Care Team Providers Care Milliner Helper Name Role Phone SIRENA ABDALLA Unavailable PROBLEMS Type Condition ICD9-CM Code UYZ02-MA Code Onset Dates Condition Status SNOMED Code Problem Chronic nausea R11.0 Active 350578691 Problem Bipolar 1 disorder, depressed F31.9 Active 25110364 Problem Seizure disorder G40.909 Active 551263400 Problem Moderate persistent asthma without complication J45.40 Active 698970919 Problem Mild intermittent asthma without complication J45.20 Active 599093031 Problem Gastroesophageal reflux disease without esophagitis K21.9 Active 793657021 Problem Daytime sleepiness R40.0 Active 108501509433 Problem Bipolar 1 disorder with moderate south F31.12 Active 34373307 Problem Schizoaffective disorder, bipolar type F25.0 Active 86110038 Problem Benign essential hypertension I10 Active 4362516 Problem Sleep disturbance G47.9 Active 69793540 Problem Auditory hallucination R44.0 Active 55926831 ALLERGIES Substance Reaction Event Type Date Status Trazodone HCl anaphylaxis Drug Allergy Jul, Active Penicillin V Potassium anaphylaxis Drug Allergy Jul, Active ENCOUNTERS Encounter Location Date Diagnosis [facility] [address] [facility] [id number], [place] [address] December, [facility] [address] [id number][place] [address] December, Hospital discharge follow-up Z09 ; Chronic nausea R11.0 ; Abdominal pain, unspecified abdominal location R10.9 and Gastroesophageal reflux disease without esophagitis K21.9 [facility] [address] [facility] [id number], [place] [address] Nov, Walking pneumonia J18.9 [facility] [address] [facility] [id number][place] [id number] Nov, Encounter for dental exam and cleaning w/o abnormal findings Z01.[address] [facility] [address] [address] [id number], [place] [id number] Oct, Dental examination Z01.[address] [facility] [address] [id number], [place] [id number] Sep, [facility] [address]00565100[place], [place] [address] Aug, [facility] [address] [id number], [place] [address] Aug, [facility] [id number] [place] [address] Aug, [facility] [address] [id number], [place] [id number] Aug, Chronic nausea R11.0 [facility] [id number][place] [address] Aug, Chronic nausea R11.[address] [facility] [address] [id number], [place] [id number] Jul, Tachycardia R00.[address] [facility] [address] [id number], [place] [id number] Jul, [facility] [address] [facility] [id number], [place] [address] Jul, [facility] [address] [id number], [place] [address] Jul, Benign essential hypertension I10 ; Sleep disturbance G47.9 ; Snoring R06.83 and Daytime sleepiness R40.[address] [facility] [address] [id number][place] [address] Jul, Dental examination Z01.20 [facility] [address] [id number], [place] [id number] Jul, Encounter for dental exam and cleaning w/o abnormal findings Z01.[address] [facility] [address] [id number], [place] [address] Mar, [facility] [address] [id number], [place] [address] Mar, Bilateral low back pain without sciatica, unspecified chronicity M54.5 and Muscle spasm M62.838 [facility] [address] [id number], [place] [address] Jan, Sleep disturbance G47.9 and Bipolar 1 disorder, depressed F31.9 [facility] [address] [id number], [place] [address] Jan, [facility] [address] [id number], [place] [id number] December, Encounter for dental examination and cleaning without abnormal findings Z01.20 [facility] [address] [id number], [place] [address] December, Dental examination Z01.20 [facility] [address] [id number], [place] [id number] December, Bipolar 1 disorder, depressed F31.9 ; Auditory hallucination R44.0 and Sleep disturbance G47.9 [facility] [address] [id number], [place] [address] December, Bipolar 1 disorder with moderate south F31.12 [facility] [address] [facility] [id number], [place] [address] December, [facility] [id number], [place] [id number] Nov, [facility] [address] [facility] [id number][place] [address] Nov, Acute non-recurrent frontal sinusitis J01.10 [facility] [address] [id number], [place] [id number] Nov, [facility] [address] [id number], [place] [address] Nov, Mild intermittent asthma without complication J45.20 [facility] [address] [id number], [place] [address] Nov, Mild intermittent asthma without complication J45.20 [facility] [address] [address] [id number], [place] [id number] Nov, [facility] [address] [facility] [id number], [place] [address] Nov, Other usp (current) drug therapy Z79.899 and Schizoaffective disorder, bipolar type F25.0 [facility] [address] [id number], [place] [address] Nov, Chronic nausea R11.0 [facility] [id number], [place] [address] Nov, Seizure disorder G40.909 ; Chronic nausea R11.0 ; Gastroesophageal reflux disease without esophagitis K21.9 and Benign essential hypertension I10 [facility] [address] [id number], [place] [address] Oct, Moderate persistent asthma without complication J45.40 [facility]ITAL[facility] [place] [address] [facility] [address] [id number], [place] [address] Oct, [facility] [address] [facility] [address] [id number], [place] [address] Sep, Bipolar 1 disorder, depressed F31.9 ; Seizure disorder G40.909 ; Moderate persistent asthma without complication J45.40 ; Chronic nausea R11.0 ; Gastroesophageal reflux disease without esophagitis K21.9 and Benign essential hypertension I10 [facility] [address] [facility] [id number], [place] [address] Oct, Seizure disorder G40.909 ; Bipolar affective disorder, current episode depressed, current episode severity unspecified F31.30 ; Essential hypertension I10 and Mild intermittent asthma without complication J45.20 [facility] Develop[facility] [address] [id number], [place] [id number] Apr, Dental examination V72.2 [facility] [address] [id number] [place] [address] Mar, Dental examination V72.2 [facility] [place] [address] [facility] [address] [id number] [place] [id number] Mar, Dental examination V72.2 [facility] [place] [address] [facility] [address] [id number] [place] [phone] Nov, Dental examination V72.2 IMMUNIZATIONS No Known Immunizations SOCIAL HISTORY Never Assessed REASON FOR VISIT Hospital f/u, records in chart. Keenan BENDER PLAN OF CARE Activity Details Follow Up prn Reason: VITAL SIGNS Height 68 in 2017-07-25 Weight 178.9 lbs 2017-07-25 Temperature 98.7 degrees Fahrenheit 2017-07-25 Heart Rate 77 bpm 2017-07-25 Respiratory Rate 18 2017-07-25 Oximetry 98 % 2017-07-25 BMI 27.20 kg/m2 2017-07-25 Blood pressure systolic 118 mmHg 2017-07-25 Blood pressure diastolic 70 mmHg 2017-07-25 MEDICATIONS Medication Instructions Dosage Frequency Start Date End Date Duration Status Flovent HFA 110 MCG/ACT Inhalation Twice a day ( rinse mouth after use) Use EVERYDAY 2 puff Nov, Active Zofran 8 MG Orally Once a day 1 tablet 24h Active Ibuprofen 800 MG Orally 2 times a day as needed for pain 1 tablet with food or milk Mar, Active Simvastatin 40 MG Take 1 Tablet (40 mg) by mouth Daily LATE. Active Bentyl 10 mg Orally Four times a day 1 capsule 6h Active Zyrtec Allergy 10 MG Active Lisinopril 20 mg Orally Once a day 1 tablet 24h Active Albuterol Sulfate 1.25 MG/3ML Inhalation every 8 hrs 3 ml as needed 8h Nov, Active Pantoprazole Sodium 40 mg Orally Once a day 1 tablet 24h Active Zocor 10 mg Orally Once a day as needed for nausea 1 tablet Active Albuterol Sulfate HFA 108 (90 Base) MCG/ACT Inhalation 3 times a day 2 puffs as needed 8h Active CompAir Nebulizer - MACHINE AND TUBING Nov, Active Carafate 1 GM Orally Twice a day 1 tablet on an empty stomach 12h Active Keppra 500 mg Orally every 12 hrs 1 tablet 12h Active RESULTS No Results PROCEDURES Procedure Date Ordered Result Body Site SLEEP STUDY (HOSPITAL) 2017-07-25 NOT PERFORMED/SEE INTERNAL NOTES INSTRUCTIONS MEDICATIONS ADMINISTERED No Known Medications MEDICAL (GENERAL) HISTORY Type Description Date Medical History asthma - mild intermittent ( PFT 10/2016 Normal) Medical History hypertension Medical History seizures- childhood Medical History bipolar disorder- [facility] Medical History GERD Medical History auditory hallucinations- Surgical History hernia repair/ Inguinal ( child) Surgical History EGD- 2015 Hospitalization History [facility] for two to three days. 08/2016 Hospitalization History ER for shortness of breath 07/2017 Hospitalization History [place] [facility] 12/2017
[2019-02-27] MEDS ORDERED: ASPIRIN 81 MG CHEW (CHILDREN'S ASA) ONE (22:38)
[2019-02-27] MEDS ORDERED: KETOROLAC 30 MG/ML VIAL ONE (22:38)
--- OUTSIDE RECORDS SUMMARY | 2019-02-27 23:22 | XMS REPORT ---
Author Author SIRENA ABDALLA [facility] [place] Address [address] [place] [address] Care Team Providers Care Horse Race Starter Name Role Phone SIRENA ABDALLA Unavailable PROBLEMS Type Condition ICD9-CM Code ZVV30-GT Code Onset Dates Condition Status SNOMED Code Problem Chronic nausea R11.0 Active 953028152 Problem Bipolar 1 disorder, depressed F31.9 Active 54446106 Problem Seizure disorder G40.909 Active 184791786 Problem Moderate persistent asthma without complication J45.40 Active 291295805 Problem Mild intermittent asthma without complication J45.20 Active 254330410 Problem Gastroesophageal reflux disease without esophagitis K21.9 Active 445809229 Problem Daytime sleepiness R40.0 Active 382460803403 Problem Bipolar 1 disorder with moderate south F31.12 Active 67237424 Problem Schizoaffective disorder, bipolar type F25.0 Active 17550419 Problem Benign essential hypertension I10 Active 8347607 Problem Sleep disturbance G47.9 Active 02410233 Problem Auditory hallucination R44.0 Active 44100019 ALLERGIES No Information ENCOUNTERS Encounter Location Date Diagnosis [facility] [address] [facility] [id number] [place] [id number] Jan, Chronic nausea R11.0 [facility] [address] [facility] [id number] [address] December, [facility] [address] [facility] [address] [id number], [place] [address] December, Hospital discharge follow-up Z09 ; Chronic nausea R11.0 ; Abdominal pain, unspecified abdominal location R10.9 and Gastroesophageal reflux disease without esophagitis K21.9 [facility] [address] [facility] [id number][place] [address] Nov, Walking pneumonia J18.9 [facility] [address]00565100[place] [address] Nov, Encounter for dental exam and cleaning w/o abnormal findings Z01.20 [facility] [address] [address] [id number], [place] [id number] Oct, Dental examination Z01.20 [facility] [address] [address] [id number], [place] [id number] Sep, [facility] [address]00565100[place], [place] [address] Aug, [facility] [address] [id number], [place] [id number] Aug, [facility] [address] [place], [place] [address] [id number] [place] [address] Aug, [facility] [place] [address] [facility] [address] [id number], [place] [id number] Aug, Chronic nausea R11.0 [facility] [id number] [place] [address] Aug, Chronic nausea R11.0 [facility] [address] [address] [id number], [place] [id number] Jul, Tachycardia R00.0 [facility] [address] [id number], [place] [id number] Jul, [facility] [address]00565100[place], [place] [address] Jul, [facility] [place] [address] [id number], [place] [id number] Jul, Benign essential hypertension I10 ; Sleep disturbance G47.9 ; Snoring R06.83 and Daytime sleepiness R40.0 [facility] [address] [address] [id number], [place] [address] Jul, Dental examination Z01.20 [facility] [address] [facility] [id number][place] [id number] Jul, Encounter for dental exam and cleaning w/o abnormal findings Z01.20 [facility] [address] [id number], [place] [address] Mar, [facility] [address] [id number], [place] [id number] Mar, Bilateral low back pain without sciatica, unspecified chronicity M54.5 and Muscle spasm M62.[address] [facility] [address] [id number], [place] [address] Jan, Sleep disturbance G47.9 and Bipolar 1 disorder, depressed F31.9 [facility] [address] [id number], [place] [id number] Jan, [facility] [address] [id number], [place] [address] December, Encounter for dental examination and cleaning without abnormal findings Z01.20 [facility] [address] [id number], [place] [address] December, Dental examination Z01.20 [facility] [address] [id number], [place] [id number] December, Bipolar 1 disorder, depressed F31.9 ; Auditory hallucination R44.0 and Sleep disturbance G47.9 [facility] [address] [id number], [place] [address] December, Bipolar 1 disorder with moderate [address] F31.12 [facility] [address] [facility] [id number], [place] [address] December, [facility] [address] [id number], [place] [address] Nov, [facility] [address] [facility] [id number] [place] [address] Nov, Acute non-recurrent frontal sinusitis J01.10 [facility] [address] [id number], [place] [id number] Nov, [facility] [address] [id number], [place] [address] Nov, Mild intermittent asthma without complication J45.20 [facility] [place] [address] [facility] [address] [id number], [place] [id number] Nov, Mild intermittent asthma without complication J45.20 [facility] [address] [facility] [address] [id number], [place] [id number] Nov, [facility] [address] [facility] [id number] [place], [place] [address] Nov, Other half-way (current) drug therapy Z79.899 and Schizoaffective disorder, bipolar type F25.0 [facility] [place] [address] [facility] [address] [id number], [place] [address] Nov, Chronic nausea R11.0 [facility] [id number] [place] [address] Nov, Seizure disorder G40.909 ; Chronic nausea R11.0 ; Gastroesophageal reflux disease without esophagitis K21.9 and Benign essential hypertension I10 [facility] [address] [id number], [place] [address] Oct, Moderate persistent asthma without complication J45.40 [facility] [address] [facility] [address] [id number], [place] [id number] Oct, [facility] [address] [facility] [address] [id number], [place] [address] Sep, Bipolar 1 disorder, depressed F31.9 ; Seizure disorder G40.909 ; Moderate persistent asthma without complication J45.40 ; Chronic nausea R11.0 ; Gastroesophageal reflux disease without esophagitis K21.9 and Benign essential hypertension I10 [facility] [address] [facility] [id number] [place] [address] Oct, Seizure disorder G40.909 ; Bipolar affective disorder, current episode depressed, current episode severity unspecified F31.30 ; Essential hypertension I10 and Mild intermittent asthma without complication J45.20 [facility] [address] [facility] [address] [id number], [place] [address] Apr, Dental examination V72.2 [facility] [address] [id number] [place] [address] Mar, Dental examination V72.2 [facility] [place] [address] [facility] [address] [id number] [place] [address] Mar, Dental examination V72.2 [facility] L[address] [facility] [id number] [place] [address] Nov, Dental examination V72.2 IMMUNIZATIONS No Known Immunizations SOCIAL HISTORY Never Assessed REASON FOR VISIT holter monitor PLAN OF CARE VITAL SIGNS MEDICATIONS Unknown Medications RESULTS No Results PROCEDURES No Known procedures INSTRUCTIONS MEDICATIONS ADMINISTERED No Known Medications MEDICAL (GENERAL) HISTORY Type Description Date Medical History asthma - mild intermittent ( PFT 10/2016 Normal) Medical History hypertension Medical History seizures- childhood Medical History bipolar disorder- [facility] Medical History GERD Medical History auditory hallucinations- Surgical History hernia repair/ Inguinal ( child) Surgical History EGD- 2015 Hospitalization History [facility] for two to three days. 08/2016 Hospitalization History ER for shortness of breath 07/2017 Hospitalization History [facility] 12/2017
--- OUTSIDE RECORDS SUMMARY | 2019-02-27 23:22 | XMS REPORT ---
Author Author CARLA CM [facility] MARIA GUADALUPE Address [address] [place] [address] Care Team Providers Care Trolley Coach Driver Name Role Phone CARLA CM Unavailable PROBLEMS Type Condition ICD9-CM Code ASK57-QH Code Onset Dates Condition Status SNOMED Code Problem Chronic nausea R11.0 Active 577388974 Problem Bipolar 1 disorder, depressed F31.9 Active 18248454 Problem Seizure disorder G40.909 Active 091678245 Problem Moderate persistent asthma without complication J45.40 Active 433386241 Problem Mild intermittent asthma without complication J45.20 Active 961341666 Problem Gastroesophageal reflux disease without esophagitis K21.9 Active 462412030 Problem Daytime sleepiness R40.0 Active 041885716979 Problem Bipolar 1 disorder with moderate south F31.12 Active 55320790 Problem Schizoaffective disorder, bipolar type F25.0 Active 33261794 Problem Benign essential hypertension I10 Active 9334807 Problem Sleep disturbance G47.9 Active 46386746 Problem Auditory hallucination R44.0 Active 81813663 ALLERGIES No Information ENCOUNTERS Encounter Location Date Diagnosis [facility] [address] [id number] [id number] Jan, Chronic nausea R11.0 [facility] [address]00565100[place] [address] December, [facility] [address] [id number], [place] [id number] December, Hospital discharge follow-up Z09 ; Chronic nausea R11.0 ; Abdominal pain, unspecified abdominal location R10.9 and Gastroesophageal reflux disease without esophagitis K21.9 [facility] [address] [id number] [address] Nov, Walking pneumonia J18.9 [facility] [address] [place] [id number] Nov, Encounter for dental exam and cleaning w/o abnormal findings Z01.[address] [facility] [address] [id number], [place] [id number] Oct, Dental examination Z01.[address] [facility] [address] [id number], [place] [id number] Sep, [facility] [address] [address] Aug, [facility] [address] [id number], [place] [id number] Aug, [facility] MARIA GUADALUPE [address] [id number] [place] [address] Aug, [facility] [address] [id number], [place] [id number] Aug, Chronic nausea R11.0 [facility] [place] [id number], [place] [address] Aug, Chronic nausea R11.[address] [facility] [address] [id number], [place] [address] Jul, Tachycardia R00.0 [facility] [address] [id number], [place] [id number] Jul, [facility] [address] [facility] [id number] [place] [address] Jul, [facility] [address] [id number], [place] [id number] Jul, Benign essential hypertension I10 ; Sleep disturbance G47.9 ; Snoring R06.83 and Daytime sleepiness R40.0 [facility] [address] [id number], [place] [id number] Jul, Dental examination Z01.20 [facility] [address] [id number] LAKE[place] [id number] Jul, Encounter for dental exam and cleaning w/o abnormal findings Z01.[address] [facility] [address] [id number], [place] [id number] Mar, [facility] [address] [id number], [place] [address] Mar, Bilateral low back pain without sciatica, unspecified chronicity M54.5 and Muscle spasm M62.838 [facility] [address] [id number], [place] [id number] Jan, Sleep disturbance G47.9 and Bipolar 1 disorder, depressed F31.9 [facility] [address] [id number], [place] [id number] Jan, [facility] [address] [id number], [place] [id number] December, Encounter for dental examination and cleaning without abnormal findings Z01.20 [facility] [address] [id number], [place] [id number] December, Dental examination Z01.20 [facility] [address] [id number], [place] [id number] December, Bipolar 1 disorder, depressed F31.9 ; Auditory hallucination R44.0 and Sleep disturbance G47.9 [facility] [address] [id number], [place] [id number] December, Bipolar 1 disorder with moderate south F31.12 [facility] [address] [facility] [id number] [place] [address] December, [facility] [address] [id number], [place] [id number] Nov, [facility] [place] [address] [facility] [id number], [place] [id number] Nov, Acute non-recurrent frontal sinusitis J01.10 [facility] [address] [id number], [place] [id number] Nov, [facility] [address] [id number], [place] [id number] Nov, Mild intermittent asthma without complication J45.20 [facility] [address] [id number], [place] [id number] Nov, Mild intermittent asthma without complication J45.20 [facility] [address] [id number], [place] [id number] Nov, [facility] [place] [address] [facility] [id number], [place] [id number] Nov, 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 and Schizoaffective disorder, bipolar type F25.0 [facility] [address] [id number], [place] [id number] Nov, Chronic nausea R11.0 [facility] [place] [id number], [place] [address] Nov, Seizure disorder G40.909 ; Chronic nausea R11.0 ; Gastroesophageal reflux disease without esophagitis K21.9 and Benign essential hypertension I10 [facility] [address] [id number] [address] Oct, Moderate persistent asthma without complication J45.40 [facility] [place] [facility] [address] [id number], [place] [id number] Oct, [facility] renovationsAnabel BOJORQUEZLANDEROS [address] [facility] [address] [id number], [place] [id number] Sep, Bipolar 1 disorder, depressed F31.9 ; Seizure disorder G40.909 ; Moderate persistent asthma without complication J45.40 ; Chronic nausea R11.0 ; Gastroesophageal reflux disease without esophagitis K21.9 and Benign essential hypertension I10 [facility] [place] [address] [facility] [id number], [place] [address] Oct, Seizure disorder G40.909 ; Bipolar affective disorder, current episode depressed, current episode severity unspecified F31.30 ; Essential hypertension I10 and Mild intermittent asthma without complication J45.20 [facility] [address] [id number], [place] [id number] Apr, Dental examination V72.2 [facility] [address] [id number] [place] [id number] Mar, Dental examination V72.2 [address] [facility] [address] [id number] [place] [id number] Mar, Dental examination V72.2 [facility] [address] [facility] [address] [id number] [place] [id number] Nov, Dental examination V72.2 IMMUNIZATIONS No Known Immunizations SOCIAL HISTORY Never Assessed REASON FOR VISIT PLAN OF CARE VITAL SIGNS MEDICATIONS Unknown Medications RESULTS No Results PROCEDURES No Known procedures INSTRUCTIONS MEDICATIONS ADMINISTERED No Known Medications MEDICAL (GENERAL) HISTORY Type Description Date Medical History asthma - mild intermittent ( PFT 10/2016 Normal) Medical History hypertension Medical History seizures- childhood Medical History bipolar disorder- [facility] Medical History GERD Medical History auditory hallucinations- Surgical History hernia repair/ Inguinal ( child) Surgical History EGD- 2015 Hospitalization History [facility] for two to three days. 08/2016 Hospitalization History ER for shortness of breath 07/2017 Hospitalization History [facility] 12/2017
--- OUTSIDE RECORDS SUMMARY | 2019-02-27 23:23 | XMS REPORT ---
Author Author LUISA BURCIAGA [facility] Address [address] [place] [address] Care Team Providers Care Reserve Operator Name Role Phone LUISA BURCIAGA Unavailable PROBLEMS Type Condition ICD9-CM Code HHR05-HV Code Onset Dates Condition Status SNOMED Code Problem Chronic nausea R11.0 Active 914940935 Problem Bipolar 1 disorder, depressed F31.9 Active 99044795 Problem Seizure disorder G40.909 Active 013253170 Problem Moderate persistent asthma without complication J45.40 Active 854891623 Problem Mild intermittent asthma without complication J45.20 Active 772270291 Problem Gastroesophageal reflux disease without esophagitis K21.9 Active 483308188 Problem Daytime sleepiness R40.0 Active 790840236058 Problem Bipolar 1 disorder with moderate south F31.12 Active 66053431 Problem Schizoaffective disorder, bipolar type F25.0 Active 13152424 Problem Benign essential hypertension I10 Active 0386579 Problem Sleep disturbance G47.9 Active 90885984 Problem Auditory hallucination R44.0 Active 25486442 ALLERGIES Substance Reaction Event Type Date Status Trazodone HCl anaphylaxis Drug Allergy Aug, Active Penicillin V Potassium anaphylaxis Drug Allergy Aug, Active ENCOUNTERS Encounter Location Date Diagnosis [facility] [address] [facility] [id number] [id number] Jan, Chronic nausea R11.0 [facility] [address] [facility] [id number] [place] [address] December, [facility] [address] [id number], [place] [address] December, Hospital discharge follow-up Z09 ; Chronic nausea R11.0 ; Abdominal pain, unspecified abdominal location R10.9 and Gastroesophageal reflux disease without esophagitis K21.9 [facility] [address] [facility] [id number] [place] [address] Nov, Walking pneumonia J18.9 [facility] [address] [facility] [id number] [place] [id number] 10 Nov, 2017 Encounter for dental exam and cleaning w/o abnormal findings Z01.[address] [facility] [address] [id number], [place] [id number] 27 Oct, 2017 Dental examination Z01.20 [facility] [address] [id number], [place] [id number] 07 Sep, 2017 [facility] [address]00565100[place] [address] Aug, [facility] [address] [id number], [place] [id number] Aug, [facility] [address] [id number] [place] [address] Aug, [facility] [address] [id number], [place] [id number] Aug, Chronic nausea R11.0 [facility] [place] [address]00565100[place], [place] [id number] Aug, Chronic nausea R11.0 [facility] [address] [id number], [place] [address] Jul, Tachycardia R00.0 [facility] [address] [id number], [place] [id number] Jul, [facility] [address]00565100[place] [address] Jul, [facility] [address] [id number], [place] [id number] Jul, Benign essential hypertension I10 ; Sleep disturbance G47.9 ; Snoring R06.83 and Daytime sleepiness R40.0 [facility] [address] [id number], [place] [id number] 05 Jul, 2017 Dental examination Z01.20 [facility] [address] [id number] [place] [id number] Jul, Encounter for dental exam and cleaning w/o abnormal findings Z01.20 [facility] [address] [id number], [place] [id number] Mar, [facility] [address] [id number], [place] [address] Mar, Bilateral low back pain without sciatica, unspecified chronicity M54.5 and Muscle spasm M62.[address] [facility] [address] [id number], [place] [id number] Jan, Sleep disturbance G47.9 and Bipolar 1 disorder, depressed F31.9 [facility] [address] [id number], [place] [address] Jan, [facility] [address] [id number], [place] [id number] December, Encounter for dental examination and cleaning without abnormal findings Z01.20 [facility] [address] [id number], [place] [address] December, Dental examination Z01.20 [facility] [address] [id number], [place] [address] December, Bipolar 1 disorder, depressed F31.9 ; Auditory hallucination R44.0 and Sleep disturbance G47.9 [facility] [address] [id number], [place] [id number] December, Bipolar 1 disorder with moderate south F31.[address] [facility] [address] [facility] [id number] [place] [address] December, [facility] [address] [id number], [place] [id number] Nov, [facility] [place] [address] [facility] [id number], [place] [id number] Nov, Acute non-recurrent frontal sinusitis J01.10 [facility] [address] [id number], [place] [id number] Nov, [facility] [address] [id number], [place] [address] Nov, Mild intermittent asthma without complication J45.20 [facility] [address] [id number], [place] [id number] Nov, Mild intermittent asthma without complication J45.20 [facility] [address] [facility] [address] [id number], [place] [address] Nov, [facility] [place] [id number], [place] [id number] Nov, Other long-term (current) drug therapy Z79.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 [address] [facility] [address] [id number], [place] [address] Nov, Chronic nausea R11.0 [facility] [address] [place] [address] Nov, Seizure disorder G40.909 ; Chronic nausea R11.0 ; Gastroesophageal reflux disease without esophagitis K21.9 and Benign essential hypertension I10 [facility] [address] [id number] [address] Oct, Moderate persistent asthma without complication J45.40 [facility] [address] [facility] [address] [id number], [place] [id number] Oct, [facility] Lara0 [facility] [id number], [place] [id number] Sep, Bipolar 1 disorder, depressed F31.9 ; Seizure disorder G40.909 ; Moderate persistent asthma without complication J45.40 ; Chronic nausea R11.0 ; Gastroesophageal reflux disease without esophagitis K21.9 and Benign essential hypertension I10 [facility] [address] [place] [id number] Oct, Seizure disorder G40.909 ; Bipolar affective disorder, current episode depressed, current episode severity unspecified F31.30 ; Essential hypertension I10 and Mild intermittent asthma without complication J45.20 [facility] [address] [id number], [place] [id number] Apr, Dental examination V72.2 [facility] [address] [facility] [address] [id number] [place] [id number] Mar, Dental examination V72.2 [facility] [address] [facility] [address] [id number] [place], [place] [id number] Mar, Dental examination V72.2 [facility] [address] [facility] [address] [id number] [place], [place] [phone] Nov, Dental examination V72.2 IMMUNIZATIONS No Known Immunizations SOCIAL HISTORY Never Assessed REASON FOR VISIT States he does not feel good x months. When he eats or drinks anything, he will vomit. States he has not discussed with Sandra. margret Thompson PLAN OF CARE Activity Details Follow Up kely Flores Reason:n/v VITAL SIGNS Height 68 in 2017-08-16 Weight 182.4 lbs 2017-08-16 Temperature 98.2 degrees Fahrenheit 2017-08-16 Heart Rate 112 bpm 2017-08-16 Respiratory Rate 16 2017-08-16 BMI 27.73 kg/m2 2017-08-16 Blood pressure systolic 114 mmHg 2017-08-16 Blood pressure diastolic 72 mmHg 2017-08-16 MEDICATIONS Medication Instructions Dosage Frequency Start Date End Date Duration Status Zyrtec Allergy 10 MG Active CompAir Nebulizer - MACHINE AND TUBING Nov, Active Albuterol Sulfate HFA 108 (90 Base) [...] food or milk Mar, Active Albuterol Sulfate 1.25 MG/3ML Inhalation every 8 hrs 3 ml as needed 8h Nov, Active Carafate 1 GM Orally Twice a day 1 tablet on an empty stomach 12h Active Simvastatin 40 MG Take 1 Tablet (40 mg) by mouth Daily LATE. Active Bentyl 20 mg Orally Four times a day 1 capsule 6h Active Keppra 500 mg Orally every 12 hrs 1 tablet 12h Active Pantoprazole Sodium 40 mg Orally Once a day 1 tablet 24h Active Latuda 80 MG TAKE ONE (1) TABLET BY MOUTH DAILY WITH FOOD. Active Zofran 8 MG Orally Once a day must last 1 m 1 tablet Active RESULTS No Results PROCEDURES No Known procedures INSTRUCTIONS MEDICATIONS ADMINISTERED No Known Medications MEDICAL (GENERAL) HISTORY Type Description Date Medical History asthma - mild intermittent ( PFT 10/2016 Normal) Medical History hypertension Medical History seizures- childhood Medical History bipolar disorder- [facility] Medical History GERD Medical History auditory hallucinations- Surgical History hernia repair/ Inguinal ( child) Surgical History EGD- 2015 Hospitalization History [facility] for two to three days. 08/2016 Hospitalization History ER for shortness of breath 07/2017 Hospitalization History [facility] 12/2017
--- OUTSIDE RECORDS SUMMARY | 2019-02-27 23:24 | XMS REPORT | Continuity of Care Document ---
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 [facility] [place] [id number] 01/08/2019 11:20:00 01/08/2019 23:59:59 CLS Outpatient AZIZA PAN [facility] [id number] 06/01/2018 15:00:00 Document Registration
[2019-02-27] MEDS ORDERED: MELO15TA14 PO (23:54)
--- NOTE | 2019-02-27 23:54 | ED Chest Pain ---
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 STATES PAIN IS IN CENTER OF CHEST, DOES NOT RADIATE STATES PAIN IS WORSE IF HE IS MOVING AROUND HAS NOT TAKEN ANYTHING FOR PAIN NO SHORTNESS OF BREATH NO SWEATS NO NAUSEA/VOMITING NO PALPITATIONS NO DIZZINESS OR SYNCOPE NO COUGH OR RECENT ILLNESS PT HAS HISTORY OF SEIZURES, BUT HAS NOT HAD A SEIZURE RECENTLY NO INJURY OR UNUSUAL ACTIVITY. PCP: SIVANCARRABELLE PSYCH: [facility] Allergies and Home Medications Allergies Coded Allergies: lurasidone (Verified Allergy, Mild, 07/29/17) nicotine (Verified Allergy, Mild, 07/29/17) trazodone (Verified Allergy, Mild, 07/29/17) Penicillins (Unverified Adverse Reaction, Unknown, 10/12/17) Home Medications Albuterol Sulfate 1.25 Mg/3 Ml Vial.neb, 1 INH INH UD, (Reported) Albuterol Sulfate 1 Puff Puff, 2 PUFF IH Q4H PRN for WHEEZING 1 PUFF = 90 MCG Prescribed by: ESTHER PARRISH on 11/26/172241 Benzonatate 200 Mg Capsule, 200 MG PO Q8H PRN for COUGH Prescribed by: ESTHER PARRISH on 11/26/172241 Ciprofloxacin HCl 500 Mg Tablet, 500 MG PO BID Prescribed by: ESTHER PARRISH on 11/26/172241 Divalproex Sodium 250 Mg Tab.er.24h, 1 TAB PO UD, (Reported) Fluticasone Propionate 1 Ea Aero, 1 INH INH UD, (Reported) Levetiracetam 500 Mg Tablet, 1 TAB PO BID, (Reported) Lisinopril 20 Mg Tablet, 1 TAB PO UD, (Reported) Meloxicam 15 Mg Tablet, 15 MG PO DAILY Prescribed by: ROBIN THAKUR on 02/27/19 2354 Methocarbamol 500 Mg Tablet, 500 MG PO QID Prescribed by: ROBIN THAKUR on 10/12/17 0520 Methylprednisolone 4 Mg Tab.ds.pk, 4 MG PO UD Prescribed by: ROBIN THAKUR on 10/12/17 0520 Omeprazole 20 Mg Capsule.dr, 20 MG PO DAILY Prescribed by: HESHAM CABRERA on 05/19/17 0014 Pantoprazole Sodium 40 Mg Tablet.dr, 1 TAB PO UD, (Reported) Prednisone 20 Mg Tab, 40 MG PO DAILY Prescribed by: ESTHER PARRISH on 11/26/17 2242 Simvastatin 40 Mg Tablet, 1 TAB PO UD, (Reported) Sucralfate 1 Gm Tablet, 1 TAB PO BID, (Reported) Patient Home Medication List Home Medication List Reviewed: Yes Review of Systems Review of Systems Constitutional: no symptoms reported Respiratory: No Symptoms Reported Cardiovascular: See HPI, Chest Pain Gastrointestinal: No Symptoms Reported Genitourinary: No Symptoms Reported Musculoskeletal: no symptoms reported Skin: no symptoms reported Psychiatric/Neurological: See HPI Endocrine: No Symptoms Reported Hematologic/Lymphatic: No Symptoms Reported Past Emjqqxy-Ivhvhm-Iluprn Hx Patient Social History Alcohol Use: Past History (HEAVY USE--STATES HE QUIT 2 YEARS AGO, PER PT 02/27/19) Recreational Drug Use: No Smoking Status: Former Smoker (1/2 PPD, QUIT 2 YEARS AGO, PER PT ON 02/27/19) Type Used: Cigarettes 2nd Hand Smoke Exposure: Yes Recent Foreign Travel: No Contact w/Someone Who Travel: No Recent Hopitalizations: No Immunizations Up To Date Tetanus Booster (TDap): Less than 5yrs Date of Influenza Vaccine: Jun 07, 2017 Seasonal Allergies Seasonal Allergies: No Past Medical History Surgeries: Yes (HERNIA REPAIR; LEFT FOOT FX/ORIF) Abdominal, Orthopedic Respiratory: Yes Asthma Cardiac: Yes ("FAST HEART BEAT" ) High Cholesterol, Hypertension, Irregular Heartbeat, Palpitations Neurological: Yes Seizure Disorder Reproductive Disorders: No Genitourinary: No Gastrointestinal: Yes Gastroesophageal Reflux, Hiatal Hernia Musculoskeletal: Yes (RIGHT FOOT FX/ORIF) Fractures Endocrine: No HEENT: No Cancer: No Psychosocial: Yes Bipolar Integumentary: No Blood Disorders: No Family Medical History No Pertinent Family Hx Physical Exam Vital Signs Vital Signs - First Documented 02/27/19 02/27/19 22:28 23:58 Temp 98.3 Pulse 98 Resp 18 B/P (MAP) 139/92 (108) Pulse Ox 100 O2 Delivery Room Air Capillary Refill : Height, Weight, BMI Height: 5'11.00" Weight: 186lbs. oz. 84.793462uj; BMI Method:Stated General Appearance: No Apparent Distress, WD/WN, Other (VERY FLAT AFFECT. DOES NOT APPEAR TO BE IN ANY DISCOMFORT OR DISTRESS) Neck: Full Range of Motion, Normal Inspection, Non Tender, Supple Respiratory: Normal Breath Sounds, No Accessory Muscle Use, No Respiratory Distress, Other (DIFFUSE ANTERIOR CHEST TENDERNESS, ESPECIALLY MID STERNAL AND PARASTERNAL AREA--PALPATION DRAMATICALLY REPRODUCES PAIN ) Cardiovascular: Regular Rate, Rhythm, No Edema, No JVD, No Murmur, Normal Peripheral Pulses Gastrointestinal: Normal Bowel Sounds, No Organomegaly, No Pulsatile Mass, Non Tender, Soft Extremity: Normal Capillary Refill, Normal Inspection, Normal Range of Motion, Non Tender, No Calf Tenderness, No Pedal Edema Neurologic/Psychiatric: Alert, Oriented x3, No Motor/Sensory Deficits, client architect II- XII Norm as Tested Skin: Normal Color, Warm/Dry; No Rash Progress/Results/Core Measures Results/Orders Lab Results Laboratory Tests Test 02/27/19 22:45 Range/Units White Blood Count 7.6 4.3-11.0 10^3/uL Red Blood Count 4.69 4.35-5.85 10^6/uL Hemoglobin 12.9 L 13.3-17.7 G/DL Hematocrit 39 L 40-54 % Mean Corpuscular Volume 82 80-99 FL Mean Corpuscular Hemoglobin 28 25-34 PG Mean Corpuscular Hemoglobin Concent 34 32-36 G/DL Red Cell Distribution Width 14.6 H 10.0-14.5 % Platelet Count 321 130-400 10^3/uL Mean Platelet Volume 8.7 7.4-10.4 FL Neutrophils (%) (Auto) 41 L 42-75 % Lymphocytes (%) (Auto) 41 12-44 % Monocytes (%) (Auto) 12 0-12 % Eosinophils (%) (Auto) 6 0-10 % Basophils (%) (Auto) 1 0-10 % Neutrophils # (Auto) 3.1 1.8-7.8 X 10^3 Lymphocytes # (Auto) 3.1 1.0-4.0 X 10^3 Monocytes # (Auto) 0.9 0.0-1.0 X 10^3 Eosinophils # (Auto) 0.5 H 0.0-0.3 10^3/uL Basophils # (Auto) 0.1 0.0-0.1 10^3/uL Prothrombin Time 12.3 12.2-14.7 SEC INR Comment 0.9 0.8-1.4 Activated Partial Thromboplast Time 33 24-35 SEC Sodium Level 138 135-145 MMOL/L Potassium Level 3.7 3.6-5.0 MMOL/L Chloride Level 102 98-107 MMOL/L Carbon Dioxide Level 22 21-32 MMOL/L Anion Gap 14 5-14 MMOL/L Blood Urea Nitrogen 15 7-18 MG/DL Creatinine 1.19 0.60-1.30 MG/DL Estimat Glomerular Filtration Rate > 60 BUN/Creatinine Ratio 13 Glucose Level 84 70-105 MG/DL Calcium Level 9.7 8.5-10.1 MG/DL Corrected Calcium 9.3 8.5-10.1 MG/DL Total Bilirubin 0.2 0.1-1.0 MG/DL Aspartate Amino Transf (AST/SGOT) 24 5-34 U/L Alanine Aminotransferase (ALT/SGPT) 33 0-55 U/L Alkaline Phosphatase 71 40-136 U/L Troponin I < 0.028 <0.028 NG/ML B-Type Natriuretic Peptide < 10.0 <100.0 PG/ML Total Protein 7.7 6.4-8.2 GM/DL Albumin 4.5 3.2-4.5 GM/DL Serum Alcohol < 10 <10 MG/DL My Orders Orders - MARLEN THAKURA Anabel DO Ketorolac Injection (Toradol Injection) (02/27/19 22:38) Aspirin Chewable Tablet (Baby Aspirin Ch (02/27/19 22:38) Chest 1 View, Ap/Pa Only (02/27/19 22:40) Cbc With Automated Diff (02/27/19 22:45) Alcohol (02/27/19 22:45) Comprehensive Metabolic Panel (02/27/19 22:45) Troponin I (02/27/19 22:45) BNP (02/27/19 22:45) Protime With Inr (02/27/19 22:45) Partial Thromboplastin Time (02/27/19 22:45) Medications Given in ED Current Medications Medications Dose Ordered Sig/Nadine Route Start Time Stop Time Status Last Admin Dose Admin Aspirin 81 mg STK-MED ONCE .ROUTE 02/27/19 22:38 02/27/19 23:22 DC 02/27/19 22:47 81 MG Ketorolac Tromethamine 30 mg STK-MED ONCE .ROUTE 02/27/19 22:38 02/27/19 23:22 DC 02/27/19 22:47 30 MG Vital Signs/I&O 02/27/19 02/27/19 02/27/19 22:28 22:28 23:58 Temp 98.3 98.3 Pulse 98 94 Resp 18 18 B/P (MAP) 139/92 (108) 118/87 (97) Pulse Ox 100 O2 Delivery Room Air Room Air Progress Progress Note : Progress Note PAIN EASED WITH TORADOL UNEVENTFUL ER STAY Initial ECG Impression Date: Feb 27, 2019 Initial ECG Impression Time: 22:29 Initial ECG Rate: 98 Initial ECG Rhythm: Normal Sinus Diagnostic Imaging Comments CXR--NO ACUTE PROCESS, PENDING RADIOLOGIST REVIEW Reviewed: Reviewed by Me Departure Impression Primary Impression: Chest wall pain Disposition: 01 HOME, SELF-CARE Condition: Improved Departure-Patient Inst. Referrals: [facility] (PCP/Family) Primary Care Physician Patient Instructions: Costochondritis (DC), Chest Pain (DC), Chest Pain That Is Not Caused by the Heart (DC) Add. Discharge Instructions: HOME, REST TAKE YOUR REGULAR MEDICATIONS PRESCRIBED FOLLOW UP WITH YOUR DR IN 1-2 DAYS FOR FURTHER CARE, RETURN TO ER IF WORSE Scripts Meloxicam (Mobic) 15 Mg Tablet 15 MG PO DAILY, #10 TAB Prov: ROBIN THAKUR DO 02/27/19 ROBIN THAKUR DO Feb 27, 2019 23:54
[2019-02-27 23:58] VITALS: BP 118/87
[2019-02-28 00:21] LABS: BASOPHILS # (AUTO) 0.1 10^3/uL (0.0-0.1); BASOPHILS % (AUTO) 1 % (0-10); EOSINOPHILS # (AUTO) 0.5 10^3/uL (0.0-0.3); EOSINOPHILS % (AUTO) 6 % (0-10); HEMATOCRIT 39 % (40-54); HEMOGLOBIN 12.9 G/DL (13.3-17.7); LYMPHOCYTES # (AUTO) 3.1 X 10^3 (1.0-4.0); LYMPHOCYTES % (AUTO) 41 % (12-44); MEAN CORPUSCULAR HEMOGLOBIN 28 PG (25-34); MEAN CORPUSCULAR HGB CONC 34 G/DL (32-36); MEAN CORPUSCULAR VOLUME 82 FL (80-99); MEAN PLATELET VOLUME 8.7 FL (7.4-10.4); MONOCYTES # (AUTO) 0.9 X 10^3 (0.0-1.0); MONOCYTES % (AUTO) 12 % (0-12); NEUTROPHILS # (AUTO) 3.1 X 10^3 (1.8-7.8); NEUTROPHILS % (AUTO) 41 % (42-75); PLATELET COUNT 321 10^3/uL (130-400); RED CELL DISTRIBUTION WIDTH 14.6 % (10.0-14.5); WHITE BLOOD COUNT 7.6 10^3/uL (4.3-11.0)
[2019-02-28 00:22] LABS: ALANINE AMINOTRANSFERASE 33 U/L (0-55); ALBUMIN 4.5 GM/DL (3.2-4.5); ALKALINE PHOSPHATASE 71 U/L (40-136); BILIRUBIN,TOTAL 0.2 MG/DL (0.1-1.0); BUN/CREATININE RATIO 13; CALCIUM 9.7 MG/DL (8.5-10.1); CARBON DIOXIDE 22 MMOL/L (21-32); CHLORIDE 102 MMOL/L (98-107); CREATININE SERUM 1.19 MG/DL (0.60-1.30); GFR ESTIMATED > 60; GLUCOSE 84 MG/DL (70-105); INR 0.9 (0.8-1.4); POTASSIUM 3.7 MMOL/L (3.6-5.0); PROTHROMBIN TIME PATIENT 12.3 SEC (12.2-14.7); SODIUM 138 MMOL/L (135-145); TOTAL PROTEIN 7.7 GM/DL (6.4-8.2)
--- NOTE | 2019-02-28 06:57 | Diagnostic Imaging Report ---
INDICATION: Chest pain. COMPARISON: 11/26/2017. TECHNIQUE: Single radiograph of the chest dated 02/27/2019. FINDINGS: The cardiac silhouette and pulmonary vasculature are within normal limits. Mildly low lung volumes without focal pulmonary opacity. No pleural effusion. No pneumothorax. Small hiatal hernia. No acute osseous abnormality. IMPRESSION: Small hiatal hernia. Otherwise, unremarkable. Dictated by: Dictated on workstation # [id number]
== END 2019-02-27 23:58 | disposition home or self-care (01) ==
LOC: EDUNIT# 22:20 → ER 22:21
DX: R07.89 Other chest pain (principal); J45.909 Unspecified asthma, uncomplicated; I10 Essential (primary) hypertension; E78.00 Pure hypercholesterolemia, unspecified; G40.909 Epilepsy, unspecified, not intractable, without status epilepticus; K21.9 Gastro-esophageal reflux disease without esophagitis; F31.9 Bipolar disorder, unspecified; Z87.891 Personal history of nicotine dependence; Z88.8 Allergy status to other drugs, medicaments and biological substances; Z88.0 Allergy status to penicillin; Z79.51 Long term (current) use of inhaled steroids; Z79.52 Long term (current) use of systemic steroids
CPT/HCPCS: 36415; 71045; 80053; 80320; 83880; 84484; 85025; 85610; 85730; 93005; 96372

== ENCOUNTER 2019-09-15 20:50 | Emergency (ER) | payer MEDICAID ==
[~2019-09-15] VITALS: Ht 167 cm; Wt 102.4 kg
[~2019-09-15 20:50] MED LIST changes: +MELO15TA14 PO; +OMEP-280 PO; -OMEP20CA12 PO; +SIMV40TA25 PO; -SIMV40TA4 PO
[2019-09-15] MEDS ORDERED: PANTOPRAZOLE 40 MG (PROTONIX) VIAL IV ONE (21:30)
[2019-09-15 21:32] LABS: BASOPHILS # (AUTO) 0.1 10^3/uL (0.0-0.1); BASOPHILS % (AUTO) 1 % (0-10); EOSINOPHILS # (AUTO) 0.4 10^3/uL (0.0-0.3); EOSINOPHILS % (AUTO) 5 % (0-10); HEMATOCRIT 30 % (40-54); HEMOGLOBIN 9.4 G/DL (13.3-17.7); LYMPHOCYTES # (AUTO) 2.8 X 10^3 (1.0-4.0); LYMPHOCYTES % (AUTO) 36 % (12-44); MEAN CORPUSCULAR HEMOGLOBIN 24 PG (25-34); MEAN CORPUSCULAR HGB CONC 31 G/DL (32-36); MEAN CORPUSCULAR VOLUME 78 FL (80-99); MEAN PLATELET VOLUME 8.7 FL (7.4-10.4); MONOCYTES # (AUTO) 0.9 X 10^3 (0.0-1.0); MONOCYTES % (AUTO) 11 % (0-12); NEUTROPHILS # (AUTO) 3.7 X 10^3 (1.8-7.8); NEUTROPHILS % (AUTO) 47 % (42-75); PLATELET COUNT 422 10^3/uL (130-400); RED CELL DISTRIBUTION WIDTH 15.8 % (10.0-14.5); WHITE BLOOD COUNT 7.9 10^3/uL (4.3-11.0)
--- NOTE | 2019-09-15 21:35 | ED General ---
General Chief Complaint: General Problems/Pain Stated Complaint: WEAK Source of Information: Patient Exam Limitations: No Limitations History of Present Illness Date Seen by Provider: Sep 15, 2019 Time Seen by Provider: 21:33 Initial Comments To ER with reports of general weakness. He has a history of vomiting blood, reports this is related to a hiatal hernia for which she is being seen at [facility] in [place] by haul truck driver Dr. Shannon and has planned for hiatal hernia repair surgically in October. His last hemoglobin was 7.4 he states. He's been feeling weak for the past couple of days. Timing/Duration: 2-3 Days Severity: Moderate Associated Systoms: Nausea/Vomiting Allergies and Home Medications Allergies Coded Allergies: lurasidone (Verified Allergy, Mild, 07/29/17) nicotine (Verified Allergy, Mild, 07/29/17) trazodone (Verified Allergy, Mild, 07/29/17) Penicillins (Unverified Adverse Reaction, Unknown, 10/12/17) Home Medications Albuterol Sulfate 1.25 Mg/3 Ml Vial.neb, 1 INH INH UD, (Reported) Albuterol Sulfate 1 Puff Puff, 2 PUFF IH Q4H PRN for WHEEZING 1 PUFF = 90 MCG Prescribed by: ESTHER PARRISH on 11/26/172241 Benzonatate 200 Mg Capsule, 200 MG PO Q8H PRN for COUGH Prescribed by: ESTHER PARRISH on 11/26/172241 Ciprofloxacin HCl 500 Mg Tablet, 500 MG PO BID Prescribed by: ESTHER PARRISH on 11/26/172241 Divalproex Sodium 250 Mg Tab.er.24h, 1 TAB PO UD, (Reported) Fluticasone Propionate 1 Ea Aero, 1 INH INH UD, (Reported) Levetiracetam 500 Mg Tablet, 1 TAB PO BID, (Reported) Lisinopril 20 Mg Tablet, 1 TAB PO UD, (Reported) Meloxicam 15 Mg Tablet, 15 MG PO DAILY Prescribed by: ROBIN THAKUR on 02/27/194 Methocarbamol 500 Mg Tablet, 500 MG PO QID Prescribed by: ROBIN THAKUR on 10/12/17 0520 Methylprednisolone 4 Mg Tab.ds.pk, 4 MG PO UD Prescribed by: ROBIN THAKUR on 10/12/17 0520 Omeprazole 20 Mg Capsule.dr, 20 MG PO DAILY Prescribed by: HESHAM CABRERA on 05/19/17 0014 Pantoprazole Sodium 40 Mg Tablet., 1 TAB PO UD, (Reported) Prednisone 20 Mg Tab, 40 MG PO DAILY Prescribed by: ESTHER PARRISH on 11/26/17 2242 Simvastatin 40 Mg Tablet, 1 TAB PO UD, (Reported) Sucralfate 1 Gm Tablet, 1 TAB PO BID, (Reported) Patient Home Medication List Home Medication List Reviewed: Yes Review of Systems Review of Systems Constitutional: see HPI EENTM: see HPI Respiratory: no symptoms reported Cardiovascular: no symptoms reported Genitourinary: no symptoms reported Musculoskeletal: no symptoms reported Skin: no symptoms reported Psychiatric/Neurological: No Symptoms Reported Past Hpwoowb-Sivqxr-Bnxfcx Hx Patient Social History Type Used: Cigarettes 2nd Hand Smoke Exposure: Yes Recent Foreign Travel: No Contact w/Someone Who Travel: No Recent Hopitalizations: No Immunizations Up To Date Tetanus Booster (TDap): Less than 5yrs Date of Influenza Vaccine: Jun 07, 2017 Seasonal Allergies Seasonal Allergies: No Past Medical History Surgeries: Yes (HERNIA REPAIR; LEFT FOOT FX/ORIF) Abdominal, Orthopedic Respiratory: Yes Asthma Cardiac: Yes ("FAST HEART BEAT" ) High Cholesterol, Hypertension, Irregular Heartbeat, Palpitations Neurological: Yes Seizure Disorder Reproductive Disorders: No Genitourinary: No Gastrointestinal: Yes Gastroesophageal Reflux, Hiatal Hernia Musculoskeletal: Yes (RIGHT FOOT FX/ORIF) Fractures Endocrine: No HEENT: No Cancer: No Psychosocial: Yes Bipolar Integumentary: No Blood Disorders: No Family Medical History No Pertinent Family Hx Physical Exam Vital Signs Vital Signs - First Documented 09/15/19 09/15/19 21:10 22:34 Temp 37.1 Pulse 111 Resp 20 B/P (MAP) 130/108 (115) Pulse Ox 100 O2 Delivery Room Air Capillary Refill : Height, Weight, BMI Height: 5'11.00" Weight: 186lbs. oz. 84.875698sr; BMI Method:Stated General Appearance: No Apparent Distress, WD/WN Eyes: Bilateral Eye Normal Inspection, Bilateral Eye PERRL, Bilateral Eye EOMI HEENT: PERRL/EOMI, TMs Normal Neck: Full Range of Motion, Normal Inspection Respiratory: No Accessory Muscle Use, No Respiratory Distress Gastrointestinal: Non Tender, Soft Extremity: Normal Capillary Refill, Normal Inspection Neurologic/Psychiatric: Alert, Oriented x3 Skin: Normal Color, Warm/Dry Progress/Results/Core Measures Suspected Sepsis SIRS Temperature: Pulse: Respiratory Rate: Laboratory Tests 09/15/19 21:17: White Blood Count 7.9 Blood Pressure / Mean: Laboratory Tests 09/15/19 21:17: Creatinine 1.22, INR Comment 0.9, Platelet Count 422H, Total Bilirubin 0.2 Results/Orders Lab Results Laboratory Tests Test 09/15/19 21:17 Range/Units White Blood Count 7.9 4.3-11.0 10^3/uL Red Blood Count 3.90 L 4.35-5.85 10^6/uL Hemoglobin 9.4 L 13.3-17.7 G/DL Hematocrit 30 L 40-54 % Mean Corpuscular Volume 78 L 80-99 FL Mean Corpuscular Hemoglobin 24 L 25-34 PG Mean Corpuscular Hemoglobin Concent 31 L 32-36 G/DL Red Cell Distribution Width 15.8 H 10.0-14.5 % Platelet Count 422 H 130-400 10^3/uL Mean Platelet Volume 8.7 7.4-10.4 FL Neutrophils (%) (Auto) 47 42-75 % Lymphocytes (%) (Auto) 36 12-44 % Monocytes (%) (Auto) 11 0-12 % Eosinophils (%) (Auto) 5 0-10 % Basophils (%) (Auto) 1 0-10 % Neutrophils # (Auto) 3.7 1.8-7.8 X 10^3 Lymphocytes # (Auto) 2.8 1.0-4.0 X 10^3 Monocytes # (Auto) 0.9 0.0-1.0 X 10^3 Eosinophils # (Auto) 0.4 H 0.0-0.3 10^3/uL Basophils # (Auto) 0.1 0.0-0.1 10^3/uL Prothrombin Time 13.0 12.2-14.7 SEC INR Comment 0.9 0.8-1.4 Sodium Level 143 135-145 MMOL/L Potassium Level 3.5 L 3.6-5.0 MMOL/L Chloride Level 110 H 98-107 MMOL/L Carbon Dioxide Level 20 L 21-32 MMOL/L Anion Gap 13 5-14 MMOL/L Blood Urea Nitrogen 14 7-18 MG/DL Creatinine 1.22 0.60-1.30 MG/DL Estimat Glomerular Filtration Rate > 60 BUN/Creatinine Ratio 11 Glucose Level 99 70-105 MG/DL Calcium Level 9.8 8.5-10.1 MG/DL Corrected Calcium 8.5-10.1 MG/DL Total Bilirubin 0.2 0.1-1.0 MG/DL Aspartate Amino Transf (AST/SGOT) 21 5-34 U/L Alanine Aminotransferase (ALT/SGPT) 29 0-55 U/L Alkaline Phosphatase 86 40-136 U/L Total Protein 7.8 6.4-8.2 GM/DL Albumin 4.9 H 3.2-4.5 GM/DL My Orders Orders - JOSE ALFREDO CAVANAUGH APRN Red Cells Leukocytes Reduced (09/15/19 21:18) Cbc With Automated Diff (09/15/19 21:18) Comprehensive Metabolic Panel (09/15/19 21:18) Protime With Inr (09/15/19 21:18) Ed Iv/Invasive Line Start (09/15/19 21:18) Ed Iv/Invasive Line Start (09/15/19 21:18) Pantoprazole Injection (Protonix Injecti (09/15/19 21:30) Type And Screen (09/15/19 21:18) Medications Given in ED Vital Signs/I&O Capillary Refill : Departure Communication (Admissions) 2222-he states that he doesn't think he can P Yohannes. He P before he got here. He's been eating and drinking just fine, denies any dysuria symptoms such as b urning with urination or urinary frequency. Impression Primary Impression: Fatigue Qualified Codes: R53.83 - Other fatigue Additional Impression: Weakness Disposition: 01 HOME, SELF-CARE Condition: Stable Departure-Patient Inst. Decision time for Depature: 22:23 Ref[place]: [facility] [place] Primary Care Physician Patient Instructions: Generalized Weakness (DC) Add. Discharge Instructions: 1. Call your regular doctor tomorrow to make an appointment to be seen. Return to ER for any concerns the meantime such as worsening symptoms pain fever or any other emergent concerning symptoms All discharge instructions reviewed with patient and/or family. Voiced understanding. JOSE ALFREDO CAVANAUGH APRN Sep 15, 2019 21:34
[2019-09-15 21:54] LABS: INR 0.9 (0.8-1.4)
[2019-09-15 22:02] LABS: ALANINE AMINOTRANSFERASE 29 U/L (0-55); ALBUMIN 4.9 GM/DL (3.2-4.5); ALKALINE PHOSPHATASE 86 U/L (40-136); BILIRUBIN,TOTAL 0.2 MG/DL (0.1-1.0); BUN/CREATININE RATIO 11; CALCIUM 9.8 MG/DL (8.5-10.1); CARBON DIOXIDE 20 MMOL/L (21-32); CHLORIDE 110 MMOL/L (98-107); CREATININE SERUM 1.22 MG/DL (0.60-1.30); GFR ESTIMATED > 60; GLUCOSE 99 MG/DL (70-105); POTASSIUM 3.5 MMOL/L (3.6-5.0); SODIUM 143 MMOL/L (135-145); TOTAL PROTEIN 7.8 GM/DL (6.4-8.2)
[2019-09-15 22:34] VITALS: BP 126/89
--- OUTSIDE RECORDS SUMMARY | 2019-09-23 21:56 | XMS REPORT | Continuity of Care Document ---
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 activity/volume) 22 U/L 0-55 Serum or plasma protein measurement (mass/volume) 8.1 g/dL 6.4-8.2 Serum or plasma albumin measurement (mass/volume) 4.8 g/dL 3.2-4.5 Magnesium - 05/18/17 23:15 Magnesium 2.2 mg/dL 1.8-2.4 Lipase - 05/18/17 23:15 Lipase 36 U/L 8-78 Complete blood count (CBC) with automate d white blood cell (WBC) differential - 07/29/17 21:22 Blood leukocytes automated count (number/volume) 7.7 10*3/uL 4.3-11.0 Blood erythrocytes automated count (number/volume) 4.53 10*6/uL 4.35-5.85 Venous blood hemoglobin measurement (mass/volume) 13.4 g/dL 13.3-17.7 Blood hematocrit (volume fraction) 39 % 40-54 Automated erythrocyte mean corpuscular volume 85 [ foz_us] 80-99 Automated erythrocyte mean corpuscular h emoglobin (mass per erythrocyte) 30 pg 25-34 Automated erythrocyte mean corpuscular h emoglobin concentration measurement (mass/volume) 35 g/dL 32-36 Automated erythrocyte distribution width ratio 13. 5 % 10.0- 14.5 Automated blood platelet count [...] 10*3 1.0-4.0 Blood monocytes automated count (number/volume) 0. 7 10*3 0.0-1.0 Automated eosinophil count 0.1 10*3/uL 0 .0-0.3 Automated blood basophil count (count/volume) 0.0 10*3/uL 0.0-0.1 PT panel in platelet poor plasma by coag ulation assay - 07/29/17 21:22 Prothrombin time (PT) in platelet poor plasma by coagu lation assay 14.1 s 12.2-14.7 INR in platelet poor plasma or blood by coagulation as say 1.1 0.8-1.4 Activated partial thromboplastin time (a PTT) in platelet poor plasma bycoagulation assay - 07/29/17 21:22 Activated partial thromboplastin time (a PTT) in platelet poor plasma bycoagulation assay 30 s 24-35 Comprehensive metabolic panel - 07/29/17 21:22 Serum or plasma sodium measurement (moles/volume) 139 mmol/L 135-145 Serum or plasma potassium measurement (moles/volume) 3.1 mmol/L 3.6-5.0 Serum or plasma chloride measurement (moles/volume) 103 mmol/L 98-107 Carbon dioxide 22 mmol/L 21-32 Serum or plasma anion gap determination (moles/volume) 14 mmol/L 5-14 Serum or plasma urea nitrogen measurement (mass/volume ) 7 mg/dL 7-18 Serum or plasma creatinine measurement (mass/volume) 0.79 mg/dL 0.60-1.30 Serum or plasma urea nitrogen/creatinine mass ratio 9 NRG Serum or plasma creatinine measurement w ith calculation of estimated glomerular filtration rate > NRG Serum or plasma glucose measurement (mass/volume) 96 mg/dL 70-105 Serum or plasma calcium measurement (mass/volume) 9.5 mg/dL 8.5-10.1 Serum or plasma total bilirubin measurement (mass/volu me) 0.6 mg/dL 0.1-1.0 Serum or plasma alkaline phosphatase ana surement (enzymatic activity/volume) 50 U/L 40-136 Serum or plasma aspartate aminotransfera se measurement (enzymatic activity/volume) 17 U/L 5-34 Serum or plasma alanine aminotransferase measurement (enzymatic activity/volume) 19 U/L 0-55 Serum or plasma protein measurement (mass/volume) 7.3 g/dL 6.4-8.2 Serum or plasma albumin measurement (mass/volume) 4.7 g/dL 3.2-4.5 Magnesium - 07/29/17 21:22 Magnesium 2.0 mg/dL 1.8-2.4 Serum or plasma lithium measurement (mol es/volume) - 07/29/17 21:22 BNP level < pg/mL <100.0 Serum or plasma troponin i.cardiac measu rement (mass/volume) - 07/29/17 21:22 Serum or plasma troponin i.cardiac measurement (mass/v olume) < ng/mL <0.30 Serum or plasma thyrotropin measurement by detection limit <=0.05 miu/l (units/volume) - 07/29/17 21:22 Serum or plasma thyrotropin measurement by detection limit <=0.05 miu/l (units/volume) 3.11 u[iU]/mL 0.35-4.94 Serum or plasma ethanol measurement (mas s/volume) - 07/29/17 21:22 Serum or plasma ethanol measurement (mass/volume) < mg/dL <10 Urine drug screening test - 07/29/17 23: 00 Urine phencyclidine detection by screening method NEGATIVE NEGATIVE Urine benzodiazepines detection by screening method NEGATIVE NEGATIVE Urine cocaine detection NEGATIVE NEGATI VE Urine amphetamines detection by screening method N EGATIVE NEGATIVE Urine methamphetamine detection by screening method NEGATIVE NEGATIVE Urine cannabinoids detection by screening method N EGATIVE NEGATIVE Urine opiates detection by screening method NEGATI VE NEGATIVE Urine barbiturates detection NEGATIVE N EGATIVE Screening urine tricyclic antidepressants detection NEGATIVE NEGATIVE Urine methadone detection by screening method NEGA TIVE NEGATIVE Urine oxycodone detection NEGATIVE NEGA TIVE Urine propoxyphene detection NEGATIVE N EGATIVE Complete urinalysis with reflex to cultu re - 07/29/17 23:00 Urine color determination YELLOW NRG Urine clarity determination CLEAR NR G Urine pH measurement by test strip 7 5-9 Specific gravity of urine by test strip 1.005 1.016-1.022 Urine protein assay by test strip, semi-quantitative 1+ NEGATIVE Urine glucose detection by automated test strip NE GATIVE NEGATIVE Erythrocytes detection in urine sediment by light micr oscopy NEGATIVE NEGATIVE Urine ketones detection by automated test strip NE GATIVE NEGATIVE Urine nitrite detection by test strip NEGATIVE NEGATIVE Urine total bilirubin detection by test strip NEGA TIVE NEGATIVE Urine urobilinogen measurement by automated test strip (mass/volume) NORMAL NORMAL Urine leukocyte esterase detection by dipstick NEG ATIVE NEGATIVE Automated urine sediment erythrocyte cou nt by microscopy (number/high power field) NONE NRG Automated urine sediment leukocyte count by microscopy (number/high power field) RARE NRG Bacteria detection in urine sediment by light microsco py NEGATIVE NRG Squamous epithelial cells detection in u rine sediment by light microscopy NONE NRG Crystals detection in urine sediment by light microsco py NONE NRG Casts detection in urine sediment by light microscopy NONE NRG Mucus detection in urine sediment by light microscopy NEGATIVE NRG Complete urinalysis with reflex to culture NO NRG Renal epithelial cells detection in urin e sediment by light microscopy NONE NRG Complete blood count (CBC) with automate d white blood cell (WBC) differential - 09/04/17 19:30 Blood leukocytes automated count (number/volume) 7.8 10*3/uL 4.3-11.0 Blood erythrocytes automated count (number/volume) 4.59 10*6/uL 4.35-5.85 Venous blood hemoglobin measurement (mass/volume) 13.1 g/dL 13.3-17.7 Blood hematocrit (volume fraction) 38 % 40-54 Automated erythrocyte mean corpuscular volume 83 [ foz_us] 80-99 Automated erythrocyte mean corpuscular h emoglobin (mass per erythrocyte) 29 pg 25-34 Automated erythrocyte mean corpuscular h emoglobin concentration measurement (mass/volume) 34 g/dL 32-36 Automated erythrocyte distribution width ratio 14. 1 % 10.0- 14.5 Automated blood platelet count [...] 10*3 1.0-4.0 Blood monocytes automated count (number/volume) 0. 7 10*3 0.0-1.0 Automated eosinophil count 0.2 10*3/uL 0 .0-0.3 Automated blood basophil count (count/volume) 0.0 10*3/uL 0.0-0.1 Fibrin D-dimer FEU measurement in platel et poor plasma (mass/volume) - 09/04/17 19:30 Fibrin D-dimer FEU measurement in platelet poor plasma (mass/volume) < ug/mL 0.00-0.49 Erythrocyte sedimentation rate by lianne gren method - 09/04/17 19:30 Erythrocyte sedimentation rate by westergren method 12 mm 0- 15 Comprehensive metabolic panel - 09/04/17 19:30 Serum or plasma sodium measurement (moles/volume) 142 mmol/L 135-145 Serum or plasma potassium measurement (moles/volume) 3.8 mmol/L 3.6-5.0 Serum or plasma chloride measurement (moles/volume) 107 mmol/L 98-107 Carbon dioxide 22 mmol/L 21-32 Serum or plasma anion gap determination (moles/volume) 13 mmol/L 5-14 Serum or plasma urea nitrogen measurement (mass/volume ) 11 mg/dL 7-18 Serum or plasma creatinine measurement (mass/volume) 0.92 mg/dL 0.60-1.30 Serum or plasma urea nitrogen/creatinine mass ratio 12 NRG Serum or plasma creatinine measurement w ith calculation of estimated glomerular filtration rate > NRG Serum or plasma glucose measurement (mass/volume) 112 mg/dL 70-105 Serum or plasma calcium measurement (mass/volume) 9.3 mg/dL 8.5-10.1 Serum or plasma total bilirubin measurement (mass/volu me) 0.2 mg/dL 0.1-1.0 Serum or plasma alkaline phosphatase ana surement (enzymatic activity/volume) 67 U/L 40-136 Serum or plasma aspartate aminotransfera se measurement (enzymatic activity/volume) 21 U/L 5-34 Serum or plasma alanine aminotransferase measurement (enzymatic activity/volume) 20 U/L 0-55 Serum or plasma protein measurement (mass/volume) 8.1 g/dL 6.4-8.2 Serum or plasma albumin measurement (mass/volume) 4.6 g/dL 3.2-4.5 Serum or plasma lithium measurement (mol es/volume) - 09/04/17 19:30 BNP level 24.6 pg/mL <100.0 Serum or plasma troponin i.cardiac measu rement (mass/volume) - 09/04/17 19:30 Serum or plasma troponin i.cardiac measurement (mass/v olume) < ng/mL <0.30 THYROID STIMULATING HORMONE - 09/04/17 1 9:30 THYROID STIMULATING HORMONE 2.68 u[iU]/mL 0.35-4.94 Complete urinalysis with reflex to cultu re - 09/04/17 19:40 Urine color determination YELLOW NRG Urine clarity determination CLEAR NR G Urine pH measurement by test strip 7 5-9 Specific gravity of urine by test strip 1.010 1.016-1.022 Urine protein assay by test strip, semi-quantitative NEGATIVE NEGATIVE Urine glucose detection by automated test strip NE GATIVE NEGATIVE Erythrocytes detection in urine sediment by light micr oscopy NEGATIVE NEGATIVE Urine ketones detection by automated test strip NE GATIVE NEGATIVE Urine nitrite detection by test strip NEGATIVE NEGATIVE Urine total bilirubin detection by test strip NEGA TIVE NEGATIVE Urine urobilinogen measurement by automated test strip (mass/volume) NORMAL NORMAL Urine leukocyte esterase detection by dipstick NEG ATIVE NEGATIVE Automated urine sediment erythrocyte cou nt by microscopy (number/high power field) NONE NRG Automated urine sediment leukocyte count by microscopy (number/high power field) RARE NRG Bacteria detection in urine sediment by light microsco py NEGATIVE NRG Crystals detection in urine sediment by light microsco py NONE NRG Casts detection in urine sediment by light microscopy NONE NRG Mucus detection in urine sediment by light microscopy NEGATIVE NRG Complete urinalysis with reflex to culture NO NRG Urine drug screening test - 09/04/17 19: 40 Urine phencyclidine detection by screening method NEGATIVE NEGATIVE Urine benzodiazepines detection by screening method NEGATIVE NEGATIVE Urine cocaine detection NEGATIVE NEGATI VE Urine amphetamines detection by screening method N EGATIVE NEGATIVE Urine methamphetamine detection by screening method NEGATIVE NEGATIVE Urine cannabinoids detection by screening method N EGATIVE NEGATIVE Urine opiates detection by screening method NEGATI VE NEGATIVE Urine barbiturates detection NEGATIVE N EGATIVE Screening urine tricyclic antidepressants detection NEGATIVE NEGATIVE Urine methadone detection by screening method NEGA TIVE NEGATIVE Urine oxycodone detection NEGATIVE NEGA TIVE Urine propoxyphene detection NEGATIVE N EGATIVE Complete urinalysis with reflex to cultu re - 10/12/17 03:58 Urine color determination YELLOW NRG Urine clarity determination CLEAR NR G Urine pH measurement by test strip 5 5-9 Specific gravity of urine by test strip 1.010 1.016-1.022 Urine protein assay by test strip, semi-quantitative NEGATIVE NEGATIVE Urine glucose detection by automated test strip NE GATIVE NEGATIVE Erythrocytes detection in urine sediment by light micr oscopy NEGATIVE NEGATIVE Urine ketones detection by automated test strip NE GATIVE NEGATIVE Urine nitrite detection by test strip NEGATIVE NEGATIVE Urine total bilirubin detection by test strip NEGA TIVE NEGATIVE Urine urobilinogen measurement by automated test strip (mass/volume) NORMAL NORMAL Urine leukocyte esterase detection by dipstick NEG ATIVE NEGATIVE Automated urine sediment erythrocyte cou nt by microscopy (number/high power field) NONE NRG Automated urine sediment leukocyte count by microscopy (number/high power field) NONE NRG Bacteria detection in urine sediment by light microsco py NEGATIVE NRG Squamous epithelial cells detection in u rine sediment by light microscopy RARE NRG Crystals detection in urine sediment by light microsco py NONE NRG Casts detection in urine sediment by light microscopy NONE NRG Mucus detection in urine sediment by light microscopy NEGATIVE NRG Complete urinalysis with reflex to culture NO NRG Urine drug screening test - 10/12/17 03: 58 Urine phencyclidine detection by screening method NEGATIVE NEGATIVE Urine benzodiazepines detection by screening method NEGATIVE NEGATIVE Urine cocaine detection NEGATIVE NEGATI VE Urine amphetamines detection by screening method N EGATIVE NEGATIVE Urine methamphetamine detection by screening method NEGATIVE NEGATIVE Urine cannabinoids detection by screening method N EGATIVE NEGATIVE Urine opiates detection by screening method NEGATI VE NEGATIVE Urine barbiturates detection NEGATIVE N EGATIVE Screening urine tricyclic antidepressants detection NEGATIVE NEGATIVE Urine methadone detection by screening method NEGA TIVE NEGATIVE Urine oxycodone detection NEGATIVE NEGA TIVE Urine propoxyphene detection NEGATIVE N EGATIVE Streptococcus pyogenes antigen detection - 11/26/17 22:05 Streptococcus pyogenes antigen detection NEGATIVE NEGATIVE Influenza virus A and B antigen detectio n - 11/26/17 22:05 FLU RESULT NEGATIVE FOR INFLUENZA A AND B ANTIGENS BY IA NRG Bacterial throat culture - 11/26/17 22:0 5 Bacterial throat culture NBS NRG Complete urinalysis with reflex to cultu re - 11/30/17 16:19 Urine color determination YELLOW NRG Urine clarity determination CLEAR NR G Urine pH measurement by test strip 6 5-9 Specific gravity of urine by test strip 1.015 1.016-1.022 Urine protein assay by test strip, semi-quantitative NEGATIVE NEGATIVE Urine glucose detection by automated test strip NE GATIVE NEGATIVE Erythrocytes detection in urine sediment by light micr oscopy NEGATIVE NEGATIVE Urine ketones detection by automated test strip NE GATIVE NEGATIVE Urine nitrite detection by test strip NEGATIVE NEGATIVE Urine total bilirubin detection by test strip NEGA TIVE NEGATIVE Urine urobilinogen measurement by automated test strip (mass/volume) NORMAL NORMAL Urine leukocyte esterase detection by dipstick NEG ATIVE NEGATIVE Automated urine sediment erythrocyte cou nt by microscopy (number/high power field) NONE NRG Automated urine sediment leukocyte count by microscopy (number/high power field) RARE NRG Bacteria detection in urine sediment by light microsco py NEGATIVE NRG Crystals detection in urine sediment by light microsco py NONE NRG Casts detection in urine sediment by light microscopy NONE NRG Mucus detection in urine sediment by light microscopy NEGATIVE NRG Complete urinalysis with reflex to culture NO NRG Urine drug screening test - 04/26/18 16: 19 Urine phencyclidine detection by screening method NEGATIVE NEGATIVE Urine benzodiazepines detection by screening method NEGATIVE NEGATIVE Urine cocaine detection NEGATIVE NEGATI VE Urine amphetamines detection by screening method N EGATIVE NEGATIVE Urine methamphetamine detection by screening method NEGATIVE NEGATIVE Urine cannabinoids detection by screening method N EGATIVE NEGATIVE Urine opiates detection by screening method NEGATI VE NEGATIVE Urine barbiturates detection NEGATIVE N EGATIVE Screening urine tricyclic antidepressants detection POSITIVE NEGATIVE Urine methadone detection by screening method NEGA TIVE NEGATIVE Urine oxycodone detection NEGATIVE NEGA TIVE Urine propoxyphene detection NEGATIVE N EGATIVE Complete blood count (CBC) with automate d white blood cell (WBC) differential - 11/30/17 16:38 Blood leukocytes automated count (number/volume) 6.8 10*3/uL 4.3-11.0 Blood erythrocytes automated count (number/volume) 4.99 10*6/uL 4.35-5.85 Venous blood hemoglobin measurement (mass/volume) 13.7 g/dL 13.3-17.7 Blood hematocrit (volume fraction) 41 % 40-54 Automated erythrocyte mean corpuscular volume 83 [ foz_us] 80-99 Automated erythrocyte mean corpuscular h emoglobin (mass per erythrocyte) 28 pg 25-34 Automated erythrocyte mean corpuscular h emoglobin concentration measurement (mass/volume) 33 g/dL 32-36 Automated erythrocyte distribution width ratio 16. 3 % 10.0- 14.5 Automated blood platelet count [...] 10*3 1.0-4.0 Blood monocytes automated count (number/volume) 0. 7 10*3 0.0-1.0 Automated eosinophil count 0.2 10*3/uL 0 .0-0.3 Automated blood basophil count (count/volume) 0.0 10*3/uL 0.0-0.1 Comprehensive metabolic panel - 11/30/17 16:38 Serum or plasma sodium measurement (moles/volume) 140 mmol/L 135-145 Serum or plasma potassium measurement (moles/volume) 3.7 mmol/L 3.6-5.0 Serum or plasma chloride measurement (moles/volume) 107 mmol/L 98-107 Carbon dioxide 26 mmol/L 21-32 Serum or plasma anion gap determination (moles/volume) 7 mmol/L 5-14 Serum or plasma urea nitrogen measurement (mass/volume ) 13 mg/dL 7-18 Serum or plasma creatinine measurement (mass/volume) 0.79 mg/dL 0.60-1.30 Serum or plasma urea nitrogen/creatinine mass ratio 16 NRG Serum or plasma creatinine measurement w ith calculation of estimated glomerular filtration rate > NRG Serum or plasma glucose measurement (mass/volume) 110 mg/dL 70-105 Serum or plasma calcium measurement (mass/volume) 9.7 mg/dL 8.5-10.1 Serum or plasma total bilirubin measurement (mass/volu me) 0.2 mg/dL 0.1-1.0 Serum or plasma alkaline phosphatase ana surement (enzymatic activity/volume) 59 U/L 40-136 Serum or plasma aspartate aminotransfera se measurement (enzymatic activity/volume) 19 U/L 5-34 Serum or plasma alanine aminotransferase measurement (enzymatic activity/volume) 25 U/L 0-55 Serum or plasma protein measurement (mass/volume) 7.4 g/dL 6.4-8.2 Serum or plasma albumin measurement (mass/volume) 4.6 g/dL 3.2-4.5 CBC - 06/01/18 13:04 WHITE BLOOD CELL COUNT 5.0 Thousand/uL 3 .8-10.8 RED BLOOD CELL COUNT 4.35 Million/uL 4.2 0-5.80 HEMOGLOBIN 11.7 g/dL 13.2-17.1 HEMATOCRIT 36.3 % 38.5-50.0 MCV 83.4 fL 80.0-100.0 MCH 26.9 pg 27.0-33.0 MCHC 32.2 g/dL 32.0-36.0 RDW 13.3 % 11.0-15.0 PLATELET COUNT 360 Thousand/uL 140-400 MPV 9.3 fL 7.5-12.5 ABSOLUTE NEUTROPHILS 1505 cells/uL 1500- 7800 ABSOLUTE LYMPHOCYTES 2605 cells/uL 850-3 900 ABSOLUTE MONOCYTES 535 cells/uL 200-950 ABSOLUTE EOSINOPHILS 285 cells/uL 15-500 ABSOLUTE BASOPHILS 70 cells/uL 0-200 NEUTROPHILS 30.1 % NRG LYMPHOCYTES 52.1 % NRG MONOCYTES 10.7 % NRG EOSINOPHILS 5.7 % NRG BASOPHILS 1.4 % NRG Complete blood count (CBC) with automate d white blood cell (WBC) differential - 02/27/19 22:45 Blood leukocytes automated count (number/volume) 7.6 10*3/uL 4.3-11.0 Blood erythrocytes automated count (number/volume) 4.69 10*6/uL 4.35-5.85 Venous blood hemoglobin measurement (mass/volume) 12.9 g/dL 13.3-17.7 Blood hematocrit (volume fraction) 39 % 40-54 Automated erythrocyte mean corpuscular volume 82 [ foz_us] 80-99 Automated erythrocyte mean corpuscular h emoglobin (mass per erythrocyte) 28 pg 25-34 Automated erythrocyte mean corpuscular h emoglobin concentration measurement (mass/volume) 34 g/dL 32-36 Automated erythrocyte distribution width ratio 14. 6 % 10.0- 14.5 Automated blood platelet count (count/volume) 321 10*3/uL 130-400 Automated blood platelet mean volume measurement 8.7 [foz_us] 7.4-10.4 Automated blood neutrophils/100 leukocytes 41 % 42-75 Automated blood lymphocytes/100 leukocytes 41 % 12-44 Blood monocytes/100 leukocytes 12 % 0-12 Automated blood eosinophils/100 leukocytes 6 % 0-10 Automated blood basophils/100 leukocytes 1 % 0-10 Blood neutrophils automated count (number/volume) 3.1 10*3 1.8-7.8 Blood lymphocytes automated count (number/volume) 3.1 10*3 1.0-4.0 Blood monocytes automated count (number/volume) 0. 9 10*3 0.0-1.0 Automated eosinophil count 0.5 10*3/uL 0 .0-0.3 Automated blood basophil count (count/volume) 0.1 10*3/uL 0.0-0.1 PT panel in platelet poor plasma by coag ulation assay - 02/27/19 22:45 Prothrombin time (PT) in platelet poor plasma by coagu lation assay 12.3 s 12.2-14.7 INR in platelet poor plasma or blood by coagulation as say 0.9 0.8-1.4 Activated partial thromboplastin time (a PTT) in platelet poor plasma bycoagulation assay - 02/27/19 22:45 Activated partial thromboplastin time (a PTT) in platelet poor plasma bycoagulation assay 33 s 24-35 Comprehensive metabolic panel - 02/27/19 22:45 Serum or plasma sodium measurement (moles/volume) 138 mmol/L 135-145 Serum or plasma potassium measurement (moles/volume) 3.7 mmol/L 3.6-5.0 Serum or plasma chloride measurement (moles/volume) 102 mmol/L 98-107 Carbon dioxide 22 mmol/L 21-32 Serum or plasma anion gap determination (moles/volume) 14 mmol/L 5-14 Serum or plasma urea nitrogen measurement (mass/volume ) 15 mg/dL 7-18 Serum or plasma creatinine measurement (mass/volume) 1.19 mg/dL 0.60-1.30 Serum or plasma urea nitrogen/creatinine mass ratio 13 NRG Serum or plasma creatinine measurement w ith calculation of estimated glomerular filtration rate > NRG Serum or plasma glucose measurement (mass/volume) 84 mg/dL 70-105 Serum or plasma calcium measurement (mass/volume) 9.7 mg/dL 8.5-10.1 Serum or plasma total bilirubin measurement (mass/volu me) 0.2 mg/dL 0.1-1.0 Serum or plasma alkaline phosphatase ana surement (enzymatic activity/volume) 71 U/L 40-136 Serum or plasma aspartate aminotransfera se measurement (enzymatic activity/volume) 24 U/L 5-34 Serum or plasma alanine aminotransferase measurement (enzymatic activity/volume) 33 U/L 0-55 Serum or plasma protein measurement (mass/volume) 7.7 g/dL 6.4-8.2 Serum or plasma albumin measurement (mass/volume) 4.5 g/dL 3.2-4.5 CALCIUM CORRECTED 9.3 mg/dL 8.5-10.1 Serum or plasma troponin i.cardiac measu rement (mass/volume) - 02/27/19 22:45 Serum or plasma troponin i.cardiac measurement (mass/v olume) < ng/mL <0.028 Serum or plasma ethanol measurement (mas s/volume) - 02/27/19 22:45 Serum or plasma ethanol measurement (mass/volume) < mg/dL <10 Serum or plasma lithium measurement (mol es/volume) - 02/27/19 22:45 BNP PT < 10.0 <100.0 CBC w/MANUAL DIFF - 08/30/19 11:05 WHITE BLOOD CELL COUNT 7.1 Thousand/uL 3 .8-10.8 RED BLOOD CELL COUNT 3.62 Million/uL 4.2 0-5.80 HEMOGLOBIN 9.2 g/dL 13.2-17.1 HEMATOCRIT 29.5 % 38.5-50.0 MCV 81.5 fL 80.0-100.0 MCH 25.4 pg 27.0-33.0 MCHC 31.2 g/dL 32.0-36.0 RDW 15.1 % 11.0-15.0 PLATELET COUNT 528 Thousand/uL 140-400 MPV 9.1 fL 7.5-12.5 DIFFERENTIAL, MANUAL - 08/30/19 11:05 ABSOLUTE NEUTROPHILS 3252 cells/uL 1500- 7800 ABSOLUTE MONOCYTES 447 cells/uL 200-950 ABSOLUTE EOSINOPHILS 298 cells/uL 15-500 ABSOLUTE BASOPHILS 220 cells/uL 0-200 NEUTROPHILS 45.8 % NRG LYMPHOCYTES 40.6 % NRG MONOCYTES 6.3 % NRG EOSINOPHILS 4.2 % NRG BASOPHILS 3.1 % NRG ABSOLUTE LYMPHOCYTES 2883 cells/uL 850-3 900 PLATELET ESTIMATION INCREASED ADEQUATE CBC MORPHOLOGY NORMAL Complete blood count (CBC) with automate d white blood cell (WBC) differential - 09/15/19 21:17 Blood leukocytes automated count (number/volume) 7.9 10*3/uL 4.3-11.0 Blood erythrocytes automated count (number/volume) 3.90 10*6/uL 4.35-5.85 Venous blood hemoglobin measurement (mass/volume) 9.4 g/dL 13.3-17.7 Blood hematocrit (volume fraction) 30 % 40-54 Automated erythrocyte mean corpuscular volume 78 [ foz_us] 80-99 Automated erythrocyte mean corpuscular h emoglobin (mass per erythrocyte) 24 pg 25-34 Automated erythrocyte mean corpuscular h emoglobin concentration measurement (mass/volume) 31 g/dL 32-36 Automated erythrocyte distribution width ratio 15. 8 % 10.0- 14.5 Automated blood platelet count (count/volume) 422 10*3/uL 130-400 Automated blood platelet mean volume measurement 8.7 [foz_us] 7.4-10.4 Automated blood neutrophils/100 leukocytes 47 % 42-75 Automated blood lymphocytes/100 leukocytes 36 % 12-44 Blood monocytes/100 leukocytes 11 % 0-12 Automated blood eosinophils/100 leukocytes 5 % 0-10 Automated blood basophils/100 leukocytes 1 % 0-10 Blood neutrophils automated count (number/volume) 3.7 10*3 1.8-7.8 Blood lymphocytes automated count (number/volume) 2.8 10*3 1.0-4.0 Blood monocytes automated count (number/volume) 0. 9 10*3 0.0-1.0 Automated eosinophil count 0.4 10*3/uL 0 .0-0.3 Automated blood basophil count (count/volume) 0.1 10*3/uL 0.0-0.1 Blood type T Indirect antibody screen pa tanay - 09/15/19 21:17 WRISTBAND NUMBER [id number] NRG ABO+Rh group OP NRG Blood group antibody screen NEGATIVE NR G PT panel in platelet poor plasma by coag ulation assay - 09/15/19 21:17 Prothrombin time (PT) in platelet poor plasma by coagu lation assay 13.0 s 12.2-14.7 INR in platelet poor plasma or blood by coagulation as say 0.9 0.8-1.4 Comprehensive metabolic panel - 09/15/19 21:17 Serum or plasma sodium measurement (moles/volume) 143 mmol/L 135-145 Serum or plasma potassium measurement (moles/volume) 3.5 mmol/L 3.6-5.0 Serum or plasma chloride measurement (moles/volume) 110 mmol/L 98-107 Carbon dioxide 20 mmol/L 21-32 Serum or plasma anion gap determination (moles/volume) 13 mmol/L 5-14 Serum or plasma urea nitrogen measurement (mass/volume ) 14 mg/dL 7-18 Serum or plasma creatinine measurement (mass/volume) 1.22 mg/dL 0.60-1.30 Serum or plasma urea nitrogen/creatinine mass ratio 11 NRG Serum or plasma creatinine measurement w ith calculation of estimated glomerular filtration rate > NRG Serum or plasma glucose measurement (mass/volume) 99 mg/dL 70-105 Serum or plasma calcium measurement (mass/volume) 9.8 mg/dL 8.5-10.1 Serum or plasma total bilirubin measurement (mass/volu me) 0.2 mg/dL 0.1-1.0 Serum or plasma alkaline phosphatase ana surement (enzymatic activity/volume) 86 U/L 40-136 Serum or plasma aspartate aminotransfera se measurement (enzymatic activity/volume) 21 U/L 5-34 Serum or plasma alanine aminotransferase measurement (enzymatic activity/volume) 29 U/L 0-55 Serum or plasma protein measurement (mass/volume) 7.8 g/dL 6.4-8.2 Serum or plasma albumin measurement (mass/volume) 4.9 g/dL 3.2-4.5 Encounters ACCT No. Visit Date/Time Discharge Status Pt. Type Provider Facility Loc./Unit Complaint [id number] 05/03/2014 07:19:00 ACT Unknown [id number] 04/23/2014 07:20:00 ACT Unknown [id number] 01/03/2014 07:20:00 ACT Unknown [id number] 12/25/2013 07:16:00 ACT Unknown [id number] 09/25/2013 07:16:00 ACT Unknown [id number] 09/24/2013 10:57:00 ACT Unknown [id number] 09/15/2019 20:51:00 020 22:36:00 DIS Emergency JOSE ALFREDO CAVANAUGH APRN [facility] ER WEAK [id number] 03/21/2019 10:00:00 23:59:59 CLS Preadmit Talya BARNETT MD [facility] CARD DIZZINESS,PALPITATIONS, SYNCOPE [id number] 12/20/2018 08:35:00 00:01:00 DIS Outpatient Tayla BARNETT MD [facility] CARD DIZZINESS,PALPITATIONS, SYNCOPE [id number] 02/27/2019 22:21:00 23:58:00 DIS Emergency ROBIN THAKUR DO [facility] ER CP [id number] 12/20/2018 10:00:00 05/16/2 019 23:59:59 CLS Preadmit ERICKA REEVES, Tayla HICKMAN [facility] CARD CHEST PAIN [id number] 12/13/2018 10:27:00 23:59:59 CLS Outpatient ERICKA REEVES, Tayla HICKMAN [facility] CARD CHEST PAIN, DIZZINESS [id number] 12/05/2018 16:38:00 23:59:59 CLS Preadmit ERICKA REEVES, Tayla HICKMAN [facility] RAD DIZZINESS, SYNCOPE [id number] 04/10/2018 22:23:00 23:11:00 DIS Emergency ANNY REEVES, HESHAM Stone [facility] ER SOB [id number] 11/30/2017 15:50:00 018 17:37:00 DIS Emergency KAREEM ARELLANO MD [facility] ER FEELS LIKE VOMITING AFT ER EATING/DRINKING [id number] 11/26/2017 21:13:00 018 22:58:00 DIS Emergency SHIVANI PAESTHER [facility] ER COUGH [id number] 10/12/2017 03:02:00 018 05:38:00 DIS Emergency ROBIN THAKUR DO [facility] ER NAUSEA,BACK RT LEG PA IN [id number] 09/04/2017 19:14:00 018 20:41:00 DIS Emergency JOSE ALFREDO CAVANAUGH APRN [facility] ER CHEST PAIN [id number] 07/29/2017 21:13:00 017 23:16:00 DIS Emergency ROBIN THAKUR DO [facility] ER CP,PALPITATIONS [id number] 05/18/2017 23:03:00 017 00:22:00 DIS Emergency HESHAM MCCORMICK MD [facility] ER NAUSEA [id number] 11/28/2016 23:53:00 017 01:33:00 DIS Emergency ROMEO REEVES, KARLENE Soriano [facility] ER FLUID IN LUNGS [id number] 11/01/2016 16:10:00 017 23:59:59 CLS Outpatient EV SANZ APRN [facility] LAB LONG-TERM USE M EDICATIONS SCHIZO AFFECTIVE USE [id number] 09/09/2019 09:00:00 09/09/2019 23:59:5 9 CLS Outpatient AZIZA PAN [address] [id number] 08/30/2019 10:40:00 Document Registration [id number] 06/01/2018 15:00:00 Document Registration
== END 2019-09-15 22:36 | disposition home or self-care (01) ==
LOC: EDUNIT# 20:50 → ER 20:51
DX: R53.83 Other fatigue (principal); R53.1 Weakness; J45.909 Unspecified asthma, uncomplicated; I10 Essential (primary) hypertension; E78.00 Pure hypercholesterolemia, unspecified; G40.909 Epilepsy, unspecified, not intractable, without status epilepticus; K21.9 Gastro-esophageal reflux disease without esophagitis; F31.9 Bipolar disorder, unspecified; Z88.0 Allergy status to penicillin; Z88.5 Allergy status to narcotic agent; Z88.8 Allergy status to other drugs, medicaments and biological substances; Z79.51 Long term (current) use of inhaled steroids; Z77.22 Contact with and (suspected) exposure to environmental tobacco smoke (acute) (chronic)
CPT/HCPCS: 36415; 80053; 85025; 85610; 86850; 86900; 86901; 86920; 96374

== ENCOUNTER → 2020-01-23 | Outpatient (CLI) | payer MEDICAID ==
[2020-01-23] VITALS (22 sets, daily range): BP systolic 75–123; BP diastolic 35–86
[~2020-01-23] VITALS: Ht 182.9 cm; Wt 95.9 kg
[~2020-01-23] MED LIST changes: +ATROPINE INJECTION 1 MG/10 ML SYR (ABBOTT) ONE; +NS IV 1000 ML 1,000 ML IV SCH; +NS IV 1000 ML 1,000 ML ONE; -OMEP-280 PO; +OMEP20CA18 PO
--- NOTE | 2020-01-23 10:44 | NUR ---
SITTING UP AT EDGE OF BED DRINKING SPRITE AND EATING CRACKERS, BP CONT TO REMAIN STABLE SBP>100. IV FLUID INFUSED
--- NOTE | 2020-01-23 10:46 | NUR ---
IV REMOVED CATH INTACT ON REMOVAL, AMB ON DC
== END ==
LOC: CARD 09:11
PROVIDERS: ATTEND Internal Medicine Interventional Cardiology
DX: I10 Essential (primary) hypertension (principal); E78.5 Hyperlipidemia, unspecified; R07.9 Chest pain, unspecified; R55 Syncope and collapse; R42 Dizziness and giddiness; R00.2 Palpitations; R00.0 Tachycardia, unspecified
CPT/HCPCS: 93660